=== PATIENT | male | born 1950 | race Caucasian/White ===

== ENCOUNTER 2018-12-23 15:16 | Inpatient (IN) | payer OTHER, SELFPAY ==
[2018-12-23 15:52] LABS: Absolute Lymphocytes (CBC) 1.5 K/uL (0.7-4.9); Basophils % 0.3 % (0-1.3); Hematocrit 31.5 % (39.6-49.0); Lymphocytes % 15.8 % (15.3-44.8); MPV 9.7 fL (7.6-11.3)
[2018-12-23 15:54] LABS: Protime INR 2.02
[2018-12-23] MEDS ORDERED: IPRATROPIUM BROM 0.5MG/2.5ML ONE (16:10)
[2018-12-23] MEDS ORDERED: METHYLPREDNISOLONE 125 MG INJ ONE (16:10)
[2018-12-23] MEDS ORDERED: LEVALBUTEROL 1.25 MG/3 ML NEB ONE (16:10)
[2018-12-23] MEDS ORDERED: FAMOTIDINE 20 MG/2 ML VIAL IV ONE (16:11)
[2018-12-23] MEDS ORDERED: NA CHLORIDE 0.9% 1,000 ML ONE (16:11)
[2018-12-23 16:18] LABS: ALT/SGPT 24 U/L (12-78); AST/SGOT 29 U/L (15-37); Albumin 4.2 g/dL (3.4-5.0); Alkaline Phosphatase 65 U/L (45-117); BUN Blood Urea Nitrogen 23 mg/dL (7-18); Bicarbonate 27 mmol/L (21-32); Bilirubin Direct 0.2 mg/dL (0-0.2); Bilirubin Total 0.9 mg/dL (0.2-1.0); Glucose Level 102 mg/dL (74-106); Magnesium 2.1 mg/dL (1.8-2.4); NT PRO-BNP 1403 pg/mL (<125); Potassium 4.3 mmol/L (3.5-5.1); Sodium Level 140 mmol/L (136-145); Troponin (Emerg Dept Use Only) < 0.02 ng/mL (0.0-0.045)
--- NOTE | 2018-12-23 16:21 | RAD REPORT ---
EXAM DESCRIPTION: RAD - Chest Single View - 12/23/2018 4:01 pm CLINICAL HISTORY: Chest pain COMPARISON: None. TECHNIQUE: AP portable chest image was obtained 1558 hours . FINDINGS: No focal lung parenchymal process. No failure or volume overload. Sternotomy wires are in place. Pacemaker/defibrillator in place. Heart and vasculature are normal. No measurable pleural effu christopher and no pneumothorax. No acute bony abnormality seen. No acute aortic findings suspected. IMPRESSION: No acute cardiopulmonary process.
--- NOTE | 2018-12-23 16:29 | ER ---
Nurse's Notes [facility] Name: Juan Aranda Age: 68 yrs Sex: Male : 1950 Arrival Date: 12/23/2018 Time: 15:17 Bed 4 Private MD: Diagnosis: Other chest pain;Chronic obstructive pulmonary disease with (acute) exacerbation;Tobacco abuse counseling;Tobacco use;Unspecified kidney failure;Anemia, unspecified Presentation: 12/23 15:13 Presenting complaint: EMS states: CP since waking up at 1300, c/o cough/congestion x 2 sv days. Transition of care: patient was not received from another setting of care. Onset of symptoms was December 23, 2018. Risk Assessment: Do you want to hurt yourself or someone else? Patient reports no desire to harm self or others. Initial Sepsis Screen: Does the patient meet any 2 criteria? No. Patient's initial sepsis screen is negative. Does the patient have a suspected source of infection? Yes: Productive cough/pneumonia. Care prior to arrival: IV initiated. 20 GA, in the right antecubital area, Oxygen administered. via nasal cannula. 15:13 Method Of Arrival: EMS: [facility] sv 15:13 Acuity: DENNIS 2 sv Triage Assessment: 15:13 General: Appears in no apparent distress. uncomfortable, unkempt, well developed, sv Behavior is calm, cooperative, appropriate for age. Pain: Complains of pain in chest Pain currently is 8 out of 10 on a pain scale. Neuro: Level of Consciousness is awake, alert, obeys commands, Oriented to person, place, time, situation, Moves all extremities. Full function Speech is normal. Cardiovascular: Patient's skin is warm and dry. Rhythm is ventricular pacer. Respiratory: Reports cough that is productive, Airway is patent Respiratory effort is even, unlabored, Respiratory pattern is regular, symmetrical. Derm: Skin is normal. Musculoskeletal: Range of motion: intact in all extremities. Historical: - Allergies: 15:23 No Known Allergies; sv - Home Meds: 15:38 potassium chloride 10 mEq Oral cpER [Active]; atorvastatin 20 mg oral tab [Active]; sv Coreg 6.25 mg Oral tab [Active]; levothyroxine 200 mcg tab [Active]; clonazepam 0.5 mg Oral tab [Active]; bisoprolol 5 mg [Active]; Entresto 24-26 mg oral tab [Active]; Lasix 40 mg Oral tab [Active]; warfarin 4 mg Oral tab [Active]; - PSHx: 15:23 Pacemaker; artificial heart valve; cardiac stents; sv - Immunization history:: Adult Immunizations up to date. - Family history:: not pertinent. - Social history:: Smoking status: Patient uses tobacco products. - Ebola Screening: : No symptoms or risks identified at this time. Screenin:20 Abuse screen: Denies threats or abuse. Denies injuries from another. Nutritional sv screening: No deficits noted. Tuberculosis screening: No symptoms or risk factors identified. Fall Risk None identified. Assessment: 16:33 Reassessment: Patient appears in no apparent distress at this time. No changes from sv previously documented assessment. Patient and/or family updated on plan of care and expected duration. Pain level reassessed. Patient is alert, oriented x 3, equal unlabored respirations, skin warm/dry/pink. 16:53 Reassessment: Patient appears in no apparent distress at this time. Patient and/or sv family updated on plan of care and expected duration. Pain level reassessed. Patient is alert, oriented x 3, equal unlabored respirations, skin warm/dry/pink. 17:36 Reassessment: Patient appears in no apparent distress at this time. No changes from sv previously documented assessment. Patient and/or family updated on plan of care and expected duration. Pain level reassessed. Patient is alert, oriented x 3, equal unlabored respirations, skin warm/dry/pink. 18:23 Reassessment: Patient appears in no apparent distress at this time. No changes from sv previously documented assessment. Patient and/or family updated on plan of care and expected duration. Pain level reassessed. Patient is alert, oriented x 3, equal unlabored respirations, skin warm/dry/pink. Vital Signs: 15:23 BP 140 / 60; Pulse 86; Resp 28; Temp 98(O); Pulse Ox 96% on 2 lpm NC; sv 16:25 BP 133 / 90; Pulse 86; Resp 23; Pulse Ox 100% on Nebulizer Mask; sv 17:36 BP 121 / 70; Pulse 83; Resp 24; Pulse Ox 100% on 2 lpm NC; sv 18:30 BP 145 / 64; Pulse 81; Resp 19 S; Pulse Ox 99% on R/A; jl7 ED Course: 15:13 Maintain EMS IV. Dressing intact. Good blood return noted. Site clean \T\ dry. Gauge \T\ sv site: 20G R AC. 15:17 Patient arrived in ED. ss 15:20 Patient has correct armband on for positive identification. Placed in gown. Bed in low sv position. Call light in reach. Side rails up X2. quality assurance monitor chassis on. Pulse ox on. NIBP on. Door closed. Warm blanket given. Head of bed elevated. 15:21 Kirti Johnsno, RN is Primary Nurse. sv 15:22 Triage completed. sv 15:23 EKG done, by pharmacy intake technician. reviewed by Franklin Monk MD. at1 15:30 Initial lab(s) drawn, by ED staff, sent to lab. sv 15:30 Oxygen administration via nasal cannula \T\ 2L/min. sv 15:32 Franklin Monk MD is Attending Physician. holden 15:39 Arm band placed on. sv 15:48 Basic Metabolic Panel Sent. sv 15:48 CBC with Diff Sent. sv 15:48 LFT's Sent. sv 15:48 Magnesium Sent. sv 15:48 NT PRO-BNP Sent. sv 15:48 PT-INR Sent. sv 15:48 Troponin (emerg Dept Use Only) Sent. sv 15:59 X-ray completed. Portable x-ray completed in exam room. Patient tolerated procedure mh1 well. 16:21 XRAY Chest (1 view) In Process Unspecified. EDMS 16:26 Nadja Garcia MD is Hospitalizing Provider. holden 16:32 Katlin Simpson MD is Hospitalizing Provider. holden 17:36 Awaiting bed assignment. sv 18:19 Urine Dipstick--Ancillary (enter results) Sent. sv 18:22 No provider procedures requiring assistance completed. Patient admitted, IV remains in sv place. intact. Administered Medications: 16:00 Drug: Pepcid 20 mg Route: IVP; Site: left hand; jl7 16:34 Follow up: Response: No adverse reaction sv 16:25 Drug: NS 0.9% 1000 ml Route: IV; Rate: 30 ml/hr; Site: left hand; jl7 18:40 Follow up: Response: No adverse reaction; IV Status: Infusion continued upon admission jl7 16:26 Drug: SOLU-Medrol 125 mg Route: IVP; Site: left hand; jl7 16:34 Follow up: Response: No adverse reaction sv 16:30 Drug: Xopenex 3.75 mg Route: Inhalation; jl7 17:00 Follow up: Response: No adverse reaction jl7 16:30 Drug: AtroVENT Aerosol 0.5 mg Route: Inhalation; jl7 17:00 Follow up: Response: No adverse reaction jl7 16:53 Drug: Coumadin 5 mg Route: PO; sv 17:36 Follow up: Response: No adverse reaction sv Outcome: 16:27 Decision to Hospitalize by Provider. holden 18:30 Admitted to Tele accompanied by tech, via stretcher, room 203, with chart, Report jl7 called to [facility] 18:30 Condition: stable 18:30 Discharge instructions given to patient, Instructed on the need for admit, Demonstrated understanding of instructions. 18:43 Patient left the ED. jl7 Signatures: Dispatcher [employer] EDKirti Ibanez RN RN sv Anderson, Corey, MD MD cha Harvey, Martha 1 Diana Arteaga RN RN ss Gonzales, Amanda, line service person EKG Tat1 Amira Wood RN RN jl7 Corrections: (The following items were deleted from the chart) 15:36 15:23 BP 140 / 60; Pulse 86bpm; Resp 28bpm; Pulse Ox 96% 2 lpm Nasal Cannula; sv sv
--- NOTE | 2018-12-23 16:30 | EDPHYS ---
Physician Documentation [facility] Name: Juan Aranda Age: 68 yrs Sex: Male : 1950 Arrival Date: 12/23/2018 Time: 15:17 Bed 4 Private MD: ED Physician Franklin Monk HPI: 12/23 15:49 This 68 yrs old Male presents to ER via EMS with complaints of Chest Pain > holden 30 y/o, Cough, Congestion. 15:49 The patient or guardian reports chest pain that is located primarily in the substernal holden area, anterior chest wall, bilaterally. Onset: just prior to arrival, today. The pain does not radiate. Associated signs and symptoms: Pertinent positives: dizziness, shortness of breath. The chest pain is described as a heaviness, a pressure. Modifying factors: The symptoms are alleviated by nothing. the symptoms are aggravated by nothing. Severity of pain: At its worst the pain was mild moderate in the emergency department the pain is unchanged. The patient has experienced similar episodes in the past, several times. Historical: - Allergies: 15:23 No Known Allergies; sv - Home Meds: 15:38 potassium chloride 10 mEq Oral cpER [Active]; atorvastatin 20 mg oral tab [Active]; sv Coreg 6.25 mg Oral tab [Active]; levothyroxine 200 mcg tab [Active]; clonazepam 0.5 mg Oral tab [Active]; bisoprolol 5 mg [Active]; Entresto 24-26 mg oral tab [Active]; Lasix 40 mg Oral tab [Active]; warfarin 4 mg Oral tab [Active]; - PSHx: 15:23 Pacemaker; artificial heart valve; cardiac stents; sv - Immunization history:: Adult Immunizations up to date. - Family history:: not pertinent. - Social history:: Smoking status: Patient uses tobacco products. - Ebola Screening: : No symptoms or risks identified at this time. ROS: 15:49 Constitutional: Negative for fever, chills, and weight loss, Eyes: Negative for injury, holden pain, redness, and discharge, ENT: Negative for injury, pain, and discharge, Neck: Negative for injury, pain, and swelling, Abdomen/GI: Negative for abdominal pain, nausea, vomiting, diarrhea, and constipation, Back: Negative for injury and pain, : Negative for injury, bleeding, discharge, and swelling, MS/Extremity: Negative for injury and deformity, Neuro: Negative for headache, weakness, numbness, tingling, and seizure, Psych: Negative for depression, anxiety, suicide ideation, homicidal ideation, and hallucinations, Allergy/Immunology: Negative for hives, rash, and allergies, Endocrine: Negative for neck swelling, polydipsia, polyuria, polyphagia, and marked weight changes, Hematologic/Lymphatic: Negative for swollen nodes, abnormal bleeding, and unusual bruising. 15:49 Cardiovascular: Positive for chest pain. 15:49 Respiratory: Positive for cough, shortness of breath, wheezing, inspiratory, expiratory. 15:49 Skin: Positive for pallor. Exam: 15:49 Constitutional: This is a well developed, well nourished patient who is awake, alert, holden and in no acute distress. Head/Face: Normocephalic, atraumatic. Eyes: Pupils equal round and reactive to light, extra-ocular motions intact. Lids and lashes normal. Conjunctiva and sclera are non-icteric and not injected. Cornea within normal limits. Periorbital areas with no swelling, redness, or edema. ENT: Nares patent. No nasal discharge, no septal abnormalities noted. Tympanic membranes are normal and external auditory canals are clear. Oropharynx with no redness, swelling, or masses, exudates, or evidence of obstruction, uvula midline. Mucous membranes moist. Neck: Trachea midline, no thyromegaly or masses palpated, and no cervical lymphadenopathy. Supple, full range of motion without nuchal rigidity, or vertebral point tenderness. No Meningismus. Chest/axilla: Normal chest wall appearance and motion. Nontender with no deformity. No lesions are appreciated. Cardiovascular: Regular rate and rhythm with a normal S1 and S2. No gallops, murmurs, or rubs. Normal PMI, no JVD. No pulse deficits. Abdomen/GI: Soft, non-tender, with normal bowel sounds. No distension or tympany. No guarding or rebound. No evidence of tenderness throughout. Back: No spinal tenderness. No costovertebral tenderness. Full range of motion. Male : Normal genitalia with no discharge or lesions. Skin: Warm, dry with normal turgor. Normal color with no rashes, no lesions, and no evidence of cellulitis. MS/ Extremity: Pulses equal, no cyanosis. Neurovascular intact. Full, normal range of motion. Neuro: Awake and alert, GCS 15, oriented to person, place, time, and situation. Cranial nerves II-XII grossly intact. Motor strength 5/5 in all extremities. Sensory grossly intact. Cerebellar exam normal. Normal gait. Psych: Awake, alert, with orientation to person, place and time. Behavior, mood, and affect are within normal limits. 15:49 Respiratory: mild respiratory distress is noted, Respirations: labored breathing, that is mild, Breath sounds: decreased breath sounds, that are mild, that are moderate, rhonchi, that are mild, stridor, that is mild, + upper airway congestion. Respiratory rate: 28 Vital Signs: 15:23 BP 140 / 60; Pulse 86; Resp 28; Temp 98(O); Pulse Ox 96% on 2 lpm NC; sv 16:25 BP 133 / 90; Pulse 86; Resp 23; Pulse Ox 100% on Nebulizer Mask; sv 17:36 BP 121 / 70; Pulse 83; Resp 24; Pulse Ox 100% on 2 lpm NC; sv 18:30 BP 145 / 64; Pulse 81; Resp 19 S; Pulse Ox 99% on R/A; jl7 MDM: 15:[address] [facility] 15:52 Data reviewed: vital signs, nurses notes, lab test result(s), EKG, radiologic studies, holden plain films. 12/23 15:35 Order name: Basic Metabolic Panel 12/23 15:35 Order name: CBC with Diff 12/23 15:35 Order name: LFT's 12/23 15:35 Order name: Magnesium sv 12/23 15:35 Order name: NT PRO-BNP sv 12/23 15:35 Order name: PT-INR sv 12/23 15:35 Order name: Troponin (emerg Dept Use Only) sv 12/23 15:35 Order name: Blood Culture Adult (2) 12/23 15:49 Order name: Lipase [facility] 12/23 15:57 Order name: CBC with Automated Diff; Complete Time: 16:24 EDKY 12/23 15:59 Order name: Protime (+INR); Complete Time: 16:24 EDMS 12/23 16:20 Order name: Liver (Hepatic) Function EDKY 12/23 16:20 Order name: Troponin (Emerg Dept Use Only) EDKY 12/23 16:20 Order name: NT PRO-BNP EDKY 12/23 15:35 Order name: XRAY Chest (1 view) 12/23 15:35 Order name: EKG; Complete Time: 15:38 sv 12/23 15:35 Order name: Cardiac monitoring; Complete Time: 15:35 sv 12/23 15:35 Order name: EKG - Nurse/Tech; Complete Time: 15:35 sv 12/23 15:35 Order name: IV Saline Lock; Complete Time: 15:35 sv 12/23 15:35 Order name: Labs collected and sent; Complete Time: 15:36 sv 12/23 15:35 Order name: O2 Per Protocol; Complete Time: 15:36 sv 12/23 16:20 Order name: Magnesium EDKY 12/23 17:58 Order name: Urine Dipstick--Ancillary (enter results) em 12/23 18:21 Order name: Urine Dipstick-Ancillary EDKY 12/23 15:35 Order name: O2 Sat Monitoring; Complete Time: 15:36 sv 12/23 15:49 Order name: Urine Dipstick-Ancillary (obtain specimen); Complete Time: 18:19 holden Administered Medications: 16:00 Drug: Pepcid 20 mg Route: IVP; Site: left hand; jl7 16:34 Follow up: Response: No adverse reaction sv 16:25 Drug: NS 0.9% 1000 ml Route: IV; Rate: 30 ml/hr; Site: left hand; jl7 18:40 Follow up: Response: No adverse reaction; IV Status: Infusion continued upon admission jl7 16:26 Drug: SOLU-Medrol 125 mg Route: IVP; Site: left hand; jl7 16:34 Follow up: Response: No adverse reaction sv 16:30 Drug: Xopenex 3.75 mg Route: Inhalation; jl7 17:00 Follow up: Response: No adverse reaction jl7 16:30 Drug: AtroVENT Aerosol 0.5 mg Route: Inhalation; jl7 17:00 Follow up: Response: No adverse reaction jl7 16:53 Drug: Coumadin 5 mg Route: PO; sv 17:36 Follow up: Response: No adverse reaction sv Disposition: 12/23/18 16:27 Hospitalization ordered by Katlin Simpson for Inpatient Admission. Preliminary diagnosis are Other chest pain, Chronic obstructive pulmonary disease with (acute) exacerbation, Tobacco abuse counseling, Tobacco use, Unspecified kidney failure, Anemia, unspecified. - Bed requested for Telemetry/MedSurg (Inpatient). - Status is Inpatient Admission. jl7 - Condition is Fair. - Problem is new. - Symptoms have improved. UTI on Admission? No Signatures: Dispatcher [employer] EDKirti Ibanez RN RN sv Anderson, Corey, MD MD cha Martinez, Eric em1 Amira Wood RN RN jl7 Corrections: (The following items were deleted from the chart) 16:33 16:27 Hospitalization Ordered by Nadja Garcia MD for Inpatient Admission. Preliminary [facility] diagnosis is Other chest pain; Chronic obstructive pulmonary disease with (acute) exacerbation; Tobacco abuse counseling; Tobacco use. Bed requested for Telemetry/MedSurg (Inpatient). Status is Inpatient Admission. Condition is Fair. Problem is new. Symptoms have improved. UTI on Admission? No. holden 16:48 16:33 12/23/2018 16:27 Hospitalization Ordered by Katlin Simpson MD for Inpatient holden Admission. Preliminary diagnosis is Other chest pain; Chronic obstructive pulmonary disease with (acute) exacerbation; Tobacco abuse counseling; Tobacco use. Bed requested for Telemetry/MedSurg (Inpatient). Status is Inpatient Admission. Condition is Fair. Problem is new. Symptoms have improved. UTI on Admission? No. holden 17:47 16:48 12/23/2018 16:27 Hospitalization Ordered by Katlin Simpson MD for Inpatient em1 Admission. Preliminary diagnosis is Other chest pain; Chronic obstructive pulmonary disease with (acute) exacerbation; Tobacco abuse counseling; Tobacco use; Unspecified kidney failure; Anemia, unspecified. Bed requested for Telemetry/MedSurg (Inpatient). Status is Inpatient Admission. Condition is Fair. Problem is new. Symptoms have improved. UTI on Admission? No. holden 18:43 17:47 12/23/2018 16:27 Hospitalization Ordered by Katlin Simpson MD for Inpatient jl7 Admission. Preliminary diagnosis is Other chest pain; Chronic obstructive pulmonary disease with (acute) exacerbation; Tobacco abuse counseling; Tobacco use; Unspecified kidney failure; Anemia, unspecified. Bed requested for Telemetry/MedSurg (Inpatient). Status is Inpatient Admission. Condition is Fair. Problem is new. Symptoms have improved. UTI on Admission? No. em1
[2018-12-23] MEDS ORDERED: WARFARIN SODIUM 5 MG TAB ONE (16:46)
--- NOTE | 2018-12-23 17:34 | EKG ---
Test Date: 2018-12-23 Test Time: 15:20:47 Digital Strategy Director: LUIS FERNANDO MEASUREMENT RESULTS: Intervals: Rate: 84 GA: 120 QRSD: 140 QT: 428 QTc: 505 [place]: P: 91 GA: 120 QRS: 247 T: 69 INTERPRETIVE STATEMENTS: Electronic ventricular pacemaker No previous ECG available for comparison Electronically Signed On 12-23-18 17:33:37 CDT by Brandyn Elizabeth
--- NOTE | 2018-12-23 17:53 | P.HP ---
Patient History Date of Service: 12/23/18 Primary Care Provider: Dr. Patel; Recapper: Dr. davies Reason for admission: Chest pain History of Present Illness: This is a 60-year-old male with history of current smoking, CHF, artificial aortic heart valve common CAD with cardiac stents, pacemaker in place admitted for chest pain. Per patient, chest pain started at 1:00 p.m. prior to arrival. Pain started at rest, after he woke up from his nap. Pain is located in the substernal area without any radiation. Describes it as a pressure/heaviness. Pain is associated with nausea and shortness of breath. He does complain of a cough. Denies any dizziness, headache, vision changes, lightheadedness, speech changes or or other GI complaints. Since the pain was not improving, patient decided to come to the ER. In the ER, blood pressure was 140/60, heart rate of 86, respirations 20, afebrile at 98, satting 96% on 2 L nasal cannula and then 100% on mask. His labs were remarkable for an elevated creatinine of 1.65 and a low platelet count of 110. His proBNP was slightly elevated at 1403. His chest x-ray was negative. In the ER, he received Pepcid, nebulizer treatment, Solu-Medrol, IV fluids and warfarin 5 mg. At the time of my exam, he was in mild to moderate distress but stated that his chest pain had improved. He continued to complain of cough. He was hemodynamically stable but did have tachypnea on exam. Home medications list reviewed: Yes - Past Medical/Surgical History Diabetic: No -: Systolic congestive heart failure -: Prosthetic Aortic valve -: Pacemaker in place -: Coronary artery disease, with stents -: Thyroid disease -: Hyperlipidemia - Social History Smoking Status: Current every day smoker Alcohol use: No CD- Drugs: No Place of Residence: Home Review of Systems 10-point ROS is otherwise unremarkable Physical Examination - Physical Exam General: Alert, Oriented x3, Mild distress, Other (Looks older than stated age, ill appearing) HEENT: Atraumatic, PERRLA, Mucous membr. moist/pink, EOMI, Sclerae nonicteric Neck: Supple, 2+ carotid pulse no bruit, No LAD, Without JVD or thyroid abnormality Respiratory: Diminished, Crackles/rales, Other (Tachypneic) Cardiovascular: Regular rate/rhythm, Normal S1 S2 Gastrointestinal: Normal bowel sounds, No tenderness Musculoskeletal: No tenderness Integumentary: No rashes Neurological: Normal speech, Normal strength at 5/5 x4 extr, Normal tone, Normal affect Lymphatics: No axilla or inguinal lymphadenopathy - Studies Laboratory Data (last 24 hrs) 12/23/18 15:30: PT 23.2 H, INR 2.02 12/23/18 15:30: WBC 9.2, Hgb 10.5 L, Hct 31.5 L, Plt Count 110 L 12/23/18 15:30: Sodium 140, Potassium 4.3, BUN 23 H, Creatinine 1.65 H, Glucose 102, Magnesium 2.1, Total Bilirubin 0.9, AST 29, ALT 24, Alkaline Phosphatase 65 Assessment and Plan - Problems (Diagnosis) (1) Unstable angina Current Visit: Yes Status: Acute Plan: Heart score of 5 -troponin negative x1, Trend -EKG with nonspecific changes, Trend -cardiology consulted, awaiting recommendations -chest pain guidelines: Restart bisoprolol and Coreg, statin -nitro sublingual as needed for pain; morphine as needed for pain -echo ordered, pending (2) Acute respiratory failure Current Visit: Yes Status: Acute Plan: Likely secondary to CHF exacerbation -patient with a history of systolic CHF with depressed ejection (upon chart review) -restart Lasix and entresto -hold IV fluids, fluid restriction -provide oxygen as needed. We will wean off of oxygen as tolerated. Qualifiers: Respiratory failure complication: unspecified whether with hypoxia or hypercapnia Qualified Code(s): J96.00 - Acute respiratory failure, unspecified whether with hypoxia or hypercapnia (3) Congestive heart failure (CHF) Current Visit: Yes Status: Chronic Plan: Will restart home medications. -cardiology consulted, awaiting recommendations -echo ordered, pending -daily weights -strict I&Os -fluid restriction Qualifiers: Heart failure type: systolic Heart failure chronicity: acute on chronic Qualified Code(s): I50.23 - Acute on chronic systolic (congestive) heart failure (4) Acute kidney injury Current Visit: Yes Status: Acute Plan: This could be secondary to volume overload -continue to monitor -avoid nephrotoxic medications -will get nephrology consult if no improvement or worsening kidney function (5) History of prosthetic aortic valve Current Visit: No Status: Chronic Plan: On warfarin for anticoagulation -current INR 2.02 -continue Warfarin and continue to monitor INR (6) CAD (coronary artery disease) Current Visit: No Status: Chronic Qualifiers: Coronary Disease-Associated Artery/Lesion type: unga artery [place] vs. transplanted heart: unga heart Associated angina: with unstable angina Qualified Code(s): I25.110 - Atherosclerotic heart disease of unga coronary artery with unstable angina pectoris (7) Pacemaker Current Visit: No Status: Chronic (8) Nicotine dependence Current Visit: Yes Status: Chronic Plan: Counseled, more than 10 min Qualifiers: Nicotine product type: cigarettes Substance use status: uncomplicated Qualified Code(s): F17.210 - Nicotine dependence, cigarettes, uncomplicated - Plan DVT prophylaxis: Warfarin, as above GI prophylaxis: pepcid Diet: Heart healthy Disposition: Admit to floor with tele, pending cardiology evaluation. Discharge Plan: Home - Advance Directives Does patient have a Living Will: No Does patient have a Durable POA for Healthcare: No
[2018-12-23] MEDS ORDERED: TETANUS & DIPHTHERIA TOX,ADULT 0.5 ML VIAL ONE (18:02)
[2018-12-23 18:20] LABS: Urine Blood 2+ (NEG); Urine Glucose NEGATIVE (NEG); Urine Protein 1+ (NEG); Urine pH 5.5 (5.0-7.0)
[2018-12-23] MEDS ORDERED: ONDANSETRON 4 MG/2 ML VIAL IV PRN (19:03)
[2018-12-23] MEDS: IPRATROPIUM BROM 0.5MG/2.5ML NEB SCH (19:55)
[2018-12-23] MEDS: CARVEDILOL 6.25 MG TAB PO SCH (20:20)
[2018-12-23] MEDS: SACUBITRIL/VALSARTAN 24/26 MG TAB PO SCH (20:21)
[2018-12-24 00:39] VITALS: BMI 37.5
[2018-12-24] MEDS: IPRATROPIUM BROM 0.5MG/2.5ML NEB SCH ×5 (01:00→20:00)
[2018-12-24 06:27] LABS: Absolute Lymphocytes (CBC) 0.8 K/uL (0.7-4.9); Basophils % 0.1 % (0-1.3); Hematocrit 30.5 % (39.6-49.0); Lymphocytes % 8.8 % (15.3-44.8); MPV 9.9 fL (7.6-11.3); RBC Red Blood Cell Count 3.24 M/uL (4.33-5.43)
[2018-12-24 06:45] LABS: Albumin 3.7 g/dL (3.4-5.0); Bilirubin Total 0.6 mg/dL (0.2-1.0); Phosphorus 2.1 mg/dL (2.5-4.9); Potassium 4.6 mmol/L (3.5-5.1)
[2018-12-24 06:49] LABS: Protime INR 2.68
[2018-12-24] MEDS ORDERED: PNEUMOCOCCAL VACCINE 0.5 ML IMVAC ONE (08:00)
[2018-12-24] MEDS ORDERED: MORPHINE 2 MG/ML SYR IV ONE (08:03)
[2018-12-24] MEDS: FUROSEMIDE 20 MG/ 2ML VIAL IV SCH ×2 (08:16→16:53)
[2018-12-24] MEDS: CARVEDILOL 6.25 MG TAB PO SCH ×2 (08:22→21:27)
[2018-12-24] MEDS: SACUBITRIL/VALSARTAN 24/26 MG TAB PO SCH ×2 (08:22→21:28)
[2018-12-24] MEDS ORDERED: BISOPROLOL 5 MG TABLET PO SCH (09:00)
[2018-12-24 09:57] LABS: Platelet Estimate DECR; Urine White Blood Cell Casts OK
[2018-12-24 10:08] LABS: Anisocytosis 1+; Blood Morphology Comment NOTED (NOT SEEN)
[2018-12-24] MEDS ORDERED: clonazePAM 0.5 MG TAB PO PRN (10:11)
[2018-12-24] MEDS: HYDROMORPHONE HCL 1 MG/ML INJ IV PRN ×2 (10:42→16:53)
--- NOTE | 2018-12-24 11:41 | ECHO ---
HEIGHT: 5 ft 4 in WEIGHT: 218 lb 11.2 oz DATE OF STUDY: 12/24/[address]: Katlin Simpson MD 2-DIMENSIONAL: YES M.MODE: YES DOPPLER: YES COLOR FLOW: YES TDS: YES PORTABLE: NO DEFINITY: NO BUBBLE STUDY: NO DIAGNOSIS: CHEST PAIN CARDIAC HISTORY: CATHERIZATION: YES SURGERY: YES PROSTHETIC VALVE: YES PACEMAKER: YES MEASUREMENTS (cm) DIASTOLIC (NORMALS) SYSTOLIC (NORMALS) IVSd 1.4 (0.6-1.2) LA Diam 4.8 (1.9-4.0) LVEF 45-49% LVIDd 4.5 (3.5-5.7) LVIDs 3.3 (2.0-3.5) %FS 26% LVPWd 1.4 (0.6-1.2) Ao Diam 3.3 (2.0-3.7) 2 DIMENSIONAL ASSESSMENT: RIGHT ATRIUM: DILATED LEFT ATRIUM: DILATED RIGHT VENTRICLE: PACEMAKER IN RIGHT VENTRICLE LEFT VENTRICLE: LEFT VENTRICULAR HYPERTROPHY TRICUSPID VALVE: NORMAL MITRAL VALVE: NORMAL PULMONIC VALVE: NORMAL AORTIC VALVE: MECHANICAL PROSTHESIS PERICARDIAL EFFUSION: NONE AORTIC ROOT: LEFT VENTRICULAR WALL MOTION: MILD GLOBAL HYPOKINESIS. DOPPLER/COLOR FLOW: NORMAL PROSTHETIC VALVE DOPPLER. NO MITRAL STENOSIS, MITRAL REGURGITATION, TRICUSPID REGURGITATION. COMMENTS: MILDLY DEPRESSED LEFT VENTRICULAR EJECTION FRACTION. LEFT VENTRICULAR HYPERTROPHY. DILATED LEFT AND RIGHT ATRIUM. PACEMAKER IN RIGHT VENTRICLE. MECHANICAL AORTIC VALVE PRSTHESIS. NORMAL CARDIAC DOPPLER. TECHNOLOGIST: SHAGUFTA BRITO
--- NOTE | 2018-12-24 12:18 | RAD REPORT ---
EXAM DESCRIPTION: RAD - Chest Single View - 12/24/2018 12:10 pm CLINICAL HISTORY: SOB Chest pain. COMPARISON: Chest Single View dated 12/23/2018 FINDINGS: Portable technique limits examination quality. The lungs are grossly clear. The heart is normal in size. Sternotomy wires present. Pacer device is p resent. IMPRESSION: No acute intrathoracic process suspected.
--- NOTE | 2018-12-24 12:32 | P.PN ---
Subjective Date of Service: 12/24/18 Primary Care Provider: Dr. Patel; Procedure Manager: Dr. davies Chief Complaint: Chest pain Patient seen and examined at bedside. No family at bedside. Chart reviewed and case discussed with nursing staff and Dr. davies Patient complaining of leg pain this am, otherwise doing okay. No acute events noted overnight. Review of Systems 10-point ROS is otherwise unremarkable Physical Examination - Vital Signs Temperature: 97.1 F Blood Pressure: 104/60 Pulse: 76 Respirations: 19 Pulse Ox (%): 97 - Physical Exam General: Alert, Oriented x3, Mild distress, Moderate distress HEENT: Atraumatic, PERRLA, EOMI Neck: Supple, JVD not distended Respiratory: Clear to auscultation bilaterally, Normal air movement Cardiovascular: Regular rate/rhythm, Normal S1 S2 Gastrointestinal: Normal bowel sounds, No tenderness Musculoskeletal: No swelling, No contractures, No erythema, No tenderness, No warmth Integumentary: No rashes Neurological: Normal speech, Normal tone, Normal affect Lymphatics: No axilla or inguinal lymphadenopathy - Studies Laboratory Data (last 24 hrs) 12/23/18 15:30: Lipase 94 12/23/18 15:30: PT 23.2 H, INR 2.02 12/23/18 15:30: WBC 9.2, Hgb 10.5 L, Hct 31.5 L, Plt Count 110 L 12/23/18 15:30: Sodium 140, Potassium 4.3, BUN 23 H, Creatinine 1.65 H, Glucose 102, Magnesium 2.1, Total Bilirubin 0.9, AST 29, ALT 24, Alkaline Phosphatase 65 Assessment And Plan - Current Problems (Diagnosis) (1) Unstable angina Current Visit: Yes Status: Acute Plan: Heart score of 5 -troponin negative x3 -EKG with nonspecific changes, Trend -cardiology consulted, recommendations appreciated. -chest pain guidelines: Continue Coreg, statin, ACEi, and warfarin -nitro sublingual as needed for pain; morphine as needed for pain -echo done, shows mild global hypokinesis with an EF of 46-40% (improvement from prior EF of 17%) -Pending stress test tomorrow. (2) Acute respiratory failure Current Visit: Yes Status: Acute Plan: Likely secondary to CHF exacerbation; improved. -patient with a history of systolic CHF with depressed ejection (upon chart review) -restart Lasix and entresto -hold IV fluids, fluid restriction -provide oxygen as needed. We will wean off of oxygen as tolerated. Qualifiers: Respiratory failure complication: unspecified whether with hypoxia or hypercapnia Qualified Code(s): J96.00 - Acute respiratory failure, unspecified whether with hypoxia or hypercapnia (3) Congestive heart failure (CHF) Current Visit: Yes Status: Chronic Plan: Will restart home medications. -cardiology consulted, recommendations appreciated. -echo done, shows mild global hypokinesis with an EF of 46-40% (improvement from prior EF of 17%) -daily weights -strict I&Os -fluid restriction Qualifiers: Heart failure type: systolic Heart failure chronicity: acute on chronic Qualified Code(s): I50.23 - Acute on chronic systolic (congestive) heart failure (4) Acute kidney injury Current Visit: Yes Status: Acute Plan: This could be secondary to volume overload; stable -continue to monitor -avoid nephrotoxic medications -will get nephrology consult if no improvement or worsening kidney function (5) History of prosthetic aortic valve Current Visit: No Status: Chronic Plan: On warfarin for anticoagulation -current INR 2.02 -continue Warfarin and continue to monitor INR (6) CAD (coronary artery disease) Current Visit: No Status: Chronic Qualifiers: Coronary Disease-Associated Artery/Lesion type: [place] artery [place] vs. transplanted heart: [place] heart Associated angina: with unstable angina Qualified Code(s): I25.110 - Atherosclerotic heart disease of [place] coronary artery with unstable angina pectoris (7) Pacemaker Current Visit: No Status: Chronic (8) Nicotine dependence Current Visit: Yes Status: Chronic Plan: Counseled, more than 10 min Qualifiers: Nicotine product type: cigarettes Substance use status: uncomplicated Qualified Code(s): F17.210 - Nicotine dependence, cigarettes, uncomplicated - Plan DVT prophylaxis: Warfarin, as above GI prophylaxis: pepcid Diet: Heart healthy Disposition: pending stress test. Anticipate discharge home in the next 24-48 hrs. Discharge Plan: Home Plan to discharge in: 48 Hours
--- NOTE | 2018-12-24 13:46 | CON ---
Identification: A 68-year-old man. Chief Complaint: Pain in the chest, pain in the legs. History Of Present Illness: Mr. Aranda has a mechanical prosthetic aortic valve implanted in 2010. There was no bypass. He has never had coronary bypass surgery, never had stents in his heart. He d oes have a very depressed ejection fraction. The last measurement in 2017 was 17%. He has a biventr icular pacing defibrillator, chronic heart failure, normal functioning valve. He has never required a coronary angioplasty. His last cardiac cath was in 2017, just minimal coronary plaque. The patien t had a 30-minute episode of atypical chest pain at 1 o'clock. Now his chief complaint is that his r ight leg hurts every time he moves it. Medications: Outpatient medications have been Coumadin, Entresto, potassium chloride, clonazepam, le vothyroxine, spironolactone, furosemide, atorvastatin, bisoprolol, and carvedilol. Allergies: HE HAS NO ALLERGIES. Physical Examination: General: He appears to be still older than his stated age. Disheveled. He is 5 feet 4 inches, 218 pounds, obese, alert, oriented, not in distress. Lungs: Clear. Heart: Tones are mechanical prosthetic. I just hear 1 click. Extremities: Mild edema. Abdomen: Soft. The apical impulse is laterally displaced. Laboratory Data: His chest x-ray reveals sternotomy wires, pacemaker defibrillator in place, and the heart does not look particularly enlarged. It could be that his ejection fraction is better since navarro colindres has had his defibrillator, and has been on Entresto. We will see the results of an echo later toda y. His electrocardiogram shows a paced rhythm. Impression: We need to investigate the cause of his leg pain and chest pain. We will do an echo, nu clear stress test. His INR is 2.68 today, which is in the therapeutic range, so we do not want to gi ve any other anticoagulants other than Coumadin at this point. Continue with the same dose and we wi ll see what the other tests show us. I would not recommend that he take both bisoprolol and Coreg. I will take the liberty of stopping the bisoprolol and we will continue the Coreg, may be a higher do se will be needed, we will see. GIRMA/SOPHIE Voice ID: [id number] Report ID: [id number]
[2018-12-24] MEDS ORDERED: POTASS/SODIUM PHOSPHATE 1 PKT POWD.PACK PO ONE (14:00)
[2018-12-24] MEDS: POTASS/SODIUM PHOSPHATE 1 PKT POWD.PACK PO SCH ×3 (14:54→16:58)
[2018-12-24] MEDS: WARFARIN SODIUM 4 MG TAB PO SCH (16:53)
[2018-12-24] MEDS: POTASSIUM CL SA 10 MEQ TAB PO SCH (21:28)
[2018-12-24] MEDS: BENZONATATE 100 MG CAP PO PRN (21:28)
[2018-12-25] MEDS: IPRATROPIUM BROM 0.5MG/2.5ML NEB SCH ×4 (02:00→20:00)
[2018-12-25 05:33] LABS: Absolute Lymphocytes (CBC) 1.2 K/uL (0.7-4.9); Basophils % 0.1 % (0-1.3); Hematocrit 26.9 % (39.6-49.0); Lymphocytes % 11.3 % (15.3-44.8); MPV 9.9 fL (7.6-11.3); Protime INR 3.68; RBC Red Blood Cell Count 2.88 M/uL (4.33-5.43)
[2018-12-25] MEDS: LEVOTHYROXINE SOD 0.1 MG TAB PO SCH ×2 (05:47→11:03)
[2018-12-25 05:51] LABS: Albumin 3.7 g/dL (3.4-5.0); Bilirubin Total 0.4 mg/dL (0.2-1.0); Phosphorus 4.1 mg/dL (2.5-4.9); Potassium 4.4 mmol/L (3.5-5.1); Protein, Total 7.2 g/dL (6.4-8.2)
[2018-12-25] MEDS ORDERED: REGADENOSON 0.4 MG/5 ML SYR IV ONE (08:11)
[2018-12-25] MEDS: HYDROMORPHONE HCL 1 MG/ML INJ IV PRN ×3 (10:15→22:09)
--- NOTE | 2018-12-25 11:01 | RAD REPORT ---
EXAM DESCRIPTION: NM - Rest Stress Cardiac Imaging - 12/25/2018 10:31 am CLINICAL HISTORY: Chest pain. COMPARISON: None. TECHNIQUE: The patient was administered approximately 10mCi of Tc 99m Sestamibi prior to resting SPE CT imaging of the heart. The patient was then administered approximately 30 mCi of Tc 99m Sestamibi f ollowing exercise or pharmacologic stress. Multiplanar SPECT images were reviewed. FINDINGS: Mild to moderate diminished radiotracer activity involves the inferior apical left ventric ular myocardium on rest and stress images. The left ventricular ejection fraction equals 34% IMPRESSION: No evidence of stress-induced ischemia Mild to moderate fixed perfusion defect involving the inferior apical left ventricular myocardium rosita picious for infarct
[2018-12-25] MEDS: BENZONATATE 100 MG CAP PO PRN ×2 (11:02→16:54)
[2018-12-25] MEDS: SPIRONOLACTONE 25 MG TABLET PO SCH (11:03)
[2018-12-25] MEDS: POTASSIUM CL SA 10 MEQ TAB PO SCH ×2 (11:03→20:56)
[2018-12-25] MEDS: SACUBITRIL/VALSARTAN 24/26 MG TAB PO SCH ×2 (11:03→20:56)
[2018-12-25] MEDS: CARVEDILOL 6.25 MG TAB PO SCH ×2 (11:03→21:00)
[2018-12-25] MEDS: FUROSEMIDE 20 MG/ 2ML VIAL IV SCH ×2 (11:04→15:57)
--- NOTE | 2018-12-25 12:03 | TREADPHA ---
DX: CHEST PAIN Date of Study: 12/25/2018 Ht: 5 4 Wt: 218 lb 11.2 oz Consulting Physician: CAIO MEDICATIONS: COREG, KLONOPIN, LASIX, DILAUDID, SYNTHROID HISTORY: HYPERTENSION, CONGESTIVE HEART FAILURE, PACEMAKER, ARTIFICIAL HEART VALVE, CARDIAC STENTS, HIGH CHOLESTEROL, ANXIETY, SMOKER. PHYSICIAL EXAMINATION: RESTING B.P.: 110/66 RESTING H.R.: 75 RESTING EKG: PACED RHYTHM PROTOCOL: LEXISCAN EXERCISE TIME: 3:30 B.P. AT [place] STRESS: 112/63 IMPRESSION: LEXISCAN STRESS TEST PERFORMED PER PROTOCOL. CARDIOLITE INJECTED PER PROTOCOL. NO SUPRAVENTRICULAR TACHYCARDIA OR VENTRICULAR TACHYCARDIA. NO ARRYTHMIAS. PATIENT DENIED CHEST PAIN. PATIENT TOLERATED WELL.
--- NOTE | 2018-12-25 15:42 | P.PN ---
Subjective Date of Service: 12/25/18 Primary Care Provider: Dr. Patel; Brake Drum Molder: Dr. davies Chief Complaint: Chest pain Patient seen and examined at bedside. No family at bedside. Chart reviewed and case discussed with nursing staff and Dr. davies Patient complaining of leg pain this am, more in the groin area. Otherwise doing okay. No acute events noted overnight. Review of Systems 10-point ROS is otherwise unremarkable Physical Examination - Vital Signs Temperature: 97.4 F Blood Pressure: 114/55 Pulse: 74 Respirations: 22 Pulse Ox (%): 92 - Physical Exam General: Alert, In no apparent distress HEENT: Atraumatic, PERRLA, EOMI Neck: Supple, JVD not distended Respiratory: Clear to auscultation bilaterally, Normal air movement Cardiovascular: Regular rate/rhythm, Normal S1 S2 Gastrointestinal: Normal bowel sounds, No tenderness Musculoskeletal: No swelling, No contractures, No erythema, No tenderness, No warmth Integumentary: No rashes Neurological: Normal speech, Normal tone, Normal affect Lymphatics: No axilla or inguinal lymphadenopathy Assessment And Plan - Current Problems (Diagnosis) (1) Unstable angina Current Visit: Yes Status: Acute Plan: Heart score of 5 -troponin negative x3 -EKG with nonspecific changes -cardiology consulted, recommendations appreciated. -chest pain guidelines: Continue Coreg, statin, ACEi, and warfarin -nitro sublingual as needed for pain; morphine as needed for pain -echo done, shows mild global hypokinesis with an EF of 46-40% (improvement from prior EF of 17%) -Stress test negative. -Cleared for discharge from cardiology point of view. (2) Acute respiratory failure Current Visit: Yes Status: Acute Plan: Likely secondary to CHF exacerbation; improved. -patient with a history of systolic CHF with depressed ejection (upon chart review) -restart Lasix and entresto -hold IV fluids, fluid restriction -provide oxygen as needed. Continue to wean off of oxygen as tolerated. Patient not on any home oxygen. Qualifiers: Respiratory failure complication: unspecified whether with hypoxia or hypercapnia Qualified Code(s): J96.00 - Acute respiratory failure, unspecified whether with hypoxia or hypercapnia (3) Congestive heart failure (CHF) Current Visit: Yes Status: Chronic Plan: Will restart home medications. -cardiology consulted, recommendations appreciated. -echo done, shows mild global hypokinesis with an EF of 46-40% (improvement from prior EF of 17%) -daily weights -strict I&Os -fluid restriction Qualifiers: Heart failure type: systolic Heart failure chronicity: acute on chronic Qualified Code(s): I50.23 - Acute on chronic systolic (congestive) heart failure (4) Acute kidney injury Current Visit: Yes Status: Acute Plan: This could be secondary to volume overload; stable -continue to monitor -avoid nephrotoxic medications -will get nephrology consult if no improvement or worsening kidney function (5) History of prosthetic aortic valve Current Visit: No Status: Chronic Plan: On warfarin for anticoagulation -INR therapeutic -continue Warfarin and continue to monitor INR (6) CAD (coronary artery disease) Current Visit: No Status: Chronic Qualifiers: Coronary Disease-Associated Artery/Lesion type: [place] artery [place] vs. transplanted heart: [place] heart Associated angina: with unstable angina Qualified Code(s): I25.110 - Atherosclerotic heart disease of [place] coronary artery with unstable angina pectoris (7) Pacemaker Current Visit: No Status: Chronic (8) Nicotine dependence Current Visit: Yes Status: Chronic Plan: Counseled, more than 10 min Qualifiers: Nicotine product type: cigarettes Substance use status: uncomplicated Qualified Code(s): F17.210 - Nicotine dependence, cigarettes, uncomplicated (9) Leg pain, right Current Visit: Yes Status: Acute Plan: X-ray ordered, pending. PT evaluation ordered - Plan DVT prophylaxis: Warfarin, as above GI prophylaxis: pepcid Diet: Heart healthy Disposition: pending stress test. Anticipate discharge home in the next 24-48 hrs. Discharge Plan: Home Plan to discharge in: 24 Hours
[2018-12-25] MEDS: WARFARIN SODIUM 4 MG TAB PO SCH (15:57)
--- NOTE | 2018-12-25 18:44 | RAD REPORT ---
EXAM DESCRIPTION: RAD - Hip Right 2 View - 12/25/2018 6:39 pm CLINICAL HISTORY: hip pain COMPARISON: No comparisons FINDINGS: No fracture, dislocation or AVN.
[2018-12-26] MEDS: IPRATROPIUM BROM 0.5MG/2.5ML NEB SCH ×2 (02:00→07:14)
[2018-12-26] MEDS: HYDROMORPHONE HCL 1 MG/ML INJ IV PRN ×2 (04:20→10:31)
[2018-12-26 06:15] LABS: Absolute Lymphocytes (CBC) 1.6 K/uL (0.7-4.9); Basophils % 0.1 % (0-1.3); Hematocrit 25.9 % (39.6-49.0); Lymphocytes % 19.4 % (15.3-44.8); RBC Red Blood Cell Count 2.77 M/uL (4.33-5.43)
[2018-12-26] MEDS: LEVOTHYROXINE SOD 0.1 MG TAB PO SCH (06:15)
[2018-12-26 06:16] LABS: Protime INR 3.83
[2018-12-26 06:39] LABS: Albumin 3.6 g/dL (3.4-5.0); Bilirubin Total 0.4 mg/dL (0.2-1.0)
--- NOTE | 2018-12-26 06:51 | PN ---
Date of Progress Note: 12/25/[address] Simpson on 12/23/2018. I saw the patient on 12/25/2018 in followup. The patie nt has a mechanical aortic valve replacement in 2010. No CABG. At that time, he has an ejection fra ction of 17%. Had AICD. Yesterday, however, echocardiogram showed an ejection fraction of 45% to 49 %. Lexiscan that was done today was normal. The patient can go home and certainly follow up with [facility] corporate statistical financial analyst in the next 2 weeks. CANDY/SOPHIE Voice ID: [id number] Report ID: [id number]
[2018-12-26 08:35] VITALS: O2SAT 94
[2018-12-26] MEDS: CARVEDILOL 6.25 MG TAB PO SCH (09:00)
[2018-12-26 09:06] VITALS: BP 104/65; TEMP 97.2
[2018-12-26] MEDS: SPIRONOLACTONE 25 MG TABLET PO SCH (10:11)
[2018-12-26] MEDS: SACUBITRIL/VALSARTAN 24/26 MG TAB PO SCH (10:11)
[2018-12-26] MEDS: POTASSIUM CL SA 10 MEQ TAB PO SCH (10:12)
[2018-12-26] MEDS: FUROSEMIDE 20 MG/ 2ML VIAL IV SCH (10:13)
--- NOTE | 2018-12-26 11:50 | P.DS ---
Admission Date: 12/23/18 Discharge Date: 12/26/18 Primary Care Provider: Dr. Patel; Membership Manager: Dr. davies Disposition: ROUTINE DISCHARGE Discharge Condition: FAIR Reason for Admission: Chest pain Consultations: Cardiology - Problems (1) Unstable angina Current Visit: Yes Status: Resolved (2) Acute respiratory failure Current Visit: Yes Status: Resolved Qualifiers: Respiratory failure complication: unspecified whether with hypoxia or hypercapnia Qualified Code(s): J96.00 - Acute respiratory failure, unspecified whether with hypoxia or hypercapnia (3) Congestive heart failure (CHF) Current Visit: Yes Status: Chronic Qualifiers: Heart failure type: systolic Heart failure chronicity: acute on chronic Qualified Code(s): I50.23 - Acute on chronic systolic (congestive) heart failure (4) Acute kidney injury Current Visit: Yes Status: Acute (5) History of prosthetic aortic valve Current Visit: No Status: Chronic (6) CAD (coronary artery disease) Current Visit: No Status: Chronic Qualifiers: Coronary Disease-Associated Artery/Lesion type: [place] artery [place] vs. transplanted heart: [place] heart Associated angina: with unstable angina Qualified Code(s): I25.110 - Atherosclerotic heart disease of [place] coronary artery with unstable angina pectoris (7) Pacemaker Current Visit: No Status: Chronic (8) Nicotine dependence Current Visit: Yes Status: Chronic Qualifiers: Nicotine product type: cigarettes Substance use status: uncomplicated Qualified Code(s): F17.210 - Nicotine dependence, cigarettes, uncomplicated (9) Leg pain, right Current Visit: Yes Status: Acute Brief History of Present Illness: This is a 60-year-old male with history of current smoking, CHF, artificial aortic heart valve common CAD with cardiac stents, pacemaker in place admitted for chest pain. Per patient, chest pain started at 1:00 p.m. prior to arrival. Pain started at rest, after he woke up from his nap. Pain is located in the substernal area without any radiation. Describes it as a pressure/heaviness. Pain is associated with nausea and shortness of breath. He does complain of a cough. Denies any dizziness, headache, vision changes, lightheadedness, speech changes or or other GI complaints. Since the pain was not improving, patient decided to come to the ER. In the ER, blood pressure was 140/60, heart rate of 86, respirations 20, afebrile at 98, satting 96% on 2 L nasal cannula and then 100% on mask. His labs were remarkable for an elevated creatinine of 1.65 and a low platelet count of 110. His proBNP was slightly elevated at 1403. His chest x-ray was negative. In the ER, he received Pepcid, nebulizer treatment, Solu-Medrol, IV fluids and warfarin 5 mg. At the time of my exam, he was in mild to moderate distress but stated that his chest pain had improved. He continued to complain of cough. He was hemodynamically stable but did have tachypnea on exam. Hospital Course: Patient was admitted for unstable angina, with heart score 5. Troponin remained negative x3. Cardiology was consulted. He was continued on chest pain guidelines. Echocardiogram was done which shows mild global hypokinesis with an ejection fraction of 40-46%. This is an improvement from as prior ejection fraction of 17%. The stress test was done, which was negative for any acute. He was provided with supportive care for his acute respiratory failure. He was provided with IV Lasix and entresto. His symptoms did improve. He was then cleared for discharge by cardiology point of view. Prior to discharge , patient complained of left groin pain/hip pain. An x-ray was done, which was negative for any acute abnormalities. Physical therapy was consulted, patient did well with physical therapy. He did refuse to work with physical therapy on the day of discharge. Prior to discharge, he was alert oriented x3, in no acute distress and hemodynamically stable. He did continue to complain of the pain in the leg, which is improving. He was counseled on smoking cessation, patient not interested at this time. He otherwise remained stable throughout the stay. His diagnoses and treatment plan was explained to him, he verbalized understanding. All questions were answered. He was then discharged home in a safe and stable manner. Vital Signs/Physical Exam: Temp Pulse Resp BP Pulse Ox 97.2 F 83 19 104/65 94 12/26/18 08:00 12/26/18 10:13 12/26/18 10:31 12/26/18 10:13 12/26/18 10:31 General: Alert, In no apparent distress, Oriented x3 HEENT: Atraumatic, PERRLA, EOMI Neck: Supple, JVD not distended Respiratory: Clear to auscultation bilaterally, Normal air movement Cardiovascular: Regular rate/rhythm, Normal S1 S2 Gastrointestinal: Normal bowel sounds, No tenderness Musculoskeletal: No tenderness Integumentary: No rashes Neurological: Normal speech, Normal tone, Normal affect Lymphatics: No axilla or inguinal lymphadenopathy Laboratory Data at Discharge: WBC 8.1 K/uL (4.3-10.9) D 12/26/18 05:43 Hgb 9.0 g/dL (13.6-17.9) L 12/26/18 05:43 Hct 25.9 % (39.6-49.0) L 12/26/18 05:43 Plt Count 109 K/uL (152-406) L 12/26/18 05:43 PT 42.9 SECONDS (9.5-12.5) H 12/26/18 05:43 INR 3.83 12/26/18 05:43 Sodium 141 mmol/L (136-145) 12/26/18 05:43 Potassium 4.0 mmol/L (3.5-5.1) 12/26/18 05:43 BUN 44 mg/dL (7-18) H 12/26/18 05:43 Creatinine 1.98 mg/dL (0.55-1.3) H 12/26/18 05:43 Glucose 109 mg/dL (74-106) H 12/26/18 05:43 Phosphorus 4.1 mg/dL (2.5-4.9) D 12/25/18 05:00 Magnesium 2.1 mg/dL (1.8-2.4) 12/23/18 15:30 Total Bilirubin 0.4 mg/dL (0.2-1.0) 12/26/18 05:43 AST 43 U/L (15-37) H 12/26/18 05:43 ALT 26 U/L (12-78) 12/26/18 05:43 Alkaline Phosphatase 69 U/L (45-117) 12/26/18 05:43 Troponin I < 0.02 ng/mL (0.0-0.045) 12/24/18 07:44 Triglycerides 90 mg/dL (<150) 12/24/18 06:00 Cholesterol 153 mg/dL (<200) 12/24/18 06:00 HDL Cholesterol 50 mg/dL (40-60) 12/24/18 06:00 Cholesterol/HDL Ratio 3.06 12/24/18 06:00 Lipase 94 U/L (73-393) 12/23/18 15:30 Home Medications: Atorvastatin Calcium [Lipitor*] 20 mg PO BEDTIME 12/24/18 Carvedilol [Coreg*] 6.25 mg PO BID 12/24/18 Furosemide [Lasix*] 40 mg PO DAILY 12/24/18 Levothyroxine [Synthroid*] 200 mcg PO [id number] 12/24/18 Potassium Chloride 10 meq PO BID 12/24/18 Sacubitril/Valsartan [Entresto 24 mg-26 mg Tablet] 1 tab PO BID 12/24/18 Spironolactone [Aldactone*] 12.5 mg PO DAILY 12/24/18 Warfarin Sodium [Coumadin*] 4 mg PO DAILY 12/24/18 clonazePAM [Klonopin*] 0.5 mg PO BID PRN 12/24/18 Benzonatate [Tessalon Perle*] 100 mg PO TID PRN #15 cap 12/25/18 New Medications: Benzonatate [Tessalon Perle*] 100 mg PO TID PRN #15 cap PRN Reason: Cough Patient Discharge Instructions: Please follow up with cardiology in 1 week. Return to the [facility] room for worsening symptoms. Diet: AHA Activity: Ad mini Followup: Brandyn Elizabeth MD [ACTIVE - CAN ADMIT] - 1 Week Time spent managing pt's care (in minutes): 55
== END 2018-12-26 12:09 | disposition home health service (06) | DRG 302 ==
LOC: ER 15:16 → EDBD 15:16 → ERHOLD 17:13 → MERGE 17:13 → 2ND 18:36
PROVIDERS: ADMIT Family Medicine; ATTEND Family Medicine
DX: I25.110 Atherosclerotic heart disease of native coronary artery with unstable angina pectoris (principal); J96.00 Acute respiratory failure, unspecified whether with hypoxia or hypercapnia; I50.23 Acute on chronic systolic (congestive) heart failure; N17.9 Acute kidney failure, unspecified; F17.210 Nicotine dependence, cigarettes, uncomplicated; M79.604 Pain in right leg; Z95.2 Presence of prosthetic heart valve; Z95.810 Presence of automatic (implantable) cardiac defibrillator
CPT/HCPCS: 36415; 71045; 78452; 80048; 80053; 80061; 80076; 81003; 83690; 83735; 83880; 84100; 84484; 85025; 85610; 87040; 90714; 93005; 93017; 93306; 94640; 94760; 96361; 96374; 96375; 97112; 97116; 97161; 97530; 99285; A9500; J1170; J1940; J2270; J2785; J2930; J7030

== ENCOUNTER 2019-05-19 16:39 | Inpatient (IN) | payer OTHER ==
[2019-05-19 17:24] LABS: Absolute Lymphocytes (CBC) 1.5 K/uL (0.7-4.9); Basophils % 0.8 % (0-1.3); Hematocrit 31.3 % (39.6-49.0); Lymphocytes % 23.3 % (15.3-44.8); MPV 8.7 fL (7.6-11.3); RBC Red Blood Cell Count 3.48 M/uL (4.33-5.43)
[2019-05-19 17:26] LABS: Protime INR 1.04
[2019-05-19 17:44] LABS: ALT/SGPT 32 U/L (12-78); AST/SGOT 45 U/L (15-37); Albumin 4.1 g/dL (3.4-5.0); Alkaline Phosphatase 54 U/L (45-117); Bilirubin Direct 0.1 mg/dL (0-0.2); Bilirubin Total 0.5 mg/dL (0.2-1.0); Magnesium 2.2 mg/dL (1.8-2.4); Protein, Total 7.7 g/dL (6.4-8.2); Troponin (Emerg Dept Use Only) < 0.02 ng/mL (0.0-0.045)
--- NOTE | 2019-05-19 17:57 | RAD REPORT ---
EXAM DESCRIPTION: RAD - Chest Single View - 05/19/2019 5:21 pm CLINICAL HISTORY: DYSPNEA, chest pain COMPARISON: Chest Pa And Lat (2 Views) dated 11/26/2016 TECHNIQUE: AP portable chest image was obtained 05/19/2019 5:21 pm . FINDINGS: Lungs are clear. Heart and vasculature are normal. No measurable pleural effusion and no p neumothorax. No acute bony abnormality seen. No acute aortic finding. Pacemaker has been placed since prior imaging. IMPRESSION: No acute cardiopulmonary process.
--- NOTE | 2019-05-19 18:12 | EDPHYS ---
Physician Documentation [facility] Name: Juan Aranda Age: 69 yrs Sex: Male : 1950 Arrival Date: 05/19/2019 Time: 16:42 Bed 7 Private MD: KENYATTA Physician Franklin Monk HPI: 05/19 17:11 This 69 yrs old Male presents to ER via EMS with complaints of Chest Pain. jr8 17:11 The patient or guardian reports chest pain that is located primarily in the substernal jr8 area. Onset: acutely, today, 2 hour(s) ago. The pain does not radiate. Associated signs and symptoms: Pertinent positives: shortness of breath. The chest pain is described as a pressure. Duration: The patient or guardian reports a single episode, that is still ongoing. Modifying factors: The symptoms are alleviated by nothing. the symptoms are aggravated by nothing. Severity of pain: At its worst the pain was mild in the emergency department the pain is unchanged. The patient has experienced similar episodes in the past, a few times. The patient has not recently seen a physician. stated that he also noted that he has had black tarry stools for past two days. None this morning. On blood thinners. Has had mild abdominal discomfort as well . 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 - Coronavirus screen:: The patient has NOT traveled to [place], [place], or [place] in the past 14 days. The patient has NOT had contact with known/suspected case of Coronavirus?. - Social history:: Smoking status: Patient reports the use of cigarette tobacco products, 4-5 Cigarettes a day . - Ebola Screening: : No symptoms or risks identified at this time. ROS: 17:11 Eyes: Negative for injury, pain, redness, and discharge, ENT: Negative for injury, jr8 pain, and discharge, Neck: Negative for injury, pain, and swelling, Back: Negative for injury and pain, MS/Extremity: Negative for injury and deformity, Skin: Negative for injury, rash, and discoloration, Neuro: Negative for headache, weakness, numbness, tingling, and seizure. 17:11 Cardiovascular: Positive for chest pain, Negative for edema, orthopnea, palpitations, paroxysmal nocturnal dyspnea. 17:11 Respiratory: Positive for shortness of breath. 17:11 Abdomen/GI: Positive for abdominal pain, black/tarry stool, Negative for nausea, vomiting, and diarrhea, constipation, abdominal cramps, abdominal distension. Exam: 17:11 Eyes: Pupils equal round and reactive to light, extra-ocular motions intact. Lids and jr8 lashes normal. Conjunctiva and sclera are non-icteric and not injected. Cornea within normal limits. Periorbital areas with no swelling, redness, or edema. ENT: Nares patent. No nasal discharge, no septal abnormalities noted. Tympanic membranes are normal and external auditory canals are clear. Oropharynx with no redness, swelling, or masses, exudates, or evidence of obstruction, uvula midline. Mucous membranes moist. Neck: Trachea midline, no thyromegaly or masses palpated, and no cervical lymphadenopathy. Supple, full range of motion without nuchal rigidity, or vertebral point tenderness. No Meningismus. Cardiovascular: Regular rate and rhythm with a normal S1 and S2. No gallops, murmurs, or rubs. Normal PMI, no JVD. No pulse deficits. Respiratory: Lungs have equal breath sounds bilaterally, clear to auscultation and percussion. No rales, rhonchi or wheezes noted. No increased work of breathing, no retractions or nasal flaring. Back: No spinal tenderness. No costovertebral tenderness. Full range of motion. MS/ Extremity: Pulses equal, no cyanosis. Neurovascular intact. Full, normal range of motion. Neuro: Awake and alert, GCS 15, oriented to person, place, time, and situation. Cranial nerves II-XII grossly intact. Motor strength 5/5 in all extremities. Sensory grossly intact. Cerebellar exam normal. Normal gait. 17:11 Abdomen/GI: Inspection: obese Bowel sounds: active, all quadrants, Palpation: soft, in all quadrants, mild abdominal tenderness, in the right lower quadrant, mass, is not appreciated, rebound tenderness, is not appreciated, voluntary guarding, is not appreciated, involuntary guarding, is not appreciated, no appreciated organomegaly, Indicators: McBurney's point is not tender, Conklin's sign is negative, Rovsing's sign is negative, Liver: tenderness, is not appreciated. 17:11 Skin: Appearance: Color: pale, Temperature: cool. 17:56 Abdomen/GI: Rectal exam: is unremarkable, Prostate: normal, rectal tone normal, Stool: jr8 brown, guaiac negative. Vital Signs: 16:45 BP 157 / 91; Pulse 66; Resp 18 S; Temp 97.9(O); Pulse Ox 96% on R/A; Pain 5/10; aa5 17:10 BP 163 / 84; Pulse 67; Resp 16 S; Pulse Ox 97% on R/A; aa5 19:34 BP 158 / 80; Pulse 65; Resp 18; Temp 98; Pulse Ox 98% ; ea 20:33 BP 158 / 84; Pulse 67; Resp 16; Pulse Ox 96% on R/A; ea MDM: 16:48 Patient medically screened. la1 17:57 Differential diagnosis: abnormal EKG, acute myocardial infarction, acute pericarditis, jr8 anxiety, coronary artery disease chest wall pain, congestive heart failure cholecystitis, Cholelithiasis costochondritis, esophagitis, gastritis, gastroesophageal reflux disease (GERD), myocarditis, pancreatitis, peptic ulcer disease, pericarditis, pleurisy, pneumonia, pulmonary embolus, stable angina, thoracic aortic disection, unstable angina. The patient was not given aspirin in the Emergency Department. Administered by EMS. Data reviewed: vital signs, nurses notes, lab test result(s), EKG, radiologic studies, plain films, and as a result, I will admit patient. Data interpreted: Pulse oximetry: on room air is 97 %. Interpretation: normal. Counseling: I had a detailed discussion with the patient and/or guardian regarding: the historical points, exam findings, and any diagnostic results supporting the discharge/admit diagnosis, lab results, radiology results, the need for further work-up and treatment in the hospital. 05/19 16:55 Order name: Basic Metabolic Panel; Complete Time: 17:57 05/19 16:55 Order name: CBC with Diff; Complete Time: 17:25 05/19 16:55 Order name: LFT's; Complete Time: 17:44 05/19 16:55 Order name: Magnesium; Complete Time: 17:44 05/19 16:55 Order name: NT PRO-BNP; Complete Time: 17:57 05/19 16:55 Order name: PT-INR; Complete Time: 17:41 05/19 16:55 Order name: Troponin (emerg Dept Use Only); Complete Time: 17:44 05/19 16:55 Order name: XRAY Chest (1 view); Complete Time: 18:00 05/19 16:55 Order name: EKG; Complete Time: 16:59 05/19 16:55 Order name: TS; Complete Time: 18:29 05/19 17:59 Order name: Occult Blood--Ancillary iw 05/19 16:55 Order name: Cardiac monitoring; Complete Time: 17:12 05/19 16:55 Order name: EKG - Nurse/Tech; Complete Time: 17:12 05/19 16:55 Order name: IV Saline Lock; Complete Time: 17:12 05/19 16:55 Order name: Labs collected and sent; Complete Time: 17:12 05/19 16:55 Order name: O2 Per Protocol; Complete Time: 17:12 05/19 16:55 Order name: O2 Sat Monitoring; Complete Time: 17:12 Administered Medications: 18:28 Drug: Albuterol 2.5 mg Route: Inhalation; aa5 18:28 Drug: predniSONE 20 mg Route: PO; aa5 19:45 Follow up: Response: No adverse reaction ea 18:30 Drug: Lasix 40 mg Route: IVP; Site: right antecubital; aa5 19:45 Follow up: Response: No adverse reaction ea Disposition: 05/20 07:25 Co-signature as Attending Physician, Franklin Monk MD I agree with the assessment and holden plan of care. Disposition: 05/19/19 18:12 Hospitalization ordered by Robe Angelo for Observation. Preliminary diagnosis are Chest pain, unspecified, Acute combined systolic (congestive) and diastolic (congestive) heart failure. - Bed requested for Telemetry/MedSurg (observation). - Status is Observation. ea - Condition is Stable. - Problem is new. - Symptoms have improved. UTI on Admission? No Signatures: Dispatcher [employer] EDCO Franklin Monk MD MD cha Calderon, Audri, RN RN aa5 Scotty Aponte PA PA jr8 Niko yT, CONFERENCE ASSISTANT-C CONFERENCE ASSISTANT-Cla1 Jovita Garduno, RN RN Renee Ross RN RN maryam Corrections: (The following items were deleted from the chart) 05/19 19:17 18:12 Hospitalization Ordered by Robe Angelo DO for Observation. Preliminary cg diagnosis is Chest pain, unspecified; Acute combined systolic (congestive) and diastolic (congestive) heart failure. Bed requested for Telemetry/MedSurg (observation). Status is Observation. Condition is Stable. Problem is new. Symptoms have improved. UTI on Admission? No. jr8 20:46 19:17 05/19/2019 18:12 Hospitalization Ordered by Robe Angelo DO for Observation. ea Preliminary diagnosis is Chest pain, unspecified; Acute combined systolic (congestive) and diastolic (congestive) heart failure. Bed requested for Telemetry/MedSurg (observation). Status is Observation. Condition is Stable. Problem is new. Symptoms have improved. UTI on Admission? No. cg
--- NOTE | 2019-05-19 18:12 | ER ---
Nurse's Notes [facility] Name: Juan Aranda Age: 69 yrs Sex: Male : 1950 Arrival Date: 05/19/2019 Time: 16:42 Bed 7 Private MD: Diagnosis: Chest pain, unspecified;Acute combined systolic (congestive) and diastolic (congestive) heart failure Presentation: 05/19 16:42 Presenting complaint: EMS states: chest pain that began 2-3 hrs ago. Pt also reports aa5 SOB, fatigue, and black stools x 2 days ago. 16:42 Transition of care: patient was not received from another setting of care. Onset of aa5 symptoms was May 19, 2019. Risk Assessment: Do you want to hurt yourself or someone else? Patient reports no desire to harm self or others. Initial Sepsis Screen: Does the patient meet any 2 criteria? No. Patient's initial sepsis screen is negative. Does the patient have a suspected source of infection? No. Patient's initial sepsis screen is negative. Care prior to arrival: Medication(s) given: ASA, x 4, IV initiated. 20 GA, in the right antecubital area. 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 - Coronavirus screen:: The patient has NOT traveled to [place], [place], or [place] in the past 14 days. The patient has NOT had contact with known/suspected case of Coronavirus?. - Social history:: Smoking status: Patient reports the use of cigarette tobacco products, 4-5 Cigarettes a day . - Ebola Screening: : No symptoms or risks identified at this time. Screenin:10 Abuse screen: Denies threats or abuse. Nutritional screening: No deficits noted. aa5 Tuberculosis screening: No symptoms or risk factors identified. Fall Risk IV access (20 points). Total Katz Fall Scale indicates No Risk (0-24 pts). Assessment: 16:45 General: Appears comfortable, Behavior is calm, cooperative. General: Reports fatigue aa5 for 2-3 days. Pain: Complains of pain in mid-sternal area Pain does not radiate. Pain currently is 5 out of 10 on a pain scale. Quality of pain is described as pressure, throbbing, Pain began 2-3 hours ago Is intermittent. Neuro: Level of Consciousness is awake, alert, obeys commands, Oriented to person, place, time, situation. Cardiovascular: Heart tones S1 S2 present Edema 1+ to heavenly ankles Rhythm is paced. Respiratory: Reports shortness of breath at rest Airway is patent Respiratory effort is even, unlabored, Respiratory pattern is regular, symmetrical, Breath sounds are diminished bilaterally. Denies cough. GI: Abdomen is round distended, Bowel sounds present X 4 quads. Abd is non tender X 4 quads Reports black stools x 2 days ago Patient currently denies diarrhea, nausea, vomiting. : No signs and/or symptoms were reported regarding the genitourinary system. EENT: No signs and/or symptoms were reported regarding the EENT system. Derm: Skin is dry, Skin is pale, Skin temperature is warm. Musculoskeletal: Range of motion: intact in all extremities. 17:50 Neuro: Level of Consciousness is awake, alert, obeys commands, Oriented to person, aa5 place, time, situation. Respiratory: Airway is patent Respiratory effort is even, unlabored, Respiratory pattern is regular, symmetrical. Derm: Skin is dry, Skin is pale, Skin temperature is warm. 18:30 Reassessment: Patient denies pain at this time. Patient states symptoms have not aa5 improved. Neuro: Level of Consciousness is awake, alert, obeys commands, Oriented to person, place, time, situation. Respiratory: Airway is patent Respiratory effort is even, unlabored, Respiratory pattern is regular, symmetrical. Derm: Skin is dry, Skin is pale, Skin temperature is warm. 19:33 Reassessment: Patient and/or family updated on plan of care and expected duration. Pain ea level reassessed. General: Appears comfortable, Behavior is calm, cooperative, appropriate for age. Pain: Denies pain. Neuro: Level of Consciousness is awake, alert, obeys commands, Oriented to person, place, time, situation. Cardiovascular: Patient's skin is warm and dry. Respiratory: Airway is patent Respiratory effort is even, unlabored, Respiratory pattern is regular, symmetrical. Derm: Skin is dry, Skin is pale, Skin temperature is warm. 20:16 Reassessment: Patient and/or family updated on plan of care and expected duration. Pain ea level reassessed. Patient is alert, oriented x 3, equal unlabored respirations, skin warm/dry/pink. 20:46 Reassessment: Patient and/or family updated on plan of care and expected duration. Pain ea level reassessed. Patient is alert, oriented x 3, equal unlabored respirations, skin warm/dry/pink. Pt admitted to fourth floor, pt left ED via wheelchair per tech. Pt tolerating well. Vital Signs: 16:45 BP 157 / 91; Pulse 66; Resp 18 S; Temp 97.9(O); Pulse Ox 96% on R/A; Pain 5/10; aa5 17:10 BP 163 / 84; Pulse 67; Resp 16 S; Pulse Ox 97% on R/A; aa5 19:34 BP 158 / 80; Pulse 65; Resp 18; Temp 98; Pulse Ox 98% ; ea 20:33 BP 158 / 84; Pulse 67; Resp 16; Pulse Ox 96% on R/A; ea ED Course: 16:42 Patient arrived in ED. aa5 16:42 Arm band placed on. aa5 16:42 Patient has correct armband on for positive identification. Placed in gown. Bed in low aa5 position. Call light in reach. Side rails up X2. front desk monitor on. Pulse ox on. NIBP on. 16:48 Niko Ty FNP-C is [facility]. la1 16:48 Franklin Monk MD is Attending Physician. la1 16:50 EKG done, by ED staff, reviewed by Scotty ADAMS. aa5 16:54 PHCP role handed off by Niko Ty FNP-C jr8 16:54 Scotty Aponte PA is PHCP. jr8 16:58 Jory Kruse, RN is Primary Nurse. aa5 17:00 Triage completed. aa5 17:11 Patient maintains SpO2 saturation greater than 95% on room air. aa5 17:20 XRAY Chest (1 view) In Process Unspecified. EDMS 18:11 Robe Angelo DO is Hospitalizing Provider. jr8 19:02 Report given to SANTA Duran. aa5 19:34 No provider procedures requiring assistance completed. Patient admitted, IV remains in ea place. 19:46 Inserted saline lock: 22 gauge in right forearm, using aseptic technique. ea Administered Medications: 18:28 Drug: Albuterol 2.5 mg Route: Inhalation; aa5 18:28 Drug: predniSONE 20 mg Route: PO; aa5 19:45 Follow up: Response: No adverse reaction ea 18:30 Drug: Lasix 40 mg Route: IVP; Site: right antecubital; aa5 19:45 Follow up: Response: No adverse reaction ea Outcome: 18:12 Decision to Hospitalize by Provider. jr8 19:34 Instructed on the need for admit. ea 20:33 Admitted to Tele accompanied by tech, via wheelchair, room 407, with chart, Report ea called to NEREYDA PRATT 20:33 Condition: good 20:33 Discharge instructions given to patient, Instructed on discharge instructions. 20:33 Instructed on 20:46 Patient left the ED. ea Signatures: Dispatcher [employer] [facility] Jory Kruse RN RN aa5 Scotty Aponte PA PA jr8 Niko Ty FNP-C [employer]FWAY HOUSE COUNSELOR-Cla1 Renee Nolasco RN RN ea Corrections: (The following items were deleted from the chart) 17:15 16:45 Respiratory: Reports shortness of breath at rest Airway is patent Respiratory aa5 effort is even, unlabored, Respiratory pattern is regular, symmetrical, Denies cough, aa5 19:04 18:30 Reassessment: Patient is alert, oriented x 3, equal unlabored respirations, skin aa5 warm/dry/pink. Patient denies pain at this time. Patient states symptoms have not improved. aa5
[2019-05-19] MEDS ORDERED: ALBUTEROL 2.5 MG/3 ML NEB SOL ONE (18:31)
[2019-05-19] MEDS ORDERED: FUROSEMIDE 40 MG/4 ML VIAL ONE (18:32)
[2019-05-19] MEDS ORDERED: predniSONE 20 MG TAB ONE (18:32)
--- NOTE | 2019-05-19 18:32 | P.HP ---
Certification for Inpatient Patient admitted to: Observation With expected LOS: <2 Midnights Patient will require the following post-hospital care: Home Health Services Practitioner: I am a practitioner with admitting privileges, knowledge of patient current condition, hospital course, and medical plan of care. Services: Services provided to patient in accordance with Admission requirements found in Title 42 Section 412.3 of the Code of Federal Regulations Patient History Date of Service: 05/19/19 Primary Care Provider: Dr. Beebe; Cardiology-Dr. Addison Reason for admission: Chest pain, shortness of breath History of Present Illness: 69-year-old male with history of systolic CHF, COPD, hypertension, hyperlipidemia, tobacco abuse and prior aortic valve replacement on chronic anti coagulation therapy. Patient presented with chest pain and shortness of breath. He reported that this started today. It has been getting worse. He has noted increasing fatigue as well. He has not been able to get around appropriately. Chest pain mainly to the substernal region. Some wheezing noted. Edema to the lower extremity also reported. Due to shortness of breath and chest pain he has been unsteady with his activities. He came to the ER for further evaluation. In the ER patient evaluated. No significant EKG changes noted. Chest x-ray unremarkable. Guaiac study negative. INR 1.04. White count 6.2, hemoglobin 10.6. Sodium 139, creatinine 1.48 with a GFR 47. Initial troponin unremarkable. BNP 1600. Due to his multiple medical issues patient was admitted for further evaluation. When I saw the patient ER, he looked not well kept. He looked disheveled. Her some question of poor compliance with medication. Patient still smokes daily. Previous information reviewed. In 2016 patient had heart catheterization showing minimal Coronary artery disease. No significant stenosis at that time noted. EF was around 20%. Last year he was seen in November. Echocardiogram shows EF improved at 45%. Stress test showed no stress-induced ischemia. Allergies Penicillins Allergy (Severe, Verified 12/30/18 14:27) Anaphylaxis Home medications list reviewed: Yes Home Medications: Levothyroxine Sodium [Synthroid] 200 mcg PO DAILY 10/12/16 Atorvastatin Calcium [Lipitor*] 20 mg PO BEDTIME #30 tab 10/14/16 carvediloL [Coreg*] 6.25 mg PO BID #60 tab 10/14/16 Potassium Oral Tab [Klor-Con 10 mEq Tab*] 10 meq PO DAILY 11/20/16 Sacubitril/Valsartan [Entresto 24 mg-26 mg Tablet] 1 tab PO BID 11/20/16 clonazePAM [Clonazepam] 0.5 mg PO BID PRN 11/20/16 Finasteride [Proscar*] 5 mg PO DAILY #30 tab 11/27/16 Furosemide [Lasix*] 40 mg PO DAILY #30 tab 11/27/16 Spironolactone [Aldactone*] 12.5 mg PO DAILY #30 tab 11/27/16 Warfarin Sodium [Coumadin*] 3 mg PO DAILY 5 PM #30 tab 11/27/16 Atorvastatin Calcium [Lipitor*] 20 mg PO BEDTIME 12/24/18 Furosemide [Lasix*] 40 mg PO DAILY 12/24/18 Levothyroxine [Synthroid*] 200 mcg PO [id number] 12/24/18 Potassium Chloride 10 meq PO BID 12/24/18 Sacubitril/Valsartan [Entresto 24 mg-26 mg Tablet] 1 tab PO BID 12/24/18 Spironolactone [Aldactone*] 12.5 mg PO DAILY 12/24/18 Warfarin Sodium [Coumadin*] 4 mg PO DAILY 12/24/18 carvediloL [Coreg*] 6.25 mg PO BID 12/24/18 clonazePAM [Klonopin*] 0.5 mg PO BID PRN 12/24/18 Benzonatate [Tessalon Perle*] 100 mg PO TID PRN #15 cap 12/25/18 - Past Medical/Surgical History Diabetic: No -: Aortic valve replacement on chronic anti coagulation therapy -: Systolic CHF -: Hypertension -: Hyperlipidemia -: COPD -: Surgical hypothyroidism -: Aortic valve replacement -: Cystoscopy -: Colonoscopy in 1950 -: Thyroidectomy Psychosocial/ Personal History: Patient lives at home. - Family History Father -: Cancer Mother -: Heart disease, Hypertension, Cancer - Social History Smoking Status: Heavy Tobacco smoker (>10 cigarettes/day) Counseled patient to stop smoking for: less than 10 minutes Smoking therapy provided: Yes Patient receptive to therapy: Yes Alcohol use: No CD- Drugs: No Caffeine use: Yes Place of Residence: Home Review of Systems General: Weakness, As per HPI Eyes: Unremarkable ENT: Unremarkable Respiratory: Shortness of Breath, Wheezing, As per HPI Cardiovascular: Chest Pain, As per HPI Gastrointestinal: Unremarkable Genitourinary: Unremarkable Musculoskeletal: Pedal edema, As per HPI Integumentary: Unremarkable Neurological: Weakness, As per HPI Lymphatics: Unremarkable Physical Examination - Physical Exam General: Alert, In no apparent distress, Oriented x3, Cooperative, Disheveled, Other (Patient does not appear well kept) HEENT: Atraumatic, Normocephalic, Mucous membr. moist/pink Neck: Supple Respiratory: Expiratory wheezes (Bilateral) Cardiovascular: Normal pulses, Regular rate/rhythm Gastrointestinal: Normal bowel sounds, Soft and benign, Non-distended, No tenderness, No masses, No rebound, No guarding Musculoskeletal: No erythema, No tenderness, No warmth Integumentary: No erythema, No warmth, No cyanosis, Tenderness/swelling (Some pitting edema to the lower extremities bilateral) Neurological: Normal speech, Normal strength at 5/5 x4 extr, Normal tone, Normal affect - Studies Laboratory Data (last 24 hrs) 05/19/19 17:15: PT 12.3, INR 1.04 05/19/19 17:15: Magnesium 2.2, Total Bilirubin 0.5, AST 45 H, ALT 32, Alkaline Phosphatase 54 05/19/19 17:15: WBC 6.2, Hgb 10.6 L, Hct 31.3 L, Plt Count 138 L 05/19/19 17:15: Sodium 139, Potassium 4.0, BUN 18, Creatinine 1.48 H, Glucose 100 Assessment and Plan - Plan Impression: Chest pain, shortness of breath likely related to acute on chronic systolic CHF exacerbation complicated with COPD exacerbation History of aortic valve replacement on chronic anti coagulation therapy, INR sub therapeutic Hypertension Hyperlipidemia Surgical hypothyroidism Tobacco abuse Plan: Chest pain, shortness of breath likely related to acute on chronic systolic CHF exacerbation complicated with COPD exacerbation: Patient will be admitted for further evaluation and treatment. Will continue to monitor cardiac enzymes and telemetry. Patient with prior echo in December of 2018 showing improved ejection fraction at 45%. Cardiac stress test done at that time was unremarkable. Prior heart catheterization in 2016 showed mild disease without significant stenosis.. Suspect acute on chronic systolic CHF exacerbation with COPD exacerbation likely related to poor compliance with medication. Will start IV Lasix 40 mg twice daily. Will continue with a 1500 cc per day fluid restriction. Will restart his home medications of Entresto 1 pill twice daily, carvedilol 6.25 mg 1 pill twice daily, Lipitor 20 mg daily, and warfarin 4 mg daily. Will need to bridge warfarin with Lovenox due to subtherapeutic INR. Patient may have a component of COPD exacerbation as well. Will start prednisone 10 mg 1 pill twice daily. Will continue with albuterol/Atrovent nebs as needed. Will start Perforomist medication for COPD. Patient will likely require COPD medication at discharge. Tobacco cessation addressed in detail. Compliance with medication also addressed. Will have physical therapy and occupational therapy further address his overall condition. Patient would benefit with home health and physical therapy at discharge. Will consult social work administrator to help with this. Will consult cardiology for further recommendation. Will recheck chest x-ray tomorrow. Will reassess if patient will require home oxygen at discharge. Anticipate discharge in the next 24-48 hr with clinical improvement. Patient will likely require home health/physical therapy. I will turn the service over to the hospitalist team tomorrow. I will go over the plan of care with him. History of aortic valve replacement on chronic anti coagulation therapy, INR sub therapeutic: INR 1.04. This is sub therapeutic. Will continue with Coumadin 4 mg daily. Will also bridge with Lovenox at this time. Compliance with medication addressed in detail. Hypertension: Will continue with carvedilol. Monitor and adjust appropriately. Patient also on Entresto. Hyperlipidemia: Will check fasting lipid panel in the morning. Will continue with Lipitor 20 mg daily. Surgical hypothyroidism: Will continue with levothyroxine 200 mcg daily. Will check tsh and free T4. Tobacco abuse: Tobacco cessation addressed in detail. Patient may require nicotine patch. Discharge Plan: Home Plan to discharge in: 24 Hours - Advance Directives Does patient have a Living Will: No Does patient have a Durable POA for Healthcare: No - Code Status/Comfort Care Code Status Assessed: Yes (Patient is full code) Time Spent Managing Pts Care (In Minutes): 55
[2019-05-19] MEDS ORDERED: ONDANSETRON 4 MG/2 ML VIAL IV PRN (21:47)
[2019-05-19] MEDS: ARFORMOTEROL TARTRATE 15 MCG/2 ML VIAL.NEB NEB SCH (22:20)
[2019-05-19] MEDS: carvediloL 6.25 MG TAB PO SCH (22:54)
[2019-05-19] MEDS: ATORVASTATIN 20 MG TAB PO SCH (22:54)
[2019-05-19] MEDS: predniSONE 10 MG TAB PO SCH (22:54)
[2019-05-19] MEDS: SACUBITRIL/VALSARTAN 24/26 MG TAB PO SCH (22:54)
[2019-05-19] MEDS: WARFARIN SODIUM 4 MG TAB PO SCH (22:55)
[2019-05-19] MEDS: ENOXAPARIN 100 MG/ML SYR SQ SCH (22:55)
[2019-05-20 02:39] LABS: Troponin I 0.02 ng/mL (0.0-0.045)
[2019-05-20 02:43] LABS: CKMB Creatine Kinase MB 14.6 ng/mL (0.3-3.6)
[2019-05-20 04:41] LABS: Basophils % 0.3 % (0-1.3); Hematocrit 34.7 % (39.6-49.0); Lymphocytes % 12.8 % (15.3-44.8); MPV 8.9 fL (7.6-11.3); RBC Red Blood Cell Count 3.89 M/uL (4.33-5.43)
[2019-05-20 04:45] LABS: Protime INR 1.04
[2019-05-20] MEDS ORDERED: NA CHLORIDE 0.9% 250 ML IV ONE (04:45)
[2019-05-20 05:31] LABS: Blood Morphology Comment NOT SEEN (NOT SEEN); Platelet Estimate ADEQ
[2019-05-20 05:33] LABS: BUN Blood Urea Nitrogen 19 mg/dL (7-18); Bicarbonate 32 mmol/L (21-32); Glucose Level 154 mg/dL (74-106); HDL Cholesterol 52 mg/dL (40-60); LDL Cholesterol, Calculated ND (<130); Magnesium 2.3 mg/dL (1.8-2.4); Potassium 3.9 mmol/L (3.5-5.1); Sodium Level 135 mmol/L (136-145)
[2019-05-20] MEDS: LEVOTHYROXINE SOD 0.1 MG TAB PO SCH (05:47)
[2019-05-20 06:00] LABS: LDL, Direct 222 mg/dL (100-129)
--- NOTE | 2019-05-20 06:41 | EKG ---
Test Date: 2019-05-19 Test Time: 16:51:54 Employee Development Specialist: FELICIA MEASUREMENT RESULTS: Intervals: Rate: 64 [place]: QRSD: 144 QT: 474 QTc: 489 [place]: P: [place]: QRS: 241 T: 84 INTERPRETIVE STATEMENTS: Atrial-Ventricular Dual-Paced rhythm Compared to ECG 12/10/2016 15:41:47 Sinus rhythm no longer present Electronically Signed On 05-20-19 06:40:41 MANAGER PROGRAMS by Jeremías Addison
[2019-05-20] MEDS: ACETAMINOPHEN 500 MG TAB PO PRN (07:14)
--- NOTE | 2019-05-20 07:49 | RAD REPORT ---
EXAM DESCRIPTION: Juanjo Single View05/20/2019 6:29 am CLINICAL HISTORY: Shortness of breath COMPARISON: May 19, 2019 FINDINGS: The lungs appear clear of acute infiltrate. The heart is mildly enlarged. Postsurgical changes involve the chest. Chronic blunting of the left costophrenic sulcus IMPRESSION: No acute abnormalities displayed
[2019-05-20] MEDS: ARFORMOTEROL TARTRATE 15 MCG/2 ML VIAL.NEB NEB SCH ×2 (07:50→20:00)
[2019-05-20] MEDS: SACUBITRIL/VALSARTAN 24/26 MG TAB PO SCH (08:47)
[2019-05-20] MEDS: ENOXAPARIN 100 MG/ML SYR SQ SCH ×2 (08:47→21:23)
[2019-05-20] MEDS: predniSONE 10 MG TAB PO SCH ×2 (08:47→21:23)
[2019-05-20] MEDS: carvediloL 6.25 MG TAB PO SCH (08:48)
[2019-05-20] MEDS ORDERED: FUROSEMIDE 40 MG/4 ML VIAL IV SCH (09:00)
[2019-05-20] MEDS ORDERED: POTASSIUM CL SA 10 MEQ TAB PO ONE (09:00)
--- NOTE | 2019-05-20 09:58 | P.PN ---
Subjective Date of Service: 05/20/19 Primary Care Provider: Dr. Beebe; Cardiology-Dr. Addison Chief Complaint: Chest pain, shortness of breath Subjective: No new changes Had episode of symptomatic hypotension after lasix and coreg given. Now improved. Review of Systems 10-point ROS is otherwise unremarkable Physical Examination - Vital Signs Temperature: 97.1 F Blood Pressure: 110/63 Pulse: 61 Respirations: 14 Pulse Ox (%): 94 - Physical Exam General: Alert, In no apparent distress HEENT: Atraumatic, PERRLA, EOMI Neck: Supple, JVD not distended Respiratory: Clear to auscultation bilaterally, Normal air movement Cardiovascular: Regular rate/rhythm, Normal S1 S2 Gastrointestinal: Normal bowel sounds, No tenderness Musculoskeletal: No tenderness Integumentary: No rashes Neurological: Normal speech, Normal tone, Normal affect Lymphatics: No axilla or inguinal lymphadenopathy - Studies Laboratory Data (last 24 hrs) 05/19/19 17:15: PT 12.3, INR 1.04 05/19/19 17:15: Magnesium 2.2, Total Bilirubin 0.5, AST 45 H, ALT 32, Alkaline Phosphatase 54 05/19/19 17:15: WBC 6.2, Hgb 10.6 L, Hct 31.3 L, Plt Count 138 L 05/19/19 17:15: Sodium 139, Potassium 4.0, BUN 18, Creatinine 1.48 H, Glucose 100 Medications List Reviewed: Yes Assessment And Plan Physician Review Additional Text: Chest pain- rule out ACS. Serial trop negative thus far. -Chest pain resolved. Acute on chronic systolic CHF exacerbation - Patient with prior echo in December of 2018 showing improved ejection fraction at 45%. Cardiac stress test done at that time was unremarkable. Prior heart catheterization in 2017 showed mild disease without significant stenosis. Repeat chest x-ray is unremarkable. -Due to poor compliance. -change Lasix to po 40 mg twice daily while monitoring BP. Hold Coreg this a.m. -1500 cc per day fluid restriction, low salt diet and strict I&O. -Hold Entresto 1 pill twice daily, carvedilol 6.25 mg 1 pill twice daily -Continue Lipitor 20 mg daily, and warfarin 4 mg daily. -physical therapy and occupational therapy further address his overall condition. -cardiology for further recommendation. #COPD exacerbation-Continue prednisone 10 mg 1 pill twice daily. -Duoneb, Perforomist medication for COPD. Patient will likely require COPD medication at discharge. -Will reassess if patient will require home oxygen at discharge History of aortic valve replacement on chronic anti coagulation therapy, INR sub therapeutic: INR 1.04. This is sub therapeutic. Will continue with Coumadin 4 mg daily. On bridge with Lovenox at this time. Compliance with medication addressed in detail. Hypertension: Hold entresto and carvedilol. Monitor and adjust appropriately. Monitor BP closely Hyperlipidemia: Will continue with Lipitor 20 mg daily. Surgical hypothyroidism: Will continue with levothyroxine 200 mcg daily. -TSH 221 & FT4 0.15, non compliance with meds and follow up with PCP Tobacco abuse: Tobacco cessation addressed in detail. Patient may require nicotine patch. DVT ppx- on full dose lovenox patient is full code. -Dispo-pending PT/OT
[2019-05-20 10:07] LABS: Troponin I 0.02 ng/mL (0.0-0.045)
[2019-05-20 10:12] LABS: CKMB Creatine Kinase MB 14.6 ng/mL (0.3-3.6)
--- NOTE | 2019-05-20 11:02 | ECHO ---
HEIGHT: 5 ft 4 in WEIGHT: 213 lb 0 oz DATE OF STUDY: 05/20/[address]: Robe Angelo DO 2-DIMENSIONAL: YES M.MODE: YES DOPPLER: YES COLOR FLOW: YES TDS: NO PORTABLE: NO DEFINITY: NO BUBBLE STUDY: NO DIAGNOSIS: CONGESTIVE HEART FAILURE CARDIAC HISTORY: CATHERIZATION: YES SURGERY: YES PROSTHETIC VALVE: YES PACEMAKER: YES MEASUREMENTS (cm) DIASTOLIC (NORMALS) SYSTOLIC (NORMALS) IVSd 1.4 (0.6-1.2) LA Diam 3.7 (1.9-4.0) LVEF 50-55% LVIDd 4.3 (3.5-5.7) LVIDs 3.4 (2.0-3.5) %FS 20% LVPWd 1.4 (0.6-1.2) Ao Diam 3.3 (2.0-3.7) 2 DIMENSIONAL ASSESSMENT: RIGHT ATRIUM: DILATED LEFT ATRIUM: DILATED RIGHT VENTRICLE: PACEMAKER LEFT VENTRICLE: LEFT VENTRICULAR HYPERTROPHY TRICUSPID VALVE: NORMAL MITRAL VALVE: NORMAL PULMONIC VALVE: NORMAL AORTIC VALVE: MECHANICAL PROSTHETIC PERICARDIAL EFFUSION: NONE AORTIC ROOT: NORMAL LEFT VENTRICULAR WALL MOTION: NORMAL DOPPLER/COLOR FLOW: NO AORTIC STENOSIS OR AORTIC REGURGITATION. NORMAL DOPPLER OF PROSTHETIC VALVE. COMMENTS: NORMAL LEFT VENTRICULAR EJECTION FRACTION. LEFT VENTRICULAR HYPERTROPHY. DILATED LEFT AND RIGHT DILATED. PACEMAKER IN RIGHT VENTRICLE. PROSTHETIC AORTIC VALVE WITH NORMAL FUNCTION. TECHNOLOGIST: Jocelin ROWE
--- NOTE | 2019-05-20 11:26 | CON ---
Chief Complaint: Failure to thrive. History Of Present Illness: Mr. Aranda is a patient who has a defibrillator, depressed ejection fra ction, prosthetic aortic valve, mechanical prosthesis, all long-standing problems. He is having a po or time taking care of himself at home. He is not taking his Coumadin apparently. In the past, he h as done a very good job controlling it and his INR is 1.0. Dr. Angelo directly put him on Lovenox wh ile he reestablished Coumadin. Since being in the hospital, the patient's chest x-ray showed the def ibrillator, sternal wires. No pulmonary edema or mass. Troponins are normal. Blood sugars are unde r fairly good control. He has elevated creatine kinase and CK-MB consistent with very mild minimal c ase of rhabdomyolysis. His N-terminal proBNP is elevated. His TSH is 221. I believe the patient maharaj d been on thyroid medicine in the past, but presently is not taking it apparently similar to what he did with his warfarin. Physical Examination: General: Mr. Aranda is asleep. He is obese, 5 feet 4 inches, 213 pounds. Not in distress, but ottoniel ewhat confused. Can explain things very well. Heart: He has typical prosthetic heart tones. Lungs: No crackles or wheeze. Extremities: Mild edema. Impression And Plan: I think the patient needs to re-establish his medications. I think he needs to be placed in a skilled nursing. He has clearly demonstrated he is unable to take care of a complicated medical regimen by himself. It looks like he completely stop taking levothyroxine and warfarin. Th ere are not any acute abnormalities of his heart right now. It is a stable condition, but he is under very poor control. Very high risk of stroke and deterioration. SH/MODL Voice ID: [id number] Report ID: [id number]
[2019-05-20] MEDS: WARFARIN SODIUM 4 MG TAB PO SCH (16:35)
[2019-05-20] MEDS: FUROSEMIDE 40 MG TABLET PO SCH (16:35)
[2019-05-20] MEDS: ATORVASTATIN 20 MG TAB PO SCH (21:23)
[2019-05-20] MEDS: NICOTINE 21 MG/PAT TD SCH (21:23)
[2019-05-21] MEDS: IPRATROPIUM BROM 0.5MG/2.5ML NEB PRN (05:35)
[2019-05-21] MEDS: ALBUTEROL 2.5 MG/3 ML NEB SOL NEB PRN (05:35)
[2019-05-21] MEDS: LEVOTHYROXINE SOD 0.1 MG TAB PO SCH (06:19)
[2019-05-21 07:24] LABS: Magnesium 2.2 mg/dL (1.8-2.4); Potassium 4.2 mmol/L (3.5-5.1)
[2019-05-21] MEDS: ARFORMOTEROL TARTRATE 15 MCG/2 ML VIAL.NEB NEB SCH ×2 (08:05→20:40)
[2019-05-21] MEDS: FUROSEMIDE 40 MG TABLET PO SCH (09:34)
[2019-05-21] MEDS: NICOTINE 21 MG/PAT TD SCH (09:34)
[2019-05-21] MEDS: ENOXAPARIN 100 MG/ML SYR SQ SCH ×2 (09:38→21:18)
[2019-05-21] MEDS: predniSONE 10 MG TAB PO SCH ×2 (09:57→21:17)
[2019-05-21] MEDS: ACETAMINOPHEN 500 MG TAB PO PRN (13:09)
--- NOTE | 2019-05-21 14:18 | P.PN ---
Subjective Date of Service: 05/21/19 Primary Care Provider: Dr. Beebe; Cardiology-Dr. Addison Chief Complaint: Chest pain, shortness of breath Stable. denies myalgia Physical Examination - Vital Signs Temperature: 97.1 F Blood Pressure: 113/56 Pulse: 68 Respirations: 18 Pulse Ox (%): 98 - Physical Exam General: Alert, In no apparent distress, Disheveled HEENT: Atraumatic, PERRLA, EOMI Neck: Supple, JVD not distended Respiratory: Clear to auscultation bilaterally, Normal air movement Cardiovascular: Regular rate/rhythm, Normal S1 S2, Systolic murmur Gastrointestinal: Normal bowel sounds, No tenderness Musculoskeletal: No tenderness Integumentary: No rashes Neurological: Normal speech, Normal tone, Normal affect Lymphatics: No axilla or inguinal lymphadenopathy - Studies Laboratory Data (last 24 hrs) 05/21/19 06:53: Sodium 137, Potassium 4.2, BUN 25 H, Creatinine 1.84 H, Glucose 117 H, Magnesium 2.2 Medications List Reviewed: Yes Assessment And Plan Physician Review Additional Text: Chest pain- rule out ACS. Serial trop negative thus far. -Chest pain resolved. Acute on chronic systolic CHF exacerbation - Patient with prior echo in December of 2018 showing improved ejection fraction at 45%. Cardiac stress test done at that time was unremarkable. Prior heart catheterization in 2016 showed mild disease without significant stenosis. Repeat chest x-ray is unremarkable. -Due to poor compliance. -1500 cc per day fluid restriction, low salt diet and strict I&O. -Hold Entresto 1 pill twice daily, carvedilol 6.25 mg 1 pill twice daily -Continue Lipitor 20 mg daily, and warfarin 4 mg daily. -physical therapy and occupational therapy further address his overall condition. -stable. Hold lasix. #Acute rhabdomyolysis- gentle hydration -trend CK #COPD exacerbation-Continue prednisone 10 mg 1 pill twice daily. -Duonesidney, Perforomist medication for COPD. Patient will likely require COPD medication at discharge. -Will reassess if patient will require home oxygen at discharge History of aortic valve replacement on chronic anti coagulation therapy, INR sub therapeutic: INR 1.04. This is sub therapeutic. Coumadin 5 mg daily. On bridge with Lovenox at this time. Compliance with medication addressed in detail. Hypertension: Hold entresto and carvedilol. Monitor and adjust appropriately. Monitor BP closely Hyperlipidemia: Will continue with Lipitor 20 mg daily. Surgical hypothyroidism: Will continue with levothyroxine 200 mcg daily. -TSH 221 & FT4 0.15, non compliance with meds and follow up with PCP Tobacco abuse: Tobacco cessation addressed in detail. Patient may require nicotine patch. DVT ppx- on full dose lovenox patient is full code. -Dispo-will benefit from SNF
[2019-05-21] MEDS: NA CHLORIDE 0.9% 1,000 ML IV SCH (14:41)
--- NOTE | 2019-05-21 15:34 | PN ---
Date of Progress Note: 05/21/[address] Angel on 05/19/2019. I am following up on the patient on 05/21/2019. The patient came in with chest pain, had a paced rhythm. Has low ejection fraction. He has an autom atic internal cardiac defibrillator and mechanical aortic valve that was placed many years ago by Dr. Bo. He continues to be here for adjusting adjustment for his INR. Awaiting skilled nursing placem ent. Medication have been resumed. The patient needs to be on Coumadin because he is at high risk f or CVA. His last INR was 1.2 on 4 mg of Coumadin. We will continue present regimen. I discussed th e case with Dr. Angel. We may need to put him on a higher dose of Coumadin while he is on Lovenox and while he is awaiting the skilled nursing placement. CANDY/SOPHIE Voice ID: [id number] Report ID: [id number]
[2019-05-21] MEDS ORDERED: WARFARIN SODIUM 5 MG TAB PO SCH (17:00)
[2019-05-21] MEDS: carvediloL 6.25 MG TAB PO SCH (21:17)
[2019-05-21] MEDS: ATORVASTATIN 20 MG TAB PO SCH (21:17)
[2019-05-22] MEDS: NA CHLORIDE 0.9% 1,000 ML IV SCH ×3 (03:59→17:40)
[2019-05-22 04:26] LABS: Absolute Lymphocytes (CBC) 1.5 K/uL (0.7-4.9); Basophils % 0.1 % (0-1.3); Hematocrit 31.7 % (39.6-49.0); MPV 8.6 fL (7.6-11.3); RBC Red Blood Cell Count 3.51 M/uL (4.33-5.43)
[2019-05-22 04:38] LABS: Potassium 3.9 mmol/L (3.5-5.1)
[2019-05-22] MEDS: LEVOTHYROXINE SOD 0.1 MG TAB PO SCH (06:29)
[2019-05-22] MEDS ORDERED: POTASSIUM 25 MEQ EFFERV TAB PO ONE (07:00)
[2019-05-22] MEDS: ARFORMOTEROL TARTRATE 15 MCG/2 ML VIAL.NEB NEB SCH ×2 (08:35→20:45)
[2019-05-22] MEDS: IPRATROPIUM BROM 0.5MG/2.5ML NEB PRN ×2 (08:35→16:05)
[2019-05-22] MEDS: ALBUTEROL 2.5 MG/3 ML NEB SOL NEB PRN ×2 (08:35→16:05)
[2019-05-22] MEDS: NICOTINE 21 MG/PAT TD SCH (08:39)
[2019-05-22] MEDS: ENOXAPARIN 100 MG/ML SYR SQ SCH ×2 (08:39→20:09)
[2019-05-22] MEDS: carvediloL 6.25 MG TAB PO SCH ×2 (08:40→20:31)
[2019-05-22] MEDS: predniSONE 10 MG TAB PO SCH ×2 (08:40→20:09)
[2019-05-22 08:47] LABS: Protime INR 1.22
[2019-05-22] MEDS: ACETAMINOPHEN 500 MG TAB PO PRN (11:05)
[2019-05-22] MEDS ORDERED: WARFARIN SODIUM 5 MG TAB PO ONE (11:25)
--- NOTE | 2019-05-22 13:09 | P.PN ---
Subjective Date of Service: 05/22/19 Primary Care Provider: Dr. Beebe; Cardiology-Dr. Addison Chief Complaint: Chest pain, shortness of breath Stable. Intermittent LE myalgia Physical Examination - Vital Signs Temperature: 97.1 F Blood Pressure: 132/74 Pulse: 58 Respirations: 18 Pulse Ox (%): 97 - Physical Exam General: Alert, In no apparent distress, Disheveled HEENT: Atraumatic, PERRLA, Other ([place]), EOMI Neck: Supple, JVD not distended Respiratory: Clear to auscultation bilaterally, Normal air movement Cardiovascular: Regular rate/rhythm, Normal S1 S2, Other ([place]) Gastrointestinal: Normal bowel sounds, No tenderness Musculoskeletal: No tenderness Integumentary: No rashes Neurological: Normal speech, Normal tone, Normal affect Lymphatics: No axilla or inguinal lymphadenopathy - Studies Laboratory Tests 05/22/19 05/22/19 05/22/19 04:09 04:09 08:16 WBC 8.6 RBC 3.51 L Hgb 10.7 L Hct 31.7 L Plt Count 132 L PT 14.3 H INR 1.22 Sodium 138 BUN 29 H Creatinine 1.77 H Glucose 109 H Creatine Kinase 974 H Medications List Reviewed: Yes Assessment And Plan Physician Review Additional Text: Chest pain- rule out ACS. Serial trop negative thus far. -Chest pain resolved. Acute on chronic systolic CHF exacerbation - Patient with prior echo in December of 2018 showing improved ejection fraction at 45%. Cardiac stress test done at that time was unremarkable. Prior heart catheterization in 2017 showed mild disease without significant stenosis. Repeat chest x-ray is unremarkable. -Due to poor compliance. -1500 cc per day fluid restriction, low salt diet and strict I&O. -Hold Entresto 1 pill twice daily, carvedilol 6.25 mg 1 pill twice daily -Continue Lipitor 20 mg daily, and warfarin. -physical therapy and occupational therapy to further address his overall condition. -Symptoms improved. Hold lasix due to WATSON. #Acute rhabdomyolysis- gentle hydration -trend CK, now improving #WATSON on CKD- Secondary to rhabdo. Improving with hydration. -Monitor closely #COPD exacerbation-Continue prednisone 10 mg 1 pill twice daily. -Duoneb, Perforomist medication for COPD. Patient will likely require COPD medication at discharge. -Will reassess if patient will require home oxygen at discharge #History of aortic valve replacement on chronic anti coagulation therapy, INR sub therapeutic: INR 1.04. This is sub therapeutic. will give a bolus Coumadin of 10 mg today. On bridge with Lovenox at this time. Compliance with medication addressed in detail. -pharmacy consulted for monitoring. Hypertension: Hold entresto and carvedilol. Monitor and adjust appropriately. Hyperlipidemia: Will continue with Lipitor 20 mg daily. Surgical hypothyroidism: Will continue with levothyroxine 200 mcg daily. -TSH 221 & FT4 0.15, non compliance with meds and follow up with PCP Tobacco abuse: Tobacco cessation addressed in detail. Nicotine patch. DVT ppx- on full dose lovenox patient is full code. -Dispo-Pending therapeutic INR and may benefit from SNF
[2019-05-22] MEDS ORDERED: WARFARIN SODIUM 5 MG TAB PO SCH (17:00)
[2019-05-22] MEDS: ATORVASTATIN 20 MG TAB PO SCH (20:09)
--- NOTE | 2019-05-22 21:38 | PN ---
Mr. Aranda is still being followed for history of mechanical aortic valve replacement, pacemaker antonia cement. He is still awaiting mcc placement. He has no cardiac complaints per se. His INR, however, on 4 mg of Coumadin after 3 days is only 1.2. He remains on Lovenox. We will be shooting for INR between 2.5 and 3.5 because of his aortic valve replacement. I suggest giving him an additio nal 10 mg of Coumadin p.o. today. The case was discussed with Dr. Angel. We will continue to foll ow him along. CANDY/SOPHIE Voice ID: [id number] Report ID: [id number]
[2019-05-23 05:10] LABS: Absolute Lymphocytes (CBC) 1.1 K/uL (0.7-4.9); Basophils % 0.1 % (0-1.3); Hematocrit 30.8 % (39.6-49.0); Lymphocytes % 15.1 % (15.3-44.8); MPV 9.5 fL (7.6-11.3); Protime INR 1.68; RBC Red Blood Cell Count 3.39 M/uL (4.33-5.43)
[2019-05-23 05:30] LABS: Potassium 4.2 mmol/L (3.5-5.1)
[2019-05-23] MEDS: LEVOTHYROXINE SOD 0.1 MG TAB PO SCH (05:31)
[2019-05-23] MEDS: NA CHLORIDE 0.9% 1,000 ML IV SCH ×2 (05:38→20:20)
[2019-05-23] MEDS: IPRATROPIUM BROM 0.5MG/2.5ML NEB PRN (07:45)
[2019-05-23] MEDS: ALBUTEROL 2.5 MG/3 ML NEB SOL NEB PRN (07:45)
[2019-05-23] MEDS: ARFORMOTEROL TARTRATE 15 MCG/2 ML VIAL.NEB NEB SCH ×2 (07:45→20:10)
[2019-05-23] MEDS: predniSONE 10 MG TAB PO SCH ×2 (07:51→20:55)
[2019-05-23] MEDS: ENOXAPARIN 100 MG/ML SYR SQ SCH ×2 (07:51→20:56)
[2019-05-23] MEDS: carvediloL 6.25 MG TAB PO SCH ×2 (07:51→20:56)
[2019-05-23] MEDS: NICOTINE 21 MG/PAT TD SCH (07:55)
--- NOTE | 2019-05-23 14:39 | P.PN ---
Subjective Date of Service: 05/23/19 Primary Care Provider: Dr. Beebe; Cardiology-Dr. Addison Chief Complaint: Chest pain, shortness of breath Subjective: No new changes Review of Systems Unremarkable Physical Examination - Vital Signs Temperature: 97.1 F Blood Pressure: 135/53 Pulse: 69 Respirations: 15 Pulse Ox (%): 98 - Physical Exam General: Alert, In no apparent distress HEENT: Atraumatic, Normocephalic Neck: Supple, JVD not distended Respiratory: Clear to auscultation bilaterally, Normal air movement Cardiovascular: Normal pulses, Regular rate/rhythm, Normal S1 S2 Gastrointestinal: Normal bowel sounds, Soft and benign, Non-distended Musculoskeletal: No clubbing, No swelling Integumentary: No rashes, No breakdown Neurological: Normal speech, Normal strength at 5/5 x4 extr, Normal tone - Studies Medications List Reviewed: Yes Assessment & Plan - Problems (Diagnosis) (1) Acute kidney injury Current Visit: No Status: Acute (2) NSTEMI (non-ST elevated myocardial infarction) Onset Date: 10/12/16 Current Visit: No Status: Acute (3) CAD (coronary artery disease) Current Visit: No Status: Chronic Qualifiers: Coronary Disease-Associated Artery/Lesion type: [place] artery [place] vs. transplanted heart: [place] heart Associated angina: with unstable angina Qualified Code(s): I25.110 - Atherosclerotic heart disease of [place] coronary artery with unstable angina pectoris Physician Review: Patient Assessed, Agree with Above Assessment and Plan Physician Review Additional Text: Chest pain- resolved. Acute on chronic systolic CHF exacerbation - improving 05/22- Patient with prior echo in December of 2018 showing improved ejection fraction at 45%. Cardiac stress test done at that time was unremarkable. Prior heart catheterization in 2017 showed mild disease without significant stenosis. Repeat chest x-ray is unremarkable. -Due to poor compliance. -1500 cc per day fluid restriction, low salt diet and strict I&O. -Hold Entresto 1 pill twice daily, carvedilol 6.25 mg 1 pill twice daily -Continue Lipitor 20 mg daily, and warfarin. -physical therapy and occupational therapy to further address his overall condition. -Symptoms improved. Hold lasix due to WATSON. #Acute rhabdomyolysis- ck improving #WATSON on CKD- improving to cr of 1.3 -Secondary to rhabdo. #COPD exacerbation- improved , c/w nebs /steroids #History of aortic valve replacement on chronic anti coagulation therapy, INR sub therapeutic: INR improving , c/w lovenox until inr >2 Hypertension: Hold entresto and carvedilol. Monitor and adjust appropriately Hyperlipidemia: Will continue with Lipitor 20 mg daily Surgical hypothyroidism: Will continue with levothyroxine 200 mcg daily. -TSH 221 & FT4 0.15, non compliance with meds and follow up with PCP Tobacco abuse: Tobacco cessation addressed in detail. Nicotine patch. -Dispo-awaitng dc to SNF when bed available at [facility]
[2019-05-23] MEDS: WARFARIN SODIUM 5 MG TAB PO SCH (17:09)
[2019-05-23] MEDS: ATORVASTATIN 20 MG TAB PO SCH (20:55)
[2019-05-24] MEDS: ACETAMINOPHEN 500 MG TAB PO PRN (03:04)
[2019-05-24 05:05] LABS: Absolute Lymphocytes (CBC) 1.2 K/uL (0.7-4.9); Basophils % 0.1 % (0-1.3); Hematocrit 28.6 % (39.6-49.0); Lymphocytes % 15.8 % (15.3-44.8); MPV 9.5 fL (7.6-11.3); RBC Red Blood Cell Count 3.18 M/uL (4.33-5.43)
[2019-05-24 05:11] LABS: Protime INR 2.39
[2019-05-24 05:25] LABS: Albumin 3.5 g/dL (3.4-5.0); Bilirubin Total 0.3 mg/dL (0.2-1.0); Potassium 3.8 mmol/L (3.5-5.1); Protein, Total 6.6 g/dL (6.4-8.2)
[2019-05-24] MEDS: NA CHLORIDE 0.9% 1,000 ML IV SCH (05:56)
[2019-05-24] MEDS: LEVOTHYROXINE SOD 0.1 MG TAB PO SCH (05:56)
[2019-05-24] MEDS: IPRATROPIUM BROM 0.5MG/2.5ML NEB PRN ×3 (07:25→21:00)
[2019-05-24] MEDS: ALBUTEROL 2.5 MG/3 ML NEB SOL NEB PRN (07:25)
[2019-05-24] MEDS: ARFORMOTEROL TARTRATE 15 MCG/2 ML VIAL.NEB NEB SCH ×2 (07:25→21:00)
[2019-05-24] MEDS: ENOXAPARIN 100 MG/ML SYR SQ SCH ×2 (08:09→20:31)
[2019-05-24] MEDS: NICOTINE 21 MG/PAT TD SCH (08:10)
[2019-05-24] MEDS: predniSONE 10 MG TAB PO SCH ×2 (08:12→20:33)
[2019-05-24] MEDS: carvediloL 6.25 MG TAB PO SCH ×2 (08:12→20:32)
--- NOTE | 2019-05-24 13:27 | P.PN ---
Subjective Date of Service: 05/24/19 Primary Care Provider: Dr. Beebe; Cardiology-Dr. Addison Chief Complaint: Chest pain, shortness of breath Subjective: No new changes (seen , self feeding -still feelw eak and anxious for SNF) Review of Systems 10-point ROS is otherwise unremarkable Physical Examination - Vital Signs Temperature: 97.0 F Blood Pressure: 139/71 Pulse: 73 Respirations: 14 Pulse Ox (%): 97 - Physical Exam General: Alert, In no apparent distress, Oriented x3 HEENT: Atraumatic, Normocephalic Neck: 2+ carotid pulse no bruit, JVD not distended Respiratory: Clear to auscultation bilaterally, Normal air movement Cardiovascular: Normal pulses, Regular rate/rhythm Gastrointestinal: Normal bowel sounds, Soft and benign, Non-distended Neurological: Normal speech, Cranial nerves 3-12 intact - Studies Laboratory Last Values WBC 7.3 K/uL (4.3-10.9) 05/24/19 04:54 RBC 3.18 M/uL (4.33-5.43) L 05/24/19 04:54 Hgb 9.5 g/dL (13.6-17.9) L 05/24/19 04:54 Hct 28.6 % (39.6-49.0) L 05/24/19 04:54 MCV 90.0 fL (80-100) 05/24/19 04:54 MCH 30.0 pg (27.0-35.0) 05/24/19 04:54 MCHC 33.4 g/dL (32.0-36.0) 05/24/19 04:54 RDW 17.8 % (12.1-15.2) H 05/24/19 04:54 Plt Count 118 K/uL (152-406) L 05/24/19 04:54 MPV 9.5 fL (7.6-11.3) 05/24/19 04:54 Neutrophils % 78.0 % (41.7-73.7) H 05/24/19 04:54 Lymphocytes % 15.8 % (15.3-44.8) 05/24/19 04:54 Monocytes % 5.5 % (3.3-12.3) 05/24/19 04:54 Eosinophils % 0.6 % (0-4.4) 05/24/19 04:54 Basophils % 0.1 % (0-1.3) 05/24/19 04:54 Absolute Neutrophils 5.7 K/uL (1.8-8.0) 05/24/19 04:54 Segmented Neutrophils 84 % (40-80) H 05/20/19 04:15 Band Neutrophils 1 % (0-1) 05/20/19 04:15 Absolute Lymphocytes 1.2 K/uL (0.7-4.9) 05/24/19 04:54 Lymphocytes 13 % (15-42) L 05/20/19 04:15 Monocytes 0 % (0-10) 05/20/19 04:15 Absolute Monocytes 0.4 K/uL (0.1-1.3) 05/24/19 04:54 Eosinophils 1 % (0-3) 05/20/19 04:15 Absolute Eosinophils 0.0 K/uL (0-0.5) 05/24/19 04:54 Absolute Basophils 0.0 K/uL (0-0.5) 05/24/19 04:54 Reactive Lymphocytes 1 % 05/20/19 04:15 Morphology Comment Not seen (NOT SEEN) 05/20/19 04:15 PT 27.3 SECONDS (9.5-12.5) H 05/24/19 04:54 INR 2.39 05/24/19 04:54 Sodium 140 mmol/L (136-145) 05/24/19 04:54 Potassium 3.8 mmol/L (3.5-5.1) 05/24/19 04:54 Chloride 106 mmol/L (98-107) 05/24/19 04:54 Carbon Dioxide 28 mmol/L (21-32) 05/24/19 04:54 BUN 22 mg/dL (7-18) H 05/24/19 04:54 Creatinine 1.31 mg/dL (0.55-1.3) H 05/24/19 04:54 Estimated GFR 54 mL/min (=/>90) L 05/24/19 04:54 Glucose 111 mg/dL (74-106) H 05/24/19 04:54 Hemoglobin A1c 5.9 % (4.2-6.3) 05/22/19 04:09 Calcium 8.4 mg/dL (8.5-10.1) L 05/24/19 04:54 Magnesium 2.2 mg/dL (1.8-2.4) 05/21/19 06:53 Total Bilirubin 0.3 mg/dL (0.2-1.0) 05/24/19 04:54 Direct Bilirubin 0.1 mg/dL (0-0.2) 05/19/19 17:15 AST 37 U/L (15-37) 05/24/19 04:54 ALT 30 U/L (12-78) 05/24/19 04:54 Alkaline Phosphatase 61 U/L (45-117) 05/24/19 04:54 Creatine Kinase 781 U/L (39-308) H 05/23/19 04:58 CK-MB (CK-2) 14.6 ng/mL (0.3-3.6) H* 05/20/19 09:17 Rapid Troponin I < 0.02 ng/mL (0.0-0.045) 05/19/19 17:15 Troponin I 0.02 ng/mL (0.0-0.045) 05/20/19 09:17 NT-Pro-B Natriuret Pep 1350 pg/mL (<125) H 05/21/19 09:50 Serum Total Protein 6.6 g/dL (6.4-8.2) 05/24/19 04:54 Albumin 3.5 g/dL (3.4-5.0) 05/24/19 04:54 Globulin 3.1 g/dL (2.3-3.5) 05/24/19 04:54 Albumin/Globulin Ratio 1.1 (1.1-1.8) 05/24/19 04:54 Triglycerides 435 mg/dL (<150) H 05/20/19 04:15 Cholesterol 373 mg/dL (<200) H 05/20/19 04:15 LDL Cholesterol Direct 222 mg/dL (100-129) H 05/20/19 04:15 LDL Cholesterol, Calc ND 05/20/19 04:15 HDL Cholesterol 52 mg/dL (40-60) 05/20/19 04:15 Cholesterol/HDL Ratio 7.17 05/20/19 04:15 TSH 221.000 uIU/mL (0.360-3.740) H 05/20/19 04:15 Free T4 0.15 ng/dL (0.76-1.46) L 05/20/19 04:15 ABO/Rh O POSITIVE 05/19/19 17:15 Antibody Screen Negative 05/19/19 17:15 Medications List Reviewed: Yes Assessment & Plan - Problems (Diagnosis) (1) Acute kidney injury Current Visit: No Status: Acute (2) NSTEMI (non-ST elevated myocardial infarction) Onset Date: 10/12/16 Current Visit: No Status: Acute (3) CAD (coronary artery disease) Current Visit: No Status: Chronic Qualifiers: Coronary Disease-Associated Artery/Lesion type: [place] artery [place] vs. transplanted heart: [place] heart Associated angina: with unstable angina Qualified Code(s): I25.110 - Atherosclerotic heart disease of [place] coronary artery with unstable angina pectoris Discharge Plan: [facility] Plan to discharge in: 24 Hours Physician Review: Patient Assessed, Agree with Above Assessment and Plan Physician Review Additional Text: # Surgical hypothyroidism: clinical with symptoms - likely cause of weakness, falls and rhabdomyolysis -Noted with elevated TSH of 221 and low free T4 0.15 , restarted levothyroxine 200 mcg daily. -non compliance with meds and follow up with PCP # Chest pain- resolved. Acute on chronic systolic CHF exacerbation - improving 05/22- Patient with prior echo in December of 2018 showing improved ejection fraction at 45%. Cardiac stress test done at that time was unremarkable. Prior heart catheterization in 2016 showed mild disease without significant stenosis. Repeat chest x-ray is unremarkable. -Due to poor compliance. -1500 cc per day fluid restriction, low salt diet and strict I&O. -Hold Entresto 1 pill twice daily, carvedilol 6.25 mg 1 pill twice daily -Continue Lipitor 20 mg daily, and warfarin. -physical therapy and occupational therapy to further address his overall condition. -Symptoms improved. Hold lasix due to WATSON. #Acute rhabdomyolysis- ck improving , follow repeat in am #WATSON on CKD- improving to cr of 1.3 -Secondary to rhabdo. #COPD exacerbation- improved , c/w nebs /steroids #History of aortic valve replacement on chronic anti coagulation therapy, INR sub therapeutic: INR improving , c/w lovenox until inr >2 Hypertension: can restart entresto and carvedilol. Monitor and adjust appropriately Hyperlipidemia: Will continue with Lipitor 20 mg daily Tobacco abuse: Tobacco cessation addressed in detail. Nicotine patch. -Dispo-awaitng dc to SNF when bed available at [facility]
[2019-05-24] MEDS: WARFARIN SODIUM 5 MG TAB PO SCH (16:20)
[2019-05-24] MEDS: ATORVASTATIN 20 MG TAB PO SCH (20:33)
[2019-05-25 05:25] LABS: Protime INR 3.44
[2019-05-25 05:28] LABS: Absolute Lymphocytes (CBC) 1.5 K/uL (0.7-4.9); Basophils % 0.2 % (0-1.3); Lymphocytes % 17.1 % (15.3-44.8); MPV 9.1 fL (7.6-11.3); RBC Red Blood Cell Count 3.18 M/uL (4.33-5.43)
[2019-05-25] MEDS: LEVOTHYROXINE SOD 0.1 MG TAB PO SCH (05:36)
[2019-05-25 05:47] LABS: Albumin 3.7 g/dL (3.4-5.0); Bilirubin Total 0.3 mg/dL (0.2-1.0); Potassium 3.8 mmol/L (3.5-5.1); Protein, Total 6.9 g/dL (6.4-8.2)
[2019-05-25] MEDS: carvediloL 6.25 MG TAB PO SCH ×2 (07:34→21:00)
[2019-05-25] MEDS: predniSONE 10 MG TAB PO SCH ×2 (07:34→21:09)
[2019-05-25] MEDS: ENOXAPARIN 100 MG/ML SYR SQ SCH (07:34)
[2019-05-25] MEDS: NICOTINE 21 MG/PAT TD SCH (07:35)
[2019-05-25] MEDS: ARFORMOTEROL TARTRATE 15 MCG/2 ML VIAL.NEB NEB SCH ×2 (08:40→20:30)
[2019-05-25] MEDS ORDERED: POTASSIUM CL SA 10 MEQ TAB PO ONE (09:00)
--- NOTE | 2019-05-25 13:11 | P.PN ---
Subjective Date of Service: 05/25/19 Primary Care Provider: Dr. Beebe; Cardiology-Dr. Addison Chief Complaint: Chest pain, shortness of breath Subjective: Doing well Physical Examination - Vital Signs Temperature: 97.1 F Blood Pressure: 109/47 Pulse: 66 Respirations: 16 Pulse Ox (%): 96 - Physical Exam General: Alert HEENT: Atraumatic Neck: Supple Respiratory: Clear to auscultation bilaterally, Normal air movement Cardiovascular: Normal pulses, Regular rate/rhythm - Studies Medications List Reviewed: Yes Assessment & Plan Discharge Plan: Other (SNF) Plan to discharge in: 24 Hours Physician Review Additional Text: Impression: Chest pain, shortness of breath likely related to acute on chronic systolic CHF exacerbation complicated with COPD exacerbation History of aortic valve replacement on chronic anti coagulation therapy, INR sub therapeutic Hypertension Hyperlipidemia Surgical hypothyroidism Tobacco abuse Plan: Chest pain, shortness of breath likely related to acute on chronic systolic CHF exacerbation complicated with COPD exacerbation: Continue current medications. Maintain sats above 93%. Patient awaiting to go to a skilled facility. Patient will require short term placement then eventually long-term placement. Will discuss further with social work. Anticipate discharge in the next day. Continue medication for COPD and CHF. History of aortic valve replacement on chronic anti coagulation therapy, INR sub therapeutic: Continue with Coumadin. Will monitor and adjust appropriately. Will also bridge with Lovenox at this time. Compliance with medication addressed in detail. Hypertension: Will continue with carvedilol and Entresto. Hyperlipidemia: Will continue with Lipitor 20 mg daily. Surgical hypothyroidism: Patient has been non compliant. Will continue with levothyroxine 200 mcg daily. Tobacco abuse: Tobacco cessation addressed in detail. Acute rhabdomyolysis: Stable. Continue with physical therapy Time Spent Managing Pts Care (In Minutes): 55
[2019-05-25] MEDS: ACETAMINOPHEN 500 MG TAB PO PRN (15:23)
[2019-05-25] MEDS: FUROSEMIDE 40 MG TABLET PO SCH (16:05)
[2019-05-25] MEDS ORDERED: WARFARIN SODIUM 4 MG TAB PO SCH (17:00)
[2019-05-25] MEDS: ATORVASTATIN 20 MG TAB PO SCH (21:09)
[2019-05-25] MEDS: SACUBITRIL/VALSARTAN 24/26 MG TAB PO SCH (21:09)
[2019-05-26 04:35] LABS: Absolute Lymphocytes (CBC) 1.3 K/uL (0.7-4.9); Basophils % 0.1 % (0-1.3); Hematocrit 26.7 % (39.6-49.0); Lymphocytes % 15.4 % (15.3-44.8); MPV 9.9 fL (7.6-11.3); RBC Red Blood Cell Count 2.93 M/uL (4.33-5.43)
[2019-05-26 04:47] LABS: Magnesium 2.2 mg/dL (1.8-2.4); Potassium 3.9 mmol/L (3.5-5.1)
[2019-05-26 04:49] LABS: Protime INR 4.08
[2019-05-26] MEDS ORDERED: POTASSIUM CL SA 10 MEQ TAB PO ONE (04:52)
[2019-05-26] MEDS: LEVOTHYROXINE SOD 0.1 MG TAB PO SCH (05:35)
[2019-05-26] MEDS: ARFORMOTEROL TARTRATE 15 MCG/2 ML VIAL.NEB NEB SCH ×2 (07:40→20:05)
[2019-05-26] MEDS: FUROSEMIDE 40 MG TABLET PO SCH ×2 (08:01→17:39)
[2019-05-26] MEDS: SACUBITRIL/VALSARTAN 24/26 MG TAB PO SCH ×2 (08:01→20:53)
[2019-05-26] MEDS: NICOTINE 21 MG/PAT TD SCH (08:01)
[2019-05-26] MEDS: predniSONE 10 MG TAB PO SCH ×2 (08:01→20:53)
[2019-05-26] MEDS: carvediloL 6.25 MG TAB PO SCH ×2 (08:02→20:53)
--- NOTE | 2019-05-26 08:54 | P.PN ---
Subjective Date of Service: 05/26/19 Primary Care Provider: Dr. Beebe; Cardiology-Dr. Addison Chief Complaint: Chest pain, shortness of breath Subjective: Doing well Physical Examination - Vital Signs Temperature: 97.1 F Blood Pressure: 147/64 Pulse: 72 Respirations: 18 Pulse Ox (%): 96 - Physical Exam General: Alert, In no apparent distress HEENT: Atraumatic Neck: Supple Respiratory: Clear to auscultation bilaterally, Normal air movement Cardiovascular: Normal pulses, Regular rate/rhythm Neurological: Normal speech, Normal strength at 5/5 x4 extr, Normal tone - Studies Medications List Reviewed: Yes Assessment & Plan Discharge Plan: Other (long term facility) Plan to discharge in: 24 Hours Physician Review Additional Text: Impression: Chest pain, shortness of breath likely related to acute on chronic systolic CHF exacerbation complicated with COPD exacerbation History of aortic valve replacement on chronic anti coagulation therapy Hypertension Hyperlipidemia Surgical hypothyroidism Tobacco abuse Plan: Chest pain, shortness of breath likely related to acute on chronic systolic CHF exacerbation complicated with COPD exacerbation: Continue current medications. Will decrease prednisone. This will be tapered off over the next 5 days. Maintain sats above 93%. Patient awaiting to go to a skilled facility. Awaiting approval. Patient will require short term placement then eventually long-term placement. Anticipate discharge to skilled facility today once approved. If the patient remains I will turn the service over to the hospitalist team tomorrow. I will go over the plan of care with him. History of aortic valve replacement on chronic anti coagulation therapy: INR elevated. Will decrease Coumadin. Will hold Coumadin if INR greater than 3.5. Continue to monitor closely Hypertension: Will continue with carvedilol and Entresto. Hyperlipidemia: Will continue with Lipitor 20 mg daily. Surgical hypothyroidism: Patient has been non compliant. Compliance addressed with patient. Will continue with levothyroxine 200 mcg daily. Recommend to recheck tsh and free T4 in 4-6 weeks to further adjust pre Tobacco abuse: Tobacco cessation addressed in detail. Acute rhabdomyolysis: Stable. Continue with physical therapy Time Spent Managing Pts Care (In Minutes): 55
--- NOTE | 2019-05-26 13:20 | P.DS ---
Admission Date: 05/21/19 Discharge Date: 05/26/19 Primary Care Provider: Dr. Beebe; Cardiology-Dr. Addison Disposition: DC HOME/HOME HEALTH CARE Discharge Condition: GOOD Reason for Admission: Chest pain, shortness of breath Consultations: Cardiology-Dr. Addison Procedures: CXR: COMPARISON: May 19, 2019 FINDINGS: The lungs appear clear of acute infiltrate. The heart is mildly enlarged. Postsurgical changes involve the chest. Chronic blunting of the left costophrenic sulcus IMPRESSION: No acute abnormalities displayed ECHO: Ejection fraction 50% LEFT VENTRICULAR WALL MOTION: NORMAL DOPPLER/COLOR FLOW: NO AORTIC STENOSIS OR AORTIC REGURGITATION. NORMAL DOPPLER OF PROSTHETIC VALVE. COMMENTS: NORMAL LEFT VENTRICULAR EJECTION FRACTION. LEFT VENTRICULAR HYPERTROPHY. DILATED LEFT AND RIGHT DILATED. PACEMAKER IN RIGHT VENTRICLE. PROSTHETIC AORTIC VALVE WITH NORMAL FUNCTION. Medical Problem List: Chest pain, shortness of breath likely related to acute on chronic systolic CHF exacerbation complicated with COPD exacerbation History of aortic valve replacement on chronic anti coagulation therapy Hypertension Hyperlipidemia Surgical hypothyroidism Tobacco abuse Brief History of Present Illness: 69-year-old male with history of systolic CHF, COPD, hypertension, hyperlipidemia, tobacco abuse and prior aortic valve replacement on chronic anti coagulation therapy. Patient presented with chest pain and shortness of breath. He reported that this started today. It has been getting worse. He has noted increasing fatigue as well. He has not been able to get around appropriately. Chest pain mainly to the substernal region. Some wheezing noted. Edema to the lower extremity also reported. Due to shortness of breath and chest pain he has been unsteady with his activities. He came to the ER for further evaluation. In the ER patient evaluated. No significant EKG changes noted. Chest x-ray unremarkable. Guaiac study negative. INR 1.04. White count 6.2, hemoglobin 10.6. Sodium 139, creatinine 1.48 with a GFR 47. Initial troponin unremarkable. BNP 1600. Due to his multiple medical issues patient was admitted for further evaluation. When I saw the patient ER, he looked not well kept. He looked disheveled. Her some question of poor compliance with medication. Patient still smokes daily. Previous information reviewed. In 2017 patient had heart catheterization showing minimal Coronary artery disease. No significant stenosis at that time noted. EF was around 20%. Last year he was seen in November. Echocardiogram shows EF improved at 45%. Stress test showed no stress-induced ischemia. Hospital Course: Patient presented with chest pain and shortness of breath likely related to acute on chronic systolic CHF complicated with COPD exacerbation. Patient has done well during the course of his stay. Patient was evaluated by Cardiology. Echocardiogram shows improvement in ejection fraction. Medications were restarted. Adjustments in his diuretic therapy also adjusted. Patient was trying to qualify for skilled placement and long-term placement. Unfortunately insurance denied both. Therefore at discharge patient will be discharged home with home health and physical therapy. Fall precautions in place. For his CHF patient will continue with a 1500 cc per day fluid restriction and low-salt diet. He is to monitor his weight daily. If his weight increases by more than 5 lb he is to contact his PCP or cardiology for further recommendation. He will continue with Lasix 40 mg 1 pill twice daily. For his COPD patient will continue with prednisone 5 mg 1 pill twice daily for 5 days then 1 pill once daily for 5 days. At discharge new medications include Symbicort 2 puffs twice daily and Pro air 2 puffs 3 times a day as needed for shortness of breath. Will recommend follow up with cardiology to address his CHF and follow up with pulmonology as an outpatient to establish care. Patient with underlying hypertension. Medications have been adjusted. Patient will continue with carvedilol 6.25 mg 1 pill twice daily. Zebeta has been discontinued. Patient with history of aortic valve replacement on chronic anti coagulation therapy. At discharge patient will continue with his current dose of Coumadin 4 mg daily. Recommend to recheck INR within 1 week. Further adjustment can be done by his PCP or cardiology. Fall precautions in place. Education on Coumadin provided. Patient with hyperlipidemia. At discharge she will continue with Lipitor 20 mg daily. Patient with surgical hypothyroidism. Patient has not been compliant. Compliance addressed in detail. Patient will continue with levothyroxine 200 mcg daily. Recommend to recheck tsh and free T4 in 4-6 weeks to further adjust. Patient had acute rhabdomyolysis. This improved during the course of his stay. Vital Signs/Physical Exam: Temp Pulse Resp BP Pulse Ox 96.8 F 73 16 117/65 97 05/26/19 12:00 05/26/19 12:00 05/26/19 12:00 05/26/19 12:00 05/26/19 12:00 General: Alert, In no apparent distress, Oriented x3, Cooperative HEENT: Atraumatic Neck: Supple Respiratory: Clear to auscultation bilaterally, Normal air movement Cardiovascular: Normal pulses, Regular rate/rhythm Gastrointestinal: Normal bowel sounds, Soft and benign, Non-distended Musculoskeletal: No erythema, No tenderness, No warmth Integumentary: No erythema, No warmth, No cyanosis Neurological: Normal speech, Normal strength at 5/5 x4 extr, Normal tone, Normal affect Laboratory Data at Discharge: WBC 8.3 K/uL (4.3-10.9) 05/26/19 04:04 Hgb 8.7 g/dL (13.6-17.9) L 05/26/19 04:04 Hct 26.7 % (39.6-49.0) L 05/26/19 04:04 Plt Count 109 K/uL (152-406) L 05/26/19 04:04 PT 45.6 SECONDS (9.5-12.5) H 05/26/19 04:04 INR 4.08 H* 05/26/19 04:04 Sodium 140 mmol/L (136-145) 05/26/19 04:04 Potassium 3.9 mmol/L (3.5-5.1) 05/26/19 04:04 BUN 24 mg/dL (7-18) H 05/26/19 04:04 Creatinine 1.35 mg/dL (0.55-1.3) H 05/26/19 04:04 Glucose 127 mg/dL (74-106) H 05/26/19 04:04 Magnesium 2.2 mg/dL (1.8-2.4) 05/26/19 04:04 Total Bilirubin 0.3 mg/dL (0.2-1.0) 05/25/19 05:02 AST 37 U/L (15-37) 05/25/19 05:02 ALT 32 U/L (12-78) 05/25/19 05:02 Alkaline Phosphatase 75 U/L (45-117) 05/25/19 05:02 Troponin I 0.02 ng/mL (0.0-0.045) 05/20/19 09:17 Triglycerides 435 mg/dL (<150) H 05/20/19 04:15 Cholesterol 373 mg/dL (<200) H 05/20/19 04:15 LDL Cholesterol Direct 222 mg/dL (100-129) H 05/20/19 04:15 HDL Cholesterol 52 mg/dL (40-60) 05/20/19 04:15 Cholesterol/HDL Ratio 7.17 05/20/19 04:15 Home Medications: Atorvastatin Calcium [Lipitor*] 20 mg PO BEDTIME 12/24/18 Warfarin Sodium [Coumadin*] 4 mg PO DAILY 12/24/18 carvediloL [Coreg*] 6.25 mg PO BID 12/24/18 Albuterol Sulfate [Proair Hfa] 8.5 gm IH TID PRN #1 hfa.[email or web address] 05/26/19 Budesonide/Formoterol Fumarate [Symbicort 160-4.5 Mcg Inhaler] 2 puff IH BID #1 hfa.aer.ad 05/26/19 Furosemide [Lasix*] 40 mg PO BID #60 tab 05/26/19 Levothyroxine Sodium 200 mcg PO 0630 #30 tablet 05/26/19 Sacubitril/Valsartan [Entresto 24 mg-26 mg Tablet] 1 tab PO BID #60 tab predniSONE [Deltasone] 5 mg PO SEECOM #15 tab 05/26/19 New Medications: Albuterol Sulfate [Proair Hfa] 8.5 gm IH TID PRN #1 hfa.aer.ad PRN Reason: Shortness Of Breath Budesonide/Formoterol Fumarate [Symbicort 160-4.5 Mcg Inhaler] 2 puff IH BID #1 hfa.aer.ad Furosemide [Lasix*] 40 mg PO BID #60 tab Levothyroxine Sodium 200 mcg PO 0630 #30 tablet predniSONE [Deltasone] 5 mg PO SEECOM #15 tab Sacubitril/Valsartan [Entresto 24 mg-26 mg Tablet] 1 tab PO BID #60 tab Patient Discharge Instructions: 1. Recommend follow up with his PCP in 1 week to follow up this hospitalization. 2. Patient presented with chest pain and shortness of breath likely related to acute on chronic systolic CHF complicated with COPD exacerbation. Patient has done well during the course of his stay. Patient was evaluated by Cardiology. Echocardiogram shows improvement in ejection fraction. Medications were restarted. Adjustments in his diuretic therapy also adjusted. Patient was trying to qualify for skilled placement and long-term placement. Unfortunately insurance denied both. Therefore at discharge patient will be discharged home with home health and physical therapy. Fall precautions in place. For his CHF patient will continue with a 1500 cc per day fluid restriction and low-salt diet. He is to monitor his weight daily. If his weight increases by more than 5 lb he is to contact his PCP or cardiology for further recommendation. He will continue with Lasix 40 mg 1 pill twice daily. For his COPD patient will continue with prednisone 5 mg 1 pill twice daily for 5 days then 1 pill once daily for 5 days. At discharge new medications include Symbicort 2 puffs twice daily and Pro air 2 puffs 3 times a day as needed for shortness of breath. Will recommend follow up with cardiology to address his CHF and follow up with pulmonology as an outpatient to establish care. Patient with underlying hypertension. Medications have been adjusted. Patient will continue with carvedilol 6.25 mg 1 pill twice daily. Zebeta has been discontinued. 3. Patient with history of aortic valve replacement on chronic anti coagulation therapy. At discharge patient will continue with his current dose of Coumadin 4 mg daily. Recommend to recheck INR within 1 week. Further adjustment can be done by his PCP or cardiology. Fall precautions in place. Education on Coumadin provided. 4. Patient with hyperlipidemia. At discharge she will continue with Lipitor 20 mg daily. 5. Patient with surgical hypothyroidism. Patient has not been compliant. Compliance addressed in detail. Patient will continue with levothyroxine 200 mcg daily. Recommend to recheck tsh and free T4 in 4-6 weeks to further adjust. 6. Patient had acute rhabdomyolysis. This improved during the course of his stay. Diet: AHA Activity: Fall precautions Time spent managing pt's care (in minutes): 55
[2019-05-26] MEDS ORDERED: WARFARIN SODIUM 3 MG TAB PO SCH (17:00)
[2019-05-26] MEDS: ATORVASTATIN 20 MG TAB PO SCH (20:53)
[2019-05-27] MEDS: ACETAMINOPHEN 500 MG TAB PO PRN (01:30)
[2019-05-27 03:38] VITALS: O2SAT 95
[2019-05-27 05:12] VITALS: TEMP 97
[2019-05-27] MEDS: LEVOTHYROXINE SOD 0.1 MG TAB PO SCH (05:36)
[2019-05-27 05:43] VITALS: BMI 37.9
[2019-05-27 06:35] LABS: Protime INR 3.11
[2019-05-27 06:44] LABS: Potassium 3.9 mmol/L (3.5-5.1)
[2019-05-27] MEDS: FUROSEMIDE 40 MG TABLET PO SCH (08:34)
[2019-05-27] MEDS: predniSONE 10 MG TAB PO SCH (08:34)
[2019-05-27] MEDS: IPRATROPIUM BROM 0.5MG/2.5ML NEB PRN (08:35)
[2019-05-27] MEDS: ALBUTEROL 2.5 MG/3 ML NEB SOL NEB PRN (08:35)
[2019-05-27] MEDS: ARFORMOTEROL TARTRATE 15 MCG/2 ML VIAL.NEB NEB SCH (08:35)
[2019-05-27] MEDS: NICOTINE 21 MG/PAT TD SCH (08:35)
[2019-05-27 08:36] VITALS: BP 141/61
--- NOTE | 2019-05-27 09:33 | P.DS ---
Admission Date: 05/21/19 Discharge Date: 05/27/19 Primary Care Provider: Dr. Beebe; Cardiology-Dr. Addison Disposition: DC HOME/HOME HEALTH CARE Discharge Condition: GOOD Reason for Admission: Chest pain, shortness of breath - Problems (1) Acute kidney injury Current Visit: No Status: Acute (2) NSTEMI (non-ST elevated myocardial infarction) Onset Date: 10/12/16 Current Visit: No Status: Acute (3) CAD (coronary artery disease) Current Visit: No Status: Chronic Qualifiers: Coronary Disease-Associated Artery/Lesion type: [place] artery [place] vs. transplanted heart: [place] heart Associated angina: with unstable angina Qualified Code(s): I25.110 - Atherosclerotic heart disease of [place] coronary artery with unstable angina pectoris Hospital Course: patient seen today , ambulating independently , schduled for discharge home yestrday -see discharge summary dictated 05/27/[address] Angelo. but dc held due to inability to get transport home . seen briefly today and agree with plan as previously outlined Vital Signs/Physical Exam: Temp Pulse Resp BP Pulse Ox 97.0 F 68 16 141/61 H 98 05/27/19 08:00 05/27/19 08:34 05/27/19 08:00 05/27/19 08:34 05/27/19 08:00 General: Alert, In no apparent distress, Oriented x3 HEENT: Atraumatic, Normocephalic Neck: Supple, 2+ carotid pulse no bruit Respiratory: Clear to auscultation bilaterally, Normal air movement Cardiovascular: No edema, Normal pulses, Regular rate/rhythm, Normal S1 S2 Gastrointestinal: Normal bowel sounds, Soft and benign Neurological: Normal speech, Normal strength at 5/5 x4 extr Laboratory Data at Discharge: WBC 8.3 K/uL (4.3-10.9) 05/26/19 04:04 Hgb 8.7 g/dL (13.6-17.9) L 05/26/19 04:04 Hct 26.7 % (39.6-49.0) L 05/26/19 04:04 Plt Count 109 K/uL (152-406) L 05/26/19 04:04 PT 35.1 SECONDS (9.5-12.5) H 05/27/19 05:33 INR 3.11 05/27/19 05:33 Sodium 138 mmol/L (136-145) 05/27/19 05:33 Potassium 3.9 mmol/L (3.5-5.1) 05/27/19 05:33 BUN 32 mg/dL (7-18) H 05/27/19 05:33 Creatinine 1.63 mg/dL (0.55-1.3) H 05/27/19 05:33 Glucose 122 mg/dL (74-106) H 05/27/19 05:33 Magnesium 2.2 mg/dL (1.8-2.4) 05/26/19 04:04 Total Bilirubin 0.3 mg/dL (0.2-1.0) 05/25/19 05:02 AST 37 U/L (15-37) 05/25/19 05:02 ALT 32 U/L (12-78) 05/25/19 05:02 Alkaline Phosphatase 75 U/L (45-117) 05/25/19 05:02 Troponin I 0.02 ng/mL (0.0-0.045) 05/20/19 09:17 Triglycerides 435 mg/dL (<150) H 05/20/19 04:15 Cholesterol 373 mg/dL (<200) H 05/20/19 04:15 LDL Cholesterol Direct 222 mg/dL (100-129) H 05/20/19 04:15 HDL Cholesterol 52 mg/dL (40-60) 05/20/19 04:15 Cholesterol/HDL Ratio 7.17 05/20/19 04:15 Home Medications: Atorvastatin Calcium [Lipitor*] 20 mg PO BEDTIME 12/24/18 Warfarin Sodium [Coumadin*] 4 mg PO DAILY 12/24/18 carvediloL [Coreg*] 6.25 mg PO BID 12/24/18 Albuterol Sulfate [Proair Hfa] 8.5 gm IH TID PRN #1 hfa.aer.ad 05/26/19 Budesonide/Formoterol Fumarate [Symbicort 160-4.5 Mcg Inhaler] 2 puff IH BID #1 hfa.aer.ad 05/26/19 Furosemide [Lasix*] 40 mg PO BID #60 tab 05/26/19 Levothyroxine Sodium 200 mcg PO 0630 #30 tablet 05/26/19 Sacubitril/Valsartan [Entresto 24 mg-26 mg Tablet] 1 tab PO BID #60 tab predniSONE [Deltasone] 5 mg PO SEECOM #15 tab 05/26/19 New Medications: Albuterol Sulfate [Proair Hfa] 8.5 gm IH TID PRN #1 hfa.aer.ad PRN Reason: Shortness Of Breath Budesonide/Formoterol Fumarate [Symbicort 160-4.5 Mcg Inhaler] 2 puff IH BID #1 hfa.aer.ad Furosemide [Lasix*] 40 mg PO BID #60 tab Levothyroxine Sodium 200 mcg PO 0630 #30 tablet predniSONE [Deltasone] 5 mg PO SEECOM #15 tab Sacubitril/Valsartan [Entresto 24 mg-26 mg Tablet] 1 tab PO BID #60 tab Patient Discharge Instructions: 1. Recommend follow up with his PCP in 1 week to follow up this hospitalization. 2. Patient presented with chest pain and shortness of breath likely related to acute on chronic systolic CHF complicated with COPD exacerbation. Patient has done well during the course of his stay. Patient was evaluated by Cardiology. Echocardiogram shows improvement in ejection fraction. Medications were restarted. Adjustments in his diuretic therapy also adjusted. Patient was trying to qualify for skilled placement and long-term placement. Unfortunately insurance denied both. Therefore at discharge patient will be discharged home with home health and physical therapy. Fall precautions in place. For his CHF patient will continue with a 1500 cc per day fluid restriction and low-salt diet. He is to monitor his weight daily. If his weight increases by more than 5 lb he is to contact his PCP or cardiology for further recommendation. He will continue with Lasix 40 mg 1 pill twice daily. For his COPD patient will continue with prednisone 5 mg 1 pill twice daily for 5 days then 1 pill once daily for 5 days. At discharge new medications include Symbicort 2 puffs twice daily and Pro air 2 puffs 3 times a day as needed for shortness of breath. Will recommend follow up with cardiology to address his CHF and follow up with pulmonology as an outpatient to establish care. Patient with underlying hypertension. Medications have been adjusted. Patient will continue with carvedilol 6.25 mg 1 pill twice daily. Zebeta has been discontinued. 3. Patient with history of aortic valve replacement on chronic anti coagulation therapy. At discharge patient will continue with his current dose of Coumadin 4 mg daily. Recommend to recheck INR within 1 week. Further adjustment can be done by his PCP or cardiology. Fall precautions in place. Education on Coumadin provided. 4. Patient with hyperlipidemia. At discharge she will continue with Lipitor 20 mg daily. 5. Patient with surgical hypothyroidism. Patient has not been compliant. Compliance addressed in detail. Patient will continue with levothyroxine 200 mcg daily. Recommend to recheck tsh and free T4 in 4-6 weeks to further adjust. 6. Patient had acute rhabdomyolysis. This improved during the course of his stay. Diet: AHA Activity: Fall precautions
== END 2019-05-27 10:20 | disposition home health service (06) | DRG 291 ==
LOC: ER 16:39 → ERHOLD 18:16 → 4TH 20:31 → OBSVTOIN 05-21 07:51
PROVIDERS: ADMIT Family Medicine; ATTEND Family Medicine
DX: I13.0 Hypertensive heart and chronic kidney disease with heart failure and stage 1 through stage 4 chronic kidney disease, or unspecified chronic kidney disease (principal); I50.23 Acute on chronic systolic (congestive) heart failure; N17.9 Acute kidney failure, unspecified; J44.1 Chronic obstructive pulmonary disease with (acute) exacerbation; M62.82 Rhabdomyolysis; N18.3 Chronic kidney disease, stage 3 (moderate); Z79.01 Long term (current) use of anticoagulants; Z95.2 Presence of prosthetic heart valve; E78.5 Hyperlipidemia, unspecified; E03.9 Hypothyroidism, unspecified; Z91.19 Patient's noncompliance with other medical treatment and regimen
CPT/HCPCS: 36415; 71045; 80048; 80053; 80061; 80076; 82272; 82550; 82553; 83036; 83735; 83880; 84439; 84443; 84484; 85025; 85610; 86850; 86900; 86901; 93005; 93306; 94640; 96374; 97116; 97161; 97165; 97530; 99285; G0378; J1650; J1940; J7030; J7512; J7605

== ENCOUNTER 2020-09-16 20:21 | Inpatient (IN) | payer OTHER ==
--- NOTE | 2020-09-16 20:56 | RAD REPORT ---
EXAM DESCRIPTION: Juanjo Single View09/16/2020 8:48 pm CLINICAL HISTORY: Chest pain COMPARISON: 2019 FINDINGS: The lungs appear clear of acute infiltrate. The heart is mildly enlarged. Pacemaker leads are in place. Postsurgical changes involve the chest IMPRESSION: No acute abnormalities displayed
[2020-09-16 21:07] LABS: Absolute Lymphocytes (CBC) 1.8 K/uL (0.7-4.9); Basophils % 0.5 % (0-1.3); Hematocrit 31.9 % (39.6-49.0); Lymphocytes % 22.5 % (15.3-44.8); RBC Red Blood Cell Count 3.85 M/uL (4.33-5.43)
[2020-09-16] MEDS ORDERED: MORPHINE 2 MG/ML SYR ONE (21:15)
[2020-09-16 21:23] LABS: Protime INR 8.39
[2020-09-16 21:26] LABS: ALT/SGPT 19 U/L (12-78); AST/SGOT 17 U/L (15-37); Albumin 3.2 g/dL (3.4-5.0); Alkaline Phosphatase 98 U/L (45-117); BUN Blood Urea Nitrogen 12 mg/dL (7-18); Bicarbonate 24 mmol/L (21-32); Bilirubin Direct < 0.1 mg/dL (0-0.2); Bilirubin Total 0.3 mg/dL (0.2-1.0); Glucose Level 96 mg/dL (74-106); NT PRO-BNP 1859 pg/mL (<125); Potassium 4.7 mmol/L (3.5-5.1); Protein, Total 7.2 g/dL (6.4-8.2); Sodium Level 127 mmol/L (136-145); Troponin (Emerg Dept Use Only) 0.02 ng/mL (0.0-0.045)
--- NOTE | 2020-09-16 22:00 | EDPHYS ---
Physician Documentation [facility] Name: Juan Aranda Age: 70 yrs Sex: Male : 1950 Arrival Date: 09/16/2020 Time: 20:27 Bed 13 Private MD: ED Physician Shai Bradshaw HPI: 09/16 20:40 This 70 yrs old Male presents to ER via EMS with complaints of Chest Pain. cp 20:40 The patient or guardian reports chest pain that is located primarily in the anterior cp chest wall, started on right now moved to left side of chest. 20:40 Onset: 4 hour(s) ago. cp 20:40 The pain does not radiate. cp 20:40 Associated signs and symptoms: Pertinent negatives: abdominal pain, diaphoresis, lower cp extremity pain, lower extremity swelling, shortness of breath, syncope. The chest pain is described as sharp. Duration: The patient or guardian reports a single episode, that is still ongoing, and unchanged. Modifying factors: the symptoms are aggravated by cough. 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 - Social history:: Smoking status: unknown. ROS: 20:45 Constitutional: Negative for body aches, chills, fever, poor PO intake. cp 20:45 Eyes: Negative for injury, pain, redness, and discharge. cp 20:45 ENT: Negative for ear pain, sore throat, difficulty swallowing, difficulty handling cp secretions. 20:45 Cardiovascular: Positive for chest pain, Negative for edema, palpitations. 20:45 Respiratory: Positive for cough, with no reported sputum, Negative for shortness of breath, wheezing. 20:45 Abdomen/GI: Negative for abdominal pain, nausea, vomiting, and diarrhea. 20:45 Back: Negative for radiated pain. 20:45 Skin: Negative for rash. 20:45 Neuro: Negative for altered mental status, headache, weakness. 20:45 All other systems are negative. cp Exam: 20:35 ECG was reviewed by the Attending Physician. cp 20:48 Constitutional: The patient appears in no acute distress, alert, awake, cp non-diaphoretic, non-toxic, well developed, well nourished, uncomfortable. 20:48 Head/Face: Normocephalic, atraumatic. cp 20:49 Eyes: Periorbital structures: appear normal, Conjunctiva: normal, no exudate, no cp injection, Sclera: no appreciated abnormality, Lids and lashes: appear normal, bilaterally. 20:49 ENT: External ear(s): are unremarkable, Nose: is normal, Mouth: Lips: moist, Oral mucosa: moist, Posterior pharynx: Airway: no evidence of obstruction, patent. 20:49 Neck: ROM/movement: is normal, is supple, without pain, no range of motions limitations. 20:49 Chest/axilla: Inspection: normal, Palpation: is normal, no crepitus, no tenderness. 20:49 Cardiovascular: Rate: normal, Rhythm: regular, Edema: is not appreciated, JVD: is not appreciated. 20:49 Respiratory: the patient does not display signs of respiratory distress, Respirations: normal, no use of accessory muscles, no retractions, labored breathing, is not present, Breath sounds: are clear throughout, no decreased breath sounds, no stridor, no wheezing. 20:49 Abdomen/GI: Inspection: abdomen appears normal, Palpation: abdomen is soft and non-tender, in all quadrants. 20:49 Back: pain, is absent, ROM is normal. 20:49 Skin: no rash present. 20:49 Neuro: Orientation: to person, place \\T\\ time. Mentation: is normal, Motor: moves all fours, strength is normal, Sensation: no obvious gross deficits. Vital Signs: 20:41 BP 159 / 65; Pulse 79; Resp 22; Temp 97.8; Pulse Ox 99% on R/A; ea 21:30 BP 112 / 86; Pulse 85; Resp 19; Pulse Ox 100% ; ea MDM: 20:48 Patient medically screened. cp 21:00 Differential diagnosis: abnormal EKG, acute myocardial infarction, pancreatitis, cp pneumonia, pneumothorax, pulmonary embolus, stable angina, thoracic aortic disection, unstable angina. 21:30 Data reviewed: vital signs, nurses notes, lab test result(s), EKG, radiologic studies, cp plain films. 21:30 Physician consultation: Niko DU was contacted at 21:30, regarding admission, cp to the telemetry unit. patient's condition, and will see patient in ED, shortly. 09/16 20:34 Order name: Basic Metabolic Panel; Complete Time: : 09/16 21:28 Interpretation: Normal except: NA 127; CL 97. 09/16 20:34 Order name: CBC with Diff; Complete Time: : 09/16 21:27 Interpretation: Normal except: RBC 3.85; HGB 10.9; HCT 31.9; MCV 82.9; RDW 17.9. 09/16 20:34 Order name: LFT's; Complete Time: : 09/16 20:34 Order name: Magnesium; Complete Time: : 09/16 20:34 Order name: NT PRO-BNP; Complete Time: : 09/16 20:34 Order name: PT-INR; Complete Time: : 09/16 21:28 Interpretation: Abnormal: INR 8.39. 09/16 20:34 Order name: Troponin (emerg Dept Use Only); Complete Time: : 09/16 20:34 Order name: XRAY Chest (1 view); Complete Time: : 09/16 21:41 Order name: COVID-19 : Document "Date of Symptom Onset" if Symptomatic. 09/16 21:48 Order name: CT Chest W/ Con 09/16 22:01 Order name: SARS-COV-2 RT PCR; Complete Time: 22:31 EDCT 09/16 20:34 Order name: EKG; Complete Time: 20:35 09/16 20:34 Order name: Cardiac monitoring; Complete Time: 20:53 09/16 20:34 Order name: EKG - Nurse/Tech; Complete Time: 20:53 09/16 20:34 Order name: IV Saline Lock; Complete Time: 20:53 09/16 20:34 Order name: Labs collected and sent; Complete Time: 20:53 09/16 20:34 Order name: O2 Per Protocol; Complete Time: 20:53 09/16 20:34 Order name: O2 Sat Monitoring; Complete Time: 20:53 ea EC:35 Rate is 81 beats/min. Rhythm is regular. UT interval is normal. QRS interval is cp prolonged at 138 msec. QT interval is normal. T waves are Inverted in lead aVL. Interpreted by me. Reviewed by me. Administered Medications: 20:50 CANCELLED (Physician Discretion): Nitroglycerin 0.4 mg Sublingual once cp 20:59 Drug: morphine 2 mg Route: IVP; Site: right antecubital; ea 22:41 Drug: Pepcid (famotidine) 20 mg Route: IVP; Site: left antecubital; ea 22:41 Drug: Nicoderm CQ 21 mg/24 hr 21 mg Route: Transdermal; Site: affected area; ea 22:42 Drug: Xopenex (levalbuterol) 1.25 mg Route: Inhalation; ea 23:05 Drug: Lasix (furosemide) 60 mg Route: IVP; Site: left antecubital; ea Disposition: 09/17 07:44 Co-signature as Attending Physician, Shai Bradshaw MD. 7 Disposition: 09/16/20 21:59 Hospitalization ordered by Glen Black for Observation. Preliminary diagnosis are Chest pain, unspecified, Abnormal coagulation profile. - Bed requested for Telemetry/MedSurg (observation). - Status is Observation. ea - Condition is Stable. - Problem is new. - Symptoms have improved. Signatures: Dispatcher [employer] EDCT Niko Ty, JASON-Christopher GRAIN UNLOADER MACHINE-Cla1 Franklin Granados PA PA cp Garcia, Cindy, Renee Rosario RN, RN RN ea Holmes, Maurice, MD MD 7 Corrections: (The following items were deleted from the chart) 09/16 20:50 20:49 Nitroglycerin 0.4 mg Sublingual once ordered. cp cp 21:20 20:50 CORONAVIRUS+MR.LAB.BRZ ordered. EDCT EDMS 22:34 21:59 Hospitalization Ordered by Glen Black MD for Observation. Preliminary cg diagnosis is Chest pain, unspecified; Abnormal coagulation profile. Bed requested for Telemetry/MedSurg (observation). Status is Observation. Condition is Stable. Problem is new. Symptoms have improved. cp 23:52 22:34 09/16/2020 21:59 Hospitalization Ordered by Glen Black MD for Observation. ea Preliminary diagnosis is Chest pain, unspecified; Abnormal coagulation profile. Bed requested for Telemetry/MedSurg (observation). Status is Observation. Condition is Stable. Problem is new. Symptoms have improved. cg
--- NOTE | 2020-09-16 22:00 | ER ---
Nurse's Notes [facility] Name: Juan Aranda Age: 70 yrs Sex: Male : 1950 Arrival Date: 09/16/2020 Time: 20:27 Bed 13 Private MD: Diagnosis: Chest pain, unspecified;Abnormal coagulation profile Presentation: 09/16 20:27 Chief complaint: EMS states: Reported chest pain to right side that started 4 hours ago ea reports it started on right side of chest and moved to left side. BGL 132. Coronavirus screen: At this time, the client does not indicate any symptoms associated with coronavirus-19. Ebola Screen: No symptoms or risks identified at this time. Initial Sepsis Screen: Does the patient meet any 2 criteria?. Risk Assessment: Do you want to hurt yourself or someone else? Patient reports no desire to harm self or others. Onset of symptoms was September 16, 2020. 20:27 Method Of Arrival: EMS: [facility] ea 20:27 Acuity: DENNIS 3 ea 20:30 Initial Sepsis Screen: Does the patient meet any 2 criteria? Does the patient have a ea suspected source of infection? No. Patient's initial sepsis screen is negative. 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 - Social history:: Smoking status: unknown. Screenin:06 Abuse screen: Denies threats or abuse. Nutritional screening: No deficits noted. ea Tuberculosis screening: No symptoms or risk factors identified. Fall Risk IV access (20 points). Assessment: 21:00 General: Appears uncomfortable, Behavior is appropriate for age. Pain: Complains of ea pain in chest. Neuro: Level of Consciousness is awake, alert, obeys commands, Oriented to person, place, time. Cardiovascular: Patient's skin is warm and dry. Respiratory: Airway is patent Respiratory effort is even, unlabored, Respiratory pattern is regular, symmetrical. Derm: Skin is pink, warm \\T\\ dry. 23:51 Reassessment: Patient and/or family updated on plan of care and expected duration. Pain ea level reassessed. Patient is alert, oriented x 3, equal unlabored respirations, skin warm/dry/pink. Pt admitted to second floor. Pt left ED via stretcher per tech, pt tolerating well. Vital Signs: 20:41 BP 159 / 65; Pulse 79; Resp 22; Temp 97.8; Pulse Ox 99% on R/A; ea 21:30 BP 112 / 86; Pulse 85; Resp 19; Pulse Ox 100% ; ea ED Course: 20:27 Patient arrived in ED. ea 20:29 Triage completed. ea 20:44 Franklin Granados PA is PHCP. cp 20:44 Shai Bradshaw MD is Attending Physician. cp 20:46 Renee Nolasco, SANTA is Primary Nurse. ea 20:48 XRAY Chest (1 view) In Process Unspecified. EDMS 21:06 Maintain EMS IV. Dressing intact. Good blood return noted. Site clean \\T\\ dry. Gauge \\T\\ ea site: 20 G RAC. 21:07 Arm band placed on right wrist. Patient placed in an exam room, on a stretcher, on ea pulse oximetry. 21:07 Patient has correct armband on for positive identification. Bed in low position. Call ea light in reach. Side rails up X2. school lunch monitor on. Pulse ox on. NIBP on. 21:58 Glen Black MD is Hospitalizing Provider. cp 22:08 CT Chest W/ Con In Process Unspecified. EDMS 23:50 No provider procedures requiring assistance completed. Patient admitted, IV remains in ea place. Administered Medications: 20:50 CANCELLED (Physician Discretion): Nitroglycerin 0.4 mg Sublingual once cp 20:59 Drug: morphine 2 mg Route: IVP; Site: right antecubital; ea 22:41 Drug: Pepcid (famotidine) 20 mg Route: IVP; Site: left antecubital; ea 22:41 Drug: Nicoderm CQ 21 mg/24 hr 21 mg Route: Transdermal; Site: affected area; ea 22:42 Drug: Xopenex (levalbuterol) 1.25 mg Route: Inhalation; ea 23:05 Drug: Lasix (furosemide) 60 mg Route: IVP; Site: left antecubital; ea Outcome: 21:59 Decision to Hospitalize by Provider. cp 23:50 Admitted to Med/surg accompanied by navi via wheelchair, room 222, with chart, Report ea called to Receiving nurse on second floor 23:50 Condition: stable 23:50 Instructed on the need for admit, Demonstrated understanding of instructions. 23:52 Patient left the ED. ea Signatures: Dispatcher [employer] EDMS Franklin Granados PA PA cp Antunez, Elena, RN RN maryam
[2020-09-16] MEDS ORDERED: NA CHLORIDE 0.9% 0 ML ONE (22:54)
[2020-09-16] MEDS ORDERED: LEVALBUTEROL 1.25 MG/3 ML NEB ONE (22:56)
[2020-09-16] MEDS ORDERED: FAMOTIDINE 20 MG/2 ML VIAL IV ONE (22:56)
[2020-09-16] MEDS ORDERED: NICOTINE 21 MG/PAT TD ONE (22:56)
--- NOTE | 2020-09-16 23:17 | P.HP ---
Certification for Inpatient Patient admitted to: Inpatient With expected LOS: >2 Midnights Patient will require the following post-hospital care: None Practitioner: I am a practitioner with admitting privileges, knowledge of patient current condition, hospital course, and medical plan of care. Services: Services provided to patient in accordance with Admission requirements found in Title 42 Section 412.3 of the Code of Federal Regulations Patient History Date of Service: 09/16/20 Primary Care Provider: Dr. blair Reason for admission: Chest pain, supratherapeutic INR History of Present Illness: 70-year-old male with history of chronic systolic congestive heart failure, mechanical aortic valve replacement on warfarin, COPD, hypertension, hyperlipidemia presents emergency department for chest pain. Patient reports that the chest pain began this evening described as sharp radiating down the right arm with some associated shortness of breath. Patient reports that he takes his Lasix as prescribed as well as 4 mg of Coumadin daily. Patient evaluated in the emergency department, labs significant for normocytic anemia, hemoglobin 10.9 hematocrit 31.9, INR 8.39 sodium 127, chloride 97 BNP 1859. Chest x-ray unremarkable, on exam patient does have 2+ pitting edema bilateral lower extremities to the level of the blanco. ED provider wishes to admit patient for further evaluation and management. Allergies Penicillins Allergy (Severe, Verified 05/19/19 20:57) Anaphylaxis Home Medications: Atorvastatin Calcium [Lipitor*] 20 mg PO BEDTIME 12/24/18 Warfarin Sodium [Coumadin*] 4 mg PO DAILY 12/24/18 carvediloL [Coreg*] 6.25 mg PO BID 12/24/18 Albuterol Sulfate [Proair Hfa] 8.5 gm IH TID PRN #1 hfa.aer.ad 05/26/19 Budesonide/Formoterol Fumarate [Symbicort 160-4.5 Mcg Inhaler] 2 puff IH BID #1 hfa.aer.ad 05/26/19 Furosemide [Lasix*] 40 mg PO BID #60 tab 05/26/19 Levothyroxine Sodium 200 mcg PO 0630 #30 tablet 05/26/19 Sacubitril/Valsartan [Entresto 24 mg-26 mg Tablet] 1 tab PO BID #60 tab 05/26/19 predniSONE [Deltasone] 5 mg PO SEECOM #15 tab 05/26/19 - Past Medical/Surgical History Diabetic: No -: Mechanical Aortic valve replacement on chronic anti coagulation therapy -: Systolic CHF -: Hypertension -: Hyperlipidemia -: COPD -: Surgical hypothyroidism -: Aortic valve replacement -: Cystoscopy -: Colonoscopy in 1950 -: Thyroidectomy Psychosocial/ Personal History: Patient lives at home. - Family History Father -: Cancer Mother -: Heart disease, Hypertension, Cancer - Social History Smoking Status: Current every day smoker Alcohol use: No CD- Drugs: No Caffeine use: Yes Place of Residence: Home Review of Systems 10-point ROS is otherwise unremarkable Respiratory: Cough, Dry, Shortness of Breath Cardiovascular: Chest Pain, Orthopnea Physical Examination - Physical Exam General: Alert, In no apparent distress, Oriented x3 HEENT: Atraumatic, PERRLA, Mucous membr. moist/pink Neck: Supple, 2+ carotid pulse no bruit, No LAD Respiratory: Normal air movement, Diminished, Other (Mild expiratory wheezing) Cardiovascular: Regular rate/rhythm, Normal S1 S2, Edema (2+ pitting edema bilateral lower extremities) Capillary refill: <2 Seconds Gastrointestinal: Normal bowel sounds, No tenderness, No masses, No rebound, No guarding Musculoskeletal: No tenderness Integumentary: No rashes Neurological: Normal gait, Normal speech, Normal strength at 5/5 x4 extr, Normal tone, Normal affect - Studies Laboratory Data (last 24 hrs) 09/16/20 20:51: PT 98.6 H, INR 8.39 H* 09/16/20 20:51: WBC 8.10, Hgb 10.9 L, Hct 31.9 L, Plt Count 184 09/16/20 20:51: Sodium 127 L, Potassium 4.7, BUN 12, Creatinine 0.62, Glucose 96, Magnesium 2.0, Total Bilirubin 0.3, AST 17, ALT 19, Alkaline Phosphatase 98 Assessment and Plan - Plan Assessment Chest pain, shortness breath likely secondary to acute on chronic systolic congestive heart failure History of mechanical aortic valve replacement on chronic anticoagulation therapy with Coumadin-supratherapeutic INR Hyponatremia Normocytic anemia Acute on chronic COPD Surgical hypothyroidism Hypertension, hyperlipidemia, tobacco abuse Plan Chest pain, shortness breath likely secondary to acute on chronic systolic congestive heart failure: Last echocardiogram early 2019 demonstrates ejection fraction of around 50%, patient previously with severely depressed ejection fraction of around 20%, currently on entresto. Patient reports he has had previous heart catheterization without stent placement. Will increase patient's Lasix dose to 60 mg IV b.i.d., trend troponin levels, cardiology consult in place. Monitor on telemetry. Continue other home medications. DVT prophylaxis-supratherapeutic INR at this time, will hold Coumadin. History of mechanical aortic valve replacement on chronic anticoagulation therapy with Coumadin-supratherapeutic INR: Hold Coumadin, discussed need for reduction and alcohol consumption, likely additional dietary factors at play. Will provide patient additional education. Patient also noncompliant with INR checks, last 1 was a number of weeks ago per patient. Hyponatremia: Likely related to volume overload, will continue with Lasix, obtain urine and serum osmolality, urine potassium levels. Fluid restriction, daily weights. Normocytic anemia: Transfuse to maintain hemoglobin greater than 8. Acute on chronic COPD: Patient with some mild expiratory wheezing on exam, will provide patient with p.r.n. nebulizer treatments, no steroids at this time as he is not having a severe exacerbation and this will affect the INR. Surgical hypothyroidism: Continue home medications, check thyroid panel with morning labs. Hypertension, hyperlipidemia, tobacco abuse: Continue home medications, provide patient Nicoderm patch, emphasized need for tobacco cessation. Discharge Plan: Home Plan to discharge in: 48 Hours - Advance Directives Does patient have a Living Will: Yes Does patient have a Durable POA for Healthcare: No - Code Status/Comfort Care Code Status Assessed: Yes (Full code) Critical Care: No Time Spent Managing Pts Care (In Minutes): 55
[2020-09-16] MEDS ORDERED: FUROSEMIDE 100 MG/10 ML VIAL IV ONE (23:21)
[2020-09-16] MEDS ORDERED: ALBUTEROL 2.5 MG/3 ML NEB SOL NEB PRN (23:31)
[2020-09-16] MEDS ORDERED: ACETAMINOPHEN 500 MG TAB PO PRN (23:31)
[2020-09-16] MEDS ORDERED: IPRATROPIUM BROM 0.5MG/2.5ML NEB PRN (23:31)
[2020-09-16] MEDS ORDERED: ONDANSETRON 4 MG/2 ML VIAL IV PRN (23:31)
[2020-09-17 00:29] VITALS: BMI 32.9
[2020-09-17] MEDS: MORPHINE 2 MG/ML SYR IV PRN ×4 (00:41→22:14)
[2020-09-17 02:25] LABS: Urine Appearance CLEAR (Clear); Urine Bilirubin NEGATIVE (Negative); Urine Blood 3+ (Negative); Urine Color YELLOW (Yellow); Urine Glucose NEGATIVE (Negative); Urine Protein NEGATIVE (Negative); Urine Specific Gravity <=1.005 (1.005-1.030); Urine Urobilinogen 0.2 mg/dL (0.2-1.0)
[2020-09-17 02:26] LABS: Urine Microscopic Reflex ORDER UMIC
[2020-09-17 02:43] LABS: Urine Bacteria <20 /HPF (NONE SEEN)
[2020-09-17] MEDS ORDERED: MORPHINE 2 MG/ML SYR IV ONE (03:38)
[2020-09-17] MEDS: LEVOTHYROXINE SOD 0.1 MG TAB PO SCH (05:37)
[2020-09-17 06:09] LABS: RBC Red Blood Cell Count 4.32 M/uL (4.33-5.43)
[2020-09-17 06:10] LABS: Absolute Lymphocytes (CBC) 1.4 K/uL (0.7-4.9); Basophils % 0.5 % (0-1.3); Lymphocytes % 18.2 % (15.3-44.8); MPV 9.2 fL (7.6-11.3)
[2020-09-17 06:25] LABS: Protime INR 7.69
[2020-09-17 06:33] LABS: ALT/SGPT 20 U/L (12-78); AST/SGOT 22 U/L (15-37); Albumin 3.7 g/dL (3.4-5.0); Alkaline Phosphatase 101 U/L (45-117); BUN Blood Urea Nitrogen 16 mg/dL (7-18); Bicarbonate 26 mmol/L (21-32); Bilirubin Total 0.5 mg/dL (0.2-1.0); Glucose Level 122 mg/dL (74-106); HDL Cholesterol 75 mg/dL (40-60); LDL Cholesterol, Calculated 121 (<130); Magnesium 2.1 mg/dL (1.8-2.4); Potassium 4.5 mmol/L (3.5-5.1); Protein, Total 7.6 g/dL (6.4-8.2); Sodium Level 130 mmol/L (136-145); Troponin I 0.02 ng/mL (0.0-0.045)
--- NOTE | 2020-09-17 07:47 | EKG ---
Test Date: 2020-09-16 Test Time: 20:30:16 Postal Clerk: CHANDLER MEASUREMENT RESULTS: Intervals: Rate: 81 LA: 130 QRSD: 138 QT: 442 QTc: 513 [place]: P: 67 LA: 130 QRS: 263 T: 74 INTERPRETIVE STATEMENTS: Atrial-sensed ventricular-paced rhythm Abnormal ECG Compared to ECG 05/19/2019 16:51:54 AV dual-paced complex(es) or rhythm no longer present Electronically Signed On 09-17-20 07:46:15 CDT by Brandyn Elizabeth
[2020-09-17] MEDS: NICOTINE 21 MG/PAT TD SCH (08:23)
[2020-09-17] MEDS: FUROSEMIDE 40 MG/4 ML VIAL IV SCH ×2 (08:28→17:28)
[2020-09-17] MEDS ORDERED: clonazePAM 0.5 MG TAB PO SCH (09:00)
[2020-09-17] MEDS: SACUBITRIL/VALSARTAN 24/26 MG TAB PO SCH ×2 (09:01→20:38)
--- NOTE | 2020-09-17 10:08 | P.PN ---
Subjective Date of Service: 09/17/20 Primary Care Provider: Dr. blair Chief Complaint: Chest pain, supratherapeutic INR Subjective: No new changes (slight improvement in R chest pain/tenderness, no arm pain. +SOB, leg swelling slightly improved, no bleeding) Review of Systems 10-point ROS is otherwise unremarkable Physical Examination - Vital Signs Temperature: 97.3 F Blood Pressure: 106/68 Pulse: 68 Respirations: 19 Pulse Ox (%): 98 - Studies Laboratory Data (last 24 hrs) 09/16/20 20:51: PT 98.6 H, INR 8.39 H* 09/16/20 20:51: WBC 8.10, Hgb 10.9 L, Hct 31.9 L, Plt Count 184 09/16/20 20:51: Sodium 127 L, Potassium 4.7, BUN 12, Creatinine 0.62, Glucose 96, Magnesium 2.0, Total Bilirubin 0.3, AST 17, ALT 19, Alkaline Phosphatase 98 Assessment & Plan Physician Review Additional Text: Physical Exam General: Alert, In no apparent distress, Oriented x3 HEENT: Atraumatic, normal conjunctiva Respiratory: Diminished bilaterally at bases, mild expiratory wheeze Cardiovascular: Regular rate/rhythm, Normal S1 S2, Edema: 1-2+ pitting edema bilateral lower extremities to knes Gastrointestinal: Soft, nontender, nondistended Musculoskeletal: R chest wall tenderness to palpation Integumentary: No rashes Neurological: Normal speech, normal affect, moves all extremities Assessment Chest pain shortness breath secondary to acute on chronic systolic congestive heart failure History of mechanical aortic valve replacement on chronic anticoagulation therapy with Coumadin Supratherapeutic INR Hyponatremia Normocytic anemia Acute on chronic COPD Surgical hypothyroidism Hypertension, hyperlipidemia, tobacco abuse -chest pain atypical for ACS. Right-sided, reproducible with palpation on exam, were likely MSK related, continue telemetry -troponins negative x2 -shortness of breath and lower extremity edema, hypoxia, consistent with acute on chronic CHF. Patient has history of chronic systolic CHF -continue IV Lasix for diuresis. Cardiology consulted for chest pain and CHF -supratherapeutic INR, patient reports no change in his Coumadin dose seen, no recent change in diet, no change in other medications -Coumadin held, goal INR range: 2.5-3.5 -no signs of bleeding at this time, will continue to monitor -hyponatremia improving with diuresis VTE: Supratherapeutic on Coumadin Code: full Dispo: Anticipate discharge home, possibly tomorrow with continued improvement of SOB, and improvement of INR Time Spent Managing Pts Care (In Minutes): 35
[2020-09-17] MEDS: LIDOCAINE 4% PATCH TOP SCH (11:30)
--- NOTE | 2020-09-17 13:55 | CON ---
Date of Consultation: 09/17/2020 Reason For Consultation: Chest pain. History Of Present Illness: Mr. Aranda is a 70-year-old white male with past medical history of aor tic valve replacement. He has had a history of thyroidectomy, bladder tumor, congestive heart failur e, hypertension, dyslipidemia, and hydrocele. Came in with right-sided chest pain that is sharp, sta bbing, worse with cough, occasionally radiates to the mid chest, constant. No nausea, vomiting, diap horesis, PND, orthopnea, pedal edema, palpitations, or syncope. Denies any fever or chills or cough. Denies any trauma. Allergies: PENICILLIN. Review of Systems: Negative. Social History: Negative. Family History: Noncontributory. Medications: His medications at home include Synthroid, warfarin, clonazepam and Entresto 24/26 mg d aily b.i.d. Physical Examination: General: When I saw him he was in no acute distress. Vital Signs: Stable, afebrile. Paced rhythm. O2 saturation was 100% on room air. HEENT: Negative. Neck: Supple, no bruit. Chest: Clear to auscultation and percussion. Cardiac: Revealed a regular rhythm and rate. No murmurs, gallops or rubs. Abdomen: Benign. EXTREMITIES: Revealed no clubbing, cyanosis, or edema. Diagnostic Data: INR was 7.69. BNP was 1859. Troponin was negative. His cholesterol was 220. Impression And Plan: 1.Atypical chest pain. It is definitely pleuritic in nature. This is noncardiac by any means. 2.Status post mechanical aortic valve replacement, on Coumadin with elevated INR. His Coumadin is h eld. We will wait for the INR to come down before we will restart the Coumadin at a lower dose. 3.Chronic diastolic congestive heart failure, he is on Entresto, now he is on IV Lasix as well. 4.Hypothyroidism. 5.Chronic obstructive pulmonary disease exacerbation. 6.Anxiety. Manoj has is normal troponin. He has a paced rhythm on EKG. Chest x-ray was negative . I will continue his present regimen. His last echocardiogram showed a normal ejection fraction wi th the pacemaker in the right ventricle and prosthetic aortic valve with normal ejection fraction. A stress test in December of 2018 that was normal. Catheterization in 2017 showed no significant cor onary artery disease. I am comfortable with Mr. Aranda going home on his home medication plus a low dose of Lasix, maybe a low-dose beta-edgar and he can definitely be seen as an outpatient but as l brayan as he is in the hospital, we will continue to follow him. CANDY/SOPHIE Voice ID: [id number] Report ID: [id number]
[2020-09-17] MEDS: clonazePAM 0.5 MG TAB PO SCH (20:39)
--- NOTE | 2020-09-17 21:09 | RAD REPORT ---
EXAM DESCRIPTION: CT - Thorax W/ Con - 09/17/2020 5:22 am CLINICAL HISTORY: Chest pain COMPARISON: None Available. TECHNIQUE: CT of the chest obtained following the uncomplicated intravenous administration of iodina garrett contrast. This exam was performed according to our departmental dose-optimization program, which includes automated exposure control, adjustment of the mA and/or kV according to patient size and/or use of iterative reconstruction technique. FINDINGS: Chest: Pulmonary arteries: No filling defects identified in the pulmonary arteries to suggest pulmonary embo amy. Thyroid: No abnormalities of the visualized thyroid. Great Vessels: Great vessels have normal anatomic configuration. Thoracic Aorta: Atherosclerotic calcification of the thoracic aorta. Heart: Coronary artery atherosclerosis. No cardiomegaly or significant pericardial effusion. Left pia st wall multilead generator. Prior median sternotomy. Left chest wall collateral vessels may indicate some degree of subclavian narrowing. Lymph Nodes: No enlarged mediastinal lymph nodes identified. Esophagus: No abnormalities of the esophagus identified. Other: No additional findings. Lungs: Right lower lobe calcified granuloma. Minimal linear opacities likely related to discoid atele ctasis. No confluent airspace consolidation. Pleura: No pleural effusion or pneumothorax. Trachea/Airways: No abnormalities of the visualized trachea or airways. Bones: Multilevel endplate spondylosis and facet arthropathy. Mild osteoarthritic change of the shoul ders. Upper Abdomen: Limited images of the upper abdomen demonstrate no definite abnormalities of visualize d portions of the gallbladder, pancreas, spleen, adrenal glands, or kidneys. Decreased density of t he liver. IMPRESSION: 1. No acute abnormality identified in the chest. 2. Coronary artery atherosclerosis. 3. Hepatic steatosis. Electronically signed by: Edgar Steele 09/16/2020 10:45 PM CDT Due to temporary technical issues with the PACS/Fluency reporting system, reports are being signed by the in house radiologists without review as a courtesy to insure prompt reporting. The interpreting radiologist is fully responsible for the content of the report.
[2020-09-18] MEDS: LEVOTHYROXINE SOD 0.1 MG TAB PO SCH (05:45)
[2020-09-18 06:07] LABS: Absolute Lymphocytes (CBC) 1.2 K/uL (0.7-4.9); Basophils % 0.5 % (0-1.3); Hematocrit 32.7 % (39.6-49.0); Lymphocytes % 19.2 % (15.3-44.8); MPV 9.1 fL (7.6-11.3)
[2020-09-18 06:09] LABS: Protime INR 2.65
[2020-09-18 06:16] LABS: Magnesium 2.2 mg/dL (1.8-2.4); Potassium 4.6 mmol/L (3.5-5.1)
[2020-09-18] MEDS: NICOTINE 21 MG/PAT TD SCH (08:47)
[2020-09-18] MEDS: LIDOCAINE 4% PATCH TOP SCH (08:47)
[2020-09-18] MEDS: MORPHINE 2 MG/ML SYR IV PRN (08:48)
[2020-09-18] MEDS: SACUBITRIL/VALSARTAN 24/26 MG TAB PO SCH (08:49)
[2020-09-18] MEDS: FUROSEMIDE 40 MG/4 ML VIAL IV SCH (08:53)
[2020-09-18] MEDS: clonazePAM 0.5 MG TAB PO SCH (08:54)
--- NOTE | 2020-09-18 09:37 | RAD REPORT ---
EXAM DESCRIPTION: Shoulder Right 2 View - 09/18/2020 9:25 am CLINICAL HISTORY: shoukder pain, no known precipitating event COMPARISON: No comparisons TECHNIQUE: Internal and external rotation views of the right shoulder were obtained. FINDINGS: There is no fracture or dislocation. AC joint degenerative changes are present. Small inf eriorly directed clavicle spur is present. Acromial humeral joint space is still within range of norm al with no abnormal soft tissue calcification. Degenerative spurring is seen along the articular maida in of the humeral head and the inferior margin of the bony glenoid. No pathologic bone change. No rosita picious soft tissue finding. IMPRESSION: Acromioclavicular and glenohumeral joint degenerative changes are present as detailed.
[2020-09-18 11:25] VITALS: O2SAT 98
--- NOTE | 2020-09-18 12:11 | PN ---
Date of Progress Note: 09/18/2020 The patient was seen yesterday in consultation for atypical chest pain, status post valve replacement , chronic diastolic congestive heart failure, hypothyroidism, COPD, anxiety. His INR yesterday was 7 . His BNP was 1859. His INR today is 2.65. His troponin is negative. BNP is down to 1000. The pa elizabeth is feeling better. I am comfortable with him going home today. We will see him in the office in the near future. I think we can resume his Coumadin dose probably 3 mg daily. I will discuss the case further with Dr. Black. CANDY/SOPHIE Voice ID: [id number] Report ID: [id number]
[2020-09-18 12:50] VITALS: BP 107/52; TEMP 97.7
--- NOTE | 2020-09-18 17:19 | P.DS ---
Admission Date: 09/16/20 Discharge Date: 09/18/20 Primary Care Provider: Dr. blair Disposition: ROUTINE DISCHARGE Discharge Condition: GOOD Reason for Admission: Chest pain, supratherapeutic INR Consultations: Neurology - Dr. Mendez Procedures: CXR (09/16): The lungs appear clear of acute infiltrate. The heart is mildly enlarged. Pacemaker leads are in place. Postsurgical changes involve the chest CT Chest (09/16): 1. No acute abnormality identified in the chest. 2. Coronary artery atherosclerosis. 3. Hepatic steatosis. Shoulder x-ray (09/18): Acromioclavicular and glenohumeral joint degenerative changes are present as detailed. Problem List Chest pain shortness of breath secondary to acute on chronic systolic congestive heart failure History of mechanical aortic valve replacement on chronic anticoagulation therapy with Coumadin Supratherapeutic INR Hyponatremia Normocytic anemia Acute on chronic COPD Surgical hypothyroidism Hypertension, hyperlipidemia, tobacco abuse Brief History of Present Illness: 70-year-old male with history of chronic systolic congestive heart fa ilure, mechanical aortic valve replacement on warfarin, COPD, hypertension, hyperlipidemia presents emergency department for chest pain. Patient reports that the chest pain began this evening described as sharp radiating down the right arm with some associated shortness of breath. Patient reports that he takes his Lasix as prescribed as well as 4 mg of Coumadin daily. Patient evaluated in the emergency department, labs significant for normocytic anemia, hemoglobin 10.9 hematocrit 31.9, INR 8.39 sodium 127, chloride 97 BNP 1859. Chest x-ray unremarkable, on exam patient does have 2+ pitting edema bilateral lower extremities to the level of the blanco. ED provider wishes to admit patient for further evaluation and management. Hospital Course: Troponins were trended and negative. Chest pain was reproducible and he was noted to have R shoulder pain/tenderness as well. Cardiology was consulted, ACS was ruled out. He was noted to have shortness of breath / dyspnea and volume overloaded. He diuresed well with IV Lasix. Discharged with 20mg daily Lasix. He was found to have supratherapeutic INR >7. He reported taking his Coumadin as prescribed, 4 mg daily, which he has maintained a stable /therapeutic INR for over a year now. His Coumadin was held for 2 days and became therapeutic. He was discharged with 3 mg Coumadin daily. Advised to obtain an INR later this week. He will follow up with Cardiology in the next week. Vital Signs/Physical Exam: Physical Exam General: Alert, In no apparent distress, Oriented x3 HEENT: Atraumatic, normal conjunctiva Respiratory: clear to auscultation bilaterally, nonlabored respirations on RA Cardiovascular: Regular rate/rhythm, Normal S1 S2, Edema: trace to 1+ edema bilateral lower extremities Gastrointestinal: Soft, nontender, nondistended Musculoskeletal: R chest wall tenderness to palpation, R shoulder with mild pain on ROM, pain on palpation along deltoid insertion Integumentary: No rashes Neurological: Normal speech, normal affect Temp Pulse Resp BP Pulse Ox 97.7 F 91 H 18 107/52 L 98 09/18/20 12:00 09/18/20 12:00 09/18/20 12:00 09/18/20 12:00 09/18/20 12:00 Laboratory Data at Discharge: WBC 6.50 K/uL (4.3-10.9) D 09/18/20 05:21 Hgb 10.9 g/dL (13.6-17.9) L 09/18/20 05:21 Hct 32.7 % (39.6-49.0) L 09/18/20 05:21 Plt Count 182 K/uL (152-406) 09/18/20 05:21 PT 30.8 SECONDS (9.5-12.5) H 09/18/20 05:21 INR 2.65 09/18/20 05:21 Sodium 132 mmol/L (136-145) L 09/18/20 05:21 Potassium 4.6 mmol/L (3.5-5.1) 09/18/20 05:21 BUN 29 mg/dL (7-18) H 09/18/20 05:21 Creatinine 1.05 mg/dL (0.55-1.3) 09/18/20 05:21 Glucose 112 mg/dL (74-106) H 09/18/20 05:21 Magnesium 2.2 mg/dL (1.8-2.4) 09/18/20 05:21 Total Bilirubin 0.5 mg/dL (0.2-1.0) 09/17/20 05:24 AST 22 U/L (15-37) 09/17/20 05:24 ALT 20 U/L (12-78) 09/17/20 05:24 Alkaline Phosphatase 101 U/L (45-117) 09/17/20 05:24 Troponin I 0.02 ng/mL (0.0-0.045) 09/18/20 08:23 Triglycerides 118 mg/dL (<150) 09/17/20 05:24 Cholesterol 220 mg/dL (<200) H 09/17/20 05:24 HDL Cholesterol 75 mg/dL (40-60) H 09/17/20 05:24 Cholesterol/HDL Ratio 2.93 09/17/20 05:24 Home Medications: Levothyroxine Sodium 200 mcg PO 30 #30 tablet 05/26/19 Sacubitril/Valsartan [Entresto 24 mg-26 mg Tablet] 1 tab PO BID #60 tab 05/26/19 clonazePAM [Clonazepam] 0.5 mg PO DAILY 09/17/20 Furosemide [Lasix*] 20 mg PO DAILY 30 Days #30 tab 09/18/20 Tramadol HCl [Ultram] 50 mg PO Q8H PRN 3 Days #10 tablet 09/18/20 Warfarin Sodium 3 mg PO DAILY 30 Days #30 tablet 09/18/20 New Medications: Furosemide [Lasix*] 20 mg PO DAILY 30 Days #30 tab Tramadol HCl [Ultram] 50 mg PO Q8H PRN 3 Days #10 tablet PRN Reason: Pain Scale 8-10 (Severe) Warfarin Sodium 3 mg PO DAILY 30 Days #30 tablet Diet: AHA Activity: Ad mini Followup: Brandyn Elizabeth MD [ACTIVE - CAN ADMIT] - Wilber Blair MD [Primary Care Provider] - Time spent managing pt's care (in minutes): 45
== END 2020-09-18 15:10 | disposition home or self-care (01) | DRG 292 ==
LOC: ER 20:21 → ERHOLD 22:33 → 2ND 23:20
PROVIDERS: ADMIT Hospitalist; ATTEND Hospitalist
DX: I11.0 Hypertensive heart disease with heart failure (principal); E87.1 Hypo-osmolality and hyponatremia; J44.1 Chronic obstructive pulmonary disease with (acute) exacerbation; I50.23 Acute on chronic systolic (congestive) heart failure; E89.0 Postprocedural hypothyroidism; D64.9 Anemia, unspecified; E78.5 Hyperlipidemia, unspecified; R09.02 Hypoxemia; F41.9 Anxiety disorder, unspecified; F17.210 Nicotine dependence, cigarettes, uncomplicated; Z79.01 Long term (current) use of anticoagulants; Z88.0 Allergy status to penicillin; Z95.2 Presence of prosthetic heart valve; Z20.822 Contact with and (suspected) exposure to COVID-19
CPT/HCPCS: 36415; 71045; 71260; 80048; 80053; 80061; 80076; 81003; 81015; 83735; 83880; 83930; 83935; 84132; 84439; 84443; 84484; 85025; 85610; 93005; 99285; J1940; J2270; J2405; J7030; Q9967; U0003

== ENCOUNTER 2021-05-27 12:46 | Inpatient (IN) | payer OTHER ==
[2021-05-27] MEDS ORDERED: METHYLPREDNISOLONE 125 MG INJ ONE (13:26)
[2021-05-27] MEDS ORDERED: LEVALBUTEROL 1.25 MG/3 ML NEB ONE (13:26)
[2021-05-27] MEDS ORDERED: FUROSEMIDE 40 MG/4 ML VIAL ONE (13:26)
[2021-05-27 13:37] LABS: Hematocrit 31.3 % (39.6-49.0); Lymphocytes % 15.7 % (15.3-44.8); MPV 8.9 fL (7.6-11.3); RBC Red Blood Cell Count 3.42 M/uL (4.33-5.43)
[2021-05-27 13:46] LABS: Protime INR 1.5
[2021-05-27 13:57] LABS: Albumin 3.7 g/dL (3.4-5.0); Bilirubin Direct 0.3 mg/dL (0-0.2); Bilirubin Total 0.8 mg/dL (0.2-1.0); Potassium 3.5 mmol/L (3.5-5.1); Protein, Total 7.7 g/dL (6.4-8.2)
--- NOTE | 2021-05-27 14:38 | RAD REPORT ---
EXAM DESCRIPTION: Juanjo Single View05/27/2021 2:07 pm CLINICAL HISTORY: Shortness of breath COMPARISON: none FINDINGS: Both lung bases are hazy. There may be small pleural effusions. Heart is mildly to moderately enlarged. Postsurgical changes involve the chest. Pacemaker leads in place IMPRESSION: Both lung base is hazy probably pneumonia. Pulmonary edema can have a similar appearance
--- NOTE | 2021-05-27 14:44 | RAD REPORT ---
EXAM DESCRIPTION: USExtremity Venous Uni Ltd05/27/2021 2:28 pm CLINICAL HISTORY: Right leg pain and swelling. COMPARISON: None. FINDINGS: Right common femoral, superficial femoral, popliteal and right posterior tibial veins are compressible and demonstrate augmentation. Doppler demonstrates good flow. A 3.5 x 1 centimeter Roy's cyst Grayscale, color and spectral analysis performed on all vessels IMPRESSION: No evidence of deep venous thrombosis involving the right lower extremity. 3.5 centimeter Roy's cyst
[2021-05-27 14:49] LABS: SARS-COV-2 RT PCR NEGATIVE (NEGATIVE)
--- NOTE | 2021-05-27 14:58 | EDPHYS ---
Physician Documentation [facility] Name: Juan Aranda Age: 71 yrs Sex: Male : 1950 Arrival Date: 05/27/2021 Time: 12:57 Bed 6 Private MD: ED Physician Crescencio Black HPI: 05/27 13:37 This 71 yrs old Male presents to ER via EMS with complaints of sob. rn 13:37 The patient has shortness of breath at rest, with light activity. Onset: The rn symptoms/episode began/occurred 1 week(s) ago. Duration: The symptoms are continuous. The patient's shortness of breath is aggravated by exertion, light activity, walking, is alleviated by application of supplemental oxygen. Associated signs and symptoms: Pertinent positives: chest pain, non-productive cough, Pertinent negatives: fever, hemoptysis, loss of consciousness. Severity of symptoms: At their worst the symptoms were moderate in the emergency department the symptoms are unchanged. The patient has experienced similar episodes in the past. The patient has not recently seen a physician. Patient reports approximately 1 week of shortness of breath. Denies fever. Denies new cough. Reports is in between primary care doctors after insurance change and he has been out of diuretics as well as breathing treatments. Denies trauma.. Historical: - Allergies: 13:02 PENICILLINS; [facility] - Home Meds: 13:02 atorvastatin 20 mg Oral soln 1 tab once daily [Active]; [facility] - PMHx: 13:02 "Tumor on bladder"; CHF; High Cholesterol; Hypertension; UTI; [facility] - Immunization history:: Adult Immunizations up to date, Client reports receiving the 2nd dose of the Covid vaccine. - Social history:: Smoking status: Patient reports the use of cigarette tobacco products, smokes one pack cigarettes per day. - Family history:: not pertinent. - Hospitalizations: : No recent hospitalization is reported. ROS: 13:37 Constitutional: Negative for fever, chills, and weight loss, Eyes: Negative for injury, rn pain, redness, and discharge, ENT: Negative for injury, pain, and discharge, Neck: Negative for injury, pain, and swelling, Cardiovascular: Negative for chest pain, palpitations Respiratory: Positive for cough and shortness of breath Abdomen/GI: Negative for abdominal pain, nausea, vomiting, diarrhea, and constipation, MS/Extremity: Negative for injury and deformity, Skin: Negative for injury, rash, and discoloration, Neuro: Positive for generalized weakness Exam: 13:37 Constitutional: This is a well developed, well nourished patient who is awake, alert, rn moderate tachypnea Head/Face: Normocephalic, atraumatic. Eyes: Periorbital areas with no swelling, redness, or edema. Cardiovascular: Regular rate and rhythm. No pulse deficits. Respiratory: Moderate tachypnea with expiratory wheezing and bibasilar crackles Abdomen/GI: Soft, non-tender Skin: Warm, dry MS/ Extremity: Pulses equal, no cyanosis. 1+ pitting edema bilateral lower extremities with right lower extremity increased circumference compared to left Neuro: Awake and alert, GCS 15 Vital Signs: 13:00 BP 146 / 74; Pulse 78; Resp 26; Temp 97.8(O); Pulse Ox 94% on 4 lpm NC; Weight 120.2 jh6 kg; Height 5 ft. 10 in. (177.80 cm); Pain 8/10; 13:21 BP 141 / 73; Pulse 75; Resp 26; Pulse Ox 99% on 4 lpm NC; jh6 14:16 BP 135 / 81; Pulse 75; Resp 24 S; Pulse Ox 100% on Nebulizer Mask; jd3 13:00 Body Mass Index 38.02 (120.20 kg, 177.80 cm) jh6 MDM: 12:58 Patient medically screened. rn 14:54 Differential diagnosis: CHF exacerbation, Chronic Obstructive Pulmonary Disease rn pneumonia, Pneumothorax pulmonary edema. Data reviewed: vital signs, nurses notes, lab test result(s), EKG, radiologic studies, plain films, and as a result, I will admit patient. Counseling: I had a detailed discussion with the patient and/or guardian regarding: the historical points, exam findings, and any diagnostic results supporting the discharge/admit diagnosis, lab results, radiology results, the need for further work-up and treatment in the hospital. Response to treatment: the patient's symptoms have mildly improved after treatment, and as a result, I will admit patient. Admission orders: after a detailed discussion of the patient's condition and case, the admit orders are written by me. ED course: Pt admitted to Dr. Alonso for CHF/COPD, still tachypneic and on oxygen. . 05/27 13:04 Order name: BMP; Complete Time: 14:47 rn 05/27 13:04 Order name: Blood Culture Adult (2) rn 05/27 13:04 Order name: CBC with Diff; Complete Time: 14:47 rn 05/27 13:04 Order name: Hepatic Function; Complete Time: 14:47 rn 05/27 13:04 Order name: NT PRO-BNP; Complete Time: 14:47 rn 05/27 13:04 Order name: PT-INR; Complete Time: 14:47 rn 05/27 13:04 Order name: Ptt, Activated; Complete Time: 14:47 rn 05/27 13:04 Order name: COVID-19/FLU A+B (Document "Date of Onset" if Symptomatic); Complete Time: rn 14:50 05/27 13:04 Order name: Procalcitonin; Complete Time: 14:47 rn 05/27 15:18 Order name: Thyroid Stimulating Hormone EDMS 05/27 15:18 Order name: CBC with Automated Diff EDMS 05/27 15:18 Order name: CBC with Automated Diff EDMS 05/27 15:18 Order name: Comprehensive Metabolic Panel EDMS 05/27 15:18 Order name: Comprehensive Metabolic Panel EDMS 05/27 13:04 Order name: XRAY CXR (1 view); Complete Time: 14:47 rn 05/27 13:40 Order name: Extremity Venous Uni Ltd US; Complete Time: 14:47 rn 05/27 15:18 Order name: Lipid Profile EDMS 05/27 15:18 Order name: Lipid Profile EDMS 05/27 15:18 Order name: Protime (+INR) EDMS 05/27 15:18 Order name: Protime (+INR) EDMS 05/27 15:18 Order name: Protime (+INR) EDMS 05/27 15:18 Order name: Protime (+INR) EDMS 05/27 15:18 Order name: Protime (+INR) EDMS 05/27 15:28 Order name: Sputum Gram Stain EDMS 05/27 15:28 Order name: Urinalysis W/Microscopic EDMS 05/27 20:40 Order name: T4 Free EDMS 05/27 22:29 Order name: Urinalysis EDMS 05/27 22:53 Order name: Urine Microscopic Only EDMS 05/27 13:04 Order name: EKG; Complete Time: 13:05 rn 05/27 13:04 Order name: Cardiac monitoring; Complete Time: 15:14 rn 05/27 13:04 Order name: EKG - Nurse/Tech; Complete Time: 15:14 rn 05/27 13:04 Order name: IV Saline Lock; Complete Time: 15:14 rn 05/27 13:04 Order name: Labs collected and sent; Complete Time: 15:14 rn 05/27 13:04 Order name: O2 Per Protocol; Complete Time: 15:14 rn 05/27 13:04 Order name: O2 Sat Monitoring; Complete Time: 15:14 rn 05/27 15:18 Order name: Heart Healthy EDOR 05/27 15:28 Order name: Case Management Consult [facility] 05/27 15:28 Order name: CONS Physician Consult [facility]OR 05/27 15:28 Order name: Physical Therapy Consult [facility] 05/27 15:28 Order name: Occupational Therapy Consult [facility] Administered Medications: 13:30 Drug: SOLU-Medrol (methylPrednisoLONE) 125 mg Route: IVP; Site: left antecubital; 6 15:14 Follow up: Response: No adverse reaction [facility] 13:30 Drug: Lasix (furosemide) 40 mg Route: IVP; Site: left antecubital; 6 15:14 Follow up: Response: No adverse reaction [facility] 13:31 Drug: Xopenex (levalbuterol) (3) 1.25 mg Route: Inhalation; 6 15:13 Follow up: Response: No adverse reaction [facility] Disposition Summary: 05/27/21 14:58 Hospitalization Ordered Hospitalization Status: Inpatient Admission rn Provider: Ajay Alonso rn Location: Telemetry/MedSurg (Inpatient) rn Condition: Stable rn Problem: an acute exacerbation rn Symptoms: have improved rn Bed/Room Type: Standard rn Room Assignment: 207(05/27/21 22:40) cg Diagnosis - Unspecified combined systolic (congestive) and diastolic (congestive) heart failure rn - COPD/ Chronic obstructive pulmonary disease with (acute) exacerbation rn Forms: - Medication Reconciliation Form rn - SBAR form rn Signatures: Dispatcher [employer] [facility] Crescencio Black MD MD rn Garcia, Cindy RN RN Hector Moreno RN RN [email or web address] Sarah Canseco RN RN [id number] Corrections: (The following items were deleted from the chart) 22:40 14:58 rn cg
--- NOTE | 2021-05-27 14:58 | ER ---
Nurse's Notes [facility] Name: Juan Aranda Age: 71 yrs Sex: Male : 1950 Arrival Date: 05/27/2021 Time: 12:57 Bed 6 Private MD: Diagnosis: Unspecified combined systolic (congestive) and diastolic (congestive) heart failure;COPD/ Chronic obstructive pulmonary disease with (acute) exacerbation Presentation: 05/27 13:00 Chief complaint: EMS states: sob off and on x 2wks. pt with hx of chf and copd. [facility] Coronavirus screen: Vaccine status: Patient reports receiving the 2nd dose of the covid vaccine. Ebola Screen: Patient negative for fever greater than or equal to 101.5 degrees Fahrenheit, and additional compatible Ebola Virus Disease symptoms Patient denies travel to an Ebola-affected area in the 21 days before illness onset. Initial Sepsis Screen: Does the patient meet any 2 criteria? No. Patient's initial sepsis screen is negative. Does the patient have a suspected source of infection? No. Patient's initial sepsis screen is negative. Risk Assessment: Do you want to hurt yourself or someone else? Patient reports no desire to harm self or others. Onset of symptoms was April 13, 2022. 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 - Social history:: Smoking status: Patient reports the use of cigarette tobacco products, smokes one pack cigarettes per day. - Family history:: not pertinent. - Hospitalizations: : No recent hospitalization is reported. Screenin:22 Abuse screen: Denies threats or abuse. Denies injuries from another. Nutritional as6 screening: No deficits noted. Tuberculosis screening: No symptoms or risk factors identified. Fall Risk No fall in past 12 months (0 pts). Secondary diagnosis (15 points) impaired mobility, IV access (20 points). Ambulatory Aid- None/Bed Rest/Nurse Assist (0 pts). Gait- Weak (10 pts.). Mental Status- Overestimates/Forgets Limitations (15 pts.). Total Katz Fall Scale indicates High Risk Score (45 or more points). Fall prevention measures have been instituted. Side Rails Up X 2 Placed Close to Nursing Station Frequent Obs/Assessments Occuring As available patient and family educated on Fall Prevention Program and Strategies. Assessment: 13:20 General: Appears uncomfortable, obese, unkempt, Behavior is calm, cooperative. Pain: 6 Complains of pain in anterior aspect of left upper chest and left breast Pain currently is 8 out of 10 on a pain scale. Quality of pain is described as pressure, Pain began gradually, 2-3 days ago. Is intermittent, episodic, Alleviated by medications, Aggravated by exercise, increased activity. Respiratory: Reports shortness of breath at rest on exertion cough that is productive, persistent labored breathing since off and on x 2wks Airway is patent Trachea midline Respiratory effort is labored, Respiratory pattern is regular, Breath sounds are diminished bilaterally. in left posterior lower lobe, right posterior middle lobe and right posterior lower lobe. 18:41 Reassessment: Point of Contact: Friend (Luc Torres) [phone]. Vital Signs: 13:00 BP 146 / 74; Pulse 78; Resp 26; Temp 97.8(O); Pulse Ox 94% on 4 lpm NC; Weight 120.2 6 kg; Height 5 ft. 10 in. (177.80 cm); Pain 8/10; 13:21 BP 141 / 73; Pulse 75; Resp 26; Pulse Ox 99% on 4 lpm NC; jh6 14:16 BP 135 / 81; Pulse 75; Resp 24 S; Pulse Ox 100% on Nebulizer Mask; jd3 13:00 Body Mass Index 38.02 (120.20 kg, 177.80 cm) [facility] ED Course: 12:57 Patient arrived in ED. ss 12:58 Crescencio Black MD is Attending Physician. rn 13:00 Sarah Canseco, SANTA is Primary Nurse. [facility] 13:02 Triage completed. [facility] 13:02 Arm band placed on right wrist. [facility] 13:03 EKG done. [facility] 13:22 COVID swab sent to lab. Inserted saline lock: 20 gauge in left antecubital area, using jh6 aseptic technique. Blood collected. 14:07 XRAY CXR (1 view) In Process Unspecified. EDMS 14:27 Extremity Venous Uni Ltd US In Process Unspecified. EDMS 14:57 Ajay Alonso MD is Hospitalizing Provider. rn 19:20 Primary Nurse role handed off by Sarah Canseco, SANTA mw2 19:37 Hector Javier, SANTA is Primary Nurse. as6 23:23 No provider procedures requiring assistance completed. Patient admitted, IV remains in as6 place. 23:24 Placed in gown. Bed in low position. Call light in reach. Side rails up X2. as6 Administered Medications: 13:30 Drug: SOLU-Medrol (methylPrednisoLONE) 125 mg Route: IVP; Site: left antecubital; 6 15:14 Follow up: Response: No adverse reaction 6 13:30 Drug: Lasix (furosemide) 40 mg Route: IVP; Site: left antecubital; 6 15:14 Follow up: Response: No adverse reaction [facility] 13:31 Drug: Xopenex (levalbuterol) (3) 1.25 mg Route: Inhalation; 6 15:13 Follow up: Response: No adverse reaction [facility] Outcome: 14:58 Decision to Hospitalize by Provider. rn 23:23 Admitted to Med/surg accompanied by tech, via wheelchair, room 207, with oxygen, with as6 chart. 23:23 Condition: stable 23:23 Instructed on the need for admit. 23:24 Patient left the ED. as6 Signatures: Dispatcher [employer] EDMS Crescencio Black MD MD rn Smirch, Shelby, RN RN ss Davies, Jonathon, RN RN jd3 Westbrook, MyKena mw2 Hector Javier RN RN as6 Sarah Canseco RN RN [facility]
--- NOTE | 2021-05-27 15:10 | P.HP ---
Certification for Inpatient With expected LOS: >2 Midnights Patient will require the following post-hospital care: None Practitioner: I am a practitioner with admitting privileges, knowledge of patient current condition, hospital course, and medical plan of care. Services: Services provided to patient in accordance with Admission requirements found in Title 42 Section 412.3 of the Code of Federal Regulations Patient History Date of Service: 05/27/21 Reason for admission: SOB History of Present Illness: 71 YR OLD male with past med hx of HTN , HLD, COPD,systolic CHF,Aortic valve replacement not currently following up with any PCP and ran out of some medsbut still taking his entresto and coumadin ( state his PCP -Dr Armando stafford accepting his insurance ) presented after developing recurrent exertional SOB since last 2 weeks associated with intermittent wheezing , increasing body swelling , with leg edema . He reports cough with whitish sputum . No fever or chills , no covid contact . On arrival in ER , he was dyspneic on room air and requiring up to 4 L NC 02 now . CXR shows moderate pulmonary edema with possible pneumonia . LE doppler shows no DVT but salcido cyst on right leg . His BNP was elevated above 13k . His covid screen was negative . He has been given IV lasix and steroids He is being admitted for CHF exacerbation Allergies Penicillins Allergy (Severe, Verified 05/19/19 20:57) Anaphylaxis Home Medications: Levothyroxine Sodium 200 mcg PO 0630 #30 tablet 05/26/19 Sacubitril/Valsartan [Entresto 24 mg-26 mg Tablet] 1 tab PO BID #60 tab 05/26/19 clonazePAM [Clonazepam] 0.5 mg PO DAILY 09/17/20 Furosemide [Lasix*] 20 mg PO DAILY 30 Days #30 tab 09/18/20 Tramadol HCl [Ultram] 50 mg PO Q8H PRN 3 Days #10 tablet 09/18/20 Warfarin Sodium 3 mg PO DAILY 30 Days #30 tablet 09/18/20 - Past Medical/Surgical History Diabetic: No -: Mechanical Aortic valve replacement on chronic anti coagulation therapy -: Systolic CHF -: Hypertension -: Hyperlipidemia -: COPD -: Surgical hypothyroidism -: Aortic valve replacement -: Cystoscopy -: Colonoscopy in 1949 -: Thyroidectomy Psychosocial/ Personal History: Patient lives at home. - Family History Father -: Cancer Mother -: Heart disease, Hypertension, Cancer - Social History Smoking Status: Former smoker Smoking therapy provided: No Alcohol use: No CD- Drugs: No Caffeine use: Yes Place of Residence: Home Review of Systems General: Weakness ENT: Nose Congestion Respiratory: Cough, Shortness of Breath, SOB with Excertion, Sputum, Wheezing Cardiovascular: Paroxysmal Noc. Dyspnea, Edema Genitourinary: Dysuria, Frequency, Urgency, Incontinence, Hematuria, Retention, Other, As per HPI, Unremarkable Neurological: Weakness Physical Examination - Physical Exam General: Alert, In no apparent distress, Oriented x3, Cooperative, Mild distress HEENT: Atraumatic, Normocephalic, PERRLA Neck: Supple, 2+ carotid pulse no bruit, No Thyromegaly Respiratory: Diminished, Crackles/rales Cardiovascular: Regular rate/rhythm, Normal S1 S2 Gastrointestinal: Normal bowel sounds, Soft and benign, Non-distended Musculoskeletal: No clubbing, No swelling Integumentary: No rashes, No breakdown External genitalia: Other (large hydrocele ) - Studies Laboratory Data (last 24 hrs) 05/27/21 13:10: PT 17.3 H, INR 1.50, APTT 46.2 H 05/27/21 13:10: WBC 6.70, Hgb 10.1 L, Hct 31.3 L, Plt Count 162 05/27/21 13:10: Sodium 134 L, Potassium 3.5, BUN 11, Creatinine 1.29, Glucose 110 H, Total Bilirubin 0.8, AST 21, ALT 16, Alkaline Phosphatase 71 Assessment and Plan - Advance Directives Does patient have a Living Will: No Does patient have a Durable POA for Healthcare: No - Code Status/Comfort Care Code Status: Full Code Physician Review: Patient Assessed, Agree with Above Assessment and Plan Physician Review Additional Text: Presumed B/L Pneumonia Systolic CHF exacerbation Chronic anticoagulation with Coumadin Subtherapeutic INR COPD HTN HLD Hydrocele -chronic PLAN Acute Dyspnea -presumed due to combined pneumonia and mild CHF exacerbation - start Rocephin -obtain sputum for c/s and blood cx will admit to observation -continue IV lasix to continue diuresis -wean 02 down as tolerated - continue duonebs prn wheezing s/p AVR - will c/w Coumadin , keep INR above 2.5 - dose lovenox for now until INR above 2.5 Hydrocele - chronic but noted darkish urine on urinal during exam ]-will obtain UA for hematuria - eval , may need cystoscopy HTN -continue BP monitoring -PPI for GI prop -DVT prop with coumadin Weakness - s/p lives alone -case mgt for help with PCP and home health PT/OT now Advance directive -full code possible hospital stay for 2-3 days Time Spent Managing Pts Care (In Minutes): 80
[2021-05-27] MEDS ORDERED: ACETAMINOPHEN 500 MG TAB PO PRN (15:13)
[2021-05-27] MEDS ORDERED: ALBUTEROL 2.5 MG/3 ML NEB SOL NEB PRN (15:13)
[2021-05-27] MEDS ORDERED: MORPHINE 2 MG/ML SYR IV PRN (15:13)
[2021-05-27] MEDS ORDERED: HYDRALAZINE HCL 20 MG/ML VIAL IV PRN (15:15)
[2021-05-27] MEDS ORDERED: POTASSIUM 25 MEQ EFFERV TAB PO ONE (15:15)
[2021-05-27] MEDS: CEFTRIAXONE 1,000 MG in NA CHLORIDE 0.9% 50 ML IVPB SCH (15:24)
[2021-05-27] MEDS: Enoxaparin 120 MG/0.8 ML SYR SQ SCH ×2 (16:00)
[2021-05-27] MEDS: FUROSEMIDE 40 MG/4 ML VIAL IV SCH (16:00)
[2021-05-27] MEDS ORDERED: WARFARIN SODIUM 3 MG TAB PO SCH (16:30)
[2021-05-27] MEDS: WARFARIN SODIUM 5 MG TAB PO SCH (17:00)
[2021-05-27] MEDS ORDERED: WARFARIN SODIUM 5 MG TAB ONE (17:26)
[2021-05-27] MEDS ORDERED: POTASSIUM 25 MEQ EFFERV TAB ONE (17:27)
[2021-05-27] MEDS ORDERED: NA CHLORIDE 0.9% 100 ML IV ONE (17:27)
[2021-05-27] MEDS ORDERED: ENOXAPARIN 80 MG/0.8 ML SQ ONE (17:27)
[2021-05-27] MEDS ORDERED: CEFTRIAXONE 1000 MG/VIAL ONE (17:27)
[2021-05-27 18:26] VITALS: BMI 34.2
[2021-05-27] MEDS: IPRATROPIUM BROM 0.5MG/2.5ML NEB SCH (19:34)
[2021-05-27] MEDS ORDERED: IPRATROPIUM BROM 0.5MG/2.5ML ONE (19:35)
[2021-05-27] MEDS: SACUBITRIL/VALSARTAN 24/26 MG TAB PO SCH (21:00)
[2021-05-27] MEDS: FAMOTIDINE 20 MG TAB PO SCH (21:00)
[2021-05-27] MEDS ORDERED: FAMOTIDINE 20 MG TAB ONE (21:43)
[2021-05-27 22:26] LABS: Urine Appearance TURBID (Clear); Urine Bilirubin NEGATIVE (Negative); Urine Blood 3+ (Negative); Urine Color DK YELLOW (Yellow); Urine Glucose NEGATIVE (Negative); Urine Protein 1+ (Negative); Urine pH 5.5 (5.0-7.0)
[2021-05-27 22:29] LABS: Urine Microscopic Reflex ORDER UMIC
[2021-05-27 22:52] LABS: Urine Amorphous Sediment 2+ /HPF (NONE SEEN); Urine Bacteria >50 /HPF (NONE SEEN); Urine Mucus 2+ /HPF (NONE SEEN); Urine RBC >50 /HPF (NONE SEEN); Urine Yeast FEW (NONE SEEN)
[2021-05-28] MEDS: IPRATROPIUM BROM 0.5MG/2.5ML NEB SCH ×4 (03:00→19:55)
[2021-05-28] MEDS: Enoxaparin 120 MG/0.8 ML SYR SQ SCH ×2 (03:26→16:55)
[2021-05-28] MEDS: FUROSEMIDE 40 MG/4 ML VIAL IV SCH (03:26)
[2021-05-28] MEDS: LEVOTHYROXINE SOD 0.1 MG TAB PO SCH (05:31)
[2021-05-28 06:06] LABS: Protime INR 2.12
--- NOTE | 2021-05-28 06:11 | P.PN ---
Date of Service: 05/28/21 Subjective: feels breathing is partially improved feels weak requiring O2 no nausea/vomiting/abd discomfort ROS: 10 point ROS as noted above, otherwise negative Physical exam GEN: Alert, oriented, fatigued appearing HEENT: Normal conjunctiva, sclera anicteric CV: Regular rate and rhythm, trace b/l pedal edema Pulm: b/l wheeze, minimal crackles at bases, mildly labored respirations on 2 LNC ABD: Soft, nontender, nondistended Integumentary: RLE: ecchymosis of anterior tibia area, tenderness Neuro: Normal speech, normal affect Problem List acute hypoxemic respiratory failure secondary to Presumed B/L Pneumonia, acute on chronic COPD exacerbatio mild acute on chronic Systolic CHF exacerbation UTI Chronic anticoagulation with Coumadin Subtherapeutic INR HTN HLD Hydrocele -chronic Hypoxia Multifactorialbilateral pneumonia, mild CHF exacerbation, suspect mild acute COPD exacerbation Nebs ordered Continue Rocephin Sputum and blood cultures ordered Wean oxygen as tolerated Pulmonology consulted, patient denies any formal diagnosis, but states he has been prescribed inhalers many years ago If no further improvement, may benefit from steroids Diuresed well, now hypotensive, decrease Lasix dose to daily h/o AoVR Continue Coumadin, INR goal >2.5 lovenox bridging HTN Hold antihypertensives, patient is hypotensive this morning Generalized weakness Suspect this is secondary to infection/hypoxia Physical therapy ordered Lives home alone, may benefit from home health Hydrocele Urine with bacteriuria and hematuria Urology consulted by admitting physician VTE: Coumadin Code: Full Dispo: Anticipate DC home in ~1-2 days Time Spent Managing Pts Care (In Minutes): 35
[2021-05-28 06:14] LABS: Absolute Lymphocytes (CBC) 0.5 K/uL (0.7-4.9); Hematocrit 35.9 % (39.6-49.0); Lymphocytes % 8.4 % (15.3-44.8); MPV 9.2 fL (7.6-11.3); RBC Red Blood Cell Count 3.98 M/uL (4.33-5.43)
[2021-05-28 06:46] LABS: Albumin 3.6 g/dL (3.4-5.0); Bilirubin Total 0.6 mg/dL (0.2-1.0); Potassium 3.5 mmol/L (3.5-5.1)
[2021-05-28 07:03] LABS: Anisocytosis SLIGHT; Blood Morphology Comment NOTED (NOT SEEN); Platelet Estimate ADEQ; Polychromasia SLIGHT; White Blood Cell Scan OK (OK)
[2021-05-28] MEDS ORDERED: CEFTRIAXONE 1000 MG/VIAL ONE (08:04)
[2021-05-28] MEDS ORDERED: NA CHLORIDE 0.9% 50 ML ONE (08:30)
[2021-05-28] MEDS: CEFTRIAXONE 1,000 MG in NA CHLORIDE 0.9% 50 ML IVPB SCH (08:45)
[2021-05-28] MEDS: SACUBITRIL/VALSARTAN 24/26 MG TAB PO SCH ×2 (08:46→08:48)
[2021-05-28] MEDS: FAMOTIDINE 20 MG TAB PO SCH ×2 (08:46→20:39)
[2021-05-28] MEDS ORDERED: WARFARIN SODIUM 3 MG TAB PO SCH (09:00)
--- NOTE | 2021-05-28 14:45 | EKG ---
Test Date: 2021-05-27 Test Time: 12:59:13 Systems Analysis Manager: MADINA MEASUREMENT RESULTS: Intervals: Rate: 76 NC: QRSD: 152 QT: 470 QTc: 528 [place]: P: NC: QRS: 264 T: 72 INTERPRETIVE STATEMENTS: Electronic ventricular pacemaker Compared to ECG 09/16/2020 20:30:16 Atrial-sensed ventricular-paced complex(es) or rhythm no longer present Electronically Signed On 05-28-21 14:43:32 GOVERNMENT RELATIONS ANALYST by Brandyn Elizabeth
[2021-05-28] MEDS: WARFARIN SODIUM 5 MG TAB PO SCH (16:55)
[2021-05-28] MEDS: BENZONATATE 100 MG CAP PO PRN (16:56)
[2021-05-29] MEDS: IPRATROPIUM BROM 0.5MG/2.5ML NEB SCH ×4 (01:45→19:50)
[2021-05-29] MEDS: Enoxaparin 120 MG/0.8 ML SYR SQ SCH (05:16)
[2021-05-29] MEDS: LEVOTHYROXINE SOD 0.1 MG TAB PO SCH (05:16)
--- NOTE | 2021-05-29 06:09 | P.PN ---
Date of Service: 05/29/21 Subjective: breathing more comfortably feels weak R leg pain with PT yesterday ROS: 10 point ROS as noted above, otherwise negative Physical exam GEN: Alert, oriented, fatigued appearing HEENT: Normal conjunctiva, sclera anicteric CV: Regular rate and rhythm, trace b/l pedal edema Pulm: b/l wheeze, minimal crackles at bases, mildly labored respirations on 2 LNC ABD: Soft, nontender, nondistended Integumentary: RLE: ecchymosis of anterior tibia area, tenderness Neuro: Normal speech, normal affect : L hydrocele Problem List acute hypoxemic respiratory failure secondary to Presumed B/L Pneumonia, acute on chronic COPD exacerbation mild acute on chronic Systolic CHF exacerbation UTI Chronic anticoagulation with Coumadin Subtherapeutic INR HTN HLD Hydrocele -chronic Hypoxia Multifactorial bilateral pneumonia, mild CHF exacerbation, suspect mild acute COPD exacerbation Nebs ordered - reportedly helped Continue Rocephin empirically Sputum and blood cultures no growth Wean oxygen as tolerated Pulmonology consulted, patient denies any formal diagnosis, but states he has been prescribed inhalers many years ago Diuresed well, now hypotensive, dc Lasix h/o AoVR Continue Coumadin, INR goal >2.5 lovenox bridging HTN Hold antihypertensives, patient is hypotensive dc lasix small fluid bolus if needed Generalized weakness Suspect this is secondary to infection/hypoxia Physical therapy ordered Lives home alone, may benefit from SNF Hydrocele Urine with bacteriuria and hematuria f/u cultures consult urology if hematuria worsens VTE: Coumadin Code: Full Dispo: Anticipate DC SNF in ~1-2 days Time Spent Managing Pts Care (In Minutes): 35
[2021-05-29 06:15] LABS: Absolute Lymphocytes (CBC) 1.4 K/uL (0.7-4.9); Hematocrit 31.2 % (39.6-49.0); RBC Red Blood Cell Count 3.43 M/uL (4.33-5.43)
[2021-05-29 06:25] LABS: Potassium 3.7 mmol/L (3.5-5.1)
[2021-05-29 06:26] LABS: Protime INR 2.24
[2021-05-29] MEDS: FAMOTIDINE 20 MG TAB PO SCH ×2 (08:18→20:38)
[2021-05-29] MEDS: CEFTRIAXONE 1,000 MG in NA CHLORIDE 0.9% 50 ML IVPB SCH (08:19)
[2021-05-29] MEDS ORDERED: FUROSEMIDE 40 MG/4 ML VIAL IV SCH (09:00)
--- NOTE | 2021-05-29 09:14 | RAD REPORT ---
EXAM DESCRIPTION: RAD - Chest Single View - 05/29/2021 6:29 am CLINICAL HISTORY: hypoxia, f/u pulm edema/pneumonia Chest pain. COMPARISON: Chest Single View dated 05/27/2021; Chest Single View dated 09/16/2020; Chest Single View d ated 05/20/2019; Chest Single View dated 05/19/2019 FINDINGS: Portable technique limits examination quality. Since the prior study, there has been improvement in the bilateral pneumonia pattern. Mild pulmonary edema persists. The heart is enlarged with multilead pacer/defibrillator device. Sternotomy wires pre sent. IMPRESSION: There has been moderate improvement in the bibasilar pneumonia pattern since comparative study.
--- NOTE | 2021-05-29 10:53 | RAD REPORT ---
EXAM DESCRIPTION: RAD - Tib Fib Right - 05/29/2021 10:29 am CLINICAL HISTORY: r/o fracture Pain and swelling COMPARISON: No comparisons FINDINGS: No fracture or dislocation is present. Small posterior and plantar calcaneal spurs.
--- NOTE | 2021-05-29 10:53 | RAD REPORT ---
EXAM DESCRIPTION: RAD - Knee Right 3 View - 05/29/2021 10:29 am CLINICAL HISTORY: r/o fracture Pain and swelling COMPARISON: No comparisons FINDINGS: No fracture or dislocation is seen. No joint effusion. Mild atherosclerosis.
[2021-05-29] MEDS ORDERED: NA CHLORIDE 0.9% 500 ML IV ONE (11:38)
--- NOTE | 2021-05-29 12:02 | P.CNS ---
Date of Consult: 05/29/21 Chief Complaint: SOB History of Present Illness: Patient is 71 years of age history of hypertension COPD heart failure aortic valve replacement he ran out of some of his medications resented to the emergency room with exertional dyspnea increasing wheezing lower extremity edema productive whitish cough denies any fever or chills is found to be hypoxic on admission possible heart failure Patient has therapeutic INR on warfarin paced rhythm cultures so far negative/heavy smoker patient is a heavy smoker compliant with his medication does not take anything for presumed COPD denies any lower extremity edema Allergies Penicillins Allergy (Severe, Verified 05/27/21 23:44) Anaphylaxis Home Medications: Levothyroxine Sodium 200 mcg PO 0630 #30 tablet 05/26/19 Sacubitril/Valsartan [Entresto 24 mg-26 mg Tablet] 1 tab PO BID #60 tab 05/26/19 clonazePAM [Clonazepam] 0.5 mg PO DAILY 09/17/20 Furosemide [Lasix*] 20 mg PO DAILY 30 Days #30 tab 09/18/20 Tramadol HCl [Ultram] 50 mg PO Q8H PRN 3 Days #10 tablet 09/18/20 Warfarin Sodium 3 mg PO DAILY 30 Days #30 tablet 09/18/20 - Past Medical/Surgical History Diabetic: No -: Mechanical Aortic valve replacement on chronic anti coagulation therapy -: Systolic CHF -: Hypertension -: Hyperlipidemia -: COPD -: Surgical hypothyroidism -: Aortic valve replacement -: Cystoscopy -: Colonoscopy in 1949 -: Thyroidectomy Psychosocial/ Personal History: Patient lives at home. - Family History Father Medical History: Cancer Mother Medical History: Heart disease, Hypertension, Cancer - Social History Smoking Status: Current every day smoker Alcohol use: No CD- Drugs: No Caffeine use: Yes Place of Residence: Home Review of Systems 10-point ROS is otherwise unremarkable General: Weakness Respiratory: Shortness of Breath Physical Examination Temp Pulse Resp BP Pulse Ox 96.9 F 84 18 97/54 L 94 05/29/21 08:00 05/29/21 08:00 05/29/21 08:00 05/29/21 08:00 05/29/21 08:00 General: Alert, In no apparent distress, Oriented x3 Respiratory: Clear to auscultation bilaterally, Diminished Cardiovascular: No edema, Regular rate/rhythm - Problems (1) Congestive heart failure (CHF) Current Visit: No Status: Chronic Plan: age 71 admitted with shortness of breath I strongly suspect is a combination of CHF and COPD he is a heavy smoker patient had AV node ablation also had aortic valve replacement I ordered a PA lateral chest x-ray no evidence of sepsis DC antibiotic just use Brovana 1 twice daily patient will need a bronchodilator long-acting at home agree with low-dose Lasix 20mg patient also has renal insufficiency need to follow-up as an outpatient DC Lovenox continue with warfarin patient is on treatment for congestive heart failure at home apparently ran out of his medications his primary care had retired Qualifiers: Heart failure type: systolic Heart failure chronicity: acute on chronic Qualified Code(s): I50.23 - Acute on chronic systolic (congestive) heart failure
[2021-05-29] MEDS ORDERED: WARFARIN SODIUM 7.5 MG TAB PO SCH (17:00)
[2021-05-29] MEDS: ARFORMOTEROL TARTRATE 15 MCG/2 ML VIAL.NEB NEB SCH (19:50)
[2021-05-30] MEDS: IPRATROPIUM BROM 0.5MG/2.5ML NEB SCH ×2 (02:00→08:15)
[2021-05-30] MEDS: BENZONATATE 100 MG CAP PO PRN (02:52)
[2021-05-30] MEDS: LEVOTHYROXINE SOD 0.1 MG TAB PO SCH (05:54)
[2021-05-30 06:03] LABS: Protime INR 2.08
[2021-05-30] MEDS: ARFORMOTEROL TARTRATE 15 MCG/2 ML VIAL.NEB NEB SCH (08:15)
[2021-05-30] MEDS: FAMOTIDINE 20 MG TAB PO SCH (08:55)
[2021-05-30 08:56] VITALS: O2SAT 95
--- NOTE | 2021-05-30 08:56 | P.DS ---
Admission Date: 05/28/21 Discharge Date: 05/30/21 Disposition: TRANSFER TO INPATIENT REHAB Discharge Condition: FAIR Reason for Admission: SOB Brief History of Present Illness: 71 YR OLD male with past med hx of HTN , HLD, COPD,systolic CHF, Aortic valve replacement presented after developing recurrent exertional SOB of 2 weeks duration, associated intermittent wheezing , increasing body swelling , with leg edema . He reported cough with whitish sputum . On arrival in ER , he was dyspneic on room air and requiring up to 4 L NC 02 now . CXR shows moderate pulmonary edema with possible pneumonia . LE doppler shows no DVT but salcido cyst on right leg . His BNP was elevated above 13k . His covid screen was negative. Patient admitted for CHF exacerbation. Hospital Course: Problem List acute hypoxemic respiratory failure secondary to Presumed B/L Pneumonia, acute on chronic COPD exacerbation mild acute on chronic Systolic CHF exacerbation UTI Chronic anticoagulation with Coumadin Subtherapeutic INR HTN HLD Hydrocele -chronic Hypoxia Multifactorial bilateral pneumonia, mild CHF exacerbation, suspect mild acute COPD exacerbation Patient improved with nebulizer treatment Was treated with IV Rocephin empirically Sputum and blood cultures no growth Subsequently weaned off oxygen to room air which he tolerated. He diuresed well with Lasix. h/o AoVR Continued Coumadin. INR was therapeutic. HTN Held antihypertensives due to soft blood pressure Generalized weakness Suspect this is secondary to hypoxia Physical therapy ordered Patient [facility]. He is clinically stable for discharge. Hydrocele/UTI Patient treated with antibiotics. Urine culture yielded mixed growth. Vital Signs/Physical Exam: Temp Pulse Resp BP Pulse Ox 97.5 F 62 18 109/54 L 99 05/30/21 04:00 05/30/21 04:00 05/30/21 04:00 05/30/21 04:00 05/30/21 04:00 General: Alert, In no apparent distress HEENT: Mucous membr. moist/pink Neck: JVD not distended Respiratory: Clear to auscultation bilaterally, Normal air movement Cardiovascular: Regular rate/rhythm, Normal S1 S2 Gastrointestinal: Soft and benign, Non-distended Musculoskeletal: No swelling, No tenderness Integumentary: No cyanosis Neurological: Other (No focal motor deficit.) Laboratory Data at Discharge: WBC 7.60 K/uL (4.3-10.9) D 05/29/21 05:50 Hgb 10.3 g/dL (13.6-17.9) L 05/29/21 05:50 Hct 31.2 % (39.6-49.0) L 05/29/21 05:50 Plt Count 156 K/uL (152-406) 05/29/21 05:50 PT 24.1 SECONDS (9.5-12.5) H 05/30/21 05:30 INR 2.08 05/30/21 05:30 APTT 46.2 SECONDS (24.3-36.9) H 05/27/21 13:10 Sodium 138 mmol/L (136-145) 05/29/21 05:50 Potassium 3.7 mmol/L (3.5-5.1) 05/29/21 05:50 BUN 21 mg/dL (7-18) H 05/29/21 05:50 Creatinine 1.31 mg/dL (0.55-1.3) H 05/29/21 05:50 Glucose 104 mg/dL (74-106) 05/29/21 05:50 Magnesium 2.0 05/29/21 05:50 Total Bilirubin 0.6 mg/dL (0.2-1.0) 05/28/21 05:16 AST 21 U/L (15-37) 05/28/21 05:16 ALT 15 U/L (12-78) 05/28/21 05:16 Alkaline Phosphatase 75 U/L (45-117) 05/28/21 05:16 Triglycerides 101 mg/dL (<150) 05/28/21 05:16 Cholesterol 310 mg/dL (<200) H 05/28/21 05:16 HDL Cholesterol 63 mg/dL (40-60) H 05/28/21 05:16 Cholesterol/HDL Ratio 4.92 05/28/21 05:16 Home Medications: Levothyroxine Sodium 200 mcg PO 30 #30 tablet 05/26/19 Sacubitril/Valsartan [Entresto 24 mg-26 mg Tablet] 1 tab PO BID #60 tab 05/26/19 clonazePAM [Clonazepam] 0.5 mg PO DAILY 09/17/20 Furosemide [Lasix*] 20 mg PO DAILY 30 Days #30 tab 09/18/20 Tramadol HCl [Ultram] 50 mg PO Q8H PRN 3 Days #10 tablet 09/18/20 Warfarin Sodium 3 mg PO DAILY 30 Days #30 tablet 09/18/20 Albuterol Neb [Proventil 0.083% Neb Soln] 2.5 mg NEB [id number] PRN amp 05/30/21 Arformoterol Tartrate [Brovana] 15 mcg NEB BIDRESP vial.neb 05/30/21 Benzonatate [Tessalon Perle*] 200 mg PO TID PRN cap 05/30/21 Famotidine [Pepcid*] 20 mg PO BID tab 05/30/21 Ipratropium Neb [Atrovent*] 0.5 mg NEB [id number] amp 05/30/21 Time spent managing pt's care (in minutes): 38
[2021-05-30 09:29] VITALS: BP 121/58; TEMP 96.9
== END 2021-05-30 13:32 | DRG 291 ==
LOC: ER 12:46 → ERHOLD 15:14 → 2ND 22:49 → OBSVTOIN 05-28 11:33
PROVIDERS: ADMIT Internal Medicine; ATTEND Internal Medicine
DX: I11.0 Hypertensive heart disease with heart failure (principal); J18.9 Pneumonia, unspecified organism; I50.23 Acute on chronic systolic (congestive) heart failure; J96.01 Acute respiratory failure with hypoxia; J44.0 Chronic obstructive pulmonary disease with (acute) lower respiratory infection; N39.0 Urinary tract infection, site not specified; J44.1 Chronic obstructive pulmonary disease with (acute) exacerbation; E78.5 Hyperlipidemia, unspecified; N43.3 Hydrocele, unspecified; E03.9 Hypothyroidism, unspecified; M71.21 Synovial cyst of popliteal space [Baker], right knee; F17.210 Nicotine dependence, cigarettes, uncomplicated; Z91.14 Patient's other noncompliance with medication regimen; Z79.01 Long term (current) use of anticoagulants; Z95.2 Presence of prosthetic heart valve; Z88.0 Allergy status to penicillin; Z20.822 Contact with and (suspected) exposure to COVID-19
CPT/HCPCS: 0240U; 36415; 71045; 80048; 80053; 80061; 80076; 81003; 81015; 83735; 83880; 84145; 84439; 84443; 85025; 85610; 85730; 87040; 87086; 87088; 93005; 93971; 94640; 96374; 96375; 97161; 97530; 99285; G0378; J1650; J1940; J2270; J2930; J7040; J7605

== ENCOUNTER 2021-07-18 14:47 | Inpatient (IN) | payer OTHER ==
--- OUTSIDE RECORDS SUMMARY | 2021-07-18 14:50 | XMS REPORT | Continuity of Care Document ---
:1950 Author Organization [facility] t Address [address] [place] [address] Care Team Providers Name Role Phone [phone] Attending Clinician Unavailable Juan Platt Anavella Attending Clinician Unava ilable Karly Fonseca V Attending Clinician Unavailable Evans Attending Clinician Unavailable [id number] Admitting Clinician Unavailable Ang Platt Admitting Clinician Unavailable Jill Ramírez V Admitting Clinician Unavailable Physician, Primary or Family Admitting Clinician Unavailabl e Payers Payer Name Policy Type Policy Number Effective Date Expiration Date S ource [facility] [id number] Problems This patient has no known problems. Allergies, Adverse Reactions, Alerts Allergy Allergy Status Severity Reaction(s) Onset Inactive Treating Comm ents Source Name Type Date Date Clinician [place] DA Active U UNKNOWN [facility] ins 2-14 [place] 00:00: d 00 [facility] Medications This patient has no known medications. Procedures Procedure Date / Time Performed Performing Clinician [facility] bernadine [id number] 2021-06-06 00:00:00 [facility] Encounters Start End Encounter Admission Attending Care Care Encounter Source Date/Time Date/Time Type Type Clinicians Facility Department ID 2021-05-29 Outpatient [id number] [facility] REF [id number] [facility] 15:03:38 0207 2021-05-30 2021-06-13 [facility] [id number] [facility] 14:32:00 18:00:00 Kelsey mills 2021-06-07 2021-06-07 Outpatient Jill HCAPM LABO [id number] [facility] 05:25:00 05:25:00 Darrell [id number] [facility] 2021-06-06 2021-06-06 Outpatient [place] HCAPM LABO [id number] [facility] 07:30:00 07:30:00 Darrell [id number] [facility] 2021-06-05 2021-06-05 Emergency EM Evans, HCAPM NADEEM [id number] [facility] 19:24:00 23:36:00 Anmol [id number] [facility] 2021-06-05 2021-06-05 Emergency EM Evans, HCAPM HCAPM [id number] [facility] 19:24:00 23:36:00 Anmol Arrednodo [facility] 2021-06-05 2021-06-05 Emergency EM Evans, HCAPM NADEEM [id number] [facility] 19:24:00 23:36:00 Anmol [id number] [facility] Results Test Description Test Time Test Comments Results Result Comments Source CBC W/AUTO DIFF 2021-06-06 07:56:00 Test Item Value Reference Range Interpretation Comme nts WHITE BLOOD CELL (test code = WBC) 6.6 K/mm3 3.5-11.0 N RED BLOOD CELL (test code = RBC) 1.85 M/mm3 4.70-6.10 L HEMOGLOBIN (test code = HGB) 5.4 G/DL 12.3-15.9 LL HEMATOCRIT (test code = HCT) 17.5 % 35.8-46.7 L MEAN CELL VOLUME (test code = MCV) 94.6 Fl 86.3-98.9 N MEAN CELL HGB (test code = MCH) 29.2 pg 28.9-34.4 N MEAN CELL HGB CONCETRATION (test code = MCHC) 30.9 G/DL 32.1-34. 5 L RED CELL DISTRIBUTION WIDTH (test code = RDW) 16.8 SD 11.5-14. 5 H PLATELET COUNT (test code = PLT) 123 K/mm3 150-450 L MEAN PLATELET VOLUME (test code = MPV) 11.90 fL 7.0-9.6 H NEUTROPHIL % (test code = NT%) 71.1 % 40-76 N IMMATURE GRANULOCYTE % (test code = IG%) 0.8 % 0.0-5.0 N LYMPHOCYTE % (test code = LY%) 16.1 % 20.5-51.1 L MONOCYTE % (test code = MO%) 8.8 % 1.7-9.3 N EOSINOPHIL % (test code = EO%) 3.0 % 0.0-6.0 N BASOPHIL % (test code = BA%) 0.2 % 0.0-2.0 N NUCLEATED RBC % (test code = NRBC%) 0.0 /100WBC% 0.0-1.0 N NEUTROPHIL # (test code = NT#) 4.7 K/mm3 1.8-7.6 N IMMATURE GRANULOCYTE # (test code = IG#) 0.05 x10 3/uL 0.00-0.03 H LYMPHOCYTE # (test code = LY#) 1.1 K/mm3 0.6-3.0 N MONOCYTE # (test code = MO#) 0.6 K/mm3 0.2-1.5 N EOSINOPHIL # (test code = EO#) 0.2 K/mm3 0.0-0.4 N BASOPHIL # (test code = BA#) 0.0 K/mm3 0.0-0.2 N NUCLEATED RBC # (test code = NRBC#) 0.0 K/mm3 0.00-0.01 N MANUAL DIFF REQUIRED (test code = MDIFF) NO DIFF/SCN CRITERIA UA RFLX MICR CULT IF [id number] 20:19:00 Test Item Value Reference Range Interpretation Comments UA COLOR (test code = DARK YELLOW discript YEL/STRAW COLU) UA APPEARANCE (test code HAZY discript CLEAR A = APPU) UA GLUCOSE DIPSTICK (test NEGATIVE mg/dL NEG code = DGLUU) UA BILIRUBIN DIPSTICK NEGATIVE mg/dL NEG (test code = BILU) UA KETONE DIPSTICK (test NEGATIVE mg/dL NEG code = KETU) UA SPECIFIC GRAVITY (test 1.020 SG 1.005-1.030 code = SGU) UA BLOOD DIPSTICK (test 3+ mg/DL NEG A code = ZEHRA) UA PH DIPSTICK (test code 5.5 pH UNITS 5.0-7.0 = MAHENDRA) UA PROTEIN DIPSTICK (test TRACE mg/dL NEG A code = PROU) UA UROBILINIOGEN DIPSTICK 0.2 mg/dL <2.0 (test code = URO) UA NITRITE DIPSTICK (test NEGATIVE SCREEN NEG code = ETHAN) UA LEUKOCYTE ESTERASE NEGATIVE Leuk/mcL NEGATIVE DIPSTICK (test code = LEUU) UA CULTURE NEEDED? (test NO, WBC<10 Criteria Culture CHK code = UACULT) UA WBC (test code = WBCU) 5-10 #WBC/HPF 0-3 A UA RBC (test code = RBCU) 10-20 #RBC/HPF 0-3 A UA BACTERIA (test code = 2+ /HPF NONE-TRACE A BACU) UA SQUAMOUS CELLS (test TRACE /HPF NONE code = SQU) Indication for culture: Suprapubic Pain
[2021-07-18] MEDS ORDERED: ONDANSETRON 4 MG/2 ML VIAL IV PRN (16:34)
--- NOTE | 2021-07-18 16:43 | P.HP ---
Certification for Inpatient Patient admitted to: Inpatient With expected LOS: >2 Midnights Practitioner: I am a practitioner with admitting privileges, knowledge of patient current condition, hospital course, and medical plan of care. Services: Services provided to patient in accordance with Admission requirements found in Title 42 Section 412.3 of the Code of Federal Regulations Patient History Date of Service: 07/18/21 Reason for admission: Large R pleural effusion, hypoxia History of Present Illness: 71yo M, PMH: systolic-CHF, COPD, h/o AoVR on coumadin, anemia, surgical hypothyroidism, HTN Transferred from [facility]. Patient is minimally responsive for me at time of exam. History obtained from ED physician. Patient with shortness of breath, worsening over few days. Associated with worsening swelling in legs. Patient was found to have large right pleural effusion on CTA, with concern for possible pneumonia. Patient was noted to have elevated BNP, INR > 8, afebrile, HR: 90- 110, and stable BP. He was placed on oxygen supplementation. Upon arrival here, patient was alert/oriented x 1 per nursing staff. On my exam shortly after, he was difficult to arouse. Allergies Penicillins Allergy (Severe, Verified 05/27/21 23:44) Anaphylaxis Home Medications: Levothyroxine Sodium 200 mcg PO 0630 #30 tablet 05/26/19 Sacubitril/Valsartan [Entresto 24 mg-26 mg Tablet] 1 tab PO BID #60 tab 05/26/19 clonazePAM [Clonazepam] 0.5 mg PO DAILY 09/17/20 Furosemide [Lasix*] 20 mg PO DAILY 30 Days #30 tab 09/18/20 Tramadol HCl [Ultram] 50 mg PO Q8H PRN 3 Days #10 tablet 09/18/20 Warfarin Sodium 3 mg PO DAILY 30 Days #30 tablet 09/18/20 Albuterol Neb [Proventil 0.083% Neb Soln] 2.5 mg NEB [id number] PRN amp 05/30/21 Arformoterol Tartrate [Brovana] 15 mcg NEB BIDRESP vial.neb 05/30/21 Benzonatate [Tessalon Perle*] 200 mg PO TID PRN cap 05/30/21 Famotidine [Pepcid*] 20 mg PO BID tab 05/30/21 Ipratropium Neb [Atrovent*] 0.5 mg NEB [id number] amp 05/30/21 - Past Medical/Surgical History Diabetic: No -: Mechanical Aortic valve replacement on chronic anti coagulation therapy -: Systolic CHF -: Hypertension -: Hyperlipidemia -: COPD -: Surgical hypothyroidism -: Aortic valve replacement -: Cystoscopy -: Colonoscopy in 1950 -: Thyroidectomy Psychosocial/ Personal History: Patient lives at home. - Family History Father -: Cancer Mother -: Heart disease, Hypertension, Cancer - Social History Smoking Status: Unknown if ever smoked Alcohol use: No CD- Drugs: No Caffeine use: Yes Place of Residence: [facility] Physical Examination - Vital Signs Temperature: 97.0 F Blood Pressure: 152/73 Pulse: 104 Respirations: 18 Pulse Ox (%): 94 - Physical Exam General: Other (lethargic, minimally responsive - mainly to painful stimuli, loud voice) HEENT: Sclerae nonicteric, Scleral icterus Respiratory: Expiratory wheezes, Rhonchi/gurgles (on right), Other (diminished at bases bilaterally, R > L) Cardiovascular: Edema (2+ in b/l lower extremities, trace upper extremities), Irregular heart rate/rhythm Gastrointestinal: Soft and benign, Non-distended, No tenderness Musculoskeletal: No tenderness Integumentary: No significant lesion, Other (mild ecchymosis / erythema in LUE) Neurological: Other (lethargic, minimally responsive to painful stimuli) Urinary: Estrada catheter (in place) Assessment and Plan - Advance Directives Does patient have a Living Will: No Does patient have a Durable POA for Healthcare: No Physician Review Additional Text: Problem List acute hypoxemic respiratory failure secondary to possible pneumonia and large R pleural effusion acute on chronic Systolic CHF exacerbation chronic COPD exacerbation Chronic anticoagulation with Coumadin Subtherapeutic INR surgical hypothyroidism HTN HLD reportedly had large R pleural effusion seen on CTA at [place] [facility] today. Negative for PE. CT with atelectasis and possible pneumonia patient was given Cefepime in ER, continue with antibiotics for possible pneumonia patient lethargic at this time, reportedly did not receive any sedative med ications prior to transfer check ABG CXR obtain labs now pulm consult hold coumadin, INR was >8 at [facility] per ER doctor patient with anasarca and large pleural effusion, reportedly unilateral, may nee d thoracentesis, currently supratherapeutic check thyroid studies, restart synthroid VTE: supratherapeutic on home coumadin Code: full Dispo: back to shelter, likely ~2-3 days Time Spent Managing Pts Care (In Minutes): 70
[2021-07-18] MEDS ORDERED: CEFTRIAXONE 1,000 MG in NA CHLORIDE 0.9% 50 ML IVPB SCH (17:00)
[2021-07-18] MEDS ORDERED: AZITHROMYCIN IV 500 MG in NA CHLORIDE 0.9% 250 ML IVPB SCH (17:00)
[2021-07-18 17:26] LABS: Arterial Blood Carboxyhemoglob 2.7 % (0-1.5); Blood Gas Oxyhemoglobin 92.9 % (94-97); Blood O2 Saturation 96.7 % (92-98.5)
--- NOTE | 2021-07-18 17:39 | RAD REPORT ---
EXAM DESCRIPTION: CT - Ct Stroke Brain Wo Cont - 07/18/2021 5:27 pm CLINICAL HISTORY: change in mentation Headache, drowsiness COMPARISON: Head C Spine Mpr Wo Con dated 11/20/2016 TECHNIQUE: All CT scans are performed using dose optimization technique as appropriate and may inclu de automated exposure control or mA/KV adjustment according to patient size. FINDINGS: The ventricular system is quite prominent. The degree of prominence of the ventricular sys tem is similar to the 2017 study.No acute hemorrhage or midline shift. The paranasal sinuses and mastoids are clear. The calvarium is intact. IMPRESSION: No acute intracranial abnormality. Prominent ventricular system appears essentially stable since 2017. The findings were discussed with Dr. Black On 07/18/2021 at 5:35 p.m. by telephone.
--- NOTE | 2021-07-18 17:40 | RAD REPORT ---
EXAM DESCRIPTION: RAD - Chest Single View - 07/18/2021 5:22 pm CLINICAL HISTORY: large R pleural effusion Chest pain. COMPARISON: Chest Single View dated 05/29/2021; Chest Single View dated 05/27/2021; Chest Single View da garrett 09/16/2020; Chest Single View dated 05/20/2019 FINDINGS: Portable technique limits examination quality. Moderate to the large right pleural effusion. Mild pulmonary edema. The heart is enlarged. Multi pace r device is present.Sternotomy wires.
[2021-07-18 18:30] VITALS: BMI 32.8
[2021-07-18] MEDS: FUROSEMIDE 40 MG/4 ML VIAL IV SCH (18:46)
[2021-07-18 18:50] LABS: Absolute Lymphocytes (CBC) 0.3 K/uL (0.7-4.9); Hematocrit 29.7 % (39.6-49.0); Lymphocytes % 6.6 % (15.3-44.8); MPV 8.6 fL (7.6-11.3); RBC Red Blood Cell Count 3.41 M/uL (4.33-5.43)
[2021-07-18 19:10] LABS: Potassium 3.8 mmol/L (3.5-5.1)
[2021-07-18 19:12] LABS: Albumin 3.5 g/dL (3.4-5.0); Potassium 3.9 mmol/L (3.5-5.1); Protein, Total 7.1 g/dL (6.4-8.2)
[2021-07-18] MEDS: IPRATROPIUM BROM 0.5MG/2.5ML NEB SCH (19:40)
[2021-07-18] MEDS: ALBUTEROL 2.5 MG/3 ML NEB SOL NEB PRN (19:40)
[2021-07-18 19:42] LABS: Urine Appearance Clear (Clear); Urine Bilirubin Negative (Negative); Urine Blood 2+ (Negative); Urine Color Yellow (Yellow); Urine Glucose Negative (Negative); Urine Protein Negative (Negative); Urine Urobilinogen 0.2 mg/dL (0.2-1.0); Urine pH 5.5 (5.0-7.0)
[2021-07-18 19:44] LABS: Urine Microscopic Reflex ORDER UMIC
[2021-07-18 19:45] LABS: Protime INR 7.9
[2021-07-18] MEDS: METHYLPREDNISOLONE 40 MG INJ IV SCH (20:14)
[2021-07-18 20:23] LABS: Urine Bacteria 20-50 /HPF (NONE SEEN); Urine RBC <5 /HPF (NONE SEEN)
[2021-07-18 20:28] LABS: Blood Morphology Comment NOT SEEN (NOT SEEN); Platelet Estimate ADEQ; White Blood Cell Scan OK (OK)
[2021-07-18 21:10] LABS: Absolute Lymphocytes (CBC) 0.3 K/uL (0.7-4.9); Hematocrit 28.7 % (39.6-49.0); MPV 8.5 fL (7.6-11.3); RBC Red Blood Cell Count 3.33 M/uL (4.33-5.43)
[2021-07-18 21:22] LABS: Protime INR 8.15
[2021-07-18 21:38] LABS: Arterial Blood Carboxyhemoglob 2.8 % (0-1.5); Blood O2 Saturation 92.6 % (92-98.5)
[2021-07-18 21:48] LABS: Blood Morphology Comment NOT SEEN (NOT SEEN); Platelet Estimate ADEQ; White Blood Cell Scan OK (OK)
[2021-07-19] MEDS: IPRATROPIUM BROM 0.5MG/2.5ML NEB SCH ×4 (01:25→20:30)
[2021-07-19] MEDS: ALBUTEROL 2.5 MG/3 ML NEB SOL NEB PRN (01:25)
[2021-07-19] MEDS: MELATONIN 5 MG TABLET PO PRN ×2 (01:46→20:50)
[2021-07-19 05:44] LABS: Arterial Blood Carboxyhemoglob 2.8 % (0-1.5); Blood Gas Oxyhemoglobin 85.5 % (94-97); Blood O2 Saturation 89.2 % (92-98.5)
[2021-07-19 05:52] LABS: Absolute Lymphocytes (CBC) 0.4 K/uL (0.7-4.9); Hematocrit 28.6 % (39.6-49.0); MPV 8.8 fL (7.6-11.3); RBC Red Blood Cell Count 3.28 M/uL (4.33-5.43)
[2021-07-19 06:14] LABS: Bilirubin Total 0.9 mg/dL (0.2-1.0); Magnesium 2.1 mg/dL (1.8-2.4); Potassium 3.9 mmol/L (3.5-5.1); Protein, Total 6.5 g/dL (6.4-8.2)
[2021-07-19 06:17] LABS: Thyroid Stimulating Hormone 4.49 uIU/mL (0.360-3.740)
--- NOTE | 2021-07-19 06:35 | P.PN ---
Date of Service: 07/19/21 Subjective: improving, breathing more comfortably diuresing well ROS: 10 point ROS as noted above, otherwise negative Physical Exam General: AOx3, NAD HEENT: Sclerae nonicteric, Scleral icterus Respiratory: b/l expiratory wheeze, diminished at R side CV: irregular heart rate/rhythm, 1+ edema GI: soft, non-distended, non-tenderness Integumentary: No significant lesion, Other (mild ecchymosis / erythema in LUE) Neurological: Other (lethargic, minimally responsive to painful stimuli) Urinary: Estrada catheter (in place) Problem List acute hypoxemic respiratory failure secondary to possible pneumonia and large R pleural effusion acute on chronic Systolic CHF exacerbation chronic COPD exacerbation Chronic anticoagulation with Coumadin Subtherapeutic INR surgical hypothyroidism HTN HLD reportedly had large R pleural effusion seen on CTA at [place] [facility] today. Negative for PE. CT with atelectasis and possible pneumonia patient was given Cefepime in ER, continue with antibiotics for possible pneumonia mentation improved, suspect secondary to hypercapnia CO2 improved with HFNC, felt unlikely to tolerate BIPAP / protect airway check lateral decubitus x-ray to eval effusion Pulm consulted hold coumadin, INR elevated thyroid studies improved, continue home synthroid VTE: supratherapeutic on home coumadin Code: full Dispo: back to [facility], likely ~2 days Time Spent Managing Pts Care (In Minutes): 30
--- NOTE | 2021-07-19 07:34 | RAD REPORT ---
EXAM DESCRIPTION: RAD - Chest Single View - 07/19/2021 5:42 am CLINICAL HISTORY: f/u effusion COMPARISON: Chest Single View dated 07/18/2021; Chest Single View dated 05/29/2021; Chest Single View d ated 05/27/2021; Chest Single View dated 09/16/2020; Thorax W/ Con dated 09/16/2020 FINDINGS: Lines: None. Lungs: Diffuse prominence of the pulmonary interstitium. Mild improved lung volumes. Aeration of the right lung has improved. Pleural: Probable moderate layering right pleural effusion. Cardiac: Cardiomegaly. Sternotomy. Pacemaker. Bones: No acute fractures. Other: IMPRESSION: Mild improved aeration of the right lung with probably moderate sized layering right ple ural effusion. Background of pulmonary edema.
[2021-07-19 07:36] LABS: Protime INR 7.56
--- NOTE | 2021-07-19 08:32 | P.CNS ---
Date of Consult: 07/19/21 Reason for Consult: Respiratory failure altered mental status pleural effusion Chief Complaint: Large R pleural effusion, hypoxia History of Present Illness: Patient is 71 years of age patient is 71 years of age transferred from [facility] with altered mental status hypoxic hypercapnic respiratory failure patient does not recall the events that transpired him to be admitted to [facility] are transferred to [facility] planes of some shortness of breath he does have underlying COPD congestive heart failure Allergies Penicillins Allergy (Severe, Verified 05/27/21 23:44) Anaphylaxis Home Medications: Furosemide [Lasix*] 20 mg PO DAILY 30 Days #30 tab 09/18/20 Arformoterol Tartrate [Brovana] 15 mcg NEB BIDRESP vial.neb 05/30/21 Ipratropium Neb [Atrovent*] 0.5 mg NEB [id number] amp 05/30/21 Clotrimazole [Clotrimazole AF] 1 % .ROUTE BID 07/19/21 Docusate Sodium 100 mg PO DAILY 07/19/21 Levothyroxine Sodium 150 mcg PO 0630 07/19/21 Lidocaine 4% Patch [Lidoderm 5% Patch*] 4 % .ROUTE DAILY 07/19/21 Naloxegol Oxalate [Movantik] 12.5 mg PO DAILY 07/19/21 Oxycodone HCl/Acetaminophen [Oxycodone-Acetaminophen 10-325] 10 - 325 mg PO Q4H PRN 07/19/21 Sennosides [Senna] 8.6 mg PO DAILY 07/19/21 Urea [Gormel Ten] 10 % .ROUTE DAILY 07/19/21 Warfarin Sodium 4 mg PO DAILY 07/19/21 methocarbamoL [Methocarbamol] 750 mg PO TID 07/19/21 - Past Medical/Surgical History Diabetic: No -: Mechanical Aortic valve replacement on chronic anti coagulation therapy -: Systolic CHF -: Hypertension -: Hyperlipidemia -: COPD -: Surgical hypothyroidism -: Aortic valve replacement -: Cystoscopy -: Colonoscopy in 1950 -: Thyroidectomy Psychosocial/ Personal History: Patient lives at home. - Family History Father Medical History: Cancer Mother Medical History: Heart disease, Hypertension, Cancer - Social History Smoking Status: Current every day smoker Alcohol use: No CD- Drugs: No Caffeine use: Yes Place of Residence: [facility] Review of Systems General: Weakness Respiratory: Shortness of Breath Cardiovascular: Edema Physical Examination Temp Pulse Resp BP Pulse Ox 96.8 F 94 H 20 145/69 H 95 07/18/21 20:00 07/18/21 20:00 07/18/21 20:00 07/18/21 20:00 07/18/21 20:00 General: Alert, In no apparent distress, Oriented x3 HEENT: Atraumatic Neck: Supple Respiratory: Diminished (Diminished on the right side) Cardiovascular: Normal pulses, Regular rate/rhythm, Normal S1 S2, Edema Gastrointestinal: Normal bowel sounds, Soft and benign Laboratory Data (last 24 hrs) 07/19/21 05:18: Sodium 134 L, Potassium 3.9, BUN 21 H, Creatinine 0.94, Glucose 137 H, Magnesium 2.1, Total Bilirubin 0.9, AST 21, ALT 23, Alkaline Phosphatase 71 07/19/21 05:18: PT 86.7 H, INR 7.56 H* 07/19/21 05:18: WBC 4.7 D, Hgb 9.1 L, Hct 28.6 L, Plt Count 168 07/18/21 20:58: PT 93.6 H, INR 8.15 H* 07/18/21 20:58: WBC 3.4 L D, Hgb 9.4 L, Hct 28.7 L, Plt Count 164 07/18/21 18:14: Sodium 132 L, Potassium 3.8, BUN 20 H, Creatinine 0.91, Glucose 142 H 07/18/21 18:14: PT 90.7 H, INR 7.90 H*, APTT 64.7 H 07/18/21 18:14: WBC 4.2 L, Hgb 9.6 L, Hct 29.7 L, Plt Count 163 07/18/21 18:14: Sodium 132 L, Potassium 3.9, BUN 20 H, Creatinine 0.93, Glucose 141 H, Magnesium 2.0, Total Bilirubin 1.0, AST 26, ALT 26, Alkaline Phosphatase 84 - Problems (1) Respiratory failure Current Visit: Yes Status: Acute Plan: Patient is 71 years of age with a history of COPD CHF admitted with altered mental status he is hypoxic hypercapnic he has a PT/INR is significantly elevated labs chemistries labs chemistries reviewed bilateral decubitus of the chest ordered last echocardiogram last echocardiogram showed normal left ventricular function patient's bicarbonate is patient's bicarbonate is elevated patient has a right-sided doubt infection no clinical evidence of sepsis can DC Zithromax and and and Rocephin for now add spironolactone patient is on nebulized patient is on nebulized Brovana at home with Will hold thoracentesis for now his INR is very elevated Qualifiers: Chronicity: acute on chronic
[2021-07-19] MEDS: SPIRONOLACTONE 25 MG TABLET PO SCH ×2 (08:35→20:50)
[2021-07-19] MEDS: FUROSEMIDE 40 MG/4 ML VIAL IV SCH ×2 (08:35→16:45)
[2021-07-19] MEDS: CEFTRIAXONE 1,000 MG in NA CHLORIDE 0.9% 50 ML IVPB SCH (08:35)
[2021-07-19] MEDS: predniSONE 20 MG TAB PO SCH ×2 (08:36→20:50)
[2021-07-19] MEDS: METHYLPREDNISOLONE 40 MG INJ IV SCH (08:36)
[2021-07-19] MEDS ORDERED: AZITHROMYCIN IV 500 MG in NA CHLORIDE 0.9% 250 ML IVPB SCH (09:00)
--- NOTE | 2021-07-19 10:25 | RAD REPORT ---
EXAM DESCRIPTION: RAD - Chest Lateral Decubitus - 07/19/2021 10:11 am CLINICAL HISTORY: R effusion COMPARISON: Chest Single View dated 07/19/2021 FINDINGS: Small layering right pleural effusion. IMPRESSION: Small layering right pleural effusion identified.
[2021-07-19] MEDS: HYDROCODONE/APAP 7.5/325 MG TAB PO PRN (18:10)
[2021-07-19] MEDS: ARFORMOTEROL TARTRATE 15 MCG/2 ML VIAL.NEB NEB SCH (20:30)
[2021-07-19] MEDS: JUVEN PACKET PO SCH (22:14)
[2021-07-20] MEDS: IPRATROPIUM BROM 0.5MG/2.5ML NEB SCH ×4 (01:15→20:50)
[2021-07-20 06:12] LABS: Absolute Lymphocytes (CBC) 0.6 K/uL (0.7-4.9); Hematocrit 27.9 % (39.6-49.0); Lymphocytes % 5.7 % (15.3-44.8); MPV 8.7 fL (7.6-11.3); RBC Red Blood Cell Count 3.16 M/uL (4.33-5.43)
[2021-07-20 06:22] LABS: Protime INR 5.56
--- NOTE | 2021-07-20 06:23 | P.PN ---
Date of Service: 07/20/21 Subjective: feels tired, short of breath / chest congested awake/alert, intermittent confusion ROS: 10 point ROS as noted above, otherwise negative Physical Exam General: AOx3, NAD HEENT: Sclerae nonicteric, Scleral icterus Respiratory: b/l expiratory wheeze, diminished at R side CV: irregular heart rate/rhythm, 1+ edema in b/l lower extremities GI: soft, non-distended, non-tenderness Integumentary: No significant lesion, Other (mild ecchymosis / erythema in LUE) Neurological: AOx3, moves all extremities Urinary: Estrada catheter (in place) Problem List acute hypoxemic respiratory failure secondary to possible pneumonia and large R pleural effusion acute on chronic Systolic CHF exacerbation acute on chronic COPD exacerbation Chronic anticoagulation with Coumadin Subtherapeutic INR surgical hypothyroidism HTN HLD reportedly had large R pleural effusion seen on CTA at [place] ER today. Negative for PE. CT with atelectasis and possible pneumonia patient was given Cefepime in ER, continue with antibiotics for possible pneumonia mentation improved, suspect secondary to hypercapnia Co2 increasing again with some confusion BIPAP ordered Pulm consulted, NIV ordered hold coumadin, INR elevated still may need thoracentesis, possibly Saturday if INR improved and effusion unchanged thyroid studies improved, continue home synthroid VTE: supratherapeutic on home coumadin Code: full Dispo: back to retirement, likely ~4 days Time Spent Managing Pts Care (In Minutes): 30
[2021-07-20 06:25] LABS: Magnesium 2.1 mg/dL (1.8-2.4); Potassium 3.9 mmol/L (3.5-5.1)
[2021-07-20] MEDS: LEVOTHYROXINE SOD 0.075 MG TAB PO SCH (06:41)
[2021-07-20 07:42] LABS: Anisocytosis SLIGHT; Blood Morphology Comment NOTED (NOT SEEN); Platelet Estimate ADEQ; Polychromasia SLIGHT
--- NOTE | 2021-07-20 07:55 | RAD REPORT ---
EXAM DESCRIPTION: Juanjo Single View07/20/2021 6:36 am CLINICAL HISTORY: Pleural effusion COMPARISON: July 19, 2021 FINDINGS: Right hemithorax is mildly more hazy. Right basilar atelectasis Left lung appears clear of acute infiltrate. Cardiomegaly. Pacemaker leads in place. Postsurgical holden nges involve the chest IMPRESSION: Right hemithorax is mildly more hazy. This may indicate enlargement of the right pleura l effusion
[2021-07-20] MEDS: ARFORMOTEROL TARTRATE 15 MCG/2 ML VIAL.NEB NEB SCH ×2 (08:37→20:50)
[2021-07-20] MEDS: SPIRONOLACTONE 25 MG TABLET PO SCH ×2 (08:53→21:13)
[2021-07-20] MEDS: FUROSEMIDE 40 MG/4 ML VIAL IV SCH ×2 (08:53→16:30)
[2021-07-20] MEDS: SENOSIDES 8.6 MG TAB PO SCH (08:53)
[2021-07-20] MEDS: predniSONE 20 MG TAB PO SCH ×2 (08:53→21:13)
[2021-07-20] MEDS: CEFTRIAXONE 1,000 MG in NA CHLORIDE 0.9% 50 ML IVPB SCH (08:53)
[2021-07-20] MEDS: JUVEN PACKET PO SCH ×3 (08:54→21:00)
[2021-07-20] MEDS: LIDOCAINE 4% PATCH TD SCH (08:54)
[2021-07-20] MEDS ORDERED: POTASSIUM CL SA 10 MEQ TAB PO ONE (09:00)
[2021-07-20] MEDS: HYDROCODONE/APAP 7.5/325 MG TAB PO PRN ×2 (09:03→18:11)
[2021-07-20 12:47] LABS: Arterial Blood Carboxyhemoglob 2.3 % (0-1.5); Blood O2 Saturation 95.9 % (92-98.5)
--- NOTE | 2021-07-20 13:01 | P.PN ---
Subjective Date of Service: 07/20/21 Chief Complaint: Large R pleural effusion, hypoxia Subjective: Improving (Patient is doing better denies any chest pain fever or chills) Review of Systems General: Weakness Respiratory: Shortness of Breath Physical Examination - Vital Signs Temperature: 97.5 F Blood Pressure: 106/51 Pulse: 87 Respirations: 16 Pulse Ox (%): 98 - Physical Exam General: Alert, Oriented x3 Neck: Supple Respiratory: Diminished (The right side) Cardiovascular: Regular rate/rhythm, Edema - Studies Laboratory Data (last 24 hrs) 07/20/21 05:46: Sodium 135 L, Potassium 3.9, BUN 32 H, Creatinine 0.98, Glucose 148 H, Magnesium 2.1 07/20/21 05:46: PT 63.3 H, INR 5.56 H* 07/20/21 05:46: WBC 10.3 D, Hgb 8.9 L, Hct 27.9 L, Plt Count 194 Assessment And Plan - Current Problems (Diagnosis) (1) Respiratory failure Current Visit: Yes Status: Acute Qualifiers: Chronicity: acute on chronic (2) Pleural effusion Current Visit: Yes Status: Acute (3) COPD (chronic obstructive pulmonary disease) Current Visit: Yes Status: Acute - Plan Patient has right-sided pleural effusion does not appear to be as septic currently there is no evidence of pulmonary embolism PT/INR is elevated possible thoracentesis on Saturday Respiratory failure acute on chronic possibly due to underlying COPD patient is not in any bronchodilators recommend long-acting bronchodilators at the time of discharge possible underlying diastolic dysfunction patient is on Lasix spironolactone in any case patient's INR is supratherapeutic vital signs stable oxygenation satisfactory Patient has chronic respiratory failure due to severe COPD will benefit from a noninvasive ventilator due to patient's severity of illness BiPAP would not be deemed appropriate I suspect patient has severe COPD not use any bronchodilators at home
[2021-07-21] MEDS: IPRATROPIUM BROM 0.5MG/2.5ML NEB SCH ×4 (01:25→20:00)
[2021-07-21] MEDS: LEVOTHYROXINE SOD 0.075 MG TAB PO SCH (06:39)
[2021-07-21 06:40] LABS: Absolute Lymphocytes (CBC) 0.5 K/uL (0.7-4.9); Hematocrit 28.3 % (39.6-49.0); Lymphocytes % 6.2 % (15.3-44.8); MPV 8.7 fL (7.6-11.3); RBC Red Blood Cell Count 3.19 M/uL (4.33-5.43)
[2021-07-21 06:42] LABS: Protime INR 3.33
--- NOTE | 2021-07-21 06:44 | P.PN ---
Date of Service: 07/21/21 Subjective: no acute events, intermittent confusion bipap intermittently feels tired, short of breath, on 2L NC ROS: 10 point ROS as noted above, otherwise negative Physical Exam General: AOx3, NAD HEENT: Sclerae nonicteric, Scleral icterus Respiratory: mild b/l expiratory wheeze, diminished at R side CV: irregular heart rate/rhythm, trace-1+ edema in b/l lower extremities GI: soft, non-distended, non-tenderness Integumentary: No significant lesion Neurological: AOx3, moves all extremities Urinary: Estrada catheter (placed in ED) Problem List acute hypoxemic respiratory failure secondary to possible pneumonia and large R pleural effusion acute on chronic Systolic CHF exacerbation acute on chronic COPD exacerbation Chronic anticoagulation with Coumadin Subtherapeutic INR surgical hypothyroidism HTN HLD large R pleural effusion seen on CTA at [place] [facility] today. Negative for PE. CT with atelectasis and possible pneumonia patient was given Cefepime in ER, continue with antibiotics for possible pneumonia Urine: klebsiella ESBL, started merrem 07/21; ID consulted blood culture prelim: negative mentation labile, seems related to pCO2 BIPAP ordered, [facility] Pulm consulted, bipap on discharge ordered hold coumadin, INR elevated still may need thoracentesis, possibly Saturday if INR improved and effusion unchanged thyroid studies improved, continue home synthroid VTE: supratherapeutic on home coumadin Code: full Dispo: back to [facility], likely ~4 days Time Spent Managing Pts Care (In Minutes): 30
[2021-07-21 07:00] LABS: Potassium 3.9 mmol/L (3.5-5.1)
[2021-07-21] MEDS: ARFORMOTEROL TARTRATE 15 MCG/2 ML VIAL.NEB NEB SCH ×2 (07:47→20:00)
[2021-07-21] MEDS ORDERED: Levofloxacin 750mg IV 750 MG/150 ML BAG IV SCH (08:00)
[2021-07-21] MEDS: JUVEN PACKET PO SCH ×2 (09:00→20:24)
[2021-07-21] MEDS ORDERED: POTASSIUM 25 MEQ EFFERV TAB PO ONE (09:00)
[2021-07-21] MEDS: LIDOCAINE 4% PATCH TD SCH (09:00)
[2021-07-21] MEDS: Meropenem 1,000 MG in NA CHLORIDE 0.9% 100 ML IV SCH ×2 (10:16→18:22)
[2021-07-21] MEDS: FUROSEMIDE 40 MG/4 ML VIAL IV SCH (10:17)
[2021-07-21] MEDS: SENOSIDES 8.6 MG TAB PO SCH (10:17)
[2021-07-21] MEDS: HYDROCODONE/APAP 7.5/325 MG TAB PO PRN ×2 (10:17→18:21)
[2021-07-21] MEDS: predniSONE 20 MG TAB PO SCH ×2 (10:18→22:35)
[2021-07-21] MEDS: SPIRONOLACTONE 25 MG TABLET PO SCH ×2 (10:18→22:35)
[2021-07-21 11:02] LABS: Arterial Blood Carboxyhemoglob 2.4 % (0-1.5); Blood O2 Saturation 91.3 % (92-98.5)
--- NOTE | 2021-07-21 13:49 | P.CNS ---
Date of Consult: 07/21/21 Chief Complaint: Large R pleural effusion, hypoxia History of Present Illness: The patient is a 71-year-old male with a past medical history of systolic congestive heart failure, COPD, history of aortic valve repair on Coumadin, anemia, hypothyroidism, and hypertension who was transferred to this facility from [facility]. On admission patient was minimally responsive and severely altered at bedside. Patient was noted to have a large right-sided pleural effusion with concern for possible pneumonia. His INR was greater than 8. He was afebrile. Urine culture obtained on 07/18 grew ESBL producing Klebsiella, blood culture showed no growth. Infectious disease has been consulted to manage patient's antibiotic regimen. Patient was empirically placed on cefepime on admission, cefepime has now been switched to meropenem for ESBL infection. Patient currently denies nausea/vomiting/diarrhea/shortness breath/chest pain Allergies Penicillins Allergy (Severe, Verified 05/27/21 23:44) Anaphylaxis Home Medications: Furosemide [Lasix*] 20 mg PO DAILY 30 Days #30 tab 09/18/20 Arformoterol Tartrate [Brovana] 15 mcg NEB BIDRESP vial.neb 05/30/21 Ipratropium Neb [Atrovent*] 0.5 mg NEB [id number] amp 05/30/21 Clotrimazole [Clotrimazole AF] 1 % .ROUTE BID 07/19/21 Docusate Sodium 100 mg PO DAILY 07/19/21 Levothyroxine Sodium 150 mcg PO 0630 07/19/21 Lidocaine 4% Patch [Lidoderm 5% Patch*] 4 % .ROUTE DAILY 07/19/21 Naloxegol Oxalate [Movantik] 12.5 mg PO DAILY 07/19/21 Oxycodone HCl/Acetaminophen [Oxycodone-Acetaminophen 10-325] 10 - 325 mg PO Q4H PRN 07/19/21 Sennosides [Senna] 8.6 mg PO DAILY 07/19/21 Urea [Gormel Ten] 10 % .ROUTE DAILY 07/19/21 Warfarin Sodium 4 mg PO DAILY 07/19/21 methocarbamoL [Methocarbamol] 750 mg PO TID 07/19/21 - Past Medical/Surgical History Diabetic: No -: Mechanical Aortic valve replacement on chronic anti coagulation therapy -: Systolic CHF -: Hypertension -: Hyperlipidemia -: COPD -: Surgical hypothyroidism -: Aortic valve replacement -: Cystoscopy -: Colonoscopy in 1950 -: Thyroidectomy Psychosocial/ Personal History: Patient lives at home. - Family History Father Medical History: Cancer Mother Medical History: Heart disease, Hypertension, Cancer - Social History Smoking Status: Current every day smoker Alcohol use: No CD- Drugs: No Caffeine use: Yes Place of Residence: [facility] Review of Systems 10-point ROS is otherwise unremarkable Physical Examination Temp Pulse Resp BP Pulse Ox 97.0 F 81 18 133/64 98 07/21/21 12:00 07/21/21 12:00 07/21/21 12:00 07/21/21 12:00 07/21/21 12:00 General: Alert, In no apparent distress HEENT: Atraumatic, Normocephalic Neck: No Thyromegaly Respiratory: Crackles/rales Cardiovascular: Regular rate/rhythm Gastrointestinal: Normal bowel sounds, Soft and benign Integumentary: No rashes, No breakdown Laboratory Data (last 24 hrs) 07/21/21 06:21: Sodium 136, Potassium 3.9, BUN 34 H, Creatinine 1.07, Glucose 151 H 07/21/21 06:21: PT 37.5 H, INR 3.33 07/21/21 06:21: WBC 8.1 D, Hgb 9.0 L, Hct 28.3 L, Plt Count 174 Conclusions/Impression: Antibiotics: Meropenem: 1current Assessment/plan UTI Urine culture obtained on 07/18 growing ESBL Klebsiella Recommend continuing IV meropenem Recommend obtaining CT abdomen and pelvis Right-sided pleural effusion Continue diuresis Patient has supratherapeutic INR, IM team and pulmonology like to wait for INR to downtrend for possible thoracentesis. COPD with respiratory failure Pulmonology following. Continue respiratory support Medical management per primary team Plan of care discussed with Dr. Hays
--- NOTE | 2021-07-21 13:57 | RAD REPORT ---
EXAM DESCRIPTION: RAD - Chest Single View - 07/21/2021 1:44 pm CLINICAL HISTORY: f/u effusion, hypoxia COMPARISON: Portable 07/20/2021 0630 hours TECHNIQUE: AP portable chest image was obtained 07/21/2021 1:44 pm . FINDINGS: Lung volumes remain low. Pacemaker overlies the left chest partially obscuring the lateral mid left chest parenchyma. No new or progressive left lung field finding seen. Left costophrenic ang le blunting remains. Right lung field appears better aerated than the earlier study. Right-sided pleu ral effusion is less prominent. This could be due to a positioning difference of the patient. There i s no history indicating thoracentesis. Lung base atelectasis is present. Heart size is prominent but stable. Upper lobe vasculature is similar to fractionally improved. No p neumothorax seen. Report was delayed due to problems occurring during a PACs IT service. IMPRESSION: Right-sided pleural effusion is less prominent than on the earlier study possibly due to differences in patient positioning. There is no history that indicates thoracentesis procedure. No new or progressive right lung field finding. Left lung field remains clear.
[2021-07-21] MEDS: ALBUTEROL 2.5 MG/3 ML NEB SOL NEB PRN (14:38)
--- NOTE | 2021-07-21 19:59 | RAD REPORT ---
EXAM DESCRIPTION: CT - Chest Abdomen Pelvis W Cont - 07/21/2021 4:56 pm CLINICAL HISTORY: eval urinary system, prostate, effusion COMPARISON: <Comparisons> TECHNIQUE: Following dynamic enhancement using 100 milliliters nonionic IV contrast, axial imaging o f the chest, abdomen and pelvis was performed. Biphasic technique was utilized through the abdomen. No oral contrast administered. All CT scans are performed using dose optimization technique as appropriate and may include automated exposure control or mA/KV adjustment according to patient size. FINDINGS: Large right pleural effusion is present filling 50-60% of the right hemithorax volume. The re is partial atelectasis along the posterior aspect right upper lobe and partial atelectasis of the right middle lobe. There is complete atelectasis of the right lower lobe. Aerated portion of the righ t upper lobe shows no mass or infiltrate. Left upper lobe is clear. A 2.7 x 1.5 centimeter area of sp iculated tissue seen in the posterior left lower lobe. Scarring or atelectasis are possible. Malignan cy cannot be excluded in this finding needs continued surveillance. No pneumothorax is present. Dense aortic atherosclerotic calcifications are present without acute aortic finding. Dense calcifications are present at the aortic valve. Pulmonary arteries are clear. Mediastinal and hilar regions show no mass or abnormal lymphadenopathy. No chest wall mass or axillary lymphadenopathy. Cardiomegaly is pr esent without pericardial effusion. The liver, spleen and pancreas show no suspicious findings. Gallbladder is tightly contracted. No heavenly iary tree dilatation. Gallstones can be occult on CT imaging. Symmetric renal function is seen with n o mass or hydronephrosis. A 3 centimeter benign cyst is present lateral mid left kidney. No perinephr ic abnormal stranding. No adrenal abnormality. Urinary bladder is contracted around a Estrada catheter. A gastric dilatation wall thickening or gastric mass. No acute small bowel finding. Moderate stool vo lume present throughout the colon. Sigmoid diverticulosis is minimal. Rectum is dilated by stool to 5 cm. No acute colon process seen. A 9 centimeter CC x 4 centimeter AP x 4 centimeter TR low-density mass is present enlarging the left psoas muscle. No enhancement is identifiable. No associated calcification. Psoas hematoma is favored over psoas abscess as the etiology. Left iliacus muscle is slightly edematous relative to the right b ut no intra muscle hematoma or mass seen. Patient has fluid retention in the subcutaneous fatty tissu es of the pelvis and lower abdomen. Advanced disc and bone degenerative changes are present. There is accentuated thoracic kyphosis and l umbar lordosis. No acute vertebral body finding seen. Dense vascular calcifications are seen. No significant vascular findings. IMPRESSION: A 9 cm CC x 4 cm AP x 4 cm TR low-density mass is seen enlarging the left psoas muscle. Imaging characteristics favor psoas hematoma over psoas abscess. No acute or GI abnormality identifiable. Large right pleural effusion filling 50-60% of the right hemithorax. There is complete right lower lo be atelectasis and partial right upper and right middle lobe atelectasis. Trace pleural effusion note d on the left. Fluid retention in the subcutaneous fatty tissues of the pelvis and lower abdomen.
[2021-07-22] MEDS: Meropenem 1,000 MG in NA CHLORIDE 0.9% 100 ML IV SCH ×2 (00:59→09:53)
[2021-07-22] MEDS: IPRATROPIUM BROM 0.5MG/2.5ML NEB SCH ×4 (01:00→19:45)
[2021-07-22 06:09] LABS: Absolute Lymphocytes (CBC) 0.6 K/uL (0.7-4.9); Hematocrit 29.4 % (39.6-49.0); Lymphocytes % 7.1 % (15.3-44.8); MPV 9.5 fL (7.6-11.3); RBC Red Blood Cell Count 3.33 M/uL (4.33-5.43)
--- NOTE | 2021-07-22 06:10 | P.PN ---
Date of Service: 07/22/21 Subjective: improving, breathing more comfortably denies back pain/flank pain no new symptoms/complaints tolerated BIPAP last night ROS: 10 point ROS as noted above, otherwise negative Physical Exam General: AOx3, NAD HEENT: Sclerae nonicteric, Scleral icterus Respiratory: mild b/l expiratory wheeze, diminished at R side CV: irregular heart rate/rhythm, 1+ edema in b/l lower extremities GI: soft, non-distended, non-tenderness Neurological: AOx3, moves all extremities Urinary: Estrada catheter (placed in ED) Problem List acute hypoxemic respiratory failure secondary to large R pleural effusion acute toxic-metabolic encephalopathy UTI - ESBL and enterococcus acute on chronic Systolic CHF exacerbation acute on chronic COPD exacerbation Chronic anticoagulation with Coumadin Subtherapeutic INR surgical hypothyroidism HTN HLD large R pleural effusion seen on CTA at [place] [facility] Negative for PE. CT with atelectasis and possible pneumonia patient was given Cefepime in ER, continued on empiric antibiotics Urine: klebsiella ESBL, started merrem 07/21; ID consulted urine grew enterococcus as well; both sensitive to levaquin. merrem changed to levaquuin on 07/22 blood culture prelim: negative mentation labile, seems related to pCO2, overall improving now; tolerating BIPAP qHS Pulm consulted, bipap on discharge ordered, on prednisone Supratherapeutic INR on admission, holding Coumadin, may require thoracentesis Once subtherapeutic, will need bridging with Lovenox possibly Saturday if INR improved and effusion unchanged thyroid studies improved, continue home synthroid VTE: supratherapeutic on home coumadin Code: full Dispo: back to snf, likely ~3 days Time Spent Managing Pts Care (In Minutes): 35
[2021-07-22 06:13] LABS: Protime INR 2.05
[2021-07-22] MEDS: LEVOTHYROXINE SOD 0.075 MG TAB PO SCH (06:29)
[2021-07-22 06:35] LABS: BUN Blood Urea Nitrogen 30 mg/dL (7-18); Glucose Level 142 mg/dL (74-106); Potassium 4.1 mmol/L (3.5-5.1); Sodium Level 136 mmol/L (136-145)
[2021-07-22 06:38] LABS: Bicarbonate 42 mmol/L (21-32)
[2021-07-22] MEDS: ARFORMOTEROL TARTRATE 15 MCG/2 ML VIAL.NEB NEB SCH ×2 (08:08→19:45)
[2021-07-22] MEDS: JUVEN PACKET PO SCH ×3 (09:00→20:48)
[2021-07-22] MEDS: predniSONE 20 MG TAB PO SCH ×2 (09:52→20:48)
[2021-07-22] MEDS: SPIRONOLACTONE 25 MG TABLET PO SCH ×2 (09:52→20:47)
[2021-07-22] MEDS: LIDOCAINE 4% PATCH TD SCH (09:52)
[2021-07-22] MEDS: SENOSIDES 8.6 MG TAB PO SCH (09:53)
[2021-07-22] MEDS: FUROSEMIDE 40 MG/4 ML VIAL IV SCH (09:53)
[2021-07-22] MEDS: Levofloxacin 750mg IV 750 MG/150 ML BAG IV SCH (12:23)
[2021-07-22] MEDS: HYDROCODONE/APAP 7.5/325 MG TAB PO PRN ×2 (14:07→22:03)
[2021-07-22] MEDS: ALBUTEROL 2.5 MG/3 ML NEB SOL NEB PRN (14:12)
--- NOTE | 2021-07-22 16:29 | CON ---
Consult Date: 07/22/2021 Reason For Consultation: Management of anticoagulation due to the presence of aortic mechanical prosthesis. History Of Present Illness: This is a 71-year-old male with history of mitral valve replacement about 7 years ago, mechanical prosthesis, who was admitted with respiratory failure due to a large effusion, also was found to have a thigh hematoma and supratherapeutic INR. Coumadin was held. He has been taking the Coumadin due to the mechanical valve prosthesis and his INR level was very high at presentation, so I was asked to evaluate the appropriate timing to resume Coumadin and also whether a bridging will be recommended or not. Past Medical History: Aortic valve replacement, CHF, hypertension, dyslipidemia, COPD. Medications: Refer to medication reconciliation sheet for detailed list. Allergies: PENICILLIN. Family History: No premature coronary artery disease. Social History: Does not smoke or drink. Does not use any drugs. Review of Systems: All systems reviewed were negative except for what mentioned in the HPI. Physical Examination: Vital Signs: Reviewed. Head and Neck: Pupils are equal, reactive to light. Intact eye movements. No JVD. No cervical lymphadenopathy. Neck is supple. Thyroid is not enlarged. Lungs: Clear to auscultation bilaterally. Heart: Irregularly regular with mechanical aortic valve sounds and click. Abdomen: Soft, nontender. Bowel sounds positive. No organomegaly. No masses or hernia. No rigidity or rebound. Extremities: No edema, clubbing, or cyanosis. Intact pulses. Skin: No rash noted. Neurologic: Alert, awake, oriented x3. No acute focal deficits appreciated. Investigations: Hemoglobin is 9.3. His creatinine is 0.73. INR is 2.0, was 7.9 on admission. Assessment And Recommendations: Presence of mechanical aortic valve prosthesis. The patient will need to be on Coumadin with a target INR between 2 and 3. At this point, he has also large pleural effusion and there were plans for a thoracentesis, so Coumadin can be held until INR drops to desirable level for the procedure to be done to avoid major bleeding and then once procedure is done to resume Coumadin and no need for bridging with heparin as this is a mechanical aortic valve that is a high flow valve and chance for thrombosis is very low given the fact that he had major bleeding incidents, hence we will not recommend bridging and please obtain echocardiogram to better evaluate that prosthesis. Thank you for the consult. /MODL Voice ID: [id number] Report ID: [id number] TRINI
[2021-07-23] MEDS: IPRATROPIUM BROM 0.5MG/2.5ML NEB SCH ×4 (02:00→19:20)
[2021-07-23] MEDS: LEVOTHYROXINE SOD 0.075 MG TAB PO SCH (05:29)
[2021-07-23 06:12] LABS: Hematocrit 27.6 % (39.6-49.0); MPV 8.3 fL (7.6-11.3); RBC Red Blood Cell Count 3.18 M/uL (4.33-5.43)
[2021-07-23 06:17] LABS: Protime INR 1.55
[2021-07-23 06:25] LABS: ALT/SGPT 37 U/L (12-78); AST/SGOT 23 U/L (15-37); Alkaline Phosphatase 91 U/L (45-117); BUN Blood Urea Nitrogen 27 mg/dL (7-18); Bicarbonate 40 mmol/L (21-32); Bilirubin Total 0.6 mg/dL (0.2-1.0); Glucose Level 168 mg/dL (74-106); Magnesium 2.2 mg/dL (1.8-2.4); Potassium 4.1 mmol/L (3.5-5.1); Protein, Total 6.2 g/dL (6.4-8.2); Sodium Level 135 mmol/L (136-145)
--- NOTE | 2021-07-23 06:53 | P.PN ---
Date of Service: 07/23/21 Subjective: ROS: 10 point ROS as noted above, otherwise negative Physical Exam General: AOx3, NAD HEENT: Sclerae nonicteric, Scleral icterus Respiratory: mild b/l expiratory wheeze, diminished at R side CV: irregular heart rate/rhythm, 1+ edema in b/l lower extremities GI: soft, non-distended, non-tenderness Neurological: AOx3, moves all extremities Urinary: Estrada catheter (placed in ED) Problem List acute hypoxemic respiratory failure secondary to large R pleural effusion acute toxic-metabolic encephalopathy UTI - ESBL and enterococcus acute on chronic Systolic CHF exacerbation acute on chronic COPD exacerbation Chronic anticoagulation with Coumadin Subtherapeutic INR surgical hypothyroidism HTN HLD large R pleural effusion seen on CTA at [place] [facility] Negative for PE. CT with atelectasis and possible pneumonia patient was given Cefepime in ER, continued on empiric antibiotics Urine: klebsiella ESBL, started merrem 07/21; ID consulted urine grew enterococcus as well; both sensitive to levaquin. merrem changed to levaquuin on 07/22 blood culture prelim: negative mentation labile, seems related to pCO2, overall improving now; tolerating BIPAP qHS Pulm consulted, bipap on discharge ordered, on prednisone Supratherapeutic INR on admission, holding Coumadin, may require thoracentesis Once subtherapeutic, will need bridging with Lovenox possibly Saturday if INR improved and effusion unchanged thyroid studies improved, continue home synthroid VTE: supratherapeutic on home coumadin Code: full Dispo: back to assisted, likely ~3 days Time Spent Managing Pts Care (In Minutes): 35
--- NOTE | 2021-07-23 07:49 | RAD REPORT ---
EXAM DESCRIPTION: RAD - Chest Single View - 07/23/2021 6:50 am CLINICAL HISTORY: eval effusion Chest pain. COMPARISON: Chest Single View dated 07/20/2021; Chest Single View dated 07/20/2021; Chest Single View dated 07/19/2021; Chest Single View dated 07/18/2021; Chest Abdomen Pelvis W Cont dated 07/21/2021 FINDINGS: Portable technique limits examination quality. Small to moderate right pleural effusion appears similar to 07/20/2021. Mild pulmonary edema is suspe cted. The heart is moderately enlarged with sternotomy wires present. Dual lead pacer device is prese nt.
[2021-07-23] MEDS: JUVEN PACKET PO SCH ×2 (09:00→21:00)
[2021-07-23] MEDS: LIDOCAINE 4% PATCH TD SCH (09:13)
[2021-07-23] MEDS: FUROSEMIDE 40 MG/4 ML VIAL IV SCH (09:14)
[2021-07-23] MEDS: SENOSIDES 8.6 MG TAB PO SCH (09:14)
[2021-07-23] MEDS: SPIRONOLACTONE 25 MG TABLET PO SCH ×2 (09:15→21:59)
[2021-07-23] MEDS: predniSONE 20 MG TAB PO SCH ×2 (09:15→22:00)
[2021-07-23] MEDS: HYDROCODONE/APAP 7.5/325 MG TAB PO PRN ×2 (09:17→18:36)
[2021-07-23] MEDS: Levofloxacin 750mg IV 750 MG/150 ML BAG IV SCH (12:12)
--- NOTE | 2021-07-23 12:28 | P.PN ---
Subjective Date of Service: 07/23/21 Chief Complaint: Large R pleural effusion, hypoxia Subjective: Improving (Patient is improving doing well no new complaints denies any chest pain) Review of Systems General: Weakness Respiratory: Shortness of Breath Physical Examination - Vital Signs Temperature: 96.8 F Blood Pressure: 117/58 Pulse: 87 Respirations: 18 Pulse Ox (%): 95 - Physical Exam General: Alert, In no apparent distress, Oriented x3 Respiratory: Clear to auscultation bilaterally, Diminished Cardiovascular: No edema, Normal pulses, Regular rate/rhythm - Studies Laboratory Data (last 24 hrs) 07/23/21 05:10: WBC 7.9, Hgb 8.9 L, Hct 27.6 L, Plt Count 159 D 07/23/21 05:10: Sodium 135 L, Potassium 4.1, BUN 27 H, Creatinine 0.78, Glucose 168 H, Magnesium 2.2, Total Bilirubin 0.6, AST 23, ALT 37, Alkaline Phosphatase 91 07/23/21 05:10: PT 17.2 H, INR 1.55 Microbiology Data (last 24 hrs): 07/18/21 19:39 Clean Catch Urine [place] Count - Final >100,000 CFU/ML. 07/18/21 19:39 Clean Catch Urine - Final Klebsiella Pneumoniae Esbl Enterococcus Faecalis Gram Neg Nish Assessment And Plan - Current Problems (Diagnosis) (1) Pleural effusion Current Visit: Yes Status: Acute (2) COPD (chronic obstructive pulmonary disease) Current Visit: Yes Status: Acute - Plan Patient is doing well will repeat PA and lateral chest x-ray in the department to check for the size of pleural effusion he is doing well well oxygen requirement has underlying COPD vital signs are stable renal function is normal
[2021-07-23] MEDS: ARFORMOTEROL TARTRATE 15 MCG/2 ML VIAL.NEB NEB SCH ×2 (13:35→19:20)
[2021-07-24] MEDS: IPRATROPIUM BROM 0.5MG/2.5ML NEB SCH ×4 (01:25→20:45)
[2021-07-24 05:36] LABS: Protime INR 1.35
[2021-07-24] MEDS: LEVOTHYROXINE SOD 0.075 MG TAB PO SCH (07:14)
[2021-07-24] MEDS: ARFORMOTEROL TARTRATE 15 MCG/2 ML VIAL.NEB NEB SCH ×2 (08:10→20:45)
[2021-07-24] MEDS: JUVEN PACKET PO SCH ×2 (09:00→21:42)
--- NOTE | 2021-07-24 10:21 | RAD REPORT ---
EXAM DESCRIPTION: US - Thoracentesis w/ US Guide - 07/24/2021 9:39 am CLINICAL HISTORY: Pleural effusion. R sided effusion COMPARISON: No comparisons FINDINGS: Preoperative diagnosis: Right pleural effusion Post operative diagnosis: Same Conscious Sedation: None. Estimated blood loss: Minimal Specimens:A small volume of fluid was sent for requested lab studies. The patient was placed in the upright recumbent position and the right posterior back was prepped and draped in the usual sterile fashion. 1% Lidocaine was infiltrated into the soft tissues for local a nesthesia. Under sonographic guidance, a thoracentesis needle and 6 [place] catheter was advanced int o the right pleural space. Approximately 700 mL yellow fluid was aspirated. Samples were sent to path ology for requested analysis. The patient tolerated the procedure without immediate complication and transferred to the floor in stable condition. IMPRESSION: Successful ultrasound-guided thoracentesis as detailed.
--- NOTE | 2021-07-24 10:55 | RAD REPORT ---
EXAM DESCRIPTION: RAD - Chest Single View - 07/24/2021 10:41 am CLINICAL HISTORY: Status Post Thorocentesis Chest pain. COMPARISON: Chest Single View dated 07/23/2021; Chest Single View dated 07/20/2021; Chest Single View d ated 07/20/2021; Chest Single View dated 07/19/2021 FINDINGS: Portable technique limits examination quality. No postprocedure pneumothorax. Right pleural effusion has reduced in size. Mild CHF pattern is again seen with pacemaker in place. IMPRESSION: No postprocedure pneumothorax.
[2021-07-24 10:56] LABS: Hematocrit 32.3 % (39.6-49.0); Lymphocytes % 10.6 % (15.3-44.8); MPV 8.3 fL (7.6-11.3); RBC Red Blood Cell Count 3.68 M/uL (4.33-5.43)
[2021-07-24] MEDS: LIDOCAINE 4% PATCH TD SCH (11:12)
[2021-07-24] MEDS: SPIRONOLACTONE 25 MG TABLET PO SCH ×2 (11:13→21:42)
[2021-07-24] MEDS: predniSONE 20 MG TAB PO SCH ×2 (11:14→21:41)
[2021-07-24] MEDS: SENOSIDES 8.6 MG TAB PO SCH (11:14)
[2021-07-24] MEDS: FUROSEMIDE 40 MG/4 ML VIAL IV SCH (11:15)
[2021-07-24 11:51] LABS: Blood Morphology Comment NOTED (NOT SEEN); Hypochromasia 1+; Platelet Estimate ADEQ; Polychromasia 1+
[2021-07-24] MEDS: Levofloxacin 750mg IV 750 MG/150 ML BAG IV SCH (14:04)
[2021-07-24] MEDS: HYDROCODONE/APAP 7.5/325 MG TAB PO PRN ×2 (14:06→21:42)
--- NOTE | 2021-07-24 15:07 | P.PN ---
Subjective Date of Service: 07/24/21 Chief Complaint: Large R pleural effusion, hypoxia Patient seen and examined at bedside status post thoracentesis. Patient tolerated procedure well, resting at bedside comfortably. Kidney function stable, no leukocytosis, afebrile. Review of Systems 10-point ROS is otherwise unremarkable Physical Examination - Vital Signs Temperature: 97.0 F Blood Pressure: 122/68 Pulse: 82 Respirations: 16 Pulse Ox (%): 98 - Studies Laboratory Data (last 24 hrs) 07/24/21 10:37: Cholesterol 139 07/24/21 10:37: WBC 9.3 D, Hgb 10.1 L, Hct 32.3 L D, Plt Count 172 07/24/21 05:23: PT 14.9 H, INR 1.35 Microbiology Data (last 24 hrs): 07/18/21 18:20 Blood - Blood Aerobic Blood Culture - Final No growth in 5 days. 07/18/21 18:20 Blood - Blood Anaerobic Blood Culture - Final No growth in 5 days. 07/18/21 18:14 Blood - Blood Aerobic Blood Culture - Final No growth in 5 days. 07/18/21 18:14 Blood - Blood Anaerobic Blood Culture - Final No growth in 5 days. Assessment And Plan - Plan Physical Exam: General: Alert, In no apparent distress HEENT: Atraumatic, Normocephalic Neck: No Thyromegaly Respiratory: Crackles/rales Cardiovascular: Regular rate/rhythm Gastrointestinal: Normal bowel sounds, Soft and benign Integumentary: No rashes, No breakdown Conclusions/Impression: Antibiotics: Meropenem: 1current Assessment/plan UTI Urine culture obtained on 07/18 growing ESBL Klebsiella and Enterococcus faecalis Patient was initially started on meropenem on 07/21, however was switched to Levaquin on 07/22. Recommend restarting meropenem to complete antibiotic course. Right-sided pleural effusion -Status post thoracentesis performed on 07/24, 700 mL of yellow-colored fluid was aspirated. Cultures pending. COPD with status respiratory failure Pulmonology following. Continue respiratory support Medical management per primary team Plan of care discussed with Dr. Hays
--- NOTE | 2021-07-24 16:39 | P.PN ---
Subjective Date of Service: 07/24/21 Chief Complaint: Large R pleural effusion, hypoxia Patient has no new complaint. Status post thoracentesis today. 700 ml celestino-colored fluid drained. Patient denies any shortness of breath. He is currently maintained on 1 L of oxygen by nasal canula. Physical Examination - Vital Signs Temperature: 97.0 F Blood Pressure: 122/68 Pulse: 82 Respirations: 16 Pulse Ox (%): 98 - Studies Laboratory Data (last 24 hrs) 07/24/21 10:37: Cholesterol 139 07/24/21 10:37: WBC 9.3 D, Hgb 10.1 L, Hct 32.3 L D, Plt Count 172 07/24/21 05:23: PT 14.9 H, INR 1.35 Microbiology Data (last 24 hrs): 07/18/21 18:20 Blood - Blood Aerobic Blood Culture - Final No growth in 5 days. 07/18/21 18:20 Blood - Blood Anaerobic Blood Culture - Final No growth in 5 days. 07/18/21 18:14 Blood - Blood Aerobic Blood Culture - Final No growth in 5 days. 07/18/21 18:14 Blood - Blood Anaerobic Blood Culture - Final No growth in 5 days. Assessment And Plan - Plan Physical Exam General: AOx3, NAD HEENT: Sclerae nonicteric. Respiratory: Clear to auscultation bilaterally, adequate breath sounds bilaterally. CV: irregular heart rate/rhythm, 1+ edema in b/l lower extremities GI: soft, non-distended, non-tenderness Neurological: AOx3, moves all extremities Urinary: Estrada catheter. Problem List Acute hypoxemic respiratory failure secondary to large R pleural effusion acute metabolic encephalopathy UTI - ESBL and enterococcus acute on chronic Systolic CHF exacerbation Acute COPD exacerbation Chronic anticoagulation with Coumadin Subtherapeutic INR Surgical hypothyroidism HTN HLD Plan: large R pleural effusion seen on CTA at [place] [facility] Negative for PE. CT with atelectasis and possible pneumonia. Status post thoracentesis today Urine culture: klebsiella ESBL, started merrem 07/21; ID consulted urine grew enterococcus as well; both organisms sensitive to levaquin. Continue Levaquin. blood culture prelim: negative Altered mental status resolved. Patient is currently at baseline. Pulmonary is following, Bipap on discharge ordered, continue prednisone. Supratherapeutic INR on admission, Coumadin held until thoracentesis. Resume Coumadin Continue home synthroid Code: full Dispo: [facility].
[2021-07-24] MEDS: WARFARIN SODIUM 2 MG TAB PO SCH (17:16)
[2021-07-25] MEDS: IPRATROPIUM BROM 0.5MG/2.5ML NEB SCH ×4 (02:00→20:00)
[2021-07-25] MEDS: LEVOTHYROXINE SOD 0.075 MG TAB PO SCH (05:41)
[2021-07-25 05:44] LABS: Absolute Lymphocytes (CBC) 0.8 K/uL (0.7-4.9); Hematocrit 28.9 % (39.6-49.0); Lymphocytes % 8.9 % (15.3-44.8); MPV 8.2 fL (7.6-11.3); RBC Red Blood Cell Count 3.34 M/uL (4.33-5.43)
[2021-07-25 05:45] LABS: Protime INR 1.24
[2021-07-25 05:56] LABS: Potassium 4.8 mmol/L (3.5-5.1)
[2021-07-25] MEDS: ARFORMOTEROL TARTRATE 15 MCG/2 ML VIAL.NEB NEB SCH ×2 (08:26→20:00)
[2021-07-25] MEDS: JUVEN PACKET PO SCH ×2 (09:00→21:00)
[2021-07-25] MEDS: predniSONE 20 MG TAB PO SCH (09:00)
[2021-07-25] MEDS: FUROSEMIDE 40 MG/4 ML VIAL IV SCH (09:50)
[2021-07-25] MEDS: LIDOCAINE 4% PATCH TD SCH (09:52)
[2021-07-25] MEDS: SENOSIDES 8.6 MG TAB PO SCH (09:53)
[2021-07-25] MEDS: SPIRONOLACTONE 25 MG TABLET PO SCH ×2 (09:54→21:02)
[2021-07-25] MEDS: HYDROCODONE/APAP 7.5/325 MG TAB PO PRN ×2 (09:54→17:08)
[2021-07-25] MEDS: levoFLOXacin 750 MG TAB PO SCH (09:54)
--- NOTE | 2021-07-25 10:16 | ECHO ---
HEIGHT: 5 ft 8 in WEIGHT: 216 lb 0 oz DATE OF STUDY: 07/24/[address]: Brandyn Elizabeth MD 2-DIMENSIONAL: YES M.MODE: YES DOPPLER: YES COLOR FLOW: YES TDS: NO PORTABLE: NO DEFINITY: NO BUBBLE STUDY: NO DIAGNOSIS: AORTIC VALVE REPLACEMENT CARDIAC HISTORY: CATHERIZATION: YES SURGERY: NO PROSTHETIC VALVE: YES PACEMAKER: YES MEASUREMENTS (cm) DIASTOLIC (NORMALS) SYSTOLIC (NORMALS) IVSd 1.6 (0.6-1.2) LA Diam 4.1 (1.9-4.0) LVEF 35% LVIDd 4.4 (3.5-5.7) LVIDs 3.6 (2.0-3.5) %FS 19% LVPWd 1.4 (0.6-1.2) Ao Diam 3.0 (2.0-3.7) 2 DIMENSIONAL ASSESSMENT: RIGHT ATRIUM: NORMAL LEFT ATRIUM: DILATED RIGHT VENTRICLE: NORMAL LEFT VENTRICLE: LEFT VENTRICULAR HYPERTROPHY TRICUSPID VALVE: NORMAL MITRAL VALVE: NORMAL PULMONIC VALVE: NORMAL AORTIC VALVE: NORMAL AORTIC VALVE REPLACEMENT FUNCTION/MECHANICAL PERICARDIAL EFFUSION: NONE AORTIC ROOT: NORMAL LEFT VENTRICULAR WALL MOTION: SEVERE GLOBAL HYPOKINESIS. DOPPLER/COLOR FLOW: NORMAL MECHANICAL AORTIC VALVE REPLACEMENT FUNCTION. COMMENTS: LEFT VENTRICULAR HYPERTROPHY. SEVERE GLOBAL HYPOKINESIS. EJECTION FRACTION 35%. LEFT ATRIAL ENLARGEMENT. NORMAL AORTIC VALVE FUNCTION. TECHNOLOGIST: CINDY HERNANDEZ
--- NOTE | 2021-07-25 10:49 | P.DS ---
Admission Date: 07/18/21 Discharge Date: 07/25/21 Disposition: TRANSFER TO ASSISTED Discharge Condition: FAIR Reason for Admission: Large R pleural effusion, hypoxia Consultations: Pulmonary-Dr. Shaw. Brief History of Present Illness: 71yo M, PMH: systolic-CHF, COPD, h/o AoVR on coumadin, anemia, surgical hypothyroidism, HTN was transferred from [facility]. Patient was minimally responsive at time of exam. History obtained from ED physician. Patient with shortness of breath, worsening over few days. Associated with worsening swelling in legs. Patient was found to have large right pleural effusion on CTA, with concern for possible pneumonia. Patient was noted to have elevated BNP, INR > 8, afebrile, HR: 90-110, and stable BP. He was placed on oxygen supplementation. Upon arrival here, patient was alert/oriented x 1 per nursing staff. He was admitted for further management. Hospital Course: Problem List Acute hypoxemic respiratory failure secondary to large R pleural effusion acute metabolic encephalopathy UTI - ESBL and enterococcus acute on chronic Systolic CHF exacerbation Acute COPD exacerbation Chronic anticoagulation with Coumadin Subtherapeutic INR Surgical hypothyroidism HTN HLD Patient admitted to the medical floor and started on IV Lasix, bronchodilators and IV steroid. Urine culture obtained grew Klebsiella and Enterococcus. Initially treated for ESBL with IV meropenem and switched to oral Levaquin after organism sensitivities resulted. ID assisted with management. Blood cultures yielded no growth. large R pleural effusion seen on CTA at [facility]. No PE. CT with atelectasis and possible pneumonia. Underwent thoracentesis with about 700 mL serous fluid drained. Patient shortness of breath improved and weaned off oxygen Altered mental status resolved. Patient is currently at baseline. Pulmonary saw patient, Bipap on discharge ordered by pulmonary. IV steroid later scaled down to oral prednisone. His INR was supratherapeutic on admission, Coumadin held until thoracentesis later resumed. He will need PT/INR checked within 2 days for Coumadin dose adjustment. Patient has clinically improved and deemed stable for discharge. Vital Signs/Physical Exam: Temp Pulse Resp BP Pulse Ox 97.3 F 94 H 18 142/68 H 99 07/25/21 08:00 07/25/21 09:50 07/25/21 09:54 07/25/21 09:50 07/25/21 09:54 General: Alert, In no apparent distress, Oriented x3 HEENT: Mucous membr. moist/pink Neck: JVD not distended Respiratory: Clear to auscultation bilaterally, Normal air movement Cardiovascular: No edema, Regular rate/rhythm, Normal S1 S2 Gastrointestinal: Soft and benign, Non-distended, No tenderness Musculoskeletal: No swelling, No tenderness Integumentary: No rashes, No cyanosis Neurological: Normal strength at 5/5 x4 extr Laboratory Data at Discharge: WBC 8.5 K/uL (4.3-10.9) 07/25/21 05:04 Hgb 9.2 g/dL (13.6-17.9) L 07/25/21 05:04 Hct 28.9 % (39.6-49.0) L 07/25/21 05:04 Plt Count 150 K/uL (152-406) L 07/25/21 05:04 PT 13.7 SECONDS (9.5-12.5) H 07/25/21 05:04 INR 1.24 07/25/21 05:04 APTT 64.7 SECONDS (24.3-36.9) H 07/18/21 18:14 Sodium 133 mmol/L (136-145) L 07/25/21 05:04 Potassium 4.8 mmol/L (3.5-5.1) 07/25/21 05:04 BUN 38 mg/dL (7-18) H 07/25/21 05:04 Creatinine 1.14 mg/dL (0.55-1.3) 07/25/21 05:04 Glucose 148 mg/dL (74-106) H 07/25/21 05:04 Magnesium 2.2 mg/dL (1.8-2.4) 07/23/21 05:10 Total Bilirubin 0.6 mg/dL (0.2-1.0) 07/23/21 05:10 AST 23 U/L (15-37) 07/23/21 05:10 ALT 37 U/L (12-78) 07/23/21 05:10 Alkaline Phosphatase 91 U/L (45-117) 07/23/21 05:10 Cholesterol 139 mg/dL (<200) 07/24/21 10:37 Home Medications: Arformoterol Tartrate [Brovana] 15 mcg NEB BIDRESP vial.neb 05/30/21 Ipratropium Neb [Atrovent*] 0.5 mg NEB [id number] amp 05/30/21 Clotrimazole [Clotrimazole AF] 1 % .ROUTE BID 07/19/21 Docusate Sodium 100 mg PO DAILY 07/19/21 Levothyroxine Sodium 150 mcg PO 0630 07/19/21 Lidocaine 4% Patch [Lidoderm 5% Patch*] 4 % .ROUTE DAILY 07/19/21 Naloxegol Oxalate [Movantik] 12.5 mg PO DAILY 07/19/21 Oxycodone HCl/Acetaminophen [Oxycodone-Acetaminophen 10-325] 10 - 325 mg PO Q4H PRN 07/19/21 Sennosides [Senna] 8.6 mg PO DAILY 07/19/21 Urea [Gormel Ten] 10 % .ROUTE DAILY 07/19/21 methocarbamoL [Methocarbamol] 750 mg PO TID 07/19/21 Albuterol Neb [Proventil 0.083% Neb Soln] 2.5 mg NEB [id number] PRN amp 07/25/21 Furosemide [Lasix*] 40 mg PO DAILY 30 Days #60 tab 07/25/21 Ipratropium Neb [Atrovent*] 0.5 mg NEB [id number] amp 07/25/21 Frankie [Frankie*] 1 pkt PO BID powd.pack 07/25/21 Levothyroxine [Synthroid*] 0.15 mg PO DAILYAC tab 07/25/21 Melatonin 5 mg PO BEDTIME PRN PRN tablet 07/25/21 Spironolactone [Aldactone*] 25 mg PO BID tab 07/25/21 Warfarin Sodium 3 mg PO DAILY #5 07/25/21 levoFLOXacin [Levaquin*] 750 mg PO DAILY #4 tab 07/25/21 New Medications: Furosemide [Lasix*] 40 mg PO DAILY 30 Days #60 tab levoFLOXacin [Levaquin*] 750 mg PO DAILY #4 tab Warfarin Sodium 3 mg PO DAILY #5 Diet: AHA Activity: Fall precautions Followup: Jose Shaw MD [ACTIVE - CAN ADMIT] - Time spent managing pt's care (in minutes): 38
--- NOTE | 2021-07-25 10:52 | P.PN ---
Subjective Date of Service: 07/25/21 Chief Complaint: Large R pleural effusion, hypoxia Patient has no new complaint. Status post thoracentesis yesterday. 700 ml celestino-colored fluid drained. Patient denies any shortness of breath. Physical Examination - Vital Signs Temperature: 97.3 F Blood Pressure: 142/68 Pulse: 94 Respirations: 18 Pulse Ox (%): 99 - Studies Laboratory Data (last 24 hrs) 07/25/21 05:04: Sodium 133 L, Potassium 4.8, BUN 38 H, Creatinine 1.14, Glucose 148 H 07/25/21 05:04: WBC 8.5, Hgb 9.2 L, Hct 28.9 L, Plt Count 150 L 07/25/21 05:04: PT 13.7 H, INR 1.24 07/24/21 10:37: Cholesterol 139 07/24/21 10:37: WBC 9.3 D, Hgb 10.1 L, Hct 32.3 L D, Plt Count 172 Assessment And Plan - Plan Physical Exam General: AOx3, NAD HEENT: Sclerae nonicteric. Respiratory: Clear to auscultation bilaterally, adequate breath sounds bilaterally. CV: irregular heart rate/rhythm, 1+ edema in b/l lower extremities GI: soft, non-distended, non-tenderness Neurological: AOx3, moves all extremities Urinary: Estrada catheter. Problem List Acute hypoxemic respiratory failure secondary to large R pleural effusion acute metabolic encephalopathy UTI - ESBL and enterococcus acute on chronic Systolic CHF exacerbation Acute COPD exacerbation Chronic anticoagulation with Coumadin Subtherapeutic INR Surgical hypothyroidism HTN HLD Plan: Status post thoracentesis. Urine culture: klebsiella ESBL and Enterococcus. ID assisting with management Antibiotics switched to Levaquin. Patient to complete at least 10 days of treatment. blood culture: negative Altered mental status resolved. Patient is currently at baseline. Pulmonary is following, Bipap on discharge ordered, continue prednisone. Supratherapeutic INR on admission, Coumadin held until thoracentesis. Continue Coumadin and monitor PT/INR Continue home synthroid Code: full Dispo: [facility].
--- NOTE | 2021-07-25 11:18 | P.PN ---
Subjective Date of Service: 07/25/21 Chief Complaint: Large R pleural effusion, hypoxia Patient seen and examined at bedside. Denies any acute complaints Review of Systems 10-point ROS is otherwise unremarkable Physical Examination - Vital Signs Temperature: 97.3 F Blood Pressure: 142/68 Pulse: 94 Respirations: 18 Pulse Ox (%): 99 - Studies Laboratory Data (last 24 hrs) 07/25/21 05:04: Sodium 133 L, Potassium 4.8, BUN 38 H, Creatinine 1.14, Glucose 148 H 07/25/21 05:04: WBC 8.5, Hgb 9.2 L, Hct 28.9 L, Plt Count 150 L 07/25/21 05:04: PT 13.7 H, INR 1.24 Assessment And Plan - Plan Physical Exam: General: Alert, In no apparent distress HEENT: Atraumatic, Normocephalic Neck: No Thyromegaly Respiratory: Crackles/rales Cardiovascular: Regular rate/rhythm Gastrointestinal: Normal bowel sounds, Soft and benign Integumentary: No rashes, No breakdown Conclusions/Impression: Antibiotics: levaquin: 07/22-current Meropenem: Assessment/plan UTI Urine culture obtained on 07/18 growing ESBL Klebsiella and Enterococcus faecalis Patient was initially started on meropenem on 07/21, however was switched to Levaquin on 07/22 based off urine culture susceptibility panel. Right-sided pleural effusion -Status post thoracentesis performed on 07/24, 700 mL of yellow-colored fluid was aspirated. Pleural fluid analysis and culture are pending. COPD with status respiratory failure Pulmonology following. Continue respiratory support Medical management per primary team Plan of care discussed with Dr. Hays
--- NOTE | 2021-07-25 13:49 | RAD REPORT ---
EXAM DESCRIPTION: RAD - Chest Single View - 07/25/2021 1:39 pm CLINICAL HISTORY: SP thoracentesis Chest pain. COMPARISON: Chest Single View dated 07/24/2021; Chest Single View dated 07/23/2021; Chest Single View da garrett 07/20/2021; Chest Single View dated 07/20/2021 FINDINGS: Portable technique limits examination quality. Hazy right lung base is again noted likely a combination of pleural fluid infiltrate/atelectasis. Thi s appears unchanged compared to yesterday's study. No pneumothorax. The heart moderately enlarged wit h multilead pacer device present. Sternotomy wires present.
[2021-07-25] MEDS: WARFARIN SODIUM 2 MG TAB PO SCH (17:09)
[2021-07-25] MEDS: MELATONIN 5 MG TABLET PO PRN (21:02)
[2021-07-26] MEDS: IPRATROPIUM BROM 0.5MG/2.5ML NEB SCH ×4 (01:45→19:45)
[2021-07-26] MEDS: LEVOTHYROXINE SOD 0.075 MG TAB PO SCH (05:58)
[2021-07-26 06:02] LABS: Protime INR 1.2
--- NOTE | 2021-07-26 08:04 | RAD REPORT ---
EXAM DESCRIPTION: RAD - Chest Single View - 07/26/2021 5:32 am CLINICAL HISTORY: SP thoracentesis COMPARISON: Chest Single View dated 07/25/2021; Chest Single View dated 07/24/2021; Chest Single View da garrett 07/23/2021; Chest Single View dated 07/20/2021; Thoracentesis w/ US Guide dated 07/24/2021; Chest Abdo men Pelvis W Cont dated 07/21/2021 FINDINGS: Lines: Pacemaker. Lungs: Widespread airspace opacities similar to the radiograph from 07/25/2021. Pleural: Bilateral pleural effusions. Cardiac: Cardiomegaly. Bones: No acute fractures. Other: IMPRESSION: Similar appearance compared with 07/25/2021 with edema and layering pleural effusions.
[2021-07-26] MEDS: ARFORMOTEROL TARTRATE 15 MCG/2 ML VIAL.NEB NEB SCH ×2 (08:17→19:45)
[2021-07-26] MEDS: JUVEN PACKET PO SCH ×2 (09:00→21:00)
[2021-07-26] MEDS: LIDOCAINE 4% PATCH TD SCH (09:33)
[2021-07-26] MEDS: SPIRONOLACTONE 25 MG TABLET PO SCH ×2 (09:34→22:28)
[2021-07-26] MEDS: levoFLOXacin 750 MG TAB PO SCH (09:34)
[2021-07-26] MEDS: HYDROCODONE/APAP 10/325 TAB PO PRN (09:35)
[2021-07-26] MEDS: SENOSIDES 8.6 MG TAB PO SCH (09:36)
[2021-07-26] MEDS: FUROSEMIDE 40 MG/4 ML VIAL IV SCH (09:37)
--- NOTE | 2021-07-26 11:18 | P.PN ---
Subjective Date of Service: 07/26/21 Chief Complaint: Large R pleural effusion, hypoxia Patient seen and examined at bedside, states he is having some diarrhea probiotic started. Review of Systems 10-point ROS is otherwise unremarkable Physical Examination - Vital Signs Temperature: 96.8 F Blood Pressure: 111/55 Pulse: 81 Respirations: 16 Pulse Ox (%): 100 - Studies Laboratory Data (last 24 hrs) 07/26/21 05:19: PT 13.2 H, INR 1.20 Assessment And Plan - Plan Physical Exam: General: Alert, In no apparent distress HEENT: Atraumatic, Normocephalic Neck: No Thyromegaly Respiratory: Crackles/rales Cardiovascular: Regular rate/rhythm Gastrointestinal: Normal bowel sounds, Soft and benign Integumentary: No rashes, No breakdown Conclusions/Impression: Antibiotics: levaquin: 07/22-current Meropenem: Assessment/plan UTI Urine culture obtained on 07/18 growing ESBL Klebsiella and Enterococcus faecalis Patient was initially started on meropenem on 07/21, however was switched to Levaquin on 07/22 based off urine culture susceptibility panel. Right-sided pleural effusion -Status post thoracentesis performed on 07/24, 700 mL of yellow-colored fluid was aspirated. Pleural fluid analysis and culture are pending. COPD with status respiratory failure Pulmonology following. Continue respiratory support Medical management per primary team Plan of care discussed with Dr. Hays
--- NOTE | 2021-07-26 13:10 | P.PN ---
Subjective Date of Service: 07/26/21 Chief Complaint: Large R pleural effusion, hypoxia Patient complaining of back pain which is chronic. Patient denies any shortness of breath. Physical Examination - Vital Signs Temperature: 96.6 F Blood Pressure: 119/57 Pulse: 89 Respirations: 16 Pulse Ox (%): 98 - Studies Laboratory Data (last 24 hrs) 07/26/21 05:19: PT 13.2 H, INR 1.20 Assessment And Plan - Plan Physical Exam General: AOx3, NAD HEENT: Sclerae nonicteric. Respiratory: Clear to auscultation bilaterally, adequate breath sounds bilaterally. CV: irregular heart rate/rhythm, 1+ edema in b/l lower extremities GI: soft, non-distended, non-tenderness Neurological: AOx3, moves all extremities Urinary: Estrada catheter. Problem List Acute hypoxemic respiratory failure secondary to large R pleural effusion acute metabolic encephalopathy UTI - ESBL and enterococcus acute on chronic Systolic CHF exacerbation Acute COPD exacerbation Chronic anticoagulation with Coumadin Subtherapeutic INR Surgical hypothyroidism HTN HLD Plan: Status post thoracentesis. Urine culture: klebsiella ESBL and Enterococcus. ID assisting with management Antibiotics switched to Levaquin. Patient to complete at least 10 days of treatment. blood culture: negative Altered mental status resolved. Patient is currently at baseline. Pulmonary is following, Bipap on discharge ordered, continue prednisone. Supratherapeutic INR on admission, Coumadin held until thoracentesis. Titrate Coumadin to INR of 2-3 Continue home synthroid. Code: full Dispo: Awaiting SNF placement.
[2021-07-26] MEDS: WARFARIN SODIUM 3 MG TAB PO SCH (16:30)
[2021-07-26 20:44] LABS: LD, PLEURAL FLUID 68 U/L; TOTAL PROTEIN, PLEURAL FLUID <3.0 g/dL
[2021-07-26] MEDS: LACTOBACILLUS/ACIDOPHILUS TAB PO SCH (22:28)
[2021-07-26] MEDS: MELATONIN 5 MG TABLET PO PRN (22:29)
[2021-07-27] MEDS: IPRATROPIUM BROM 0.5MG/2.5ML NEB SCH ×4 (02:00→19:45)
[2021-07-27] MEDS: LEVOTHYROXINE SOD 0.075 MG TAB PO SCH (05:56)
[2021-07-27 06:12] LABS: Absolute Lymphocytes (CBC) 1.4 K/uL (0.7-4.9); Hematocrit 30.4 % (39.6-49.0); Lymphocytes % 17.1 % (15.3-44.8); MPV 8.2 fL (7.6-11.3); RBC Red Blood Cell Count 3.51 M/uL (4.33-5.43)
[2021-07-27 06:21] LABS: Protime INR 1.31
[2021-07-27 06:25] LABS: Potassium 4.6 mmol/L (3.5-5.1)
[2021-07-27] MEDS: ARFORMOTEROL TARTRATE 15 MCG/2 ML VIAL.NEB NEB SCH ×2 (08:15→19:45)
[2021-07-27] MEDS: JUVEN PACKET PO SCH ×2 (09:00→21:00)
[2021-07-27] MEDS: FUROSEMIDE 40 MG/4 ML VIAL IV SCH (10:29)
[2021-07-27] MEDS: LACTOBACILLUS/ACIDOPHILUS TAB PO SCH ×2 (10:30→21:13)
[2021-07-27] MEDS: LIDOCAINE 4% PATCH TD SCH (10:30)
[2021-07-27] MEDS: SENOSIDES 8.6 MG TAB PO SCH (10:30)
[2021-07-27] MEDS: levoFLOXacin 750 MG TAB PO SCH (10:30)
[2021-07-27] MEDS: SPIRONOLACTONE 25 MG TABLET PO SCH ×2 (10:30→21:13)
--- NOTE | 2021-07-27 10:33 | P.PN ---
Subjective Date of Service: 07/27/21 Chief Complaint: Large R pleural effusion, hypoxia Patient seen and examined at bedside, no acute events. Review of Systems 10-point ROS is otherwise unremarkable Physical Examination - Vital Signs Temperature: 96.9 F Blood Pressure: 111/55 Pulse: 76 Respirations: 23 Pulse Ox (%): 100 - Studies Laboratory Data (last 24 hrs) 07/27/21 05:48: Sodium 132 L, Potassium 4.6, BUN 33 H, Creatinine 0.88, Glucose 96 07/27/21 05:48: WBC 8.4, Hgb 9.5 L, Hct 30.4 L, Plt Count 146 L 07/27/21 05:48: PT 14.5 H, INR 1.31 Assessment And Plan - Plan Physical Exam: General: Alert, In no apparent distress HEENT: Atraumatic, Normocephalic Neck: No Thyromegaly Respiratory: Crackles/rales Cardiovascular: Regular rate/rhythm Gastrointestinal: Normal bowel sounds, Soft and benign Integumentary: No rashes, No breakdown Conclusions/Impression: Antibiotics: levaquin: 07/22-current Meropenem: Assessment/plan UTI Urine culture obtained on 07/18 growing ESBL Klebsiella and Enterococcus faecalis Patient was initially started on meropenem on 07/21, however was switched to Levaquin on 07/22 based off urine culture susceptibility panel. -Recommend pulling Estrada and trying voiding trial Right-sided pleural effusion -Status post thoracentesis performed on 07/24, 700 mL of yellow-colored fluid was aspirated. Culture pending, however pleural fluid analysis demonstrates transitive effusion. COPD with status respiratory failure Pulmonology following. Continue respiratory support Medical management per primary team Plan of care discussed with Dr. Hays
[2021-07-27] MEDS: HYDROCODONE/APAP 10/325 TAB PO PRN ×2 (10:44→21:15)
--- NOTE | 2021-07-27 13:59 | P.PN ---
Subjective Date of Service: 07/27/21 Chief Complaint: Large R pleural effusion, hypoxia Patient has no complaints today Patient denies any shortness of breath. He has been using CPAP at night. Physical Examination - Vital Signs Temperature: 96.9 F Blood Pressure: 141/63 Pulse: 83 Respirations: 20 Pulse Ox (%): 94 - Studies Laboratory Data (last 24 hrs) 07/27/21 05:48: Sodium 132 L, Potassium 4.6, BUN 33 H, Creatinine 0.88, Glucose 96 07/27/21 05:48: WBC 8.4, Hgb 9.5 L, Hct 30.4 L, Plt Count 146 L 07/27/21 05:48: PT 14.5 H, INR 1.31 Assessment And Plan - Plan Physical Exam General: AOx3, NAD HEENT: Sclerae nonicteric. Respiratory: Clear to auscultation bilaterally, adequate breath sounds bilaterally. CV: irregular heart rate/rhythm, 1+ edema in b/l lower extremities GI: soft, non-distended, non-tenderness Neurological: AOx3, moves all extremities Urinary: Estrada catheter. Problem List Acute hypoxemic respiratory failure secondary to large R pleural effusion acute metabolic encephalopathy UTI - ESBL and enterococcus acute on chronic Systolic CHF exacerbation Acute COPD exacerbation Chronic anticoagulation with Coumadin Subtherapeutic INR Surgical hypothyroidism HTN HLD Plan: Status post thoracentesis. Urine culture: klebsiella ESBL and Enterococcus. ID assisting with management Continue Levaquin. Patient to complete at least 10 days of treatment. blood culture: negative Altered mental status resolved. Patient is currently at baseline. Pulmonary is following, Bipap on discharge ordered, continue prednisone. Supratherapeutic INR on admission, Coumadin held until thoracentesis. Coumadin resumed. Titrate Coumadin to INR of 2-3 Continue home synthroid. Code: full Dispo: Awaiting SNF placement.
--- NOTE | 2021-07-27 16:11 | PN ---
Date of Progress Note: 07/24/2021 Mr. Aranda is 71, came in with bilateral pleural effusions. He has a history of aortic valve replac ement, COPD, CHF. His aortic valve is mechanical. He is on Coumadin that was held because of thorac entesis. He has hypertension and dyslipidemia. Thoracentesis was done. He is feeling a lot better. Studies are pending. Echocardiogram is pending. We will resume Coumadin and aim for an INR of 2.5 . We will see him as an outpatient after he goes home. CANDY/SOPHIE Voice ID: [id number] Report ID: [id number]
[2021-07-27] MEDS: WARFARIN SODIUM 3 MG TAB PO SCH (17:42)
[2021-07-28] MEDS: IPRATROPIUM BROM 0.5MG/2.5ML NEB SCH ×4 (01:30→19:45)
[2021-07-28] MEDS: LEVOTHYROXINE SOD 0.075 MG TAB PO SCH (06:37)
[2021-07-28] MEDS: ARFORMOTEROL TARTRATE 15 MCG/2 ML VIAL.NEB NEB SCH ×2 (08:01→19:45)
[2021-07-28] MEDS: JUVEN PACKET PO SCH ×2 (09:00→21:00)
[2021-07-28 09:34] LABS: Protime INR 1.67
[2021-07-28] MEDS: FUROSEMIDE 40 MG/4 ML VIAL IV SCH (10:22)
[2021-07-28] MEDS: LIDOCAINE 4% PATCH TD SCH (10:22)
[2021-07-28] MEDS: levoFLOXacin 750 MG TAB PO SCH (10:22)
[2021-07-28] MEDS: LACTOBACILLUS/ACIDOPHILUS TAB PO SCH ×2 (10:23→21:01)
[2021-07-28] MEDS: SPIRONOLACTONE 25 MG TABLET PO SCH ×2 (10:23→21:01)
[2021-07-28] MEDS: HYDROCODONE/APAP 10/325 TAB PO PRN ×2 (10:23→22:04)
[2021-07-28] MEDS: SENOSIDES 8.6 MG TAB PO SCH (10:24)
--- NOTE | 2021-07-28 10:46 | P.PN ---
Subjective Date of Service: 07/28/21 Chief Complaint: Large R pleural effusion, hypoxia Patient seen and examined at bedside, no acute events. Review of Systems 10-point ROS is otherwise unremarkable Physical Examination - Vital Signs Temperature: 96.0 F Blood Pressure: 127/70 Pulse: 80 Respirations: 18 Pulse Ox (%): 98 - Studies Laboratory Data (last 24 hrs) 07/28/21 09:13: PT 18.6 H, INR 1.67 Microbiology Data (last 24 hrs): 07/24/21 07:35 Body Fluid - Right Chest Gram Stain - Final Assessment And Plan - Plan Physical Exam: General: Alert, In no apparent distress HEENT: Atraumatic, Normocephalic Neck: No Thyromegaly Respiratory: Decreased breath sounds bilaterally Cardiovascular: Regular rate/rhythm Gastrointestinal: Normal bowel sounds, Soft and benign Integumentary: No rashes, No breakdown Conclusions/Impression: Antibiotics: levaquin: 07/22-current Meropenem: Assessment/plan UTI Urine culture obtained on 07/18 growing ESBL Klebsiella and Enterococcus faecalis Patient was initially started on meropenem on 07/21, however was switched to Levaquin on 07/22 based off urine culture susceptibility panel. -Recommend pulling Estrada and trying voiding trial Right-sided pleural effusion -Status post thoracentesis performed on 07/24, 700 mL of yellow-colored fluid was aspirated. Culture pending, however pleural fluid analysis demonstrates transitive effusion. Effusion likely secondary to congestive heart failure. COPD with status respiratory failure Pulmonology following. Continue respiratory support Medical management per primary team Plan of care discussed with Dr. Hays
--- NOTE | 2021-07-28 16:00 | P.PN ---
Subjective Date of Service: 07/28/21 Chief Complaint: Large R pleural effusion, hypoxia Patient has no complaints today Patient denies any shortness of breath. He has been clinically stable and waiting for SNF placement. Physical Examination - Vital Signs Temperature: 96.9 F Blood Pressure: 113/53 Pulse: 83 Respirations: 14 Pulse Ox (%): 96 - Studies Laboratory Data (last 24 hrs) 07/28/21 09:13: PT 18.6 H, INR 1.67 Microbiology Data (last 24 hrs): 07/24/21 07:35 Body Fluid - Right Chest Gram Stain - Final Assessment And Plan - Plan Physical Exam General: AOx3, NAD HEENT: Sclerae nonicteric. Respiratory: Clear to auscultation bilaterally, adequate breath sounds bilaterally. CV: irregular heart rate/rhythm, 1+ edema in b/l lower extremities GI: soft, non-distended, non-tenderness Neurological: AOx3, moves all extremities Urinary: Estrada catheter. Problem List Acute hypoxemic respiratory failure secondary to large R pleural effusion acute metabolic encephalopathy UTI - ESBL and enterococcus acute on chronic Systolic CHF exacerbation Acute COPD exacerbation Chronic anticoagulation with Coumadin Subtherapeutic INR Surgical hypothyroidism HTN HLD Plan: Status post thoracentesis. Urine culture: klebsiella ESBL and Enterococcus. ID assisting with management Continue Levaquin. Patient to complete at least 10 days of treatment. blood culture: negative Altered mental status resolved. Patient is currently at baseline. Pulmonary is following, Bipap on discharge ordered, continue prednisone. Supratherapeutic INR on admission, Coumadin held until thoracentesis. Coumadin resumed. INR is trending up. Titrate Coumadin to INR of 2-3 Continue home synthroid. Code: full Dispo: Awaiting SNF placement.
[2021-07-28] MEDS: WARFARIN SODIUM 3 MG TAB PO SCH (17:53)
[2021-07-28] MEDS: MELATONIN 5 MG TABLET PO PRN (22:05)
[2021-07-29] MEDS: IPRATROPIUM BROM 0.5MG/2.5ML NEB SCH ×4 (01:40→19:30)
[2021-07-29] MEDS: LEVOTHYROXINE SOD 0.075 MG TAB PO SCH (05:37)
[2021-07-29 05:48] LABS: Absolute Lymphocytes (CBC) 1.2 K/uL (0.7-4.9); Hematocrit 29.8 % (39.6-49.0); Lymphocytes % 14.3 % (15.3-44.8); MPV 8.2 fL (7.6-11.3)
[2021-07-29 05:51] LABS: Protime INR 1.69
[2021-07-29 06:12] LABS: Potassium 4.5 mmol/L (3.5-5.1)
[2021-07-29 06:36] LABS: Anisocytosis 1+; Blood Morphology Comment NOTED (NOT SEEN); Platelet Estimate ADEQ; White Blood Cell Scan OK (OK)
[2021-07-29] MEDS: ARFORMOTEROL TARTRATE 15 MCG/2 ML VIAL.NEB NEB SCH ×2 (08:22→19:30)
[2021-07-29] MEDS: LIDOCAINE 4% PATCH TD SCH (10:02)
[2021-07-29] MEDS: JUVEN PACKET PO SCH ×2 (10:02→20:50)
[2021-07-29] MEDS: levoFLOXacin 750 MG TAB PO SCH (10:03)
[2021-07-29] MEDS: SPIRONOLACTONE 25 MG TABLET PO SCH ×2 (10:03→20:49)
[2021-07-29] MEDS: SENOSIDES 8.6 MG TAB PO SCH (10:04)
[2021-07-29] MEDS: FUROSEMIDE 40 MG/4 ML VIAL IV SCH (10:04)
[2021-07-29] MEDS: LACTOBACILLUS/ACIDOPHILUS TAB PO SCH ×2 (10:04→20:50)
[2021-07-29] MEDS: HYDROCODONE/APAP 10/325 TAB PO PRN ×2 (10:08→20:54)
--- NOTE | 2021-07-29 12:47 | P.PN ---
Subjective Date of Service: 07/29/21 Chief Complaint: Large R pleural effusion, hypoxia No new complaints today Patient denies any shortness of breath. Physical Examination - Vital Signs Temperature: 96.5 F Blood Pressure: 109/57 Pulse: 83 Respirations: 20 Pulse Ox (%): 97 - Studies Laboratory Data (last 24 hrs) 07/29/21 05:26: Sodium 131 L, Potassium 4.5, BUN 26 H, Creatinine 0.88, Glucose 105 07/29/21 05:26: WBC 8.5, Hgb 9.5 L, Hct 29.8 L, Plt Count 123 L 07/29/21 05:26: PT 18.8 H, INR 1.69 Assessment And Plan - Plan Physical Exam General: AOx3, NAD HEENT: Sclerae nonicteric. Respiratory: Clear to auscultation bilaterally, adequate breath sounds bilaterally. CV: irregular heart rate/rhythm, 1+ edema in b/l lower extremities GI: soft, non-distended, non-tenderness Neurological: AOx3, moves all extremities Urinary: Estrada catheter. Problem List Acute hypoxemic respiratory failure secondary to large R pleural effusion acute metabolic encephalopathy UTI - ESBL and enterococcus acute on chronic Systolic CHF exacerbation Acute COPD exacerbation Chronic anticoagulation with Coumadin Subtherapeutic INR Surgical hypothyroidism HTN HLD Plan: Clinically stable Status post thoracentesis. Urine culture: klebsiella ESBL and Enterococcus. ID assisting with management Continue Levaquin. Patient to complete at least 10 days of treatment. blood culture: negative Altered mental status resolved. Patient is currently at baseline. Pulmonary is following, Bipap on discharge ordered, continue prednisone. Supratherapeutic INR on admission, Coumadin held until thoracentesis later resumed. Titrate Coumadin to INR of 2-3 Continue home synthroid. Code: full Dispo: Awaiting SNF placement.
[2021-07-29] MEDS: WARFARIN SODIUM 3 MG TAB PO SCH (17:58)
[2021-07-30] MEDS: IPRATROPIUM BROM 0.5MG/2.5ML NEB SCH ×4 (01:10→19:45)
[2021-07-30] MEDS: LEVOTHYROXINE SOD 0.075 MG TAB PO SCH (05:45)
[2021-07-30 05:58] LABS: Protime INR 2.07
[2021-07-30] MEDS: ARFORMOTEROL TARTRATE 15 MCG/2 ML VIAL.NEB NEB SCH ×2 (08:22→19:45)
[2021-07-30] MEDS: HYDROCODONE/APAP 10/325 TAB PO PRN ×2 (08:23→20:39)
[2021-07-30] MEDS: LACTOBACILLUS/ACIDOPHILUS TAB PO SCH ×2 (08:24→20:39)
[2021-07-30] MEDS: FUROSEMIDE 40 MG/4 ML VIAL IV SCH (08:24)
[2021-07-30] MEDS: SPIRONOLACTONE 25 MG TABLET PO SCH ×2 (08:24→20:39)
[2021-07-30] MEDS: levoFLOXacin 750 MG TAB PO SCH (08:24)
[2021-07-30] MEDS: SENOSIDES 8.6 MG TAB PO SCH (08:24)
[2021-07-30] MEDS: LIDOCAINE 4% PATCH TD SCH (08:25)
[2021-07-30] MEDS: JUVEN PACKET PO SCH ×2 (08:25→20:39)
--- NOTE | 2021-07-30 13:01 | P.PN ---
Subjective Date of Service: 07/30/21 Chief Complaint: Large R pleural effusion, hypoxia Patient had 16 beat run of V. tach. He was asymptomatic. He denies any complaint today. Physical Examination - Vital Signs Temperature: 97.1 F Blood Pressure: 115/53 Pulse: 77 Respirations: 14 Pulse Ox (%): 95 - Studies Laboratory Data (last 24 hrs) 07/30/21 04:43: PT 23.1 H, INR 2.07 Assessment And Plan - Plan Physical Exam General: AOx3, NAD HEENT: Sclerae nonicteric. Respiratory: Clear to auscultation bilaterally, adequate breath sounds bilaterally. CV: irregular heart rate/rhythm, 1+ edema in b/l lower extremities GI: soft, non-distended, non-tenderness Neurological: AOx3, moves all extremities Urinary: Estrada catheter. Problem List Acute hypoxemic respiratory failure secondary to large R pleural effusion acute metabolic encephalopathy UTI - ESBL and enterococcus acute on chronic Systolic CHF exacerbation Acute COPD exacerbation Chronic anticoagulation with Coumadin Subtherapeutic INR Surgical hypothyroidism HTN HLD Plan: Clinically stable Status post thoracentesis. Urine culture: klebsiella ESBL and Enterococcus. ID assisting with management Continue Levaquin. Patient to complete at least 10 days of treatment. Blood culture: negative Altered mental status resolved. Patient is currently at baseline. Pulmonary is following, Bipap on discharge ordered, continue prednisone. Supratherapeutic INR on admission, Coumadin held until thoracentesis later resumed. INR is currently therapeutic. Continue current dose of Coumadin. Monitor electrolytes, optimize potassium and magnesium. Continue telemetry Continue home synthroid. Code: full Dispo: Awaiting SNF placement.
[2021-07-30] MEDS: WARFARIN SODIUM 3 MG TAB PO SCH (17:26)
[2021-07-31] MEDS: IPRATROPIUM BROM 0.5MG/2.5ML NEB SCH ×4 (01:40→20:00)
[2021-07-31 03:56] LABS: Absolute Lymphocytes (CBC) 1.5 K/uL (0.7-4.9); Hematocrit 28.1 % (39.6-49.0); Lymphocytes % 17.1 % (15.3-44.8); MPV 7.9 fL (7.6-11.3)
[2021-07-31 03:56] LABS: Protime INR 2.19
[2021-07-31 04:23] LABS: Potassium 4.5 mmol/L (3.5-5.1)
[2021-07-31] MEDS: LEVOTHYROXINE SOD 0.075 MG TAB PO SCH (05:36)
[2021-07-31] MEDS: ARFORMOTEROL TARTRATE 15 MCG/2 ML VIAL.NEB NEB SCH ×2 (08:36→20:00)
[2021-07-31] MEDS: levoFLOXacin 750 MG TAB PO SCH (09:00)
[2021-07-31] MEDS: JUVEN PACKET PO SCH ×2 (09:00→20:36)
[2021-07-31] MEDS: SPIRONOLACTONE 25 MG TABLET PO SCH ×2 (09:00→20:35)
[2021-07-31] MEDS: SENOSIDES 8.6 MG TAB PO SCH (09:00)
[2021-07-31] MEDS: LACTOBACILLUS/ACIDOPHILUS TAB PO SCH ×2 (09:00→20:35)
[2021-07-31] MEDS: LIDOCAINE 4% PATCH TD SCH (09:00)
[2021-07-31] MEDS: FUROSEMIDE 40 MG/4 ML VIAL IV SCH (09:01)
[2021-07-31] MEDS: HYDROCODONE/APAP 10/325 TAB PO PRN ×2 (09:10→20:36)
--- NOTE | 2021-07-31 11:13 | P.PN ---
Subjective Date of Service: 07/31/21 Chief Complaint: Large R pleural effusion, hypoxia Patient seen and examined at bedside, states he is feeling well. WBC within normal range. Review of Systems 10-point ROS is otherwise unremarkable Physical Examination - Vital Signs Temperature: 97.0 F Blood Pressure: 112/56 Pulse: 85 Respirations: 18 Pulse Ox (%): 98 - Studies Laboratory Data (last 24 hrs) 07/31/21 03:26: WBC 9.0, Hgb 8.8 L, Hct 28.1 L, Plt Count 122 L 07/31/21 03:24: Sodium 133 L, Potassium 4.5, BUN 29 H, Creatinine 0.88, Glucose 117 H 07/31/21 03:24: PT 24.5 H, INR 2.19 07/30/21 15:07: Magnesium 2.0 Assessment And Plan - Plan Physical Exam: General: Alert, In no apparent distress HEENT: Atraumatic, Normocephalic Neck: No Thyromegaly Respiratory: Decreased breath sounds bilaterally Cardiovascular: Regular rate/rhythm Gastrointestinal: Normal bowel sounds, Soft and benign Integumentary: No rashes, No breakdown Conclusions/Impression: Antibiotics: levaquin: 07/22-current Meropenem: Assessment/plan UTI Urine culture obtained on 07/18 growing ESBL Klebsiella and Enterococcus faecalis Patient was initially started on meropenem on 07/21, however was switched to Levaquin on 07/22 based off urine culture susceptibility panel. -Recommend pulling Estrada and trying voiding trial Right-sided pleural effusion -Status post thoracentesis performed on 07/24, 700 mL of yellow-colored fluid was aspirated. Culture pending, however pleural fluid analysis demonstrates trasudative effusion. Effusion likely secondary to congestive heart failure. COPD with status respiratory failure Pulmonology following. Continue respiratory support Medical management per primary team Plan of care discussed with Dr. Hays
--- NOTE | 2021-07-31 13:25 | P.PN ---
Subjective Date of Service: 07/31/21 Chief Complaint: Large R pleural effusion, hypoxia No issues overnight. He denies any complaint today. Patient had a Estrada catheter in on presentation and maintained throughout hospitalization. Physical Examination - Vital Signs Temperature: 96.8 F Blood Pressure: 118/64 Pulse: 86 Respirations: 18 Pulse Ox (%): 99 - Studies Laboratory Data (last 24 hrs) 07/31/21 03:26: WBC 9.0, Hgb 8.8 L, Hct 28.1 L, Plt Count 122 L 07/31/21 03:24: Sodium 133 L, Potassium 4.5, BUN 29 H, Creatinine 0.88, Glucose 117 H 07/31/21 03:24: PT 24.5 H, INR 2.19 07/30/21 15:07: Magnesium 2.0 Assessment And Plan - Plan Physical Exam General: AOx3, NAD HEENT: Sclerae nonicteric. Respiratory: Clear to auscultation bilaterally, adequate breath sounds heavenly aterally. CV: irregular heart rate/rhythm, 1+ edema in b/l lower extremities GI: soft, non-distended, non-tenderness Neurological: AOx3, moves all extremities Urinary: Estrada catheter. Problem List Acute hypoxemic respiratory failure secondary to large R pleural effusion acute metabolic encephalopathy Catheter related UTI - ESBL and enterococcus acute on chronic Systolic CHF exacerbation Acute COPD exacerbation Chronic anticoagulation with Coumadin Subtherapeutic INR Surgical hypothyroidism HTN HLD Plan: Clinically stable Status post thoracentesis. Urine culture: klebsiella ESBL and Enterococcus. ID assisting with management Continue Levaquin. Patient to complete at least 10 days of treatment. Blood culture: negative Altered mental status resolved. Patient is currently at baseline. Pulmonary is following, Bipap on discharge ordered. Start prednisone taper. Supratherapeutic INR on admission, Coumadin held until thoracentesis later resumed. INR is currently therapeutic. Continue current dose of Coumadin. Monitor electrolytes, optimize potassium and magnesium. Continue telemetry Continue home synthroid. DC Estrada catheter for voiding trial. Code: full Dispo: Awaiting SNF placement.
[2021-07-31] MEDS: WARFARIN SODIUM 3 MG TAB PO SCH (17:34)
[2021-07-31] MEDS: MELATONIN 5 MG TABLET PO PRN (20:36)
[2021-08-01] MEDS: IPRATROPIUM BROM 0.5MG/2.5ML NEB SCH ×4 (02:30→19:40)
[2021-08-01] MEDS: LEVOTHYROXINE SOD 0.075 MG TAB PO SCH (05:42)
[2021-08-01 06:09] LABS: Hematocrit 29.7 % (39.6-49.0); RBC Red Blood Cell Count 3.53 M/uL (4.33-5.43)
--- NOTE | 2021-08-01 06:47 | P.PN ---
Date of Service: 08/01/21 Subjective: no acute events overnight. Continues to feel improvement each day no new / worsening symptoms ROS: 10 point ROS as noted above, otherwise negative Physical Exam General: AOx3, NAD HEENT: Sclerae nonicteric. Respiratory: Clear to auscultation bilaterally CV: irregular heart rate/rhythm, trace-1+ edema in b/l lower extremities GI: soft, non-distended, non-tenderness Neurological: AOx3, moves all extremities Problem List Acute hypoxemic respiratory failure secondary to large R pleural effusion acute metabolic encephalopathy Catheter related UTI - ESBL and enterococcus acute on chronic Systolic CHF exacerbation Acute COPD exacerbation Chronic anticoagulation with Coumadin Subtherapeutic INR Surgical hypothyroidism HTN HLD Clinically stable s/p thoracentesis Urine culture: klebsiella ESBL and Enterococcus. ID assisting with management Continue Levaquin. Patient to complete at least 10 days of treatment. Blood culture: negative Altered mental status resolved. Patient is currently at baseline. Pulmonary is following, Bipap on discharge ordered. Started prednisone taper. Supratherapeutic INR on admission, Coumadin held until thoracentesis, later resumed. INR is currently therapeutic. Continue current dose of Coumadin. Continue home synthroid. Code: full Dispo: Awaiting SNF placement / insurance auth Time Spent Managing Pts Care (In Minutes): 35
[2021-08-01 07:01] LABS: Protime INR 2.63
--- NOTE | 2021-08-01 07:15 | RAD REPORT ---
EXAM DESCRIPTION: RAD - Chest Single View - 08/01/2021 6:09 am CLINICAL HISTORY: chf, f/u pleural effusions COMPARISON: Chest Single View dated 07/26/2021; Chest Single View dated 07/25/2021; Chest Single View da garrett 07/24/2021; Chest Single View dated 07/23/2021 FINDINGS: Lines: Sternotomy . Lungs: Mild hazy bilateral airspace disease . Pleural: Small effusions bilaterally are similar. Cardiac: Cardiomegaly appear Bones: No acute fractures. Other: IMPRESSION: Edema with small effusions that are unchanged since 07/26/2021.
[2021-08-01] MEDS ORDERED: IPRATROPIUM BROM 0.5MG/2.5ML ONE (07:56)
[2021-08-01] MEDS ORDERED: ARFORMOTEROL TARTRATE 15 MCG/2 ML VIAL.NEB ONE (07:56)
[2021-08-01] MEDS: ARFORMOTEROL TARTRATE 15 MCG/2 ML VIAL.NEB NEB SCH ×3 (08:00→19:40)
[2021-08-01] MEDS: SPIRONOLACTONE 25 MG TABLET PO SCH ×2 (08:51→20:24)
[2021-08-01] MEDS: levoFLOXacin 750 MG TAB PO SCH (08:51)
[2021-08-01] MEDS: LACTOBACILLUS/ACIDOPHILUS TAB PO SCH ×2 (08:51→20:24)
[2021-08-01] MEDS: SENOSIDES 8.6 MG TAB PO SCH (08:52)
[2021-08-01] MEDS: LIDOCAINE 4% PATCH TD SCH (08:52)
[2021-08-01] MEDS: JUVEN PACKET PO SCH ×2 (08:52→20:25)
[2021-08-01] MEDS: FUROSEMIDE 40 MG/4 ML VIAL IV SCH (08:53)
--- NOTE | 2021-08-01 11:35 | P.PN ---
Subjective Date of Service: 08/01/21 Chief Complaint: Large R pleural effusion, hypoxia Patient seen and examined at bedside, awaiting placement. Review of Systems 10-point ROS is otherwise unremarkable Physical Examination - Vital Signs Temperature: 95.1 F Blood Pressure: 113/58 Pulse: 87 Respirations: 14 Pulse Ox (%): 99 - Studies Laboratory Data (last 24 hrs) 08/01/21 05:33: WBC 7.8, Hgb 9.6 L, Hct 29.7 L, Plt Count 148 L D 08/01/21 05:33: PT 29.5 H, INR 2.63 Assessment And Plan - Plan Physical Exam: General: Alert, In no apparent distress HEENT: Atraumatic, Normocephalic Neck: No Thyromegaly Respiratory: Decreased breath sounds bilaterally Cardiovascular: Regular rate/rhythm Gastrointestinal: Normal bowel sounds, Soft and benign Integumentary: No rashes, No breakdown Conclusions/Impression: Antibiotics: levaquin: 07/22-current Meropenem: Assessment/plan UTI Urine culture obtained on 07/18 growing ESBL Klebsiella and Enterococcus faecalis Patient was initially started on meropenem on 07/21, however was switched to Levaquin on 07/22 based off urine culture susceptibility panel. -Recommend pulling Estrada and trying voiding trial Right-sided pleural effusion -Status post thoracentesis performed on 07/24, 700 mL of yellow-colored fluid was aspirated. Culture pending, however pleural fluid analysis demonstrates trasudative effusion. Effusion likely secondary to congestive heart failure. COPD with status respiratory failure Pulmonology following. Continue respiratory support Medical management per primary team Plan of care discussed with Dr. Hays
[2021-08-01] MEDS: WARFARIN SODIUM 1 MG TAB PO SCH (17:43)
[2021-08-01] MEDS: MELATONIN 5 MG TABLET PO PRN (20:24)
[2021-08-01] MEDS: HYDROCODONE/APAP 10/325 TAB PO PRN (20:29)
[2021-08-02] MEDS: IPRATROPIUM BROM 0.5MG/2.5ML NEB SCH ×4 (01:40→20:00)
[2021-08-02] MEDS: LEVOTHYROXINE SOD 0.075 MG TAB PO SCH (06:05)
--- NOTE | 2021-08-02 06:29 | P.PN ---
Date of Service: 08/02/21 Subjective: stable, no new complaints waiting on insurance/facility ROS: 10 point ROS as noted above, otherwise negative Physical Exam General: AOx3, NAD HEENT: Sclerae nonicteric. Respiratory: Clear to auscultation bilaterally CV: irregular heart rate/rhythm, trace-1+ edema in b/l lower extremities R>L GI: soft, non-distended, non-tenderness Neurological: AOx3, moves all extremities Problem List Acute hypoxemic respiratory failure secondary to large R pleural effusion acute metabolic encephalopathy Catheter related UTI - ESBL and enterococcus acute on chronic Systolic CHF exacerbation Acute COPD exacerbation Chronic anticoagulation with Coumadin Subtherapeutic INR Surgical hypothyroidism HTN HLD Clinically stable s/p thoracentesis Urine culture: klebsiella ESBL and Enterococcus. ID consulted - mino, end date: 08/07 for 10 day total course Blood culture: negative Altered mental status resolved. Patient is currently at baseline. Pulmonary is following, Bipap on discharge ordered. Started prednisone taper. Supratherapeutic INR on admission, Coumadin held until thoracentesis, later resumed. INR climbing, dose adjusted down INR is currently therapeutic. but trending up Continue home synthroid. Code: full Dispo: Awaiting SNF placement / insurance auth Time Spent Managing Pts Care (In Minutes): 35
[2021-08-02] MEDS: ARFORMOTEROL TARTRATE 15 MCG/2 ML VIAL.NEB NEB SCH ×2 (07:47→20:00)
[2021-08-02] MEDS: LACTOBACILLUS/ACIDOPHILUS TAB PO SCH ×2 (08:33→20:38)
[2021-08-02] MEDS: SENOSIDES 8.6 MG TAB PO SCH (08:33)
[2021-08-02] MEDS: levoFLOXacin 750 MG TAB PO SCH (08:33)
[2021-08-02] MEDS: FUROSEMIDE 40 MG/4 ML VIAL IV SCH (08:33)
[2021-08-02] MEDS: JUVEN PACKET PO SCH (08:34)
[2021-08-02] MEDS: SPIRONOLACTONE 25 MG TABLET PO SCH ×2 (08:34→20:37)
[2021-08-02] MEDS: LIDOCAINE 4% PATCH TD SCH (08:34)
--- NOTE | 2021-08-02 11:21 | P.PN ---
Subjective Date of Service: 08/02/21 Chief Complaint: Large R pleural effusion, hypoxia Patient seen and examined at bedside, no acute events. Review of Systems 10-point ROS is otherwise unremarkable Physical Examination - Vital Signs Temperature: 96.9 F Blood Pressure: 120/60 Pulse: 87 Respirations: 18 Pulse Ox (%): 97 - Studies Laboratory Data (last 24 hrs) 08/02/21 05:37: PT 34.6 H, INR 3.00 Assessment And Plan - Plan Physical Exam: General: Alert, In no apparent distress HEENT: Atraumatic, Normocephalic Neck: No Thyromegaly Respiratory: Decreased breath sounds bilaterally Cardiovascular: Regular rate/rhythm Gastrointestinal: Normal bowel sounds, Soft and benign Integumentary: No rashes, No breakdown Conclusions/Impression: Antibiotics: levaquin: 07/22-08/07 Meropenem: Assessment/plan UTI Urine culture obtained on 07/18 growing ESBL Klebsiella and Enterococcus faecalis Patient was initially started on meropenem on 07/21, however was switched to Levaquin on 07/22 based off urine culture susceptibility panel. -Recommend pulling Estrada and trying voiding trial Right-sided pleural effusion -Status post thoracentesis performed on 07/24, 700 mL of yellow-colored fluid was aspirated. Culture pending, however pleural fluid analysis demonstrates trasudative effusion. Effusion likely secondary to congestive heart failure. COPD with status respiratory failure Pulmonology following. Continue respiratory support Medical management per primary team Plan of care discussed with Dr. Hays
[2021-08-02] MEDS: WARFARIN SODIUM 1 MG TAB PO SCH (17:18)
[2021-08-02] MEDS: HYDROCODONE/APAP 10/325 TAB PO PRN (20:38)
[2021-08-02] MEDS: AMINO ACIDS/PROTEIN HYDROLYS 30 ML LIQUID.PKT PO SCH (21:00)
[2021-08-03] MEDS: IPRATROPIUM BROM 0.5MG/2.5ML NEB SCH ×4 (01:59→20:15)
[2021-08-03 03:49] LABS: Protime INR 3.15
[2021-08-03 03:50] LABS: Hematocrit 26.9 % (39.6-49.0); MPV 7.8 fL (7.6-11.3); RBC Red Blood Cell Count 3.23 M/uL (4.33-5.43)
[2021-08-03] MEDS: LEVOTHYROXINE SOD 0.075 MG TAB PO SCH (05:59)
--- NOTE | 2021-08-03 06:24 | P.PN ---
Date of Service: 08/03/21 Subjective: stable awaiting insurance/facility approval Lower extremity edema improving ROS: 10 point ROS as noted above, otherwise negative Physical Exam General: AOx3, NAD HEENT: Sclerae nonicteric. Respiratory: Clear to auscultation bilaterally CV: irregular heart rate/rhythm, trace LLE edema, 1+ RLE edema GI: soft, non-distended, non-tenderness Neurological: AOx3, moves all extremities Problem List Acute hypoxemic respiratory failure secondary to large R pleural effusion, resolved acute metabolic encephalopathy, resolved Catheter related UTI - ESBL and enterococcus acute on chronic Systolic CHF exacerbation Acute COPD exacerbation Chronic anticoagulation with Coumadin Subtherapeutic INR Surgical hypothyroidism HTN HLD Clinically stable s/p thoracentesis Urine culture: klebsiella ESBL and Enterococcus. ID consulted - mino, end date: 08/07 for 10 day total course Blood culture: negative Altered mental status resolved. Patient is currently at baseline. Pulmonary is following, Bipap on discharge ordered. Started prednisone taper. Supratherapeutic INR on admission, Coumadin held until thoracentesis, later resumed. INR climbing, dose adjusted down INR is currently therapeutic. but trending up. Goal INR 23 Continue home synthroid. Blood pressure soft, decrease IV Lasix Code: full Dispo: Awaiting SNF placement / insurance auth, anticipate within 24 hours Time Spent Managing Pts Care (In Minutes): 35
[2021-08-03] MEDS: ARFORMOTEROL TARTRATE 15 MCG/2 ML VIAL.NEB NEB SCH ×2 (07:06→20:15)
[2021-08-03] MEDS: AMINO ACIDS/PROTEIN HYDROLYS 30 ML LIQUID.PKT PO SCH ×2 (09:00→20:29)
[2021-08-03] MEDS: LIDOCAINE 4% PATCH TD SCH (09:00)
[2021-08-03] MEDS: SPIRONOLACTONE 25 MG TABLET PO SCH ×2 (09:26→20:28)
[2021-08-03] MEDS: levoFLOXacin 750 MG TAB PO SCH (09:27)
[2021-08-03] MEDS: LACTOBACILLUS/ACIDOPHILUS TAB PO SCH ×2 (09:27→20:28)
[2021-08-03] MEDS: SENOSIDES 8.6 MG TAB PO SCH (09:27)
[2021-08-03] MEDS: FUROSEMIDE 40 MG/4 ML VIAL IV SCH (09:27)
[2021-08-03] MEDS: HYDROCODONE/APAP 10/325 TAB PO PRN ×2 (09:29→20:28)
--- NOTE | 2021-08-03 12:17 | P.PN ---
Subjective Date of Service: 08/03/21 Chief Complaint: Large R pleural effusion, hypoxia Patient seen and examined at bedside, no acute events over past 24 hr. Review of Systems 10-point ROS is otherwise unremarkable Physical Examination - Vital Signs Temperature: 97.6 F Blood Pressure: 100/47 Pulse: 91 Respirations: 18 Pulse Ox (%): 96 - Studies Laboratory Data (last 24 hrs) 08/03/21 03:17: Sodium 135 L, Potassium 4.0, BUN 25 H, Creatinine 0.90, Glucose 102, Magnesium 2.0 08/03/21 03:17: WBC 6.1 D, Hgb 8.5 L, Hct 26.9 L, Plt Count 137 L 08/03/21 03:17: PT 35.5 H, INR 3.15 Assessment And Plan - Plan Physical Exam: General: Alert, In no apparent distress HEENT: Atraumatic, Normocephalic Neck: No Thyromegaly Respiratory: Decreased breath sounds bilaterally Cardiovascular: Regular rate/rhythm Gastrointestinal: Normal bowel sounds, Soft and benign Integumentary: No rashes, No breakdown Conclusions/Impression: Antibiotics: levaquin: 07/22-08/07 Meropenem: Assessment/plan UTI Urine culture obtained on 07/18 growing ESBL Klebsiella and Enterococcus faecalis Patient was initially started on meropenem on 07/21, however was switched to Le vaquin on 07/22 based off urine culture susceptibility panel. -Recommend pulling Estrada and trying voiding trial Right-sided pleural effusion -Status post thoracentesis performed on 07/24, 700 mL of yellow-colored fluid was aspirated. Culture pending, however pleural fluid analysis demonstrates trasudative effusion. Effusion likely secondary to congestive heart failure. COPD with status respiratory failure Pulmonology following. Continue respiratory support Medical management per primary team Plan of care discussed with Dr. Hays
--- NOTE | 2021-08-03 17:08 | P.DS ---
Admission Date: 07/18/21 Discharge Date: 08/04/21 Disposition: TRANSFER TO [facility] Discharge Condition: FAIR Reason for Admission: Large R pleural effusion, hypoxia Consultations: Infectious Disease Cardiology Pulmonology Procedures: Problem List Acute hypoxemic respiratory failure secondary to large R pleural effusion, resolved acute metabolic encephalopathy, resolved Catheter related UTI - ESBL and enterococcus acute on chronic Systolic CHF exacerbation Acute COPD exacerbation Chronic anticoagulation with Coumadin Subtherapeutic INR Surgical hypothyroidism HTN HLD Brief History of Present Illness: 71yo M, PMH: systolic-CHF, COPD, h/o AoVR on coumadin, anemia, surgical hypothyroidism, HTN Transferred from [facility]. Patient is minimally responsive for me at time of exam. History obtained from ED physician. Patient with shortness of breath, worsening over few days. Associated with worsening swelling in legs. Patient was found to have large right pleural effusion on CTA, with concern for possible pneumonia. Patient was noted to have elevated BNP, INR > 8, afebrile, HR: 90- 110, and stable BP. He was placed on oxygen supplementation. Upon arrival here, patient was alert/oriented x 1 per nursing staff. On my exam shortly after, he was difficult to arouse. Hospital Course: Patient admitted to the medical floor and started on IV Lasix, bronchodilators and IV steroid. Urine culture obtained grew Klebsiella and Enterococcus. Initially treated for ESBL with IV meropenem and switched to oral Levaquin after organism sensitivities resulted. ID assisted with management. Blood cultures yielded no growth. End date for levaquin: 08/07. Estrada catheter removed and voided without issue. large R pleural effusion seen on CTA at [facility]. No PE. CT with atelectasis and possible pneumonia. Underwent thoracentesis with about 700 mL serous fluid drained. Patient shortness of breath improved and weaned off oxygen Patient diuresed well. Discharged with lasix and spironolactone, which can likely be titrated down as well. Altered mental status resolved. Patient is currently at baseline. Pulmonary saw patient, Bipap on discharge ordered by pulmonary. IV steroid later scaled down to oral prednisone. Patient was found to have incidental fluid collection in left psoas muscle consistent with hematoma. (9 cm CC x 4 cm AP x 4 cm) . Hgb was stable and did not have any symptoms/pain. Suspect secondary to supratherapeutic INR. His INR was supratherapeutic on admission, Coumadin held until thoracentesis and later resumed. He will need PT/INR checked within 2 days. Coumadin dosage decreased to 1mg daily on 08/01. Goal INR: 2-3. Has mechanical aortic valve prosthesis. Cardiology was consulted. no need for bridging as this is a mechanical aortic valve that is a high flow valve and thrombosis chance is very low, especially give fact of prior major bleeding. Patient has clinically improved and deemed stable for discharge. Patient was continued on his home pain regimen. Only required 1-2 norco in a day. Can likely be titrated down slowly. Vital Signs/Physical Exam: Temp Pulse Resp BP Pulse Ox 97.6 F 91 H 18 100/47 L 96 08/03/21 12:17 08/03/21 12:17 08/03/21 12:17 08/03/21 12:17 08/03/21 12:17 Physical Exam General: AOx3, NAD HEENT: Sclerae nonicteric. Respiratory: Clear to auscultation bilaterally CV: irregular heart rate/rhythm, trace LLE edema, trace to 1+ RLE edema GI: soft, non-distended, non-tenderness Neurological: AOx3, moves all extremities Laboratory Data at Discharge: WBC 6.1 K/uL (4.3-10.9) D 08/03/21 03:17 Hgb 8.5 g/dL (13.6-17.9) L 08/03/21 03:17 Hct 26.9 % (39.6-49.0) L 08/03/21 03:17 Plt Count 137 K/uL (152-406) L 08/03/21 03:17 PT 35.5 SECONDS (9.5-12.5) H 08/03/21 03:17 INR 3.15 08/03/21 03:17 APTT 64.7 SECONDS (24.3-36.9) H 07/18/21 18:14 Sodium 135 mmol/L (136-145) L 08/03/21 03:17 Potassium 4.0 mmol/L (3.5-5.1) 08/03/21 03:17 BUN 25 mg/dL (7-18) H 08/03/21 03:17 Creatinine 0.90 mg/dL (0.55-1.3) 08/03/21 03:17 Glucose 102 mg/dL (74-106) 08/03/21 03:17 Magnesium 2.0 mg/dL (1.8-2.4) 08/03/21 03:17 Total Bilirubin 0.6 mg/dL (0.2-1.0) 07/23/21 05:10 AST 23 U/L (15-37) 07/23/21 05:10 ALT 37 U/L (12-78) 07/23/21 05:10 Alkaline Phosphatase 91 U/L (45-117) 07/23/21 05:10 Cholesterol 139 mg/dL (<200) 07/24/21 10:37 Home Medications: Arformoterol Tartrate [Brovana] 15 mcg NEB BIDRESP vial.neb 05/30/21 Ipratropium Neb [Atrovent*] 0.5 mg NEB [id number] amp 05/30/21 Clotrimazole [Clotrimazole AF] 1 % .ROUTE BID 07/19/21 Docusate Sodium 100 mg PO DAILY 07/19/21 Levothyroxine [place]odium [place] [address]/19/21 Lidocaine 4% Patch [Lidoderm 5% Patch*] 4 % .ROUTE DAILY 07/19/21 Naloxegol Oxalate [Movantik] 12.5 mg PO DAILY 07/19/21 Oxycodone HCl/Acetaminophen [Oxycodone-Acetaminophen 10-325] 10 - 325 mg PO Q4H PRN 07/19/21 Sennosides [Senna] 8.6 mg PO DAILY 07/19/21 Urea [Gormel Ten] 10 % .ROUTE DAILY 07/19/21 methocarbamoL [Methocarbamol] 750 mg PO TID 07/19/21 Albuterol Neb [Proventil 0.083% Neb Soln] 2.5 mg NEB [id number] PRN amp 07/25/21 Ipratropium Neb [Atrovent*] 0.5 mg NEB [id number] amp 07/25/21 Frankie [Frankie*] 1 pkt PO BID powd.pack 07/25/21 Levothyroxine [Synthroid*] 0.15 mg PO DAILYAC tab 07/25/21 Melatonin 5 mg PO BEDTIME PRN PRN tablet 07/25/21 Spironolactone [Aldactone*] 25 mg PO BID tab 07/25/21 levoFLOXacin [Levaquin*] 750 mg PO DAILY #4 tab 07/25/21 Warfarin Sodium [Coumadin*] 1 mg PO DAILY 5 PM tab 08/03/21 Furosemide [Lasix*] 20 mg PO Q48H 60 Days #30 tab 08/04/21 New Medications: Furosemide [Lasix*] 20 mg PO Q48H 60 Days #30 tab levoFLOXacin [Levaquin*] 750 mg PO DAILY #4 tab Diet: AHA Activity: Fall precautions Followup: Jose Shaw MD [ACTIVE - CAN ADMIT] - Time spent managing pt's care (in minutes): 45
[2021-08-04] MEDS: IPRATROPIUM BROM 0.5MG/2.5ML NEB SCH ×3 (01:19→13:41)
[2021-08-04] MEDS: LEVOTHYROXINE SOD 0.075 MG TAB PO SCH (05:29)
[2021-08-04] MEDS ORDERED: Oxycodone HCl/Acetaminophen 1 TAB TAB PO PRN (06:50)
[2021-08-04] MEDS: ARFORMOTEROL TARTRATE 15 MCG/2 ML VIAL.NEB NEB SCH (07:56)
[2021-08-04] MEDS: SPIRONOLACTONE 25 MG TABLET PO SCH (08:13)
[2021-08-04] MEDS: LIDOCAINE 4% PATCH TD SCH (08:13)
[2021-08-04] MEDS: AMINO ACIDS/PROTEIN HYDROLYS 30 ML LIQUID.PKT PO SCH ×2 (08:14→08:16)
[2021-08-04] MEDS: SENOSIDES 8.6 MG TAB PO SCH (08:14)
[2021-08-04] MEDS: LACTOBACILLUS/ACIDOPHILUS TAB PO SCH (08:14)
[2021-08-04] MEDS: levoFLOXacin 750 MG TAB PO SCH (08:14)
[2021-08-04 08:31] LABS: Protime INR 2.42
[2021-08-04 11:05] LABS: Blood Gas Oxyhemoglobin 92.7 % (94-97); Blood O2 Saturation 95.6 % (92-98.5)
--- NOTE | 2021-08-04 11:23 | P.PN ---
Subjective Date of Service: 08/04/21 Chief Complaint: Large R pleural effusion, hypoxia Patient seen and examined at bedside, plan for DC today. Review of Systems 10-point ROS is otherwise unremarkable Physical Examination - Vital Signs Temperature: 97.2 F Blood Pressure: 104/51 Pulse: 89 Respirations: 18 Pulse Ox (%): 96 - Studies Laboratory Data (last 24 hrs) 08/04/21 08:00: PT 27.1 H, INR 2.42 Assessment And Plan - Plan Physical Exam: General: Alert, In no apparent distress HEENT: Atraumatic, Normocephalic Neck: No Thyromegaly Respiratory: Decreased breath sounds bilaterally Cardiovascular: Regular rate/rhythm Gastrointestinal: Normal bowel sounds, Soft and benign Integumentary: No rashes, No breakdown Conclusions/Impression: Antibiotics: levaquin: 07/22-08/07 Meropenem: Assessment/plan UTI Urine culture obtained on 07/18 growing ESBL Klebsiella and Enterococcus faecalis Patient was initially started on meropenem on 07/21, however was switched to Levaquin on 07/22 based off urine culture susceptibility panel. -Recommend pulling Estrada and trying voiding trial Right-sided pleural effusion -Status post thoracentesis performed on 07/24, 700 mL of yellow-colored fluid was aspirated. Culture pending, however pleural fluid analysis demonstrates trasudative effusion. Effusion likely secondary to congestive heart failure. COPD with status respiratory failure Pulmonology following. Continue respiratory support Medical management per primary team Plan of care discussed with Dr. Hays
[2021-08-04 12:17] VITALS: O2SAT 98
[2021-08-04] MEDS ORDERED: TAMSULOSIN 0.4 MG SR CAP PO ONE (16:00)
[2021-08-04 16:24] VITALS: BP 115/58; TEMP 97.7
[2021-08-04] MEDS: WARFARIN SODIUM 1 MG TAB PO SCH (16:27)
== END 2021-08-04 17:22 | DRG 291 ==
LOC: 2ND 14:47
PROVIDERS: ADMIT Hospitalist; ATTEND Hospitalist
PROC: 0W993ZX Drainage of Right Pleural Cavity, Percutaneous Approach, Diagnostic (ICD-10-PCS; principal; 2021-07-24)
DX: I11.0 Hypertensive heart disease with heart failure (principal); J96.01 Acute respiratory failure with hypoxia; I50.23 Acute on chronic systolic (congestive) heart failure; G93.41 Metabolic encephalopathy; J18.9 Pneumonia, unspecified organism; T83.511A Infection and inflammatory reaction due to indwelling urethral catheter, initial encounter; N39.0 Urinary tract infection, site not specified; J91.8 Pleural effusion in other conditions classified elsewhere; Z16.12 Extended spectrum beta lactamase (ESBL) resistance; J44.1 Chronic obstructive pulmonary disease with (acute) exacerbation; D68.8 Other specified coagulation defects; E87.2 Acidosis; J44.0 Chronic obstructive pulmonary disease with (acute) lower respiratory infection; B96.1 Klebsiella pneumoniae [K. pneumoniae] as the cause of diseases classified elsewhere; B95.2 Enterococcus as the cause of diseases classified elsewhere; E89.0 Postprocedural hypothyroidism; E78.5 Hyperlipidemia, unspecified; L89.152 Pressure ulcer of sacral region, stage 2; M79.81 Nontraumatic hematoma of soft tissue; R19.7 Diarrhea, unspecified; Z79.01 Long term (current) use of anticoagulants; Z95.2 Presence of prosthetic heart valve; Z88.0 Allergy status to penicillin; Z20.822 Contact with and (suspected) exposure to COVID-19
CPT/HCPCS: 32555; 36415; 70450; 71045; 71046; 71260; 74177; 80048; 80053; 81003; 81015; 82465; 82805; 82945; 82947; 83615; 83735; 84157; 84439; 84443; 85025; 85027; 85610; 85730; 87015; 87040; 87077; 87086; 87088; 87102; 87116; 87186; 87205; 87206; 88108; 88305; 93306; 94002; 94003; 94660; 94760; 97110; 97116; 97161; 97530; J0456; J1940; J2185; J2920; J7050; J7512; J7605; Q9967; U0003

== ENCOUNTER 2021-11-11 12:04 | Emergency (ER) | payer OTHER ==
--- OUTSIDE RECORDS SUMMARY | 2021-11-11 12:08 | XMS REPORT | Continuity of Care Document ---
:1950 Author Organization [facility] t Address [address] [place] [address] Care Team Providers Name Role Phone [phone] Attending Clinician Unavailable Juan Platt Anavella Attending Clinician Unava ilable Karly Fonseca V Attending Clinician Unavailable Evans Attending Clinician Unavailable [id number] Admitting Clinician Unavailable Ang Platt Admitting Clinician Unavailable Jill Ramírez V Admitting Clinician Unavailable Physician, Primary or Family Admitting Clinician Unavailabl e Payers Payer Name Policy Type Policy Number Effective Date Expiration Date S ource [facility] [id number] Problems This patient has no known problems. Allergies, Adverse Reactions, Alerts Allergy Allergy Status Severity Reaction(s) Onset Inactive Treating Comm ents Source Name Type Date Date Clinician [place] DA Active U UNKNOWN [facility] 2-14 [place] 00:00: d 00 [facility] Medications This patient has no known medications. Procedures Procedure Date / Time Performed Performing Clinician [facility] bernadine [id number] 2021-06-06 00:00:00 [facility] Encounters Start End Encounter Admission Attending Care Care Encounter Source Date/Time Date/Time Type Type Clinicians Facility Department ID 2021-05-29 Outpatient [id number] [facility] REF [id number] [facility] 15:03:38 0207 2021-05-30 2021-06-13 [id number] [facility] 14:32:00 18:00:00 Kelsey mills 2021-06-07 2021-06-07 Outpatient [place] [facility] LABO [id number] [facility] 05:25:00 05:25:00 Darrell [id number] [facility] 2021-06-06 2021-06-06 Outpatient Jill [facility] LAB[facility] [id number] [facility] 07:30:00 07:30:00 Darrell [id number] [facility] 2021-06-05 2021-06-05 Emergency EM Evans, HCAPM H[facility] [id number] [facility] 19:24:00 23:36:00 Anmol Arredondo [facility] 2021-06-05 2021-06-05 Emergency EM Evans, [facility] [place] [id number] [facility] 19:24:00 23:36:00 Anmol [id number] [facility] 2021-06-05 2021-06-05 Emergency EM Evans, [facility]CAPM N[place] [id number] [facility] 19:24:00 23:36:00 Anmol [id number] [facility] Results Test Description Test Time Test Comments [...] DIFF/SCN CRITERIA UA RFLX MICR CULT IF [id number] 20:19:00 Test Item Value Reference Range Interpretation [...]
[2021-11-11 13:02] LABS: Urine Bacteria >50 /HPF (<20); Urine RBC >50 /HPF (None Seen)
--- NOTE | 2021-11-11 13:50 | ER ---
Nurse's Notes [facility] Name: Juan Aranda Age: 71 yrs Sex: Male : 1950 Arrival Date: 11/11/2021 Time: 12:08 Bed 18 Private MD: Diagnosis: UTI/ Urinary tract infection, site not specified;Displacement of other urinary catheter, initial encounter Presentation: 11/11 12:08 Chief complaint: EMS states: pt from [facility], pulled out ortiz today and tw2 they were unable to get the ortiz in past his prostate. staff says his urine always is blood tinged. vs stable. staff also reports he has hx of hydrocele. Coronavirus screen: At this time, the client does not indicate any symptoms associated with coronavirus-19. Ebola Screen: Patient denies travel to an Ebola-affected area in the 21 days before illness onset. Initial Sepsis Screen: Does the patient meet any 2 criteria? No. Patient's initial sepsis screen is negative. Does the patient have a suspected source of infection? No. Patient's initial sepsis screen is negative. Risk Assessment: Do you want to hurt yourself or someone else? Patient reports no desire to harm self or others. Onset of symptoms was November 11, 2021. 12:08 Method Of Arrival: EMS: [facility] tw2 12:08 Acuity: DENNIS 4 tw2 Triage Assessment: 12:10 General: Appears in no apparent distress. Behavior is calm, cooperative, appropriate tw2 for age. Pain: Denies pain. Neuro: Level of Consciousness is awake, alert, obeys commands, Oriented to person, situation. Cardiovascular: Patient's skin is warm and dry. Respiratory: Airway is patent Respiratory effort is even, unlabored, Respiratory pattern is regular, symmetrical, pt uses 02 \\T\\ 2L daily. pt placed on 2L nc at this time. GI: No signs and/or symptoms were reported involving the gastrointestinal system. :. 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 - Social history:: Smoking status: . Screenin:52 Abuse screen: Denies threats or abuse. Nutritional screening: No deficits noted. tw2 Tuberculosis screening: No symptoms or risk factors identified. Fall Risk Secondary diagnosis (15 points) impaired mobility. Assessment: 13:51 Reassessment: Patient appears in no apparent distress at this time. Patient and/or tw2 family updated on plan of care and expected duration. Pain level reassessed. 14:12 Reassessment: attempted to call report to [facility] and was told his nurse was busy and tw2 would have to call me back. Vital Signs: 12:08 BP 112 / 56; Pulse 89; Resp 17; Pulse Ox 100% on R/A; tw2 12:08 Temp 97.9(O); tw2 13:51 BP 129 / 52; Pulse 88; Resp 20; Pulse Ox 100% on 2 lpm NC; tw2 ED Course: 12:08 Patient arrived in ED. eb 12:08 Connie Manzanares, SANTA is Primary Nurse. tw2 12:08 Bed in low position. Call light in reach. Side rails up X2. Pulse ox on. NIBP on. Warm tw2 blanket given. 12:10 Triage completed. tw2 12:10 Franklin Granados PA is PHCP. cp 12:10 Kirti Mckeon is Attending Physician. cp 12:10 Arm band placed on. tw2 12:35 Ortiz cath inserted, using sterile technique, 16 Fr., by wa, balloon inflated, to tw2 gravity drainage, urine specimen collected. 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 13:54 Awaiting transportation, Awaiting: back to [facility] at this time. tw2 14:11 No provider procedures requiring assistance completed. IV discontinued, intact, tw2 bleeding controlled, No redness/swelling at site. Pressure dressing applied. 14:25 Report given to Raquel with [facility]. tw2 Administered Medications: 13:51 Drug: Rocephin (cefTRIAXone) 1 grams Route: IM; Site: right deltoid; tw2 14:13 Follow up: Response: No adverse reaction tw2 Medication: 13:52 VIS not applicable for this client. tw2 Outcome: 13:50 Discharge ordered by . cp 14:11 Discharged to home via ambulance. tw2 14:11 Condition: stable 14:11 Discharge instructions given to patient, Instructed on discharge instructions, follow up and referral plans. medication usage, Demonstrated understanding of instructions, follow-up care, medications, Prescriptions given X 1. 14:13 Patient left the ED. tw2 Signatures: Franklin Granados PA PA cp Wise, Tara, RN RN tw2 Carleen Cole Corrections: (The following items were deleted from the chart) 12:12 12:08 Chief complaint: EMS states: pt from [facility], pulled out ortiz tw2 today and they were unable to get the ortiz in past his prostate. staff says his urine always is blood tinged. vs stable. tw2 12:55 12:48 URINALYSIS+U.LAB.BRZ drawn and sent. tw2 EDMS
--- NOTE | 2021-11-11 13:50 | EDPHYS ---
Physician Documentation [facility] Name: Juan Aranda Age: 71 yrs Sex: Male : 1950 Arrival Date: 11/11/2021 Time: 12:08 Bed 18 Private MD: ED Physician Kirti Mckeon HPI: 11/11 12:20 This 71 yrs old Male presents to ER via EMS with complaints of Problem With Urinary cp Catheter. 12:20 The patient presents with a Ortiz catheter problem, was pulled out accidentally. Onset: cp The symptoms/episode began/occurred today. Associated signs and symptoms: Pertinent positives: hematuria, Pertinent negatives: constipation, diarrhea, fever, vomiting. 12:20 Severity of symptoms: in the emergency department the symptoms are unchanged. Patient cp is a resident of [facility]. EMS reports ortiz accidently pulled out today and nursing staff unable to replace ortiz. Patient with history of chronic hematuria. 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 - Social history:: Smoking status: . ROS: 12:25 Constitutional: Negative for body aches, chills, fever, poor PO intake. cp 12:25 Cardiovascular: Negative for chest pain. cp 12:25 Respiratory: Negative for cough, shortness of breath, wheezing. 12:25 Abdomen/GI: Negative for abdominal pain, vomiting, diarrhea, constipation. 12:25 Neuro: Negative for altered mental status, dizziness, headache, weakness. cp 12:25 : Positive for hematuria. cp 12:25 All other systems are negative. Exam: 12:30 Constitutional: The patient appears in no acute distress, alert, awake, non-toxic, well cp developed, well nourished. 12:30 Head/Face: Normocephalic, atraumatic. cp 12:30 Eyes: Periorbital structures: appear normal, Conjunctiva: normal, no exudate, no injection, Lids and lashes: appear normal, bilaterally. 12:30 ENT: External ear(s): are unremarkable, Nose: is normal, Mouth: Lips: moist, Oral mucosa: pink and intact, moist, Posterior pharynx: Airway: no evidence of obstruction, patent. 12:30 Chest/axilla: Inspection: normal, Palpation: is normal, no crepitus, no tenderness. 12:30 Cardiovascular: Rate: normal. 12:30 Respiratory: the patient does not display signs of respiratory distress, Respirations: normal, no use of accessory muscles, no retractions, labored breathing, is not present, Breath sounds: are clear throughout. 12:30 Abdomen/GI: Inspection: abdomen appears normal, Bowel sounds: active, all quadrants, Palpation: soft, in all quadrants, mild abdominal tenderness, in the suprapubic area, rebound tenderness, is not appreciated, involuntary guarding, is not appreciated. 12:30 Neuro: Orientation: to person, place \\T\\ time. Mentation: is normal. Vital Signs: 12:08 BP 112 / 56; Pulse 89; Resp 17; Pulse Ox 100% on R/A; tw2 12:08 Temp 97.9(O); tw2 13:51 BP 129 / 52; Pulse 88; Resp 20; Pulse Ox 100% on 2 lpm NC; tw2 MDM: 12:13 Patient medically screened. cp 13:50 Data reviewed: vital signs, nurses notes, lab test result(s). cp 13:50 Differential diagnosis: UTI, Ortiz catheter problem, sepsis, anemia. Counseling: I had cp a detailed discussion with the patient and/or guardian regarding: the historical points, exam findings, and any diagnostic results supporting the discharge/admit diagnosis, lab results, to return to the emergency department if symptoms worsen or persist or if there are any questions or concerns that arise at home. 11/11 12:55 Order name: Urine Microscopic Only; Complete Time: 13:41 EDMS 11/11 13:41 Interpretation: Abnormal: UWBC 21-50; URBC >50; UBACT >50. cp 11/11 12:13 Order name: Ortiz; Complete Time: 12:37 cp 11/11 13:05 Order name: Urine Culture EDMS Administered Medications: 13:51 Drug: Rocephin (cefTRIAXone) 1 grams Route: IM; Site: right deltoid; tw2 14:13 Follow up: Response: No adverse reaction tw2 Disposition Summary: 11/11/21 13:50 Discharge Ordered Location: Home cp Problem: new cp Symptoms: have improved cp Condition: Stable cp Diagnosis - UTI/ Urinary tract infection, site not specified cp - Displacement of other urinary catheter, initial encounter cp Followup: cp - With: Emergency Department - When: As needed - Reason: Worsening of condition Discharge Instructions: - Discharge Summary Sheet cp - Indwelling Urinary Catheter Care, Adult cp - Urinary Tract Infection, Adult cp Forms: - Medication Reconciliation Form cp - Thank You Letter cp - Antibiotic Education cp - Prescription Opioid Use cp Prescriptions: - cefpodoxime 200 mg Oral Tablet - take 1 tablet by ORAL route every 12 hours for 7 days with food; 14 tablet; cp Refills: 0, Product Selection Permitted Signatures: Dispatcher [employer] EDMS Franklin Granados PA PA cp Connie Manzanares RN RN tw2 Corrections: (The following items were deleted from the chart) 12:19 12:13 Urine Dipstick-Ancillary ordered. cp [id number] 12:55 12:13 URINALYSIS+U.LAB.BRZ ordered. EDMS EDMS
[2021-11-11] MEDS ORDERED: CEFTRIAXONE 1000 MG/VIAL ONE (13:53)
[2021-11-11] MEDS ORDERED: WATER FOR INJ,STERILE 10 ML ONE (13:53)
[2021-11-11 14:52] VITALS: TEMP 97.9; O2SAT 100
[2021-11-11 14:54] VITALS: BP 129/52
== END 2021-11-11 14:13 | disposition home or self-care (01) ==
LOC: ER 12:04
DX: T83.028A Displacement of other urinary catheter, initial encounter (principal); N39.0 Urinary tract infection, site not specified; I10 Essential (primary) hypertension; Z88.0 Allergy status to penicillin
CPT/HCPCS: 51702; 81015; 87077; 87086; 87088; 87186; 96372; 99284

== ENCOUNTER 2023-05-24 10:53 | Inpatient (IN) | payer OTHER ==
--- OUTSIDE RECORDS SUMMARY | 2023-05-24 10:56 | XMS REPORT | Continuity of Care Document ---
Author Name Unknown Address [address] [facility] [address] [place] [address] [facility] Address [address] [facility] [address] [place] [address] Care Team Providers Care Marine Electrician Name Role Phone [phone] Attending Clinician Unavailable Renae Platt Anavella Attending Cli nician Unavailable UNDEFINED Attending Clinician Unavailable Karly Fonseca V Attending Clinician Anmol Ruelas Attending Clinician Unavailable [id number] Admitting Clinician Unavailable Ang Platt Anav Admitting Clinician U navailable UNDEFINED Admitting Clinician Unavailable Karly Fonseca V Admitting Clinician Muna sesay Physician, No Primary or Family Admitting Clinic laura Unavailable Payers Payer Name Policy Type Policy Number Effective Date Expirati on Date Source [facility] [id number] Allergies, Adverse Reactions, Alerts Allergy Name Allergy Type Status Severity Reaction(s) Onset Date Inactive Date Treating Clinician Comments Source Penicill ins DA Active U UNKNOWN 06-05 00:00: 00 [facility] Procedures Procedure Date / Time Performed Performing Clinicia n Source [id number] 2021-06-06 00:00:00 [facility] Encounters Start Date/Time End Date/Time Encounter Type Admission Type Attending Clinicians Care Facility Care Department Encounter ID Source 2021-05-29 15:03:38 Outpatient 3 [id number] ENCPL REF [id number]-05-30 14:32:00 2021-06-13 18:00:00 [facility] [id number] 2021-06-11 08:11:00 2021-06-11 08:11:00 Outpatient UNDEFINED HCACL LABO [id number] [facility] 2021-06-11 04:53:00 2021-06-11 04:53:00 Outpatient [facility] RENAE RAMEY HCAPM LABO [id number] [facility] 2021-06-07 05:25:00 2021-06-07 05:25:00 Outpatient Karly Fonseca HCAPM LABO [id number] [facility] 2021-06-07 05:25:00 2021-06-07 05:25:00 Outpatient Karly Fonseca HCAPM LABO [id number] [facility] 2021-06-06 07:30:00 2021-06-06 07:30:00 Outpatient Karly Fonseca HCAPM LABO [id number] [facility] 2021-06-05 19:24:00 2021-06-05 23:36:00 Emergency EM Evans Anmol HCAPM NADEEM [id number] [facility] 2021-06-05 19:24:00 2021-06-05 23:36:00 Emergency EM Nathan Anmol HCAPM NADEEM [id number] [facility] Results Test Description Test Time Test Comments Results Result Co mments Source [id number] 11:48:00* Test Item Value Reference Range Interpretation Comme nts FERRITIN (test code = NABIL) 174.4 ng/mL 23.9-336.2 TOTAL IRON BINDING [id number] 11:47:00* Test Item Value Reference Range Interpretation Comme nts TOTAL IRON BINDING CAPACITY (test code = TIBC) 302 mcg/dL 260-445 N [id number] 11:47:00* Test Item Value Reference Range Interpretation Comme nts FERRITIN (test code = NABIL) 174.4 ng/mL 23.9-336.2 N HEPATIC FUNCTION [id number] 06:03:00* Test Item Value Reference Range Interpretation Comme nts TOTAL PROTEIN (test code = PROT) 6.7 G/DL 6.4-8.2 N ALBUMIN (test code = ALB) 3.4 G/DL 3.4-5.0 N BILIRUBIN TOTAL (test code = BILT) 0.80 MG/DL 0.2-1.2 N BILIRUBIN DIRECT (test code = BILD) 0.20 MG/DL 0.00-0.30 N BILIRUBIN INDIRECT (test cod e = BILIND) 0.60 MG/DL 0.2-1.2 N SGOT/AST (test code = AST) 35 Unit/L 15-37 N SGPT/ALT (test code = ALT) 21 Unit/L 12-78 N ALKALINE PHOSPHATASE TOTAL ( test code = ALKP) 78 Unit/L 50-136 N SERUM [id number] 06:03:00* Test Item Value Reference Range Interpretation Comme nts SERUM IRON (test code = IRON) 58 mcG/DL 65-175 L PROTHROMBIN [id number] 05:24:00* Test Item Value Reference Range Interpretation Comme nts PT PATIENT (test code = PTP) 21.2 SECONDS 9.3-12.9 H INTERNATIONAL NORMAL RATIO (test code = INR) 1.84 INR Unit 0.8-1.2 H TARGET INR BY INDICATION Indication INR1. Prophylaxis of venous thrombosis 2.0 - 3.0 (orthopedic surgery), Prophylaxis of venous thrombosis (other than high-risk surgery), Treatment of Deep Vein Thrombosis/Pulmonary Embolism, Prevention of systemic embolism - Tissue heart valves, Acute Myocardial Infarction (to prevent systemic embolism), Valvular heart disease, Acute Myocardial Infarction (to prevent systemic embolism), Valvular heart disease, Atrial Fibrillation, Bileaflet mechanical valve in aortic position.2. Mechanical prosthetic valves (high risk), 2.5 - 3.5 Presence of Lupus Anticoagulant or Antiphospholipid Antibodies, Prevention of systemic embolism - Acute Myocardial Infarction (to prevent recurrent infarct). CBC W/AUTO [id number] 05:17:00* Test Item Value Reference Range Interpretation Comme nts WHITE BLOOD CELL (test code = WBC) 5.1 K/mm3 3.5-11.0 N RED BLOOD CELL (test code = RBC) 2.55 M/mm3 4.70-6.10 L HEMOGLOBIN (test code = HGB) 7.6 G/DL 12.3-15.9 L HEMATOCRIT (test code = HCT) 24.0 % 35.8-46.7 L MEAN CELL VOLUME (test code = MCV) 94.1 Fl 86.3-98.9 N MEAN CELL HGB (test code = MCH) 29.8 pg 28.9-34.4 N MEAN CELL HGB CONCETRATION (test code = MCHC) 31.7 G/DL 32.1-34.5 L RED CELL DISTRIBUTION WIDTH (test code = RDW) 17.2 SD 11.5-14.5 H PLATELET COUNT (test code = PLT) 151 K/mm3 150-450 N MEAN PLATELET VOLUME (test c ode = MPV) 10.70 fL 7.0-9.6 H NEUTROPHIL % (test code = NT%) 68.5 % 40-76 N IMMATURE GRANULOCYTE % (test code = IG%) 1.2 % 0.0-5.0 N LYMPHOCYTE % (test code = LY%) 17.4 % 20.5-51.1 L MONOCYTE % (test code = MO%) 8.6 % 1.7-9.3 N EOSINOPHIL % (test code = EO%) 3.9 % 0.0-6.0 N BASOPHIL % (test code = BA%) 0.4 % 0.0-2.0 N NUCLEATED RBC % (test code = NRBC%) 0.4 /100WBC% 0.0-1.0 N NEUTROPHIL # (test code = NT#) 3.5 K/mm3 1.8-7.6 N IMMATURE GRANULOCYTE # (test code = IG#) 0.06 x10 3/uL 0.00-0.03 H LYMPHOCYTE # (test code = LY#) 0.9 K/mm3 0.6-3.0 N MONOCYTE # (test code = MO#) 0.4 K/mm3 0.2-1.5 N EOSINOPHIL # (test code = EO#) 0.2 K/mm3 0.0-0.4 N BASOPHIL # (test code = BA#) 0.0 K/mm3 0.0-0.2 N NUCLEATED RBC # (test code = NRBC#) 0.0 K/mm3 0.00-0.01 N MANUAL DIFF REQUIRED (test c ode = MDIFF) NO DIFF/SCN CRITERIA [id number] 14:12:00* Test Item Value Reference Range Interpretation Comme nts HAPTOGLOBIN (test code = HAPT) 66 mg/dL 34-355 [facility] [address] [place], [place] [id number] EVAN SCHRADER Ph:[phone] CBC W/AUTO [id number] 06:01:00* Test Item Value Reference Range Interpretation Comme nts WHITE BLOOD CELL (test code = WBC) 6.8 K/mm3 3.5-11.0 N RED BLOOD CELL (test code = RBC) 2.53 M/mm3 4.70-6.10 L HEMOGLOBIN (test code = HGB) 7.6 G/DL 12.3-15.9 L HEMATOCRIT (test code = HCT) 23.0 % 35.8-46.7 L MEAN CELL VOLUME (test code = MCV) 90.9 Fl 86.3-98.9 N MEAN CELL HGB (test code = MCH) 30.0 pg 28.9-34.4 N MEAN CELL HGB CONCETRATION (test code = MCHC) 33.0 G/DL 32.1-34.5 N RED CELL DISTRIBUTION WIDTH (test code = RDW) 16.7 SD 11.5-14.5 H PLATELET COUNT (test code = PLT) 127 K/mm3 150-450 L MEAN PLATELET VOLUME (test c ode = MPV) 12.00 fL 7.0-9.6 H NEUTROPHIL % (test code = NT%) 70.0 % 40-76 N IMMATURE GRANULOCYTE % (test code = IG%) 0.7 % 0.0-5.0 N LYMPHOCYTE % (test code = LY%) 16.9 % 20.5-51.1 L MONOCYTE % (test code = MO%) 9.4 % 1.7-9.3 H EOSINOPHIL % (test code = EO%) 2.7 % 0.0-6.0 N BASOPHIL % (test code = BA%) 0.3 % 0.0-2.0 N NUCLEATED RBC % (test code = NRBC%) 0.0 /100WBC% 0.0-1.0 N NEUTROPHIL # (test code = NT#) 4.8 K/mm3 1.8-7.6 N IMMATURE GRANULOCYTE # (test code = IG#) 0.05 x10 3/uL 0.00-0.03 H LYMPHOCYTE # (test code = LY#) 1.2 K/mm3 0.6-3.0 N MONOCYTE # (test code = MO#) 0.6 K/mm3 0.2-1.5 N EOSINOPHIL # (test code = EO#) 0.2 K/mm3 0.0-0.4 N BASOPHIL # (test code = BA#) 0.0 K/mm3 0.0-0.2 N NUCLEATED RBC # (test code = NRBC#) 0.0 K/mm3 0.00-0.01 N MANUAL DIFF REQUIRED (test c ode = MDIFF) NO DIFF/SCN CRITERIA RETIC COUNT (AUTOMATED)2021-06-07 06:01:00* Test Item Value Reference Range Interpretation Comme nts RETIC COUNT (AUTOMATED) (jonathan t code = RETICA) 2.8 % 0.3-2.3 H [id number] 05:56:00* Test Item Value Reference Range Interpretation Comme nts SGPT/ALT (test code = ALT) 22 Unit/L 12-78 N LACTIC DEHYDROGENASE(LDH)2021-06-07 05:56:00* Test Item Value Reference Range Interpretation Comme nts LACTIC DEHYDROGENASE(LDH) (t est code = LDH) 370 Unit/L 87-241 H BASIC METABOLIC [id number] 05:56:00* Test Item Value Reference Range Interpretation Comme nts SODIUM (test code = NA) 130 mmol/L 134-147 L POTASSIUM (test code = K) 5.6 mmol/L 3.4-5.0 H CHLORIDE (test code = CL) 95 mmol/L 100-108 L CARBON DIOXIDE (test code = CO2) 32 mmol/L 21-32 N ANION GAP (test code = GAP) 3.0 GAP calc 4.0-15.0 L GLUCOSE (test code = GLU) 87 MG/DL 70-110 N BLOOD UREA NITROGEN (test co de = BUN) 64 MG/DL 7-18 H GLOMERULAR FILTRATION RATE ( test code = GFR) 25 estGFR >60 L CREATININE (test code = CREAT) 2.7 MG/DL 0.8-1.3 H CALCIUM (test code = CA) 8.9 MG/DL 8.5-10.1 N TOTAL [id number] 05:56:00* Test Item Value Reference Range Interpretation Comme nts TOTAL PROTEIN (test code = PROT) 7.2 G/DL 6.4-8.2 N [id number] 05:56:00* Test Item Value Reference Range Interpretation Comme nts ALBUMIN (test code = ALB) 3.5 G/DL 3.4-5.0 N BILIRUBIN [id number] 05:56:00* Test Item Value Reference Range Interpretation Comme nts BILIRUBIN TOTAL (test code = BILT) 1.00 MG/DL 0.2-1.2 N [id number] 05:56:00* Test Item Value Reference Range Interpretation Comme nts SGOT/AST (test code = AST) 47 Unit/L 15-37 H PROTHROMBIN [id number] 05:51:00* Test Item Value Reference Range Interpretation Comme [facility] PT PATIENT (test code = PTP) 36.2 SECONDS 9.3-12.9 H INTERNATIONAL NORMAL RATIO (test code = INR) 3.10 INR Unit 0.8-1.2 H TARGET INR BY INDICATION Indication INR1. Prophylaxis of venous thrombosis 2.0 - 3.0 (orthopedic surgery), Prophylaxis of venous thrombosis (other than high-risk surgery), Treatment of Deep Vein Thrombosis/Pulmonary Embolism, Prevention of systemic embolism - Tissue heart valves, Acute Myocardial Infarction (to prevent systemic embolism), Valvular heart disease, Acute Myocardial Infarction (to prevent systemic embolism), Valvular heart disease, Atrial Fibrillation, Bileaflet mechanical valve in aortic position.2. Mechanical prosthetic valves (high risk), 2.5 - 3.5 Presence of Lupus Anticoagulant or Antiphospholipid Antibodies, Prevention of systemic embolism - Acute Myocardial Infarction (to prevent recurrent infarct). CBC W/AUTO [id number] 07:56:00* Test Item Value Reference Range Interpretation Comme [...] CONCETRATION (test code = MCHC) 30.9 G/DL 32.1-34.5 L RED CELL DISTRIBUTION WIDTH (test code = RDW) 16.8 SD 11.5-14.5 H PLATELET COUNT (test code = PLT) 123 K/mm3 150-450 L MEAN PLATELET VOLUME (test c ode = MPV) 11.90 fL 7.0-9.6 H NEUTROPHIL [...] K/mm3 0.00-0.01 N MANUAL DIFF REQUIRED (test c ode = MDIFF) NO DIFF/SCN CRITERIA UA RFLX MICR CULT IF [id number] 20:19:00* Test Item Value Reference Range Interpretation Comme nts UA COLOR (test code = COLU) DARK YELLOW discript YEL/STRAW UA APPEARANCE (test code = APPU) HAZY discript CLEAR A UA GLUCOSE DIPSTICK (test code = DGLUU) NEGATIVE mg/dL NEG UA BILIRUBIN DIPSTICK (test code = BILU) NEGATIVE mg/dL NEG UA KETONE DIPSTICK (test code = KETU) NEGATIVE mg/dL NEG UA SPECIFIC GRAVITY (test code = SGU) 1.020 SG 1.005-1.030 UA BLOOD DIPSTICK (test code = ZEHRA) 3+ mg/DL NEG A UA PH DIPSTICK (test code = MAHENDRA) 5.5 pH UNITS 5.0-7.0 UA PROTEIN DIPSTICK (test code = PROU) TRACE mg/dL NEG A UA UROBILINIOGEN DIPSTICK (test code = URO) 0.2 mg/dL <2.0 UA NITRITE DIPSTICK (test code = ETHAN) NEGATIVE SCREEN NEG UA LEUKOCYTE ESTERASE DIPSTICK (test code = LEUU) NEGATIVE Leuk/mcL NEGATIVE UA CULTURE NEEDED? (test code = UACULT) NO, WBC<10 Criteria Culture CHK UA WBC (test code = WBCU) 5-10 #WBC/HPF 0-3 A UA RBC (test code = RBCU) 10-20 #RBC/HPF 0-3 A UA BACTERIA (test code = BACU) 2+ /HPF NONE-TRACE A UA SQUAMOUS CELLS (test code = SQU) TRACE /HPF NONE Indication for culture: Suprapubic Pain Notes Date/Time Note Provider Source 2021-06-05 19:27:00 [id number]:27:00 [facility] ([facility])EMERGENCY PROVIDER REPORTREPORT#:[id number] REPORT STATUS: SignedDATE:06/05/21 TIME:1926 PATIENT: LORRIE WOLF UNIT #: [id number]#: [id number] ROOM/BED:: 50 AGE: 71 SEX: M PCP PHYS: No Primary or Family PhysicianSERVICE AUTHOR: Anmol Evans MD * ALL edits or amendments must be made on the electronic/computer document * HPI- Male Free Text HPI NotesFree Text HPI NotesPatient presents to emergency department for urinary retention that started yesterday afternoon. Patient complaining of mild to moderate suprapubic pain and pressure. No fevers chills nausea vomiting diarrhea chest pain shortness ofbreath. Nothing makes symptoms better nothing makes symptoms worse. Patient feels the sensation that he needs to urinate but is unable to do so. GeneralInitial Greet Date/Time 06/05/211925 PresentationChief Complaint Urination decreased Risk- Male Risk StratificationTorsion Risk factors reviewed Review of Systems ROS StatementsAll systems rev neg except as marked. Basic Review of SystemsBasic ROS EYES: No redness, ENT: No sore throat, RESP: No SOB, CV: No chest pain, HEM: No bleeding/bruising, NEURO: No change MS, NEURO: No focal deficit Focused Review of SystemsConstitutionalDenies: Chills, Fatigue, Fever, Malaise. GIReports: Abdominal pain. Denies: Constipation, Diarrhea, Nausea, Vomiting. MaleReports: Urination decreased. Denies: Dysuria, Hematuria, Incontinence, Nocturia, Scrotal swelling. MusculoskeletalDenies: Back pain, Extremity pain, Extremity swelling, Joint pain, Joint swelling. SkinDenies: Abrasion, Abscess, Burn, Contusion, Diaphoresis. Past Medical History - AdultStated Complaint URINARY RETENTIONAllergiesCoded Allergies:Penicillins (UNKNOWN 06/05/21) Physical Exam Vital SignsVital SignsFirst Documented: Result Date Time Pulse Ox 96 06/05 1925 B/P 136/62 06/05 1925 B/P Mean 86 06/05 1925 O2 Delivery Room air 06/05 1925 Temp 97.2 06/05 1925 Pulse 82 06/05 1925 Resp 16 06/05 1925 Last Documented: Result Date Time Pulse Ox 96 06/05 2229 B/P 124/80 06/05 2229 B/P Mean 94 06/05 2229 O2 Delivery Room air 06/05 2229 Pulse 68 06/05 2229 Resp 21 06/05 2229 Temp 97.2 06/05 1925 Review of Vital Signs Reviewed Basic Physical ExamBasic PE GEN: Well appearing/NAD, HEAD: Atraumatic/NC, EYES: PERRL, conj clear, ENT: Membranes moist, NECK: Supple, RESP: No resp distress, CV: Reg rate rhythm, EXT: No gross abnormality, SKIN: No rashes, warm/dry, NEURO: alert oriented, NEURO: gross movement NL Focused PEGeneral/Const General/Const Awake, Alert, No acute distress, Well appearing, Well developedAbdomen/GI Abdomen/GI Atraumatic, Soft Text/Dict NotesTenderness to palpation suprapubic area with mild fullnessSkin Skin Atraumatic, Warm, Dry, IntactGenitourinary General Exam deferred Interpretation Diagnostics Lab Results InterpretationResultsLaboratory Tests: 06/05 1944 Urines Urine Color (YEL/STRAW discript) DARK YELLOW Urine Appearance (CLEAR discript) HAZY H Urine pH (5.0 - 7.0 pH UNITS) 5.5 Ur Specific [place] (1.005 - 1.030 SG) 1.020 Urine Protein (NEG mg/dL) TRACE H Urine Glucose (UA) (NEG mg/dL) NEGATIVE Urine Ketones (NEG mg/dL) NEGATIVE Urine Blood (NEG mg/DL) 3+ H Urine Nitrite (NEG SCREEN) NEGATIVE Urine Bilirubin (NEG mg/dL) NEGATIVE Urine Urobilinogen (<2.0 mg/dL) 0.2 Ur Leukocyte Esterase (NEGATIVE Leuk/mcL) NEGATIVE Urine RBC (0 - 3 #RBC/HPF) 10-20 H Urine WBC (0 - 3 #WBC/HPF) 5-10 H Ur Squamous Epith Cells (NONE /HPF) TRACE Urine Bacteria (NONE - TRACE /HPF) 2+ H Urine Culture Screen (Culture CHK Criteria) NO, WBC<10 Re-Evaluation [facility] ED CourseMedication(s) OrderedMedication(s) Ordered:Anti-Infective Agents Sig/Troy Start time Last Medication Dose Route Stop Time Status Admin Nitrofurantoin 100 MG ONCE ONE 06/05 2044 DC 06/05 Macrocrystals PO 06/05 Central Nervous System Agents Sig/Troy Start time Last Medication Dose Route Stop Time Status Admin Ibuprofen 600 MG X1ED STA 06/05 2117 DC PO 06/05 2118 Patient Discharge Departure Vital Signs/ConditionVital SignsFirst Documented: Result Date Time Pulse Ox 96 06/05 1925 B/P 136/62 06/05 1925 B/P Mean 86 06/05 1925 O2 Delivery Room air 06/05 1925 Temp 97.2 06/05 1925 Pulse 82 06/05 1925 Resp 16 06/05 1925 Last Documented: Result Date Time Pulse Ox 96 06/05 2229 B/P 124/80 06/05 2229 B/P Mean 94 06/05 2229 O2 Delivery Room air 06/05 2229 Pulse 68 06/05 2229 Resp 21 06/05 2229 Temp 97.2 06/05 1925 All vital signs available at the time of this entry have been reviewed. Clinical ImpressionClinical ImpressionPrimary Impression: UTI (urinary tract infection)Secondary Impressions: Urinary retention Disposition DecisionDischarge )( Discharged to Home Yes )( Time 2045 )( Date 06/05/21 Discharge/Care Plan(Auto) PrescriptionsCurrent Visit ScriptsNITROFURANTOIN/NITROFURAN MAC (MACROBID) 100 MG PO BID NITROFURANTOIN/NITROFURAN MAC (MACROBID) 100 MG PO BID #14 CAPS Until finished. Take with food. Patient Instructions ED Urinary Retention, MaleReferralsProvider Referral: William Winkler MD Address: [address] [place] [address] at 0640 RPT #: [id number] OF REPORTEDEmergency department [id number]:27:00L.[id number] ilable for patient [id number]:40:36 HCAPM
[2023-05-24 11:12] LABS: Absolute Lymphocytes (CBC) 1.6 K/uL (0.7-4.9); Hematocrit 38.7 % (39.6-49.0); Lymphocytes % 20.9 % (15.3-44.8); MCV 87.7 fL (80-100); MPV 8.8 fL (7.6-11.3); Platelets 185 thou/uL (152-406); RBC Red Blood Cell Count 4.41 M/uL (4.33-5.43)
[2023-05-24] MEDS ORDERED: LEVALBUTEROL 1.25 MG/3 ML NEB ONE (11:17)
[2023-05-24 11:28] LABS: Potassium 4.4 mEq/L (3.5-5.1); Troponin High Sensitivity 38.1 pg/mL (<58.9)
[2023-05-24 11:38] LABS: Protime INR 3.27
[2023-05-24 11:49] LABS: SARS-CoV-2 Antigen Rapid Res Negative (Negative)
[2023-05-24] MEDS ORDERED: FUROSEMIDE 40 MG/4 ML VIAL ONE (12:01)
--- NOTE | 2023-05-24 12:16 | RAD REPORT ---
EXAM DESCRIPTION: RAD - Chest Single View - 05/24/2023 11:58 am CLINICAL HISTORY: CHEST PAIN Chest pain. COMPARISON: Chest Single View dated 07/25/2022; Chest Single View dated 07/17/2022; Chest Single View d ated 08/01/2021; Chest Single View dated 07/26/2021 FINDINGS: Portable technique limits examination quality. The lungs are grossly clear. The heart is normal in size. No displaced fractures.Multi lead pacer/def ibrillator device. Sternotomy wires present. IMPRESSION: No acute intrathoracic process suspected.
[2023-05-24] MEDS ORDERED: MORPHINE 4 MG/ML SYR ONE (12:26)
--- NOTE | 2023-05-24 12:28 | ER ---
Nurse's Notes [facility] Name: Juan Aranda Age: 73 yrs Sex: Male : 1950 Arrival Date: 05/24/2023 Time: 10:53 Bed 8 Private MD: Diagnosis: Chest pain, unspecified;Unspecified combined systolic (congestive) and diastolic (congestive) heart failure Presentation: 05/24 10:52 Chief complaint: EMS states: chest pain for 2 days, not getting any better. Coronavirus ko1 screen: At this time, the client does not indicate any symptoms associated with coronavirus-19. Ebola Screen: No symptoms or risks identified at this time. Initial Sepsis Screen: Does the patient meet any 2 criteria? No. Patient's initial sepsis screen is negative. Does the patient have a suspected source of infection? No. Patient's initial sepsis screen is negative. Risk Assessment: Do you want to hurt yourself or someone else? Patient reports no desire to harm self or others. Onset of symptoms was May 24, 2023. 10:52 Method Of Arrival: EMS: [facility] ko1 10:52 Acuity: DENNIS 3 ko1 Triage Assessment: 11:29 General: Appears in no apparent distress. comfortable, Behavior is calm, cooperative, ko1 appropriate for age. Pain: Complains of pain in anterior aspect of left upper chest. Cardiovascular: Reports chest pain. Historical: - Allergies: 11:29 PENICILLINS; ko1 - PMHx: 11:29 CHF; High Cholesterol; HYDROCELE; Hypertension; UTI; ko1 - Immunization history:: Adult Immunizations up to date. - Social history:: Smoking status: Patient denies any tobacco usage or history of. - Family history:: not pertinent. - Hospitalizations: : No recent hospitalization is reported. Screenin:00 [facility] ED Fall Risk Assessment (Adult) History of falling in the last 3 months, rs5 including since admission No falls in past 3 months (0 pts) Confusion or Disorientation No (0 pts) Intoxicated or Sedated No (0 pts) Impaired Gait No (0 pts) Mobility Assist Device Used No (0 pt) Altered Elimination No (0 pt) Score/Fall Risk Level 0 - 2 = Low Risk Oriented to surroundings, Maintained a safe environment. Abuse screen: Denies threats or abuse. Nutritional screening: No deficits noted. Tuberculosis screening: No symptoms or risk factors identified. Assessment: 11:00 General: Appears in no apparent distress. uncomfortable, Behavior is calm, cooperative. rs5 Pain: Complains of pain in chest Pain does not radiate. Pain currently is 7 out of 10 on a pain scale. Quality of pain is described as aching, Pain began 2-3 days ago. Is continuous. Neuro: Level of Consciousness is awake, alert, obeys commands, Oriented to person, place, time, situation. Cardiovascular: Heart tones S1 S2 present Patient's skin is warm and dry. Rhythm is regular. Respiratory: Reports shortness of breath at rest cough that is productive, Airway is patent Respiratory effort is even, unlabored, Respiratory pattern is regular, symmetrical, Breath sounds are clear bilaterally. GI: Abdomen is round non-distended, Bowel sounds present X 4 quads. Abd is soft and non tender X 4 quads. : No signs and/or symptoms were reported regarding the genitourinary system. EENT: No signs and/or symptoms were reported regarding the EENT system. 11:05 Reassessment: provider notified pt is experiencing pain. rs5 12:10 Reassessment: Provider notified pt is experiencing pain. Pain: Complains of pain in rs5 chest Pain does not radiate. Pain currently is 7 out of 10 on a pain scale. Quality of pain is described as aching, Is continuous. 12:20 Cardiovascular: Rhythm is regular. Respiratory: Respiratory effort is even, unlabored, rs5 Respiratory pattern is regular, symmetrical. 12:57 Reassessment: Patient and/or family updated on plan of care and expected duration. Pain rs5 level reassessed. Patient is alert, oriented x 3, equal unlabored respirations, skin warm/dry/pink. Patient denies pain at this time. Patient states feeling better. Patient states symptoms have improved. Vital Signs: 10:52 BP 152 / 63; Pulse 74; Resp 16; Temp 98; Pulse Ox 97% on 2 lpm NC; ko1 11:05 BP 150 / 79; Pulse 76; Resp 18; Pulse Ox 99% on R/A; rs5 11:47 BP 154 / 82; Pulse 73; Resp 17; Pulse Ox 99% on R/A; rs5 12:30 BP 157 / 83; Pulse 75; Resp 17; Pulse Ox 99% on R/A; rs5 13:31 BP 163 / 65; Pulse 77; Resp 18; Pulse Ox 98% ; ko1 ED Course: 10:55 Arm band placed on right wrist. Patient placed in an exam room, on a stretcher, on ko1 oxygen, on equipment monitor phototypesetting, on pulse oximetry. 10:56 Patient arrived in ED. rs5 10:57 Crescencio Black MD is Attending Physician. rn 11:00 Patient has correct armband on for positive identification. Placed in gown. Bed in low rs5 position. Call light in reach. Side rails up X2. Client placed on continuous cardiac and pulse oximetry monitoring. NIBP monitoring applied. equipment monitor phototypesetting on. 11:00 No provider procedures requiring assistance completed. rs5 11:00 Patient maintains SpO2 saturation greater than 95% on room air. rs5 11:20 Bravo Pandey RN is Primary Nurse. rs5 11:29 Triage completed. ko1 12:00 XRAY Chest (1 view) In Process Unspecified. EDMS 12:27 Marisa Mims MD is Hospitalizing Provider. rn 13:31 Provided Education on: na. ko1 13:31 Patient admitted, IV remains in place. ko1 Administered Medications: 11:11 Drug: Levalbuterol Inhalation 1.25 mg Inhalation once Route: Inhalation; rs5 11:30 Follow up: Response: No adverse reaction rs5 12:02 Drug: Furosemide IVP 40 mg IVP once; give over 2 minutes Route: IVP; Site: left ko1 antecubital; 12:20 Follow up: Response: No adverse reaction rs5 12:28 Drug: morphine IVP or IV 2 mg IVP once over 4 mins Route: IVP; Infused Over: 4 mins; rs5 Site: left antecubital; 12:57 Follow up: Response: No adverse reaction; Pain is decreased rs5 Medication: 12:33 VIS not applicable for this client. rs5 Outcome: 12:27 Decision to Hospitalize by Provider. rn 13:34 Admitted to Tele accompanied by tech, via wheelchair, room 225, with chart, Report ko1 called to [facility] 13:34 Condition: improved 13:34 Instructed on the need for admit, Demonstrated understanding of 13:52 Patient left the ED. ko1 Signatures: Dispatcher [employer] EDMS Crescencio Black MD MD rn Shay, Olga, RN RN ko1 Bravo Pandey RN RN rs5 Corrections: (The following items were deleted from the chart) 12:29 12:10 Pain: Complains of pain in chest Pain does not radiate. Pain currently is 7 out rs5 of 10 on a pain scale. Quality of pain is described as aching, Is continuous, rs5
--- NOTE | 2023-05-24 12:28 | EDPHYS ---
Physician Documentation [facility] Name: Juan Aranda Age: 73 yrs Sex: Male : 1950 Arrival Date: 05/24/2023 Time: 10:53 Bed 8 Private MD: ED Physician Crescencio Black HPI: 05/24 11:16 This 73 yrs old Male presents to ER via Unassigned with complaints of Chest Pain. rn 11:16 The patient or guardian reports chest pain that is located primarily in the anterior rn chest wall, left. Onset: yesterday. 11:16 The pain does not radiate. Associated signs and symptoms: Pertinent positives: cough, rn shortness of breath, Pertinent negatives: abdominal pain, palpitations. The chest pain is described as sharp, stabbing. Duration: The patient or guardian reports multiple episodes, that are intermittent. Modifying factors: The symptoms are alleviated by nothing. the symptoms are aggravated by cough, deep breath. Severity of pain: At its worst the pain was mild in the emergency department the pain is unchanged. The patient has experienced similar episodes in the past. Patient reports 2 days of left-sided chest pain associated with shortness of breath. Chest pain is sharp and stabbing, worse with cough and deep breath. Breathing gets worse in supine position. No fever. Clear sputum. Reports cough is somewhat new. No vomiting or diarrhea. No abdominal pain.. Historical: - Allergies: 11:29 PENICILLINS; ko1 - PMHx: 11:29 CHF; High Cholesterol; HYDROCELE; Hypertension; UTI; ko1 - Immunization history:: Adult Immunizations up to date. - Social history:: Smoking status: Patient denies any tobacco usage or history of. - Family history:: not pertinent. - Hospitalizations: : No recent hospitalization is reported. ROS: 11:16 Constitutional: Negative for fever, chills, and weight loss, Cardiovascular: Negative rn for palpitations, and edema Respiratory: Positive for cough and shortness of breath Abdomen/GI: Negative for abdominal pain, nausea, vomiting, diarrhea, and constipation, MS/Extremity: Negative for injury and deformity, Skin: Negative for injury, rash, and discoloration, Neuro: Negative for headache, weakness, numbness, tingling, and seizure, Exam: 11:16 Constitutional: This is a well developed, well nourished patient who is awake, alert, rn and in no acute distress. Head/Face: Normocephalic, atraumatic. Cardiovascular: Regular rate and rhythm. No pulse deficits. Respiratory: Mild tachypnea. Faint expiratory wheezing. No retractions Abdomen/GI: Soft, nontender MS/ Extremity: Pulses equal, no cyanosis. Neuro: Awake and alert, GCS 15 Vital Signs: 10:52 BP 152 / 63; Pulse 74; Resp 16; Temp 98; Pulse Ox 97% on 2 lpm NC; ko1 11:05 BP 150 / 79; Pulse 76; Resp 18; Pulse Ox 99% on R/A; rs5 11:47 BP 154 / 82; Pulse 73; Resp 17; Pulse Ox 99% on R/A; rs5 12:30 BP 157 / 83; Pulse 75; Resp 17; Pulse Ox 99% on R/A; rs5 13:31 BP 163 / 65; Pulse 77; Resp 18; Pulse Ox 98% ; ko1 MDM: 10:57 Patient medically screened. rn 12:25 Differential diagnosis: acute myocardial infarction, acute pericarditis, chest wall rn pain, costochondritis, gastroesophageal reflux disease (GERD), pleurisy, pneumonia, pneumothorax, stable angina, unstable angina. HEART Score: History: Slightly Suspicious (0), ECG: Non specific repolarization disturbance / LBTB / PM (1), Age: > or = 65 years (2), Risk Factors: 1 or 2 risk factors (1), Troponin: < or = 1 x Normal Limit (0), Total Score = 4. Data reviewed: vital signs, nurses notes, lab test result(s), radiologic studies, plain films, and as a result, I will admit patient. Consideration of Admission/Observation Patient was admitted/placed on observation. Escalation of care including admission/observation considered. Care significantly affected by the following chronic conditions: Hypertension, Congestive Heart Failure. Counseling: I had a detailed discussion with the patient and/or guardian regarding the historical points, exam findings, and any diagnostic results supporting the discharge/admit diagnosis, lab results, radiology results, the need for further work-up and treatment in the hospital. 05/24 10:57 Order name: Basic Metabolic Panel; Complete Time: 11:56 rs 05/24 10:57 Order name: CBC with Diff; Complete Time: 11:22 rs5 05/24 10:57 Order name: Troponin HS; Complete Time: 11:56 rs5 05/24 11:04 Order name: BNP; Complete Time: 11:56 rn 05/24 11:04 Order name: Protime (+inr); Complete Time: 11:56 rn 05/24 11:04 Order name: Ptt, Activated; Complete Time: 11:56 rn 05/24 11:04 Order name: SARS RAPID; Complete Time: 12:28 rn 05/24 11:04 Order name: Flu; Complete Time: 11:56 rn 05/24 13:21 Order name: Basic Metabolic Panel EDMS 05/24 13:21 Order name: Basic Metabolic Panel EDMS 05/24 13:21 Order name: Basic Metabolic Panel EDMS 05/24 13:21 Order name: Basic Metabolic Panel EDMS 05/24 13:21 Order name: CBC with Automated Diff EDMS 05/24 13:21 Order name: CBC with Automated Diff EDMS 05/24 13:21 Order name: CBC with Automated Diff EDMS 05/24 13:21 Order name: CBC with Automated Diff EDMS 05/24 13:21 Order name: Lipid Profile EDMS 05/24 13:21 Order name: Lipid Profile EDMS 05/24 13:21 Order name: Troponin High Sensitivity EDMS 05/24 13:21 Order name: Troponin High Sensitivity EDMS 05/24 13:21 Order name: Troponin High Sensitivity EDMS 05/24 13:21 Order name: Troponin High Sensitivity EDMS 05/24 13:27 Order name: Urinalysis w/ reflexes EDMS 05/24 13:27 Order name: Magnesium EDMS 05/24 13:27 Order name: Magnesium EDMS 05/24 13:27 Order name: Magnesium EDMS 05/24 13:27 Order name: Magnesium EDMS 05/24 13:27 Order name: Phosphorus EDMS 05/24 13:27 Order name: Phosphorus EDMS 05/24 13:27 Order name: Phosphorus EDMS 05/24 13:27 Order name: Phosphorus EDMS 05/24 13:27 Order name: Protime (+INR) EDMS 05/24 13:27 Order name: Protime (+INR) EDMS 05/24 13:27 Order name: Protime (+INR) EDMS 05/24 13:27 Order name: Protime (+INR) EDMS 05/24 10:57 Order name: XRAY Chest (1 view); Complete Time: 12:20 rs5 05/24 13:21 Order name: Echo with Doppler EDKY 05/24 10:57 Order name: EKG; Complete Time: 10:57 rs5 05/24 13:21 Order name: CONS Physician Consult EDKY 05/24 10:57 Order name: Cardiac monitoring; Complete Time: 10:57 rs5 05/24 10:57 Order name: EKG - Nurse/Tech; Complete Time: 10:57 rs5 05/24 10:57 Order name: IV Saline Lock; Complete Time: 10:57 rs5 05/24 10:57 Order name: Labs collected and sent; Complete Time: 10:57 rs5 05/24 10:57 Order name: O2 Per Protocol; Complete Time: 10:57 rs5 05/24 10:57 Order name: O2 Sat Monitoring; Complete Time: 10:57 rs5 Administered Medications: 11:11 Drug: Levalbuterol Inhalation 1.25 mg Inhalation once Route: Inhalation; rs5 11:30 Follow up: Response: No adverse reaction rs5 12:02 Drug: Furosemide IVP 40 mg IVP once; give over 2 minutes Route: IVP; Site: left ko1 antecubital; 12:20 Follow up: Response: No adverse reaction rs5 12:28 Drug: morphine IVP or IV 2 mg IVP once over 4 mins Route: IVP; Infused Over: 4 mins; rs5 Site: left antecubital; 12:57 Follow up: Response: No adverse reaction; Pain is decreased rs5 Disposition Summary: 05/24/23 12:27 Hospitalization Ordered Notes: Hospitalization Status: Observation rn Provider: Marisa Mims rn Location: Telemetry/MedSurg (observation) rn Condition: Stable rn Problem: new rn Symptoms: are unchanged rn Bed/Room Type: Standard rn Room Assignment: 225(05/24/23 13:15) eb Diagnosis - Chest pain, unspecified rn - Unspecified combined systolic (congestive) and diastolic (congestive) heart failure rn Forms: - Medication Reconciliation Form rn - SBAR form rn - Leadership Thank You Letter rn Signatures: Dispatcher [employer] [facility] Crescencio Black MD MD rn Botello, Elizabeth eb Oliver, Kathy, RN RN ko1 Bravo Pandey, RN RN rs5 Corrections: (The following items were deleted from the chart) 13:15 12:27 rn eb
[2023-05-24] MEDS ORDERED: NITROGLYCERIN 0.4 MG/TAB SL PRN (13:11)
--- NOTE | 2023-05-24 13:35 | P.HP ---
Certification for Inpatient Patient admitted to: Inpatient With expected LOS: <2 Midnights Patient will require the following post-hospital care: None Practitioner: I am a practitioner with admitting privileges, knowledge of patient current condition, hospital course, and medical plan of care. Services: Services provided to patient in accordance with Admission requirements found in Title 42 Section 412.3 of the Code of Federal Regulations <Misti Rosejayy - Last Filed: 05/24/23 13:45> Patient History Date of Service: 05/24/23 Reason for admission: Chest Pain, CHF, SOB History of Present Illness: 73-year-old male patient with a history of hypertension,chf, hyperlipidemia, presented to the ER with complaints of chest pain. Patient reports the left- sided chest pain started yesterday. Associated symptoms include cough, shortness of breath. The chest pain described as sharp, stabbing. Patient report the chest pain is intermittent not not aggravated or relieved by anything. Patient denies abdominal pain, palpitation, nausea or vomiting. Patient report pain severity of 8 out of 10. Patient denies fever or chills. ED course Vital signs blood pressure 152/63, pulse 74, respirations 16, temperature 98.0, pulse ox 97% on oxygen room air. Laboratory evaluation-CBC unremarkable, BMP showing elevated BUN 29, creatinine 1.33, low GFR 56. BNP 1628, troponin 38.1. Chest x-ray is negative. Patient was given Lasix ,morphine, levalbuterol inhalation x 1 admitting the patient with a diagnosis of chest pain and combined systolic and diastolic congestive heart failure. Home medications list reviewed: Yes - Past Medical/Surgical History Diabetic: No -: Mechanical Aortic valve replacement on chronic anti coagulation therapy -: Systolic CHF -: Hypertension -: Hyperlipidemia -: COPD -: Surgical hypothyroidism -: Aortic valve replacement -: Cystoscopy -: Colonoscopy in 1950 -: Thyroidectomy Psychosocial/ Personal History: Patient lives at home. - Family History Father -: Cancer Mother -: Heart disease, Hypertension, Cancer - Social History Alcohol use: No CD- Drugs: No Caffeine use: Yes <Everardo Rose - Last Filed: 05/24/23 13:45> Date of Service: 05/24/23 <Marisa Mims - Last Filed: 05/24/23 14:50> Allergies Penicillins Allergy (Severe, Verified 05/27/21 23:44) Anaphylaxis Home Medications: Docusate Sodium 100 mg PO DAILY 07/19/21 Levothyroxine Sodium 150 mcg PO 0630 07/19/21 Naloxegol Oxalate [Movantik] 12.5 mg PO DAILY 07/19/21 Sennosides [Senna] 8.6 mg PO DAILY 07/19/21 Spironolactone [Aldactone*] 25 mg PO BID tab 07/25/21 Buspirone HCl [Buspar*] 5 mg PO TID 07/18/22 Fluticasone Propion/Salmeterol [Fluticasone-Salmeterol 250-50] 1 inh PO BID 07/18/22 Furosemide [Lasix*] 40 mg PO DAILY 07/18/22 Melatonin 2 tab PO BEDTIME 07/18/22 clonazePAM [Clonazepam] 0.5 mg PO TID 07/18/22 Albuterol Neb [Proventil 0.083% Neb Soln] 2.5 mg NEB [id number] PRN #0 amp 07/25/22 Benzonatate [Tessalon Perle*] 100 mg PO TID PRN #30 cap 07/25/22 Cefdinir [Cefdinir*] 300 mg PO BID #14 cap 07/25/22 Cyanocobalamin/Cobamamide [Vitamin B-12 5,000 Mcg Tab Sl] 1 each SL DAILY #30 tab 07/25/22 Ferrous Gluconate 324 mg PO TID #60 tab 07/25/22 Ipratropium Neb [Atrovent*] 0.5 mg NEB [id number] PRN amp 07/25/22 Levothyroxine [Synthroid*] 0.15 mg PO 0630 tab 07/25/22 Pantoprazole [Protonix Tab] 40 mg PO BID #60 tab 07/25/22 Warfarin Sodium [Coumadin*] 2.5 mg PO DAILY 5 PM tab 07/25/22 Physical Examination - Physical Exam General: Alert, Oriented x3 HEENT: Atraumatic, Normocephalic Neck: Supple, 2+ carotid pulse no bruit Respiratory: Clear to auscultation bilaterally, Normal air movement Cardiovascular: No edema, Normal pulses Capillary refill: <2 Seconds Gastrointestinal: Normal bowel sounds, Soft and benign Musculoskeletal: No clubbing, No swelling, No contractures Integumentary: No rashes, No breakdown Neurological: Normal gait, Normal speech - Studies Laboratory Data (last 24 hrs) 05/24/23 05/24/23 05/24/23 11:20 10:59 10:59 WBC 7.60 Hgb 12.8 L Hct 38.7 L Plt Count 185 PT 34.8 H INR 3.27 APTT 55.7 H Sodium 139 Potassium 4.4 BUN 29 H Creatinine 1.33 H Glucose 107 H Microbiology Data (last 24 hrs): 05/24/23 11:20 Nasopharnyx Influenza Type A Antigen Screen - Final 05/24/23 11:20 Nasopharnyx Influenza Type B Antigen Screen - Final <Everardo Rose - Last Filed: 05/24/23 13:45> - Studies Laboratory Data (last 24 hrs) 05/24/23 05/24/23 05/24/23 11:20 10:59 10:59 WBC 7.60 Hgb 12.8 L Hct 38.7 L Plt Count 185 PT 34.8 H INR 3.27 APTT 55.7 H Sodium 139 Potassium 4.4 BUN 29 H Creatinine 1.33 H Glucose 107 H Microbiology Data (last 24 hrs): 05/24/23 11:20 Nasopharnyx Influenza Type A Antigen Screen - Final 05/24/23 11:20 Nasopharnyx Influenza Type B Antigen Screen - Final <Marisa Mims - Last Filed: 05/24/23 14:50> Assessment and Plan - Problems (Diagnosis) (1) Chest pain Current Visit: Yes Status: Acute Qualifiers: Chest pain type: other chest pain Qualified Code(s): R07.89 - Other chest pain; R07.8 - Other chest pain (2) HLD (hyperlipidemia) Current Visit: Yes Status: Acute Qualifiers: Hyperlipidemia type: mixed hyperlipidemia Qualified Code(s): E78.2 - Mixed hyperlipidemia (3) HTN (hypertension) Current Visit: Yes Status: Chronic Qualifiers: Hypertension type: primary hypertension Qualified Code(s): I10 - Essential (primary) hypertension (4) Congestive heart failure (CHF) Current Visit: No Status: Chronic - Plan Chest pain Hyperlipidemia Hypertension Congestive Heart Failure * Based on history and physical examination, cannot exclude ischemia as a possible etiology of chest pain. - Evaluation thus far: - EKG: No obvious ST segment changes, trend - Serial troponin - Ordered transthoracic echocardiogram - Ordered chest x-ray -Negative - Ordered d-dimer - Management plan: - Consult Cardiology - Dr. Roberto recommendations appreciated - S/P aspirin 324 mg PO x 1 - Start daily baby aspirin - Symptom control with PRN acetaminophen, nitroglycerin, morphine - Lipid panel in am -Pressure controlled on the current medication , patient will reconcile home medication and resume as appropriate monitor vital signs closely -Monitor electrolytes and replete -CODE STATUS-full code -Diet-cardiac -DVT prophylaxis-SCDs Discharge Plan: Home Plan to discharge in: 48 Hours - Advance Directives Does patient have a Living Will: No Does patient have a Durable POA for Healthcare: No - Code Status/Comfort Care Code Status Assessed: Yes (full code) Code Status: Full Code Physician Review: Patient Assessed, Agree with Above Assessment and Plan Critical Care: No Time Spent Managing Pts Care (In Minutes): 55 (miutes) <Everardo Rose - Last Filed: 05/24/23 13:45> - Plan Pt seen and examined. I agree with note by the PRODUCT SAFETY SPECIALIST. Pt is a 73yo male with past medical history of hypertension, hyperlipidemia, and CHF who presents with chest pain. The chest pain started yesterday while in bed. It progressively worsened to be associated with SOB and cough. It is left sided, non-radiating, sharp, intermittent and stabbing in nature with severity of 8/10. Nothing makes it worse, but morphine makes it feel better. On admission, lab studies show WBC 7.6, Hgb 12.8, k 4.4, Cr 1.33, BNP 1628 and troponin 38.1. At bedside, pt is in NAD. A/P: Chest pain: Will r/o ACS. Troponin is 38.1. EKG is negative for ST changes. Will trend troponin Q6h. Continue ED therapy. Consulted cardiology Htn: Continue home med HLD: Statin DVT ppx: SCD Code: full <Marisa Mims - Last Filed: 05/24/23 14:50>
[2023-05-24 14:56] VITALS: BMI 33.8
[2023-05-24] MEDS: ASPIRIN 325 MG TAB PO ONE (15:21)
[2023-05-24] MEDS ORDERED: HEPARIN 5000 UNIT/ML 1 ML VIAL SQ SCH (17:00)
[2023-05-24] MEDS: FUROSEMIDE 20 MG/ 2ML VIAL IV SCH (17:00)
[2023-05-24 17:16] LABS: Specific Gravity 1.006 (1.005-1.030); Urine Bacteria <20 /HPF (<20); Urine Bilirubin NEGATIVE (Negative); Urine Blood Negative (Negative); Urine Clarity Turbid (Clear); Urine Color Colorless (Yellow); Urine Glucose NEGATIVE (Negative); Urine Mucus Slight /HPF (None Seen); Urine Protein NEGATIVE (Negative); Urine RBC <5 /HPF (None Seen); Urine Urobilinogen Normal (Normal); Urine pH 5.5 (5.0-7.0)
[2023-05-24] MEDS: MORPHINE 4 MG/ML SYR IV PRN (17:33)
[2023-05-24] MEDS: WARFARIN SODIUM 2 MG TAB PO SCH (17:35)
[2023-05-24] MEDS: FUROSEMIDE 20 MG TABLET PO SCH (17:36)
[2023-05-24] MEDS: WARFARIN SODIUM 2.5 MG TAB PO SCH (17:36)
[2023-05-24 19:39] LABS: Troponin High Sensitivity 52.3 pg/mL (<58.9)
[2023-05-24] MEDS: FERROUS SULFATE 325 MG TAB PO SCH (20:58)
[2023-05-24] MEDS: BUSPIRONE HCL 5 MG TABLET PO SCH (20:58)
[2023-05-24] MEDS: SPIRONOLACTONE 25 MG TABLET PO SCH (20:59)
[2023-05-25] MEDS: IPRATROPIUM BROM 0.5MG/2.5ML NEB PRN (04:56)
[2023-05-25] MEDS: LEVOTHYROXINE SOD 0.075 MG TAB PO SCH (05:00)
[2023-05-25] MEDS: clonazePAM 0.5 MG TAB PO SCH (07:14)
[2023-05-25 08:19] LABS: Absolute Lymphocytes (CBC) 1.6 K/uL (0.7-4.9); Hematocrit 41.5 % (39.6-49.0); Lymphocytes % 20.5 % (15.3-44.8); MCV 87.4 fL (80-100); MPV 8.9 fL (7.6-11.3); Platelets 188 thou/uL (152-406); RBC Red Blood Cell Count 4.75 M/uL (4.33-5.43)
[2023-05-25 08:31] LABS: Magnesium 2.4 mg/dL (1.6-2.4); Phosphorus 3.2 mg/dL (2.5-4.9); Potassium 4.3 mEq/L (3.5-5.1); Protime INR 3.32
--- NOTE | 2023-05-25 09:05 | P.PN ---
Subjective Date of Service: 05/25/23 Chief Complaint: Chest Pain, CHF, SOB Pt is resting comfortably in bed. Pt has exp wheezing on the left lung. He is asking Buspar. Pt is using 2L BNC. No other issues overnight. Review of Systems Unremarkable General: Unremarkable Eyes: Unremarkable ENT: Unremarkable Respiratory: Wheezing Cardiovascular: Unremarkable Gastrointestinal: Unremarkable Genitourinary: Unremarkable Musculoskeletal: Unremarkable Integumentary: Unremarkable Neurological: Unremarkable Lymphatics: Unremarkable Physical Examination - Vital Signs Temperature: 97.4 F Blood Pressure: 141/65 Pulse: 77 Respirations: 18 Pulse Ox (%): 98 - Physical Exam General: Alert, In no apparent distress, Oriented x3 HEENT: Atraumatic, Normocephalic, PERRLA Neck: Supple, 2+ carotid pulse no bruit Respiratory: Normal air movement, Expiratory wheezes Cardiovascular: No edema, Normal pulses, Regular rate/rhythm, Normal S1 S2 Capillary refill: <2 Seconds Gastrointestinal: Normal bowel sounds, Soft and benign, Non-distended Musculoskeletal: No clubbing, No swelling Integumentary: No rashes, No breakdown Neurological: Normal speech, Normal strength at 5/5 x4 extr, Normal tone, Sensation intact, Cranial nerves 3-12 intact Lymphatics: No axilla or inguinal lymphadenopathy - Studies Laboratory Data (last 24 hrs) 05/24/23 05/24/23 05/24/23 11:20 10:59 10:59 WBC 7.60 Hgb 12.8 L Hct 38.7 L Plt Count 185 PT 34.8 H INR 3.27 APTT 55.7 H Sodium 139 Potassium 4.4 BUN 29 H Creatinine 1.33 H Glucose 107 H Microbiology Data (last 24 hrs): 05/24/23 11:20 Nasopharnyx Influenza Type A Antigen Screen - Final 05/24/23 11:20 Nasopharnyx Influenza Type B Antigen Screen - Final Assessment And Plan - Plan Chest pain: Will r/o ACS. Troponin is 38.1 -> 52.3 -> 64.6 -> 47.9. EKG is negative for ST changes. Will trend troponin Q6h. Continue ED therapy. Consulted cardiology. Will check lipid panel. Hx of CHF: Will continue lasix 20mg po Q48h, strict I/O, low salt, and daily weight. Htn: Continue home med HLD: Statin. Will check lipid panel. DVT ppx: SCD Code: full Dispo: Pending hospital course. Physician Review: Patient Assessed, Agree with Above Assessment and Plan
[2023-05-25] MEDS: PANTOPRAZOLE 40MG TABLET PO SCH (09:14)
[2023-05-25] MEDS: CYANOCOBALAMIN 1,000 MCG TAB PO SCH (09:15)
[2023-05-25] MEDS: CEFTRIAXONE 1,000 MG in NA CHLORIDE 0.9% 50 ML IVPB SCH (09:17)
[2023-05-25] MEDS: ASPIRIN EC 81 MG TAB PO SCH (09:17)
[2023-05-25] MEDS: HYDROCODONE/APAP 5/325 MG TAB PO PRN (10:24)
[2023-05-25] MEDS: ALBUTEROL 2.5 MG/3 ML NEB SOL NEB PRN (15:20)
[2023-05-25] MEDS: GUAIFENESIN 600 MG SA TAB PO SCH (18:06)
[2023-05-25] MEDS: GUAIFENESIN 600 MG SA TAB PO PRN (20:22)
[2023-05-26 04:56] LABS: Protime INR 3.69
[2023-05-26 05:00] LABS: Absolute Lymphocytes (CBC) 1.6 K/uL (0.7-4.9); Hematocrit 36.5 % (39.6-49.0); Lymphocytes % 21.3 % (15.3-44.8); MCV 86.8 fL (80-100); MPV 8.8 fL (7.6-11.3); Platelets 185 thou/uL (152-406); RBC Red Blood Cell Count 4.21 M/uL (4.33-5.43)
[2023-05-26 05:05] LABS: Magnesium 2.4 mg/dL (1.6-2.4); Phosphorus 3.6 mg/dL (2.5-4.9); Potassium 4.4 mEq/L (3.5-5.1)
--- NOTE | 2023-05-26 09:32 | P.PN ---
Subjective Date of Service: 05/26/23 Chief Complaint: Chest Pain, CHF, SOB Pt is resting comfortably in bed. Pt has exp wheezing after getting breathing treatment. He is using 2L BNC. No other issues overnight. Review of Systems Unremarkable General: Unremarkable Eyes: Unremarkable ENT: Unremarkable Respiratory: Unremarkable Cardiovascular: Unremarkable Gastrointestinal: Unremarkable Genitourinary: Unremarkable Musculoskeletal: Unremarkable Integumentary: Unremarkable Neurological: Unremarkable Lymphatics: Unremarkable Physical Examination - Vital Signs Temperature: 98.4 F Blood Pressure: 124/58 Pulse: 78 Respirations: 16 Pulse Ox (%): 98 - Physical Exam General: Alert, In no apparent distress, Oriented x3 HEENT: Atraumatic, Normocephalic, PERRLA Neck: Supple, 2+ carotid pulse no bruit Respiratory: Normal air movement, Expiratory wheezes Cardiovascular: No edema, Normal pulses, Regular rate/rhythm, Normal S1 S2 Capillary refill: <2 Seconds Gastrointestinal: Normal bowel sounds, Soft and benign, Non-distended Musculoskeletal: No clubbing, No swelling Integumentary: No rashes, No breakdown Neurological: Normal speech, Normal strength at 5/5 x4 extr, Normal tone, Sensation intact, Cranial nerves 3-12 intact Lymphatics: No axilla or inguinal lymphadenopathy Assessment And Plan - Plan Chest pain: Will r/o ACS. Troponin is 38.1 -> 52.3 -> 64.6 -> 47.9. EKG is negative for ST changes. Will trend troponin Q6h. Continue ED therapy. Consulted cardiology. Will check lipid panel. Hx of CHF: Will continue lasix 20mg po Q48h, strict I/O, low salt, and daily weight. Acute resp failure with hypoxia: Likely du eto CHF exacerbation. Will continue lasix and prn duoneb. Htn: Continue home med HLD: Lipid panel shows total cholestrol of 225 and LDL of 146. Will give atorvastatin. DVT ppx: SCD Code: full Dispo: Pending hospital course. Physician Review: Patient Assessed, Agree with Above Assessment and Plan
[2023-05-26] MEDS: ATORVASTATIN 40 MG TAB PO SCH (20:47)
--- NOTE | 2023-05-27 06:58 | ECHO ---
HEIGHT: 5 ft 5 in WEIGHT: 203 lb 8 oz DATE OF STUDY: 05/24/[address]: Everardo Rose NP 2-DIMENSIONAL: YES M.MODE: YES DOPPLER: YES COLOR FLOW: YES TDS: YES PORTABLE: YES DEFINITY: BUBBLE STUDY: DIAGNOSIS: CHEST PAIN, CONGESTIVE HEART FAILURE CARDIAC HISTORY: CATHERIZATION: YES SURGERY: YES PROSTHETIC VALVE: YES PACEMAKER: NO MEASUREMENTS (cm) DIASTOLIC (NORMALS) SYSTOLIC (NORMALS) IVSd 1.4 (0.6-1.2) LA Diam 3.7 (1.9-4.0) LVEF 59% LVIDd 4.0 (3.5-5.7) LVIDs 2.7 (2.0-3.5) %FS 31% LVPWd 1.3 (0.6-1.2) Ao Diam 2.6 (2.0-3.7) 2 DIMENSIONAL ASSESSMENT: RIGHT ATRIUM: NORMAL LEFT ATRIUM: RIGHT VENTRICLE: NORMAL LEFT VENTRICLE: TRICUSPID VALVE: POOR VISUALIZATION, NO TRICUSPID REGURGITATION MITRAL VALVE: CALCIFIED, POOR VISUALIZATION PULMONIC VALVE: NOT VISUALIZED AORTIC VALVE: CALCIFIED, POOR VISUALIZATION, MILD AORTIC STENOSIS PERICARDIAL EFFUSION: NONE AORTIC ROOT: NORMAL LEFT VENTRICULAR WALL MOTION: POOR VISUALIZATION, LEFT VENTRICULAR FUNCTION REDUCED (EJECTION FRACTION 40-45%). HARD TO DISTINGUISH WALL MOTION ABNORMALITIES. DOPPLER/COLOR FLOW: GRADE II DIASTOLIC DYSFUNCTION COMMENTS: 1. MODERATE REDUCED LEFT VENTRICULAR SYSTOLIC FUNCTION (EJECTION FRACTION 40-45%), CAN NOT DISTINGUISH WALL MOTION ABNORMALITIES DUE TOO POOR IMAGES. 2. GRADE II DIASTOLIC DYSFUNCTION 3. NOT WELL VISUALIZED AORTIC VALVE BUT MILD AORTIC STENOSIS 4. MITRAL ANNULAR CALCIFICATION, NO MITRAL STENOSIS 5. NORMAL FILLING PRESSURE TECHNOLOGIST: CINDY HERNANDEZ
[2023-05-27 08:00] LABS: Absolute Lymphocytes (CBC) 1.7 K/uL (0.7-4.9); Hematocrit 40.4 % (39.6-49.0); MCV 87.8 fL (80-100); MPV 8.7 fL (7.6-11.3); Platelets 223 thou/uL (152-406)
[2023-05-27 08:07] LABS: Protime INR 3.26
[2023-05-27 08:11] LABS: Magnesium 2.5 mg/dL (1.6-2.4); Phosphorus 3.2 mg/dL (2.5-4.9); Potassium 5.2 mEq/L (3.5-5.1)
--- NOTE | 2023-05-27 12:38 | P.PN ---
Subjective Date of Service: 05/27/23 Chief Complaint: Chest Pain, CHF, SOB Pt is resting comfortably in bed. Pt is oxygenating well on room air. he has difficulty hearing. Cardiology will do cardiac cath tomorrow. Will kept pt NPO after midnight. He is using 2L BNC. No other issues overnight. Review of Systems Unremarkable General: Unremarkable Eyes: Unremarkable ENT: Unremarkable Respiratory: SOB with Excertion Cardiovascular: Unremarkable Gastrointestinal: Unremarkable Genitourinary: Unremarkable Musculoskeletal: Unremarkable Integumentary: Unremarkable Neurological: Unremarkable Lymphatics: Unremarkable Physical Examination - Vital Signs Temperature: 97.2 F Blood Pressure: 171/78 Pulse: 80 Respirations: 14 Pulse Ox (%): 96 - Physical Exam General: Alert, In no apparent distress, Oriented x3 HEENT: Atraumatic, Normocephalic, PERRLA Neck: Supple, 2+ carotid pulse no bruit Respiratory: Normal air movement, Expiratory wheezes (very faint) Cardiovascular: No edema, Normal pulses, Regular rate/rhythm, Normal S1 S2 Capillary refill: <2 Seconds Gastrointestinal: Normal bowel sounds, Soft and benign, Non-distended Musculoskeletal: No clubbing, No swelling Integumentary: No rashes, No breakdown, No significant lesion Neurological: Normal speech, Normal strength at 5/5 x4 extr, Normal tone, Sensation intact, Cranial nerves 3-12 intact Lymphatics: No axilla or inguinal lymphadenopathy Assessment And Plan - Plan Chest pain: Will r/o ACS. Troponin is 38.1 -> 52.3 -> 64.6 -> 47.9. EKG is negative for ST changes. Will trend troponin Q6h. Continue ED therapy. Consulted cardiology. Will do cardiac cath tomorrow. Lipid panel shows T. chol 225 and LDL 146.. Hx of CHF: Will continue lasix 20mg po Q48h, strict I/O, low salt, and daily weight. Acute resp failure with hypoxia: Likely du eto CHF exacerbation. Will continue lasix and prn duoneb. Htn: Continue home med HLD: Lipid panel shows total cholestrol of 225 and LDL of 146. Will give atorvastatin. DVT ppx: SCD Code: full Dispo: Pending hospital course. Physician Review: Patient Assessed, Agree with Above Assessment and Plan
[2023-05-27] MEDS: SODIUM ZIRCONIUM CYCLOSILICATE 10 GM/PKT PO ONE (13:16)
--- NOTE | 2023-05-27 15:10 | EKG ---
Test Date: 2023-05-24 Test Time: 10:56:07 Stonecutter Hand: HB MEASUREMENT RESULTS: Intervals: Rate: 84 FL: 114 QRSD: 102 QT: 390 QTc: 460 [place]: P: 22 FL: 114 QRS: -11 T: 208 INTERPRETIVE STATEMENTS: Electronic ventricular pacemaker Compared to ECG 07/17/2022 15:46:00 No significant changes Electronically Signed On 05-27-23 15:02:21 SWITCHMAN by William Roberto
--- NOTE | 2023-05-27 15:54 | CON ---
Date of Consultation: 05/27/2023 Reason For Consultation: Chest pain. History Of Present Illness: 73-year-old male, history of hypertension, dyslipidemia, who presented t o the emergency room with chest pain, left-sided, radiates to his neck and left upper extremity along with shortness of breath, cough, and wheezing. He has advanced COPD apparently and also is producin g some sputum with cough. Denies have any orthopnea or lower extremity edema. Past Medical History: 1.Mechanical aortic valve, on chronic anticoagulation. 2.Heart failure. 3.Hypertension. 4.Dyslipidemia. 5.COPD. Medications: Refer to reconciliation sheet for detailed list. Allergies: PENICILLIN. Family History: No premature coronary artery disease. Social History: Does not smoke or drink. Does not use any drugs. Review of Systems: All systems reviewed and they were negative except as mentioned in the HPI. Physical Examination: Vital Signs: Reviewed. Head and Neck: Pupils are equal, reactive to light. Intact eye movements. No JVD. No cervical lym phadenopathy. Neck is supple. Thyroid is not enlarged. Lungs: Clear to auscultation bilaterally. No rhonchi, wheezing, or crackles. No accessory muscle u se. Heart: Regular rate and rhythm. No extra sounds. Abdomen: Soft, nontender. Bowel sounds positive. No organomegaly. No masses or hernia. No rigidi ty or rebound. Extremities: No edema, clubbing, cyanosis. Intact pulses. Skin: No rash or nodule. Neurologic: Alert, awake, oriented x3. No acute focal deficits appreciated. Investigations: Troponin peaked at 64 and then coming down. BUN 50, creatinine 1.59. On echo, his ejection fraction is in the low 40s. Chest x-ray is negative. Assessment And Recommendations: 1.Chest pain with a borderline low ejection fraction. The patient needs ischemia evaluation. Plan for coronary angiogram tomorrow. Keep NPO past midnight. Coronary angiogram tomorrow morning. 2.Chronic obstructive pulmonary disease exacerbation with acute bronchitis, on antibiotics and bronc hodilators. Continue current management. 3.Aortic valve replacement. He has a mechanical aortic valve, on Coumadin. INR is therapeutic at 3 .26. Given the fact that he is on Coumadin, we will change the plan from coronary angiogram to a str ess test. If the stress test is positive then we will stop the Coumadin and bridge him for the coron panfilo angiogram. 4.Dyslipidemia. Continue statin. SR/MODL Voice ID: [id number] Report ID: [id number]
[2023-05-27] MEDS: WARFARIN SODIUM 2 MG TAB PO SCH (17:06)
[2023-05-27] MEDS: WARFARIN SODIUM 2.5 MG TAB PO SCH (17:06)
[2023-05-28] MEDS ORDERED: REGADENOSON 0.4 MG/5 ML SYR IV ONE (09:14)
--- NOTE | 2023-05-28 10:23 | RAD REPORT ---
EXAM DESCRIPTION: NM - Rest Stress Cardiac Imaging - 05/28/2023 9:54 am CLINICAL HISTORY: CP Chest pain. COMPARISON: No comparisons TECHNIQUE: The patient was administered approximately 10.3 mCi of Tc 99m Sestamibi prior to resting SPECT imaging of the heart. The patient was then administered approximately 29.9 mCi of Tc 99m Sestam ibi following exercise or pharmacologic stress. Multiplanar SPECT images were reviewed. FINDINGS: No stress induced ischemic defect is seen to suggest stress induced ischemia. Moderate-siz ed fixed defect at the apex. Fixed defect also involves the entirety of the inferior wall, although e valuation in this region is somewhat limited by artifact resulting from splanchnic uptake. The end diastolic volume is 191 ml, the end systolic volume is 143 ml, and the ejection fraction is 2 5 %. Suggestion of hypokinesia in the region of the apex and inferior wall. IMPRESSION: No evidence of stress-induced myocardial ischemia. Fixed defects involving the apex and inferior wall, raising concern for sequelae of prior ischemia or scarring. Evaluation in the inferior wall region is somewhat limited by artifact. Suggestion of hypo kinesia in those regions. Reduced left ventricular ejection fraction, 25%.
--- NOTE | 2023-05-28 13:42 | TREADPHA ---
DX: CHEST PAIN Date of Study: 05/28/2023 Ht: 5' 5 " Wt: 203 lb 8 oz Consulting Physician: MARCELA MEDICATIONS: NORCO, PROVENTIL, ASPIRIN, LIPITOR, BUSPAR, KLONOPIN, VITAMIN B12, FEOSOL, LASIX, MUCINEX, ATROVENT, SYNTHROID, PROTONIX, ALDACTONE, MORPHINE, NITROSTAT HISTORY: 73 YEAR OLD MALE WITH COMPLIANTS OF CHEST PAIN. HISTORY OF HYPERTENSION, HYPERLIPIDEMIA, THYROID, PACEMAKER, HEART VALVE REPLACEMENT PHYSICIAL EXAMINATION: RESTING B.P.: 160/72 RESTING H.R.: 65 RESTING EKG: VENTRICULAR PACED PROTOCOL: PHARMACOLOGIC EXERCISE TIME: 3:30 B.P. AT [place]AK STRESS: 101/69 IMPRESSION: LEXISCAN INJECTED FOLLOWED BY CARDIOLITE PER PROTOCOL - SEE NUCLEAR MEDICINE REPORT. NO SUPRAVENTRICULAR TACHYCARDIA, VENTRICULAR TACHYCARDIA. PATIENT HAS OCCASIONAL PREMATURE VENTRICULAR COMPLEXES AND PREMATURE ATRIAL COMPLEXES THROUGHOUT PROCEDURE. PATIENT HAS PACED RHYTHM. PATIENT REPORTED CHEST PAIN SIX OUT OF TEN ON PAIN SCALE PRIOR TO PROCEDURE. TEN OUT OF TEN ON A PAIN SCALE DURING THE PROCEDURE AND SIX OUT OF TEN ON A PAIN SCALE IN RECOVERY. NON-DIAGNOSTIC ELECTROCARDIOGRAM PART DUE TO PACED RHYTHM.
--- NOTE | 2023-05-28 16:56 | PN ---
Date of Progress Note: 05/28/2023 Subjective: Seen by bedside. Still having on and off chest pain. No nausea, vomiting, diarrhea. N o abdominal pain. A stress test showed no evidence of stress induced ischemia. Physical Examination: Vital Signs: Reviewed. Head and Neck: Pupils are equal, reactive to light. Intact eye movements. No JVD. No cervical lym phadenopathy. Neck is supple. Thyroid is not enlarged. Lungs: Clear to auscultation bilaterally. No rhonchi, rales, or crackles. No accessory muscle use. Heart: Regular rate and rhythm. No extra sounds. Abdomen: Soft, nontender. Bowel sounds positive. No organomegaly. No masses or hernia. No rigidi ty or rebound. Extremities: No edema, clubbing, or cyanosis. Intact pulses. Skin: No rashes. Neurologic: Alert, awake and oriented x3. No acute focal deficits appreciated. Lymph nodes: No cervical or axillary lymphadenopathy. Investigations: Labs were reviewed. Assessment And Recommendation: 1.Chest pain. Cardiac enzymes are negative. Stress test was negative. This is likely noncardiac. 2.Mechanical aortic valve, on Coumadin. Continue for an INR between 2 and 3. 3.Chronic obstructive pulmonary disease exacerbation, improving gradually. Cardiology will sign off and will follow him up as an outpatient. SR/MODL Voice ID: [id number] Report ID: [id number]
[2023-05-29 11:10] LABS: Protime INR 1.6
[2023-05-29] MEDS: HYDRALAZINE HCL 20 MG/ML VIAL IV ONE (13:31)
[2023-05-29] MEDS: METOPROLOL XL 25 MG TAB PO ONE (13:50)
[2023-05-29 14:29] LABS: Potassium 5.1 mEq/L (3.5-5.1)
[2023-05-29 16:59] VITALS: BP 142/78; TEMP 97.3
[2023-05-29 18:25] VITALS: O2SAT 90
== END 2023-05-29 17:33 | disposition home or self-care (01) | DRG 190 ==
LOC: ER 10:53 → 2ND 13:07
PROVIDERS: ADMIT Hospitalist; ATTEND Hospitalist
DX: J44.1 Chronic obstructive pulmonary disease with (acute) exacerbation (principal); J96.01 Acute respiratory failure with hypoxia; I50.22 Chronic systolic (congestive) heart failure; I11.0 Hypertensive heart disease with heart failure; J44.0 Chronic obstructive pulmonary disease with (acute) lower respiratory infection; E78.2 Mixed hyperlipidemia; J20.9 Acute bronchitis, unspecified; J44.9 Chronic obstructive pulmonary disease, unspecified; R07.89 Other chest pain; Z88.0 Allergy status to penicillin; Z95.2 Presence of prosthetic heart valve; Z79.01 Long term (current) use of anticoagulants; Z11.52 Encounter for screening for COVID-19; Z79.890 Hormone replacement therapy; Z79.899 Other long term (current) drug therapy
CPT/HCPCS: 36415; 71045; 78452; 80048; 80061; 81001; 82947; 83735; 83880; 84100; 84484; 85025; 85610; 85730; 87804; 87811; 93005; 93017; 93306; 94640; A9500; J0360; J0696; J1940; J2785; J7613; J7614; J7644